=== PATIENT | female | born 1955 | race Caucasian/White ===

== ENCOUNTER 2016-09-22 10:01 | Emergency (ER) | payer MEDICAID ==
[~2016-09-22] VITALS: Ht 165.1 cm; Wt 53.0 kg
[~2016-09-22 10:01] MED LIST: GABA300C3 PO; LORTA5 PO; METH750T2 PO; PROZ20CA11 PO; ULTR50TA PO; VIST50CA PO
[2016-09-22 10:02] VITALS: BP 112/58; PULSE 48; RESP 16; TEMP 97.8; O2SAT 98
[2016-09-22] MEDS ORDERED: SODIUM CHLOR 0.9% 1000 ML INJ 1,000 ML IV ONE (10:30)
[2016-09-22] MEDS ORDERED: TIZA4TAB PO (10:38)
[2016-09-22] MEDS ORDERED: TOPR25TA PO (10:38)
[2016-09-22] MEDS ORDERED: HYDR50TA94 PO (10:38)
[2016-09-22] MEDS ORDERED: APIX2.5T PO (10:38)
[2016-09-22] MEDS ORDERED: BUTR10DI T-DERMAL (10:40)
[2016-09-22] MEDS ORDERED: CLON0.5T PO (10:40)
[2016-09-22] MEDS ORDERED: HYDR-3288 PO (10:40)
[2016-09-22] MEDS ORDERED: GABA600T PO (10:40)
[2016-09-22] MEDS ORDERED: PROZ20CA11 PO (10:40)
--- NOTE | 2016-09-22 10:50 | PD ---
HPI Chief Complaint: General Weakness Time Seen by Provider: 10:21 Travel History International Travel<30 days: No Contact w/Intl Traveler<30days: No Traveled to known affect area: No History of Present Illness HPI Is a 61-year-old woman who presents to the emergency department complaining of weakness today. She was fasting for blood work this morning. She went and got the blood work, got some coffee and then went to go to the car but couldn't walk because she was too weak. She states that she had been feeling generally well. She does have a history of A. fib, is on Eliquis, and metoprolol. She took her medicines this morning. She is also on chronic opiates with both a Heron working patch, and pain pills she took. Blood pressure was low in the 40s. She's also had trouble with anemia and GI bleed in the past. She states she has intermittent dark stools which is unchanged. No chest pain. Review of systems is positive for chronic back pain, some chest pain as well. She is not unusual for her. History Past Medical History Narrative Medical Asthma A. fib, on Eliquis, metoprolol Lupus, rheumatoid arthritis Chronic back pain PNEUMOCCOCAL Vaccine (Year): 2 Menopausal: Yes : 2 Para: 2 Social History Alcohol Use: No Tobacco Use: Yes (1 pack per week) Allergies-Medications (Allergen,Severity, Reaction): Coded Allergies: Penicillin (Verified Allergy, Severe, Anaphylaxis, 09/22/16) Molds and Smuts (Unverified Allergy, Unknown, 09/22/16) Reported Meds & Prescriptions Reported Meds & Active Scripts Active Reported Gabapentin 600 Mg Tab 600 Mg PO TID Clonazepam 0.5 Mg Tab 0.5 Mg PO BID [place] (Hydrocodone-Acetaminophen) 7.5-325 mg Tab 1 Tab PO TID PRN Butrans Patch 168 HR (Buprenorphine Patch 168 HR) 10 Mcg/Hr Patch 1 Patch T- DERMAL Q7D Prozac (Fluoxetine HCl) 20 Mg Cap 20 Mg PO DAILY Hydroxyzine HCl 50 Mg Tab 50 Mg PO TID PRN Tizanidine (Tizanidine HCl) 4 Mg Tab 4 Mg PO BID Toprol XL (Metoprolol Succinate) 25 Mg Tab 25 Mg PO Q12HR Eliquis (Apixaban) 2.5 Mg Tab 2.5 Mg PO BID Review of Systems Except as stated in HPI: all other systems reviewed are Neg Physical Exam Narrative GENERAL: Well-appearing 61 year-old woman, no acute distress. Eyes: Conjunctiva are little bit pale. SKIN: Warm and dry. HEAD: Atraumatic. Normocephalic. CARDIOVASCULAR: Regular rate and rhythm. No murmur appreciated. RESPIRATORY: No accessory muscle use. Clear to auscultation. Breath sounds equal bilaterally. GASTROINTESTINAL: Abdomen soft, non-tender, nondistended. Hepatic and splenic margins not palpable. MUSCULOSKELETAL: No obvious deformities. No clubbing. No cyanosis. No edema. NEUROLOGICAL: Awake and alert. No obvious cranial nerve deficits. Motor grossly within normal limits. Normal speech. No facial asymmetry. No nystagmus. PSYCHIATRIC: Appropriate mood and affect; insight and judgment normal. Data Data Last Documented VS Vital Signs Date Time Temp Pulse Resp B/P Pulse Ox O2 Delivery O2 Flow Rate FiO2 09/22/16 10:02 97.8 48 16 112/58 98 Orders Complete Blood Count With Diff (09/22/16 10:21) Comprehensive Metabolic Panel (09/22/16 10:21) Troponin I (09/22/16 10:21) Iv Access Insert/Monitor (09/22/16 10:21) Electrocardiogram (09/22/16 ) Sodium Chlor 0.9% 1000 Ml Inj (Ns 1000 M (09/22/16 10:30) Consult Vascular Access Team (09/22/16 ) Vascular Poc Ultrasound (09/22/16 ) Labs Laboratory Tests Test 09/22/16 09/22/16 10:47 11:52 Sodium Level 135 MEQ/L Potassium Level 5.9 MEQ/L Chloride Level 98 MEQ/L Carbon Dioxide Level 29.6 MEQ/L Anion Gap 7 MEQ/L Blood Urea Nitrogen 11 MG/DL Creatinine 0.98 MG/DL Estimat Glomerular Filtration 58 ML/MIN Rate Random Glucose 92 MG/DL Calcium Level 8.8 MG/DL Total Bilirubin 0.4 MG/DL Aspartate Amino Transf 59 U/L (AST/SGOT) Alanine Aminotransferase 28 U/L (ALT/SGPT) Alkaline Phosphatase 125 U/L Troponin I LESS THAN 0.02 NG/ML Total Protein 7.6 GM/DL Albumin 3.4 GM/DL White Blood Count 4.1 TH/MM3 Red Blood Count 4.36 MIL/MM3 Hemoglobin 9.9 GM/DL Hematocrit 30.9 % Mean Corpuscular Volume 70.9 FL Mean Corpuscular Hemoglobin 22.6 PG Mean Corpuscular Hemoglobin 31.9 % Concent Red Cell Distribution Width 18.2 % Platelet Count 126 TH/MM3 Mean Platelet Volume 7.3 FL Neutrophils (%) (Auto) 43.0 % Lymphocytes (%) (Auto) 46.4 % Monocytes (%) (Auto) 7.8 % Eosinophils (%) (Auto) 1.4 % Basophils (%) (Auto) 1.4 % Neutrophils # (Auto) 1.8 TH/MM3 Lymphocytes # (Auto) 1.9 TH/MM3 Monocytes # (Auto) 0.3 TH/MM3 Eosinophils # (Auto) 0.1 TH/MM3 Basophils # (Auto) 0.1 TH/MM3 CBC Comment AUTO DIFF MDM Medical Decision Making Medical Screen Exam Complete: Yes Emergency Medical Condition: Yes Interpretation(s) My review of EKG: Sinus bradycardia rate of 47, occasional premature superventricular complexes, QTC is prolonged at 504, no definite evidence of acute ischemia. LABS: CBC remarkable for mild anemia, microcytic indices. CMP remarkable for mildly elevated potassium Troponin negative Differential Diagnosis Anemia, bradycardia, hypotension, orthostasis, adverse effect of medication, other Narrative Course Medical decision making INITIAL cause a 61 year-old woman presents emergency Department with generalized weakness. She is bradycardic with a heart rate in the 40s at that she took her metoprolol this morning. She's been fasting. She is on pain pills. She appears anemic. No recent change in her medications. We'll check labs, EKG, IV fluid bolus, reassess. FINAL: Patient feeling much improved. Asking for coffee. Recommend that she hold her metoprolol. Outpatient follow-up. Return for any worsening symptoms. Diagnosis Primary Impression: Near syncope Patient Instructions: General Instructions Additional Instructions: Drink plenty fluids and stay well-hydrated. Hold your metoprolol until you follow up with her primary doctor. Return to the emergency department for any worsening lightheadedness dizziness fainting or any other new or worsening symptoms. Med/Other Pt SpecificInfo: Prescription(s) given Disposition: DISCHARGE HOME Condition: Stable Jame Mathews MD Sep 22, 2016 10:50
[2016-09-22 11:47] LABS: ALKALINE PHOSPHATASE 125 U/L (45-117); ALT (GPT) 28 U/L (10-53); ANION GAP 7 MEQ/L (5-15); AST (GOT) 59 U/L (15-37); BICARBONATE 29.6 MEQ/L (21.0-32.0); BLOOD UREA NITROGEN 11 MG/DL (7-18); CHLORIDE 98 MEQ/L (98-107); GLOMERULAR FILTRATION RATE 58 ML/MIN (>89); SODIUM (NA) 135 MEQ/L (136-145); TOTAL BILIRUBIN ADULT 0.4 MG/DL (0.2-1.0)
[2016-09-22 11:48] LABS: POTASSIUM 5.9 MEQ/L (3.5-5.1)
[2016-09-22 12:00] VITALS: BP 136/65; PULSE 48; RESP 16; O2SAT 97
[2016-09-22 12:00] LABS: AUTOMATED NEUTROPHIL # 1.8 TH/MM3 (1.8-7.7); BASOPHIL # 0.1 TH/MM3 (0-0.2); BASOPHIL % 1.4 % (0.0-2.0); EOSINOPHIL # 0.1 TH/MM3 (0-0.4); EOSINOPHIL % 1.4 % (0.0-4.0); HEMATOCRIT 30.9 % (35.0-46.0); LYMPH % 46.4 % (9.0-44.0); LYMPHOCYTE # 1.9 TH/MM3 (1.0-4.8); MEAN CELL VOLUME 70.9 FL (80.0-100.0); MEAN CORPUSCULAR HEMOGLOBIN 22.6 PG (27.0-34.0); MEAN CORPUSCULAR HGB CONC 31.9 % (32.0-36.0); MONO % 7.8 % (0.0-8.0); PLATELET COUNT 126 TH/MM3 (150-450); RED BLOOD COUNT 4.36 MIL/MM3 (4.00-5.30); RED CELL DISTRIBUTION WIDTH 18.2 % (11.6-17.2); WHITE BLOOD COUNT 4.1 TH/MM3 (4.0-11.0)
[2016-09-22 12:02] LABS: HEMO FLAGS AUTO DIFF
[2016-09-22 12:41] LABS: PLATELET ESTIMATE SMEAR LOW (NORMAL); PLATELET MORPHOLOGY NORMAL (NORMAL); SCAN/DIFF AUTO DIFF CONFIRMED
[2016-09-22 13:00] VITALS: BP 135/66; PULSE 52; RESP 16; O2SAT 98
--- NOTE | 2016-09-24 07:13 | EKG ---
Date Performed: 09/22/2016 Time Performed: 10:20:04 PTAGE: 61 years EKG: SINUS BRADYCARDIA WITH OCCASIONAL SUPRAVENTRICULAR PREMATURE COMPLEXES PROLONGED QT INTERVA L ABNORMAL ECG PREVIOUS TRACING : 08/27/2013 17.57 Compared to prior tracing no significant change sinus geovanna cardia is new DOCTOR: Lawrence Tatum Interpretating Date/Time 09/24/2016 07:10:06
== END 2016-09-22 15:00 | disposition home or self-care (01) ==
LOC: NEPE 10:01 → NEDAMB 15:00
DX: R55 Syncope and collapse (principal); D64.9 Anemia, unspecified; R00.1 Bradycardia, unspecified; R94.31 Abnormal electrocardiogram [ECG] [EKG]; I48.91 Unspecified atrial fibrillation; Z79.01 Long term (current) use of anticoagulants; Z79.899 Other long term (current) drug therapy; Z72.0 Tobacco use; Z86.2 Personal history of diseases of the blood and blood-forming organs and certain disorders involving the immune mechanism; Z87.19 Personal history of other diseases of the digestive system; Z87.09 Personal history of other diseases of the respiratory system; Z87.39 Personal history of other diseases of the musculoskeletal system and connective tissue
CPT/HCPCS: 80053; 84484; 85025; 93005; 96360; 99285; J7030; 76937

== ENCOUNTER 2017-06-14 17:32 | Emergency (ER) | payer MEDICAID ==
[~2017-06-14] VITALS: Ht 165.1 cm; Wt 100.0 kg
[~2017-06-14 17:32] MED LIST changes: +APIX2.5T PO; +BUTR10DI T-DERMAL; +CLON0.5T PO; -GABA300C3 PO; +GABA600T PO; +HYDR-3288 PO; +HYDR50TA94 PO; -LORTA5 PO; -METH750T2 PO; +TIZA4TAB PO; +TOPR25TA PO; -ULTR50TA PO; -VIST50CA PO
[2017-06-14 17:41] VITALS: BP 119/63; PULSE 59; RESP 17; TEMP 97.9
[2017-06-14] MEDS ORDERED: TETANUS/DIPHTHERIA TOXOID ADULT 0.5 ML VIAL IM ONE (18:00)
[2017-06-14] MEDS ORDERED: LIDOCAINE HCL 1% 50 ML VIAL INFIL ONE (18:00)
[2017-06-14] MEDS ORDERED: MORPHINE SULFATE 4 MG/ML INJ IV PUSH ONE (18:00)
[2017-06-14] MEDS ORDERED: ONDANSETRON HCL 4 MG/2 ML VIAL IV PUSH ONE (18:00)
[2017-06-14 18:27] LABS: BASOPHIL # 0.1 TH/MM3 (0-0.2); BASOPHIL % 0.9 % (0.0-2.0); EOSINOPHIL # 0.1 TH/MM3 (0-0.4); HEMO FLAGS DIFF FINAL; LYMPH % 23.2 % (9.0-44.0); LYMPHOCYTE # 1.4 TH/MM3 (1.0-4.8); MEAN CELL VOLUME 72.1 FL (80.0-100.0); MEAN CORPUSCULAR HEMOGLOBIN 23.5 PG (27.0-34.0); MEAN CORPUSCULAR HGB CONC 32.6 % (32.0-36.0); MONO % 8.9 % (0.0-8.0); PLATELET COUNT 189 TH/MM3 (150-450); RED BLOOD COUNT 3.33 MIL/MM3 (4.00-5.30)
[2017-06-14 18:38] LABS: BICARBONATE 23.9 MEQ/L (21.0-32.0); MAGNESIUM 2.4 MG/DL (1.5-2.5); POTASSIUM 3.5 MEQ/L (3.5-5.1)
[2017-06-14 18:52] LABS: APTT (PATIENT) 25.6 SEC (24.3-30.1); INTERNATIONAL NORMALIZED RATIO 1.1 RATIO; PROTHROMBIN TIME - PATIENT 11.8 SEC (9.8-11.6)
--- NOTE | 2017-06-14 19:00 | RADRPT ---
EXAM DATE/TIME: 06/14/2017 18:04 [facility] COMPARISON: CHEST PA & LAT, August 27, 2013, 15:51. INDICATIONS : Chest pain after fall. MEDICAL HISTORY : Chronic obstructive pulmonary disease. Hiatal hernia. A-fib. SURGICAL HISTORY : ORIF left shoulder. ENCOUNTER: Initial ACUITY: 1 day PAIN SCORE: 4/10 LOCATION: Bilateral chest FINDINGS: There is mild haziness to the lung amato possibly mild degree of pulmonary edema without focal conso lidation. Heart and mediastinum are unremarkable for technique. Degenerative changes and hypertrophic changes are seen within the disc space and facets of the thoracic spine with thoracic scoliosis conv exity towards the right. There are postsurgical changes involving the left proximal humerus. No defin ite pneumothorax is seen for technique. CONCLUSION: Mild haziness of the lungs may represent mild case of pulmonary edema. Kai Krishnamurthy MD on June 14, 2017 at 18:56 Board Certified Radiologist. This report was verified electronically.
--- NOTE | 2017-06-14 19:02 | RADRPT ---
EXAM DATE/TIME: 06/14/2017 18:06 [facility] COMPARISON: ABDOMEN KUB ONLY, August 09, 2014, 10:17. INDICATIONS : Pelvic pain after fall today. Pain on left side. MEDICAL HISTORY : Chronic obstructive pulmonary disease. Hiatal hernia. A-fib. SURGICAL HISTORY : ORIF left shoulder. ENCOUNTER: Initial ACUITY: 1 day PAIN SCORE: 3/10 LOCATION: Pelvis. FINDINGS: No definite fractures, or dislocations are identified. No definite lytic or sclerotic lesion is seen . There is slight sclerosis of the right inferior pubic ramus may be due to old healed fracture. CONCLUSION: No definite fracture is seen for techniqueObi Krishnamurthy MD on June 14, 2017 at 18:59 Board Certified Radiologist. This report was verified electronically.
--- NOTE | 2017-06-14 19:03 | RADRPT ---
EXAM DATE/TIME: 06/14/2017 18:07 [facility] COMPARISON: No previous studies available for comparison. INDICATIONS : Left leg pain after fall. MEDICAL HISTORY : Chronic obstructive pulmonary disease. Hiatal hernia. A-fib. SURGICAL HISTORY : ORIF left shoulder. ENCOUNTER: Initial ACUITY: 1 day PAIN SCORE: 5/10 LOCATION: Left femur. FINDINGS: No definite fractures, or dislocations are identified. No definite lytic or sclerotic lesion is seen . Slight osteopenia is seen. There is a tiny joint effusion in the suprapatellar bursa. CONCLUSION: Slight osteopenia. Kai Krishnamurthy MD on June 14, 2017 at 19:00 Board Certified Radiologist. This report was verified electronically.
--- NOTE | 2017-06-14 19:39 | PD ---
HPI Chief Complaint: Head Injury Time Seen by Provider: 17:46 Travel History International Travel<30 days: No Contact w/Intl Traveler<30days: No Traveled to known affect area: No History of Present Illness HPI 61-year-old female that presents to the ED for evaluation of head injury. Per patient she reports that she has a chronic problem with balance. Patient has been falling multiple times in the past couple of weeks. She fell about 2 days ago and she suffered some bruises to her legs especially on the left hip. She does take liquids. Today she was opening a bottle of Sprite to take her medication when she lost her balance and fell and hit her head. She did not lose consciousness. She has a laceration to the forehead. Denies any arm pain. Since having some neck pain but also states having pain all over. Per patient she has chronic pain as well. She denies any numbness, tilling, weakness. No fevers chills or sweats. No shortness of breath. She does have a history of scoliosis. History of heart failure, history of ACS as well. Takes Eliquis this because of heart. She is unclear should have a lot of the nausea recently. She has a laceration to the forehead. She states that she is supposed to use a cane but she does not use this. She denies any LOC. She was brought here by ambulance for evaluation of this. PFSH Past Medical History Hx Anticoagulant Therapy: Yes (Eliquis) Anemia: Yes (CHRONIC ANEMIA) Arthritis: Yes (RHEUMATOID) Autoimmune Disease: Yes (LUPUS) Blood Disorders: Yes (CHRONIC ANEMIA) Anxiety: Yes Depression: Yes Cancer: No Cardiovascular Problems: Yes (A.fib) Diabetes: No Diminished Hearing: Yes (LT EAR) Endocrine: No Gastrointestinal Disorders: Yes (GI BLEED, GASTRIC ULCERS, N & V) Genitourinary: Yes (STATES HEMATURIA) Hepatitis: Yes (HEP C) Hiatal Hernia: Yes Hypertension: No Immune Disorder: Yes (RA, LUPUS) Implanted Vascular Access Dvce: No Medical other: Yes (ANEMIA) Musculoskeletal: Yes (SCOLIOSIS, ARTHRITIS, OSTEOPOROSIS) Neurologic: Yes (SEIZURE HX, NUMBNESS SCATTERED, MIGRAINES) Psychiatric: Yes (ANXIETY/ DEPRESSION) Reproductive: No Respiratory: Yes (COPD) Immunizations Current: Yes Migraines: Yes Thyroid Disease: No Ulcer: Yes (ONE IN STOMACH AND ONE IN COLON) Tetanus Vaccination: > 5 Years PNEUMOCCOCAL Vaccine (Year): 2 ?: Not Menopausal: Yes : 2 Para: 2 Tubal Ligation: Yes Past Surgical History AICD: No Body Medical Devices: HARDWARE LEFT SHOULDER, RIGHT WRIST, LEFT ELBOW Ear Surgery: No Eye Surgery: No Gynecologic Surgery: Yes (TUBAL SX) Joint Replacement: No Pacemaker: No Tonsillectomy: Yes Other Surgery: Yes (LEFT SHOULDER TIMES 2) Social History Alcohol Use: No Tobacco Use: Yes (5 to 6 cigs) Substance Use: No Allergies-Medications (Allergen,Severity, Reaction): Coded Allergies: penicillin G (Unverified Allergy, Severe, Anaphylaxis, 06/14/17) mold (Unverified Allergy, Unknown, 06/14/17) Reported Meds & Prescriptions Reported Meds & Active Scripts Active Reported Gabapentin 600 Mg Tab 600 Mg PO TID Clonazepam 0.5 Mg Tab 0.5 Mg PO BID [place] (Hydrocodone-Acetaminophen) 7.5-325 mg Tab 1 Tab PO TID PRN Butrans Patch 168 HR (Buprenorphine Patch 168 HR) 10 Mcg/Hr Patch 1 Patch T- DERMAL Q7D Prozac (Fluoxetine HCl) 20 Mg Cap 20 Mg PO DAILY Hydroxyzine HCl 50 Mg Tab 50 Mg PO TID PRN Tizanidine (Tizanidine HCl) 4 Mg Tab 4 Mg PO BID Toprol XL (Metoprolol Succinate) 25 Mg Tab 25 Mg PO Q12HR Eliquis (Apixaban) 2.5 Mg Tab 2.5 Mg PO BID Review of Systems Except as stated in HPI: all other systems reviewed are Neg Physical Exam Narrative GENERAL: SKIN: Warm and dry. Patient has a laceration on the forehead which is about 4 cm on the right forehead. Some bleeding noted. Patient does have an abrasion right next to the laceration. HEAD: Atraumatic. Normocephalic. EYES: Pupils equal and round 4 mm reactive to light and accommodation. No scleral icterus. No injection or drainage. ENT: No nasal bleeding or discharge. Mucous membranes pink and moist. Tongue is midline. No uvula deviation. NECK: Trachea midline. No JVD. CARDIOVASCULAR: Regular rate and rhythm. No murmurs, S3, S4. RESPIRATORY: No accessory muscle use. Clear to auscultation. Breath sounds equal bilaterally. GASTROINTESTINAL: Abdomen soft, non-tender, nondistended. Hepatic and splenic margins not palpable. MUSCULOSKELETAL: Extremities without clubbing, cyanosis, or edema. No obvious deformities. Full range of motion of the upper and lower extremities bilaterally. 2+ pulses bilaterally. Patient has significant bruising noted throughout the body but more noticeable on the left femur area. Hematoma noted. No obvious lumbar, thoracic, cervical spine tenderness to palpation but patient does have scoliosis noted. Kyphosis noted as well. NEUROLOGICAL: Awake and alert. No obvious cranial nerve deficits. Motor grossly within normal limits. Five out of 5 muscle strength in the arms and legs. Normal speech. PSYCHIATRIC: Appropriate mood and affect; insight and judgment normal. Data Data Last Documented VS Vital Signs Date Time Temp Pulse Resp B/P (MAP) Pulse Ox O2 Delivery O2 Flow Rate FiO2 06/14/17 17:41 97.9 59 17 119/63 (81) Orders Orders Complete Blood Count With Diff (06/14/17 17:50) Basic Metabolic Panel (Bmp) (06/14/17 17:50) B-Type Natriuretic Peptide (06/14/17 17:50) Prothrombin Time / Inr (Pt) (06/14/17 17:50) Act Partial Throm Time (Ptt) (06/14/17 17:50) Magnesium (Mg) (06/14/17 17:50) Thyroid Stimulating Hormone (06/14/17 17:50) Chest, Single Ap (06/14/17 17:50) Ct Brain W/O Iv Contrast(Rout) (06/14/17 17:50) Iv Access Insert/Monitor (06/14/17 17:50) Type And Screen (06/14/17 17:50) Ct Cerv Spine W/O Contrast (06/14/17 17:50) Pelvis, Ap Only (Routine) (06/14/17 17:50) Femur (Ap & Lat/2vws) (06/14/17 17:50) Ice/Cold Pack (06/14/17 17:50) Morphine Inj (Morphine Inj) (06/14/17 18:00) Ondansetron Inj (Zofran Inj) (06/14/17 18:00) Wound Care (06/14/17 17:50) Tetanus/Diphtheria Tox Adult (Tetanus/Di (06/14/17 18:00) Lidocaine 1% Inj (50 Ml) (Xylocaine 1% I (06/14/17 18:00) Ct Abd/Pel W/O Iv Contrast (06/14/17 ) Ct Thorax/ Chest Wo Iv Contras (06/14/17 ) Ed Discharge Order (06/14/17 21:05) Labs Laboratory Tests Test 06/14/17 18:00 White Blood Count 6.0 TH/MM3 Red Blood Count 3.33 MIL/MM3 Hemoglobin 7.8 GM/DL Hematocrit 24.0 % Mean Corpuscular Volume 72.1 FL Mean Corpuscular Hemoglobin 23.5 PG Mean Corpuscular Hemoglobin Concent 32.6 % Red Cell Distribution Width 18.0 % Platelet Count 189 TH/MM3 Mean Platelet Volume 7.8 FL Neutrophils (%) (Auto) 66.0 % Lymphocytes (%) (Auto) 23.2 % Monocytes (%) (Auto) 8.9 % Eosinophils (%) (Auto) 1.0 % Basophils (%) (Auto) 0.9 % Neutrophils # (Auto) 4.0 TH/MM3 Lymphocytes # (Auto) 1.4 TH/MM3 Monocytes # (Auto) 0.5 TH/MM3 Eosinophils # (Auto) 0.1 TH/MM3 Basophils # (Auto) 0.1 TH/MM3 CBC Comment DIFF FINAL Differential Comment Prothrombin Time 11.8 SEC Prothromb Time International Ratio 1.1 RATIO Activated Partial Thromboplast Time 25.6 SEC Blood Urea Nitrogen 30 MG/DL Creatinine 1.79 MG/DL Random Glucose 122 MG/DL Calcium Level 8.6 MG/DL Magnesium Level 2.4 MG/DL Sodium Level 135 MEQ/L Potassium Level 3.5 MEQ/L Chloride Level 103 MEQ/L Carbon Dioxide Level 23.9 MEQ/L Anion Gap 8 MEQ/L Estimat Glomerular Filtration Rate 29 ML/MIN B-Type Natriuretic Peptide 220 PG/ML Thyroid Stimulating Hormone 3rd Gen 3.620 uIU/ML MDM Medical Decision Making Medical Screen Exam Complete: Yes Emergency Medical Condition: Yes Medical Record Reviewed: Yes Interpretation(s) CBC & BMP Diagram 06/14/17 18:00 Calcium Level 8.6, Magnesium Level 2.4 Coags WNL BNP in the 200s Last Impressions Pelvis X-Ray 06/14/17 1750 Signed Impressions: Service Date/Time: Wednesday, June 14, 2017 18:06 - CONCLUSION: No definite fracture is seen for technique. Kai Krishnamurthy, MD Head CT 06/14/171749 Signed Impressions: Service Date/Time: Wednesday, June 14, 2017 19:34 - CONCLUSION: Unremarkable study except for scalp swelling. Kai Krishnamurthy MD Femur X-Ray 06/14/171749 Signed Impressions: Service Date/Time: Wednesday, June 14, 2017 18:07 - CONCLUSION: Slight osteopenia. Kai Krishnamurthy MD Chest X-Ray 06/14/171749 Signed Impressions: Service Date/Time: Wednesday, June 14, 2017 18:04 - CONCLUSION: Mild haziness of the lungs may represent mild case of pulmonary edema. Kai Krishnamurthy MD Cervical Spine CT 06/14/171749 Signed Impressions: Service Date/Time: Wednesday, June 14, 2017 19:34 - CONCLUSION: Chronic changes without any significant compromise to the thecal sac or the exiting nerve roots. Kai Krishnamurthy MD Chest CT 06/14/17 Signed Impressions: Service Date/Time: Wednesday, June 14, 2017 19:39 - CONCLUSION: Parenchyma changes upper lobe could be due to scar and/or contusions, repeat noncontrast chest CT is suggested in 2 months as a conservative follow up. Kai Krishnamurthy MD Abdomen/Pelvis CT 06/14/17 Signed Impressions: Service Date/Time: Wednesday, June 14, 2017 19:39 - CONCLUSION: Old fractures of right lower ribs and pubic rami, stool throughout the colon and otherwise unremarkable. Kai Krishnamurthy MD Differential Diagnosis Fall versus head injury versus bleed versus laceration versus versus abrasions versus contusions versus fractures Narrative Course 61-year-old female that presents to the ED for evaluation of fall. Patient was properly examined and was found to have signs and symptoms concerning for head injury. Patient does take blood thinners. Labs and imaging were ordered. Labs and imaging were essentially unremarkable other than for possible scarring versus contusion of the left upper lung. Patient was reassured. After explained procedure to the patient and she agreed to it laceration was repaired. Patient was told that she needs to follow with her doctor for further evaluation. Especially to get a head CT in 2 months to recheck the possible scar versus contusion. Patient agrees. See ED worsening symptoms. Follow with PCP. Procedures Procedure Narrative LACERATION LOCATION: right forehead LENGTH: 4 cm NUMBER OF STITCHES/INES: 9 sutures REPAIR: The area of the laceration was prepped with Betadine and sterilely draped. The laceration was infiltrated with 1% Xylocaine. The wound was copiously irrigated and explored without evidence of foreign body, tendon injury or neurovascular injury. The wound was closed using 4-0 Prolene. This was a 1 layer repair. A sterile dressing was applied. The patient was advised to keep the dressing clean and dry. Patient tolerated the procedure well. Diagnosis Primary Impression: Head injury Qualified Codes: S09.90XA - Unspecified injury of head, initial encounter Additional Impressions: Laceration of face Qualified Codes: S01.81XA - Laceration without foreign body of other part of head, initial encounter Multiple contusions Contusion of lung Qualified Codes: S27.321A - Contusion of lung, unilateral, initial encounter Patient Instructions: General Instructions, Narcotic given in the ED Additional Instructions: Wound care daily with soap and water. You can apply bandaid if needed. Neosporyn or OTC antibiotic ointment to area as needed twice a day for at least 2 weeks to help with scarring and prevent infection. Meoderma OTC for scarring if needed. Avoid sun exposure for 2 months as the sun could make scar darker and more noticeable. Get sutures removed in 5-7 days. See ED if worst. Take Motrin for pain. Follow with her PCP. See ED worsening symptoms. Always use your cane to get about. Med/Other Pt SpecificInfo: Prescription(s) given Disposition: 01 DISCHARGE HOME Condition: Stable Tiburcio Thacker Jun 14, 2017 19:39
--- NOTE | 2017-06-14 19:59 | RADRPT ---
EXAM DATE/TIME: 06/14/2017 19:34 [facility] COMPARISON: CT BRAIN W/O CONTRAST, August 27, 2013, 16:35. INDICATIONS : Trauma. Fall. Contusion to right forehead. RADIATION DOSE: 46.53 CTDIvol (mGy) MEDICAL HISTORY : Seizures. Chronic obstructive pulmonary disease. Hepatitis C.Hiatal hernia SURGICAL HISTORY : Tubal ligation. ENCOUNTER: Initial ACUITY: 1 day PAIN SCALE: 5/10 LOCATION: Right cranial TECHNIQUE: Multiple contiguous axial images were obtained of the head. Using automated exposure control and adj ustment of the mA and/or kV according to patient size, radiation dose was kept as low as reasonably a chievable to obtain optimal diagnostic quality images. DICOM format image data is available electro nically for review and comparison. FINDINGS: There is no evidence for intracranial hemorrhage, mass effect, mass lesions, edema, or extra-axial fl uid collections. The visualized bony structures appear intact. The ventricles are normal size for t he patient's age. There are no signs of acute infarction for technique. There is scalp swelling in t he frontal regions with tiny gas bubbles in the subcutaneous tissue with mild mucoperiosteal thickeni ng within multiple sinuses. CONCLUSION: Unremarkable study except for scalp swelling. Kai Krishnamurthy MD on June 14, 2017 at 19:56 Board Certified Radiologist. This report was verified electronically.
--- NOTE | 2017-06-14 20:05 | RADRPT ---
EXAM DATE/TIME: 06/14/2017 19:39 [facility] COMPARISON: No previous studies available for comparison. INDICATIONS : Trauma. Fall. RADIATION DOSE: 14.48 CTDIvol (mGy) ; Combined studies - Thorax/Abdomen/Pelvis MEDICAL HISTORY : Seizures. Chronic obstructive pulmonary disease. Hepatitis C. Hiatal hernia SURGICAL HISTORY : Tubal ligation. ENCOUNTER: Initial ACUITY: 1 day PAIN SCALE: 0/10 LOCATION: chest TECHNIQUE: Volumetric scanning of the chest was performed. Using automated exposure control and adjustment of t he mA and/or kV according to patient size, radiation dose was kept as low as reasonably achievable to obtain optimal diagnostic quality images. DICOM format image data is available electronically for r eview and comparison. Follow-up recommendations for detected pulmonary nodules are based at a minimum on nodule size and pa tient risk factors according to Fleischner Society Guidelines. FINDINGS: There are old fractures of right 11th and 12th ribs. No definite pneumothorax is seen for techni que. Thoracic scoliosis is seen convexity towards the right. Degenerative changes and hypertrophic ch anges are seen within the disc space and facets of the thoracic spine. There are parenchymal changes in bilateral upper lobes may be chronic scarring versus contusion and/or follow up is suggested. The mediastinum is grossly intact for technique. CONCLUSION: Parenchyma changes upper lobe could be due to scar and/or contusions, repeat noncontrast chest CT is suggested in 2 months as a conservative follow up. Kai Krishnamurthy MD on June 14, 2017 at 19:58 Board Certified Radiologist. This report was verified electronically.
--- NOTE | 2017-06-14 20:15 | RADRPT ---
EXAM DATE/TIME: 06/14/2017 19:39 [facility] COMPARISON: No previous studies available for comparison. INDICATIONS : Trauma. Fall. ORAL CONTRAST: No oral contrast ingested. RADIATION DOSE: 14.48 CTDIvol (mGy) ; Combined studies - Thorax/Abdomen/Pelvis MEDICAL HISTORY : Seizures. Chronic obstructive pulmonary disease. Hepatitis C.Hiatal hernia SURGICAL HISTORY : Tubal ligation. ENCOUNTER: Initial ACUITY: 1 day PAIN SCALE: 0/10 LOCATION: abdomen TECHNIQUE: Volumetric scanning of the abdomen and pelvis was performed. Using automated exposure control and ad justment of the mA and/or kV according to patient size, radiation dose was kept as low as reasonably achievable to obtain optimal diagnostic quality images. DICOM format image data is available electro nically for review and comparison. FINDINGS: CT Abdomen: The liver, spleen, pancreas, kidneys, adrenals are unremarkable. There is no evidence for any appreciable pathological adenopathy, free fluid, or bowel obstruction. There are old healed rib fractures in the right lower chest. CT pelvis: There is no evidence for mass, abscess formation, or any significant adenopathy within the pelvis. There are old fractures of right pubic rami. There is moderate amount of stool throughout th e colon. CONCLUSION: Old fractures of right lower ribs and pubic rami, stool throughout the colon and othe rwise unremarkable. Kai Krishnamurthy MD on June 14, 2017 at 20:09 Board Certified Radiologist. This report was verified electronically.
--- NOTE | 2017-06-14 20:21 | RADRPT ---
EXAM DATE/TIME: 06/14/2017 19:34 [facility] COMPARISON: CT BRAIN W/O CONTRAST, August 27, 2013, 16:35. INDICATIONS : Trauma. Fall. RADIATION DOSE: 40.12 CTDIvol (mGy) MEDICAL HISTORY : Seizures. Chronic obstructive pulmonary disease. Hepatitis C.Hiatal hernia SURGICAL HISTORY : Tubal ligation. ENCOUNTER: Initial ACUITY: 1 day PAIN SCALE: 5/10 LOCATION: neck TECHNIQUE: Volumetric scanning of the cervical spine was performed. Multiplanar reconstructions in the sagittal, coronal and oblique axial planes were performed. Using automated exposure control and adjustment o f the mA and/or kV according to patient size, radiation dose was kept as low as reasonably achievable to obtain optimal diagnostic quality images. DICOM format image data is available electronically f or review and comparison. FINDINGS: No evidence of subluxation. No definite fracture is seen for technique. There are benign appeari ng lucencies involving the occipital bones may be prominent venous lakes not changed since the prior CT head from 2013. C2-C3: Mild central disc protrusion is present without any significant compromise to the thecal sac or the e xiting nerve roots. C3-C4: Slight degenerative changes are seen within the disc space and facets. Mild central disc protrusion i s present without any significant compromise to the thecal sac or the exiting nerve roots. C4-C5: There is no evidence for any significant compromise to the thecal sac, or the exiting nerve roots. N o appreciable thecal sac stenosis is seen. The neural foramina and lateral recess appear patent bila terally. C5-C6: Slight degenerative changes are seen within the disc space and facets. Slight bulging disc and hypert rophic changes are seen with indentation on the thecal sac and no significant compromise to the theca l sac or the exiting nerve roots. C6-C7: Slight degenerative changes are seen within the disc space and facets. There is no evidence for any s ignificant compromise to the thecal sac, or the exiting nerve roots. No appreciable thecal sac steno sis is seen. The neural foramina and lateral recess appear patent bilaterally. There is subchondral cystic formation involving superior endplate of C7 and inferior endplate of C6 chronic in nature. C7-T1: There is no evidence for any significant compromise to the thecal sac, or the exiting nerve roots. N o appreciable thecal sac stenosis is seen. The neural foramina and lateral recess appear patent bila terally. CONCLUSION: Chronic changes without any significant compromise to the thecal sac or the exiting n erve roots. Kai Krishnamurthy MD on June 14, 2017 at 20:15 Board Certified Radiologist. This report was verified electronically.
[2017-06-14] MEDS ORDERED: MORPHINE SULFATE 4 MG/ML INJ IM ONE (21:30)
[2017-06-14] MEDS ORDERED: GETGO ROLLING W1 MI1 ×3 (21:39→21:41)
[2017-06-14] MEDS ORDERED: CANE/WOOD/LADIE1 MI1 ×3 (21:39→21:41)
[2017-06-14] MEDS: ACETAMINOPHEN/HYDROcodone 325 MG/5 MG TAB PO ONE ×2 (21:45→23:42)
[2017-06-14 22:10] VITALS: BP 117/68; PULSE 78; RESP 16; O2SAT 97
[2017-06-15] MEDS ORDERED: ACETAMINOPHEN/HYDROcodone 325 MG/5 MG TAB PO ONE (08:15)
[2017-06-15 08:53] VITALS: BP 115/72; PULSE 74; RESP 15; O2SAT 98
--- NOTE | 2017-06-15 21:28 | EKG ---
Date Performed: 06/14/2017 Time Performed: 20:26:20 PTAGE: 61 years EKG: SINUS BRADYCARDIA WITH FIRST DEGREE AV BLOCK NONSPECIFIC T-WAVE ABNORMALITY ABNORMAL ECG PREVIOUS TRACING : 09/22/2016 10.20 Compared to the previous tracing rate faster DOCTOR: Amara Costa Interpretating Date/Time 06/15/2017 21:26:44
== END 2017-06-15 09:18 | disposition home or self-care (01) ==
LOC: NEPE 17:32 → NEPD 06-15 09:18
DX: S09.90XA Unspecified injury of head, initial encounter (principal); S27.321A Contusion of lung, unilateral, initial encounter; S01.81XA Laceration without foreign body of other part of head, initial encounter; M54.2 Cervicalgia; G89.29 Other chronic pain; I44.0 Atrioventricular block, first degree; R94.31 Abnormal electrocardiogram [ECG] [EKG]; W18.30XA Fall on same level, unspecified, initial encounter; Z23 Encounter for immunization
CPT/HCPCS: 12013; 70450; 71010; 71250; 72125; 72170; 73552; 74176; 80048; 83735; 83880; 84443; 85025; 85610; 85730; 86850; 86900; 86901; 90471; 90714; 93005; 96374; 96375; 99285; J2270; J2405

== ENCOUNTER 2017-11-01 22:16 | Observation (INO) | payer MEDICAID ==
[~2017-11-01] VITALS: Ht 165.1 cm; Wt 51.4 kg
[~2017-11-01 22:16] MED LIST changes: +CANE/WOOD/LADIE1 MI1; +GETGO ROLLING W1 MI1
[2017-11-01] MEDS ORDERED: IOHEXOL 350 MG/ML 10 ML VIAL (for RAD DIAG) IVCONTRAST ONE (22:17)
[2017-11-01 22:28] VITALS: BP 193/93; PULSE 58; RESP 20; TEMP 98.3; O2SAT 96
[2017-11-01] MEDS ORDERED: SODIUM CHLORIDE 0.9% FLUSH 10 ML FLUSH IVF PRN (23:00)
[2017-11-01 23:21] VITALS: O2SAT 96
--- NOTE | 2017-11-01 23:50 | RADRPT ---
EXAM DATE/TIME: 11/01/2017 23:08 [facility] COMPARISON: CHEST SINGLE AP, June 14, 2017, 18:04. INDICATIONS : Chest pain. MEDICAL HISTORY : None. SURGICAL HISTORY : None. ENCOUNTER: Initial ACUITY: 1 day PAIN SCORE: 5/10 LOCATION: Bilateral chest FINDINGS: PA and views of the chest show a top normal heart. Patchy interstitial prominence in the lungs bilate rally. No intralobular opacities. No effusions. A scoliotic and degenerative spine. Compression defor mity at the thoracolumbar junction. Diffuse osteoporosis. Left humeral orthopedic hardware. CONCLUSION: Chronic interstitial changes. No acute infiltrates. Antoine Talamantes Jr., MD on November 01, 2017 at 23:47 Board Certified Radiologist. This report was verified electronically.
[2017-11-02] VITALS (10 sets, daily range): BP systolic 150–192; BP diastolic 71–97; PULSE 58–86; RESP 14–20; TEMP 96.4–99.2; O2SAT 97–100
[2017-11-02 00:43] LABS: AUTOMATED NEUTROPHIL # 4.9 TH/MM3 (1.8-7.7); BASOPHIL # 0.1 TH/MM3 (0-0.2); BASOPHIL % 2.3 % (0.0-2.0); EOSINOPHIL % 0.7 % (0.0-4.0); HEMATOCRIT 25.1 % (35.0-46.0); HEMOGLOBIN 8.3 GM/DL (11.6-15.3); LYMPH % 19.8 % (9.0-44.0); LYMPHOCYTE # 1.2 TH/MM3 (1.0-4.8); MEAN CELL VOLUME 68.9 FL (80.0-100.0); MEAN CORPUSCULAR HEMOGLOBIN 22.7 PG (27.0-34.0); MEAN CORPUSCULAR HGB CONC 32.9 % (32.0-36.0); MEAN PLATELET VOLUME 7.6 FL (7.0-11.0); MONO % 2.2 % (0.0-8.0); MONOCYTE # 0.1 TH/MM3 (0-0.9); PLATELET COUNT 207 TH/MM3 (150-450); RED BLOOD COUNT 3.64 MIL/MM3 (4.00-5.30); WHITE BLOOD COUNT 6.3 TH/MM3 (4.0-11.0)
--- NOTE | 2017-11-02 00:43 | PD ---
HPI Chief Complaint: Abdominal Pain Time Seen by Provider: 22:54 Travel History International Travel<30 days: No Contact w/Intl Traveler<30days: No Traveled to known affect area: No History of Present Illness HPI Patient 62-year-old female presents emergency department chiefly for complaint of shortness of breath. Patient states his shortness of breath is been going on for the past 2-3 days and gradually worsening. She also complains of some cramping abdominal pain which she states is been going on for the past few months. She states she has a history of hepatitis. No history of heart or lung disease, she states she had a stress test a few weeks ago, no history of cardiac catheterization. No history of long trips. No history of blood clots in her legs or her chest before. States symptoms are moderate, gradually worsening, context and associated signs and symptoms as above PFSH Past Medical History Hx Anticoagulant Therapy: Yes (Eliquis) Anemia: Yes (CHRONIC ANEMIA) Arthritis: Yes (RHEUMATOID) Autoimmune Disease: Yes (LUPUS) Blood Disorders: Yes (CHRONIC ANEMIA) Anxiety: Yes Depression: Yes Cancer: No Cardiovascular Problems: Yes (A-FIB) Diabetes: No Diminished Hearing: Yes (LT EAR) Endocrine: No Gastrointestinal Disorders: Yes (GI BLEED, GASTRIC ULCERS, N & V) Genitourinary: Yes (STATES HEMATURIA) Hepatitis: Yes (HEP C) Hiatal Hernia: Yes Hypertension: No Immune Disorder: Yes (RA, LUPUS) Implanted Vascular Access Dvce: No Medical other: Yes (ANEMIA) Musculoskeletal: Yes (SCOLIOSIS, ARTHRITIS, OSTEOPOROSIS) Neurologic: Yes (SEIZURE HX, NUMBNESS SCATTERED, MIGRAINES) Psychiatric: Yes (ANXIETY/ DEPRESSION) Reproductive: No Respiratory: Yes (COPD) Immunizations Current: Yes Migraines: Yes Thyroid Disease: No Ulcer: Yes (ONE IN STOMACH AND ONE IN COLON) Influenza Vaccination: No PNEUMOCCOCAL Vaccine (Year): 2 Menopausal: Yes : 2 Para: 2 Tubal Ligation: Yes Past Surgical History AICD: No Body Medical Devices: HARDWARE LEFT SHOULDER, RIGHT WRIST, LEFT ELBOW Ear Surgery: No Eye Surgery: No Gynecologic Surgery: Yes (TUBAL SX) Joint Replacement: No Pacemaker: No Tonsillectomy: Yes Other Surgery: Yes (LEFT SHOULDER TIMES 2) Social History Alcohol Use: No Tobacco Use: Yes (5 to 6 cigs) Substance Use: No Allergies-Medications (Allergen,Severity, Reaction): Coded Allergies: penicillin G (Unverified Allergy, Severe, Anaphylaxis, 06/14/17) mold (Unverified Allergy, Unknown, 06/14/17) Reported Meds & Prescriptions Reported Meds & Active Scripts Active Cane/Wood/Ladies Standard (Device) 1 Mis Mis Ea .ROUTE DIRECTED Walker Rolling/GetGo (Device) 1 Mis Mis Ea .ROUTE DIRECTED Reported Baclofen 10 Mg Tab 10 Mg PO TID Hydrocodone-Acetaminophen 10-325 mg Tab 1 Tab PO Q6H PRN Gabapentin 600 Mg Tab 600 Mg PO TID Clonazepam 0.5 Mg Tab 0.5 Mg PO BID Prozac (Fluoxetine HCl) 20 Mg Cap 20 Mg PO DAILY Hydroxyzine HCl 50 Mg Tab 50 Mg PO TID PRN Tizanidine (Tizanidine HCl) 4 Mg Tab 4 Mg PO BID Toprol XL (Metoprolol Succinate) 25 Mg Tab 25 Mg PO Q12HR Review of Systems Except as stated in HPI: all other systems reviewed are Neg Physical Exam Narrative GENERAL: Well-developed, frail-appearing in no obvious distress. Obviously kyphotic. SKIN: Focused skin assessment warm/dry. HEAD: Atraumatic. Normocephalic. EYES: Pupils equal and round. No scleral icterus. No injection or drainage. ENT: No nasal bleeding or discharge. Mucous membranes pink and moist. NECK: Trachea midline. No JVD. CARDIOVASCULAR: Regular rate and rhythm. No murmur appreciated. RESPIRATORY: No accessory muscle use. Left basilar rales. Breath sounds equal bilaterally. Good air entry, not tachycardic not tachypneic peer GASTROINTESTINAL: Abdomen soft, non-tender, nondistended. Hepatic and splenic margins not palpable. MUSCULOSKELETAL: No obvious deformities. No clubbing. No cyanosis. No edema. NEUROLOGICAL: Awake and alert. No obvious cranial nerve deficits. Motor grossly within normal limits. Normal speech. PSYCHIATRIC: Appropriate mood and affect; insight and judgment normal. Data Data Last Documented VS Vital Signs Date Time Temp Pulse Resp B/P (MAP) Pulse Ox O2 Delivery O2 Flow Rate FiO2 11/02/17 00:45 86 175/89 (117) 11/01/17 23:21 96 Room Air 11/01/17 22:46 20 11/01/17 22:28 98.3 Orders Orders Electrocardiogram (11/01/17 22:58) B-Type Natriuretic Peptide (11/01/17 22:58) Ckmb (Isoenzyme) Profile (11/01/17 22:58) Complete Blood Count With Diff (11/01/17 22:58) Comprehensive Metabolic Panel (11/01/17 22:58) Magnesium (Mg) (11/01/17 22:58) Prothrombin Time / Inr (Pt) (11/01/17 22:58) Act Partial Throm Time (Ptt) (11/01/17 22:58) Troponin I (11/01/17 22:58) Ecg Monitoring (11/01/17 22:58) Iv Access Insert/Monitor (11/01/17 22:58) Oximetry (11/01/17:58) Oxygen Administration (11/01/17:58) Sodium Chloride 0.9% Flush (Ns Flush) (11/01/17 23:00) Chest, Pa & Lat (11/01/17 22:58) Ct Pulmonary Angiogram (11/02/17 ) Urinalysis - C+S If Indicated (11/02/17 00:48) Cath For Specimen (11/02/17 00:48) CKMB (11/02/17 01:20) CKMB% (11/02/17 01:20) Iohexol 350 Inj (Omnipaque 350 Inj) (11/01/17 22:17) Furosemide Inj (Lasix Inj) (11/02/17 02:45) Place In Observation (11/02/17 ) Vital Signs (Adult) Q4H (11/02/17 02:52) Activity Oob With Assistance (11/02/17 02:52) Test Engineering Intern / Telemetry .CONTINUOUS (11/02/17 02:52) Sodium Chloride 0.9% Flush (Ns Flush) (11/02/17 03:00) Sodium Chloride 0.9% Flush (Ns Flush) (11/02/17 09:00) Basic Metabolic Panel (Bmp) (11/03/17 06:00) Complete Blood Count With Diff (11/03/17 06:00) Creatine Kinase (Cpk) (11/02/17 06:30) Creatine Kinase (Cpk) (11/02/17 12:30) Troponin I (11/02/17 06:30) Troponin I (11/02/17 12:30) Electrocardiogram (11/02/17 06:30) Electrocardiogram (11/02/17 12:30) Pt Request For Service (11/02/17 02:52) Case Management Consult (11/02/17 02:52) Naloxone Inj (Narcan Inj) (11/02/17 03:00) Admit Order (Ed Use Only) (11/02/17 ) Test Engineering Intern / Telemetry SCOOTER.Q8H (11/02/17 02:53) Activity Oob With Assistance (11/02/17 02:53) Notify Dr: Other (11/02/17 02:53) Labs Laboratory Tests Test 11/02/17 00:35 11/02/17 01:20 White Blood Count 6.3 TH/MM3 Red Blood Count 3.64 MIL/MM3 Hemoglobin 8.3 GM/DL Hematocrit 25.1 % Mean Corpuscular Volume 68.9 FL Mean Corpuscular Hemoglobin 22.7 PG Mean Corpuscular Hemoglobin Concent 32.9 % Red Cell Distribution Width 21.0 % Platelet Count 207 TH/MM3 Mean Platelet Volume 7.6 FL Neutrophils (%) (Auto) 75.0 % Lymphocytes (%) (Auto) 19.8 % Monocytes (%) (Auto) 2.2 % Eosinophils (%) (Auto) 0.7 % Basophils (%) (Auto) 2.3 % Neutrophils # (Auto) 4.9 TH/MM3 Lymphocytes # (Auto) 1.2 TH/MM3 Monocytes # (Auto) 0.1 TH/MM3 Eosinophils # (Auto) 0.0 TH/MM3 Basophils # (Auto) 0.1 TH/MM3 CBC Comment AUTO DIFF Differential Comment AUTO DIFF CONFIRMED Platelet Estimate NORMAL Platelet Morphology Comment NORMAL Prothrombin Time 10.9 SEC Prothromb Time International Ratio 1.1 RATIO Activated Partial Thromboplast Time 27.8 SEC B-Type Natriuretic Peptide 788 PG/ML Urine Collection Type CLEAN CATCH Urine Color YELLOW Urine Turbidity CLEAR Urine pH 5.0 Urine Specific [place] 1.015 Urine Protein NEG mg/dL Urine Glucose (UA) NEG mg/dL Urine Ketones NEG mg/dL Urine Occult Blood NEG Urine Nitrite NEG Urine Bilirubin NEG Urine Urobilinogen 0.2 MG/DL Urine Leukocyte Esterase NEG Urine Squamous Epithelial Cells 0-5 /hpf Microscopic Urinalysis Comment CULT NOT INDICATED Blood Urea Nitrogen 19 MG/DL Creatinine 0.65 MG/DL Random Glucose 89 MG/DL Total Protein 7.7 GM/DL Albumin 3.4 GM/DL Calcium Level 8.8 MG/DL Magnesium Level 2.3 MG/DL Alkaline Phosphatase 136 U/L Aspartate Amino Transf (AST/SGOT) 22 U/L Alanine Aminotransferase (ALT/SGPT) 12 U/L Total Bilirubin 0.2 MG/DL Sodium Level 138 MEQ/L Potassium Level 4.1 MEQ/L Chloride Level 106 MEQ/L Carbon Dioxide Level 24.4 MEQ/L Anion Gap 8 MEQ/L Estimat Glomerular Filtration Rate 93 ML/MIN Total Creatine Kinase 105 U/L Creatine Kinase MB 5.1 NG/ML Troponin I LESS THAN 0.02 NG/ML MDM Medical Decision Making Medical Screen Exam Complete: Yes Emergency Medical Condition: Yes Differential Diagnosis Pneumonia, PE, Acute abdomen unlikely. Narrative Course Patient room to the emergency department fairly frail elderly woman. Her primary symptom is SOB, cardiac workup and CT pulmonary embolism is been ordered. Discussed with Dr. Hurst at a 45 shift change. Benton Contreras MD Nov 02, 2017 00:43
[2017-11-02 00:58] LABS: INTERNATIONAL NORMALIZED RATIO 1.1 RATIO; PROTHROMBIN TIME - PATIENT 10.9 SEC (9.8-11.6)
[2017-11-02 01:36] LABS: BILIRUBIN, URINE NEG (NEG); BLOOD, URINE NEG (NEG); GLUCOSE,URINE NEG (NEG); KETONE, URINE NEG (NEG); NITRITE,URINE NEG (NEG); URINE COLOR YELLOW (YELLW/STRAW); URINE LEUKOCYTE ESTERASE NEG (NEG)
--- NOTE | 2017-11-02 01:40 | PD ---
Physical Exam Date Seen by Provider: Nov 02, 2017 Time Seen by Provider: 01:36 Narrative Accepted in transfer of care from Dr. Contreras Data Data Last Documented VS Vital Signs Date Time Temp Pulse Resp B/P (MAP) Pulse Ox O2 Delivery O2 Flow Rate FiO2 11/02/17 00:45 86 175/89 (117) 11/01/17 23:21 96 Room Air 11/01/17 22:46 20 11/01/17 22:28 98.3 Orders Orders Electrocardiogram (11/01/17 22:58) B-Type Natriuretic Peptide (11/01/17 22:58) Ckmb (Isoenzyme) Profile (11/01/17 22:58) Complete Blood Count With Diff (11/01/17 22:58) Comprehensive Metabolic Panel (11/01/17 22:58) Magnesium (Mg) (11/01/17 22:58) Prothrombin Time / Inr (Pt) (11/01/17 22:58) Act Partial Throm Time (Ptt) (11/01/17 22:58) Troponin I (11/01/17 22:58) Ecg Monitoring (11/01/17 22:58) Iv Access Insert/Monitor (11/01/17 22:58) Oximetry (11/01/17 22:58) Oxygen Administration (11/01/17 22:58) Sodium Chloride 0.9% Flush (Ns Flush) (11/01/17 23:00) Chest, Pa & Lat (11/01/17 22:58) Ct Pulmonary Angiogram (11/02/17 ) Urinalysis - C+S If Indicated (11/02/17 00:48) Cath For Specimen (11/02/17 00:48) CKMB (11/02/17 01:20) CKMB% (11/02/17 01:20) Iohexol 350 Inj (Omnipaque 350 Inj) (11/01/17 22:17) Furosemide Inj (Lasix Inj) (11/02/17 02:45) Place In Observation (11/02/17 ) Vital Signs (Adult) Q4H (11/02/17 02:52) Activity Oob With Assistance (11/02/17 02:52) Retail Presentation Specialist / Telemetry .CONTINUOUS (11/02/17 02:52) Diet Heart Healthy (3/14/18 Breakfast) Sodium Chloride 0.9% Flush (Ns Flush) (11/02/17 03:00) Sodium Chloride 0.9% Flush (Ns Flush) (11/02/17 09:00) Basic Metabolic Panel (Bmp) (11/03/17 06:00) Complete Blood Count With Diff (11/03/17 06:00) Creatine Kinase (Cpk) (11/02/17 06:30) Creatine Kinase (Cpk) (11/02/17 12:30) Troponin I (11/02/17 06:30) Troponin I (11/02/17 12:30) Electrocardiogram (11/02/17 06:30) Electrocardiogram (11/02/17 12:30) Pt Request For Service (11/02/17 02:52) Case Management Consult (11/02/17 02:52) Naloxone Inj (Narcan Inj) (11/02/17 03:00) Admit Order (Ed Use Only) (11/02/17 ) Retail Presentation Specialist / Telemetry SCOOTER.Q8H (11/02/17 02:53) Activity Oob With Assistance (11/02/17 02:53) Notify Dr: Other (11/02/17 02:53) Labs Laboratory Tests Test 11/02/17 00:35 11/02/17 01:20 White Blood Count 6.3 TH/MM3 Red Blood Count 3.64 MIL/MM3 Hemoglobin 8.3 GM/DL Hematocrit 25.1 % Mean Corpuscular Volume 68.9 FL Mean Corpuscular Hemoglobin 22.7 PG Mean Corpuscular Hemoglobin Concent 32.9 % Red Cell Distribution Width 21.0 % Platelet Count 207 TH/MM3 Mean Platelet Volume 7.6 FL Neutrophils (%) (Auto) 75.0 % Lymphocytes (%) (Auto) 19.8 % Monocytes (%) (Auto) 2.2 % Eosinophils (%) (Auto) 0.7 % Basophils (%) (Auto) 2.3 % Neutrophils # (Auto) 4.9 TH/MM3 Lymphocytes # (Auto) 1.2 TH/MM3 Monocytes # (Auto) 0.1 TH/MM3 Eosinophils # (Auto) 0.0 TH/MM3 Basophils # (Auto) 0.1 TH/MM3 CBC Comment AUTO DIFF Differential Comment AUTO DIFF CONFIRMED Platelet Estimate NORMAL Platelet Morphology Comment NORMAL Prothrombin Time 10.9 SEC Prothromb Time International Ratio 1.1 RATIO Activated Partial Thromboplast Time 27.8 SEC B-Type Natriuretic Peptide 788 PG/ML Urine Collection Type CLEAN CATCH Urine Color YELLOW Urine Turbidity CLEAR Urine pH 5.0 Urine Specific [place] 1.015 Urine Protein NEG mg/dL Urine Glucose (UA) NEG mg/dL Urine Ketones NEG mg/dL Urine Occult Blood NEG Urine Nitrite NEG Urine Bilirubin NEG Urine Urobilinogen 0.2 MG/DL Urine Leukocyte Esterase NEG Urine Squamous Epithelial Cells 0-5 /hpf Microscopic Urinalysis Comment CULT NOT INDICATED Blood Urea Nitrogen 19 MG/DL Creatinine 0.65 MG/DL Random Glucose 89 MG/DL Total Protein 7.7 GM/DL Albumin 3.4 GM/DL Calcium Level 8.8 MG/DL Magnesium Level 2.3 MG/DL Alkaline Phosphatase 136 U/L Aspartate Amino Transf (AST/SGOT) 22 U/L Alanine Aminotransferase (ALT/SGPT) 12 U/L Total Bilirubin 0.2 MG/DL Sodium Level 138 MEQ/L Potassium Level 4.1 MEQ/L Chloride Level 106 MEQ/L Carbon Dioxide Level 24.4 MEQ/L Anion Gap 8 MEQ/L Estimat Glomerular Filtration Rate 93 ML/MIN Total Creatine Kinase 105 U/L Creatine Kinase MB 5.1 NG/ML Troponin I LESS THAN 0.02 NG/ML [facility] Medical Record Reviewed: Yes Supervised Visit with HAYLIE: No Interpretation(s) Last Impressions CT Angiography 11/02/17 0000 Signed Impressions: Service Date/Time: Thursday, November 02, 2017 02:19 - CONCLUSION: 1. Study limited by breathing motion artifact. 2. Bilateral pulmonary infiltrates. 3. Tiny right effusion. 4. Cardiomegaly. 5. Age-indeterminate L1 compression deformity. Antoine Talamantes Jr., MD Chest X-Ray 11/01/17 2258 Signed Impressions: Service Date/Time: Wednesday, November 01, 2017 23:08 - CONCLUSION: Chronic interstitial changes. No acute infiltrates. Antoine Talamantes Jr., MD CBC & BMP Diagram 11/02/17 00:35 11/02/17 01:20 Total Protein 7.7, Albumin 3.4, Calcium Level 8.8, Magnesium Level 2.3, Alkaline Phosphatase 136 H, Aspartate Amino Transf (AST/SGOT) 22, Alanine Aminotransferase (ALT/SGPT) 12, Total Bilirubin 0.2 Vital Signs Date Time Temp Pulse Resp B/P (MAP) Pulse Ox O2 Delivery O2 Flow Rate FiO2 11/02/17 00:45 86 175/89 (117) 11/01/17 23:21 96 Room Air 11/01/17 23:21 96 Room Air 11/01/17 22:46 20 11/01/17 22:28 98.3 58 20 193/93 (126) 96 Differential Diagnosis Accepted in transfer of care from Dr. Contreras; please refer to his dictation Narrative Course Accepted in transfer of care from Dr. Contreras; for follow up of pending labs/ diagnostics Patient identified to have elevated CK-MB percent of 4.95 troponin I is less than 0.02 BMP is elevated at 788 patient given dose of Lasix 20 mg IV EKG sinus bradycardia with first-degree AV block ST segment flattening and inverted T waves inferiorly in 3 and aVF Patient resting comfortably CT pulmonary angiogram negative for PE discussed with [facility] MD --OBS Physician Communication Physician Communication discussed with [facility] ---OBS for serial enzymes, dyspnea Diagnosis Primary Impression: Dyspnea Qualified Codes: R06.02 - Shortness of breath Additional Impressions: Chest pain Compression fracture of L1 lumbar vertebra Admitting Information Admitting Physician Requests: Observation Mary Ann Hurst MD Nov 02, 2017 01:40
[2017-11-02 01:43] LABS: CHLORIDE 106 MEQ/L (98-107); SODIUM (NA) 138 MEQ/L (136-145)
[2017-11-02 01:44] LABS: SQUAMOUS EPITHELIAL CELL URINE 0-5 /hpf (0-5)
[2017-11-02 01:47] LABS: ALBUMIN 3.4 GM/DL (3.4-5.0); BICARBONATE 24.4 MEQ/L (21.0-32.0); BLOOD UREA NITROGEN 19 MG/DL (7-18); CALCIUM 8.8 MG/DL (8.5-10.1); GLUCOSE,RANDOM 89 MG/DL (74-106); MAGNESIUM 2.3 MG/DL (1.5-2.5)
[2017-11-02 01:50] LABS: ALT (GPT) 12 U/L (10-53); AST (GOT) 22 U/L (15-37)
[2017-11-02 01:51] LABS: CREATININE 0.65 MG/DL (0.50-1.00); GLOMERULAR FILTRATION RATE 93 ML/MIN (>89)
[2017-11-02 01:52] LABS: TOTAL BILIRUBIN ADULT 0.2 MG/DL (0.2-1.0); TOTAL PROTEIN 7.7 GM/DL (6.4-8.2)
[2017-11-02 01:53] LABS: ALKALINE PHOSPHATASE 136 U/L (45-117)
[2017-11-02 01:56] LABS: TROPONIN I LESS THAN 0.02 NG/ML (0.02-0.05)
[2017-11-02] MEDS ORDERED: FUROSEMIDE 20 MG/2 ML VIAL IV PUSH ONE (02:45)
--- NOTE | 2017-11-02 02:47 | RADRPT ---
EXAM DATE/TIME: 11/02/2017 02:19 [facility] COMPARISON: No previous studies available for comparison. INDICATIONS : Chest pain. IV CONTRAST: 70 cc Omnipaque 350 (iohexol) IV RADIATION DOSE: 9.51 CTDIvol (mGy) MEDICAL HISTORY : Cardiovascular disease. Chronic obstructive pulmonary disease. Hepatitis C.Seizures SURGICAL HISTORY : Tubal ligation. ENCOUNTER: Initial ACUITY: 1 day PAIN SCALE: 8/10 LOCATION: Bilateral chest TECHNIQUE: Volumetric scanning of the chest was performed using a pulmonary embolism protocol MIP images were re constructed. Using automated exposure control and adjustment of the mA and/or kV according to patien t size, radiation dose was kept as low as reasonably achievable to obtain optimal diagnostic quality images. DICOM format image data is available electronically for review and comparison. Follow-up recommendations for detected pulmonary nodules are based at a minimum on nodule size and pa tient risk factors according to Fleischner Society Guidelines. FINDINGS: Breathing motion artifact degrades the exam. PULMONARY ARTERIES: No filling defects are seen in the pulmonary arteries through the segmental level. LUNGS: Scattered groundglass infiltrates involving both upper lobes as well as the superior segments of both lower lobes. PLEURAE: Tiny right pleural effusion. No effusion on the left. MEDIASTINUM: The heart is large. Aorta is normal in caliber. No mass or adenopathy. MUSCULOSKELETAL: Pronounced scoliotic curvature. There is an L1 compression of formerly. MISCELLANEOUS: The visualized upper abdominal organs demonstrate no acute abnormality. CONCLUSION: 1. Study limited by breathing motion artifact. 2. Bilateral pulmonary infiltrates. 3. Tiny right effusion. 4. Cardiomegaly. 5. Age-indeterminate L1 compression deformity. Antoine Talamantes Jr., MD on November 02, 2017 at 2:42 Board Certified Radiologist. This report was verified electronically.
[2017-11-02] MEDS ORDERED: NALOXONE HCL 0.4 MG/ML AMP IV PUSH PRN (03:00)
[2017-11-02] MEDS ORDERED: SODIUM CHLORIDE 0.9% FLUSH 10 ML FLUSH IV FLUSH PRN (03:00)
[2017-11-02] MEDS ORDERED: HYDR-3583 PO (03:38)
[2017-11-02] MEDS ORDERED: BACL10TA PO (03:38)
[2017-11-02] MEDS ORDERED: ACETAMINOPHEN/HYDROcodone 325 MG/10 MG TAB PO ONE (06:15)
[2017-11-02 08:37] LABS: TROPONIN I 0.02 NG/ML (0.02-0.05)
[2017-11-02 08:44] LABS: CALCIUM 9.4 MG/DL (8.5-10.1)
[2017-11-02 08:45] LABS: BICARBONATE 27.6 MEQ/L (21.0-32.0)
[2017-11-02 08:48] LABS: CREATININE 0.72 MG/DL (0.50-1.00)
[2017-11-02 08:52] LABS: AUTOMATED NEUTROPHIL # 4.4 TH/MM3 (1.8-7.7); BASOPHIL % 0.3 % (0.0-2.0); EOSINOPHIL % 0.5 % (0.0-4.0); HEMATOCRIT 28.5 % (35.0-46.0); HEMOGLOBIN 8.8 GM/DL (11.6-15.3); LYMPH % 18.4 % (9.0-44.0); MEAN CELL VOLUME 68.9 FL (80.0-100.0); MEAN CORPUSCULAR HEMOGLOBIN 21.2 PG (27.0-34.0); MEAN CORPUSCULAR HGB CONC 30.7 % (32.0-36.0); MEAN PLATELET VOLUME 8.4 FL (7.0-11.0); MONOCYTE # 0.2 TH/MM3 (0-0.9); NEUT % 76.8 % (16.0-70.0); PLATELET COUNT 247 TH/MM3 (150-450); RED BLOOD COUNT 4.14 MIL/MM3 (4.00-5.30); RED CELL DISTRIBUTION WIDTH 21.1 % (11.6-17.2); WHITE BLOOD COUNT 5.6 TH/MM3 (4.0-11.0)
[2017-11-02] MEDS: SODIUM CHLORIDE 0.9% FLUSH 10 ML FLUSH IV FLUSH SCH ×2 (09:00→21:25)
[2017-11-02] MEDS ORDERED: POTASSIUM CHLORIDE 20 MEQ CONTROLLED RELEASE TAB PO ONE (09:15)
--- NOTE | 2017-11-02 09:25 | HHI.HP ---
[facility] Service [facility] Primary Care Physician Colt Miller DO Admission Diagnosis chest pain; dyspnea Diagnoses: (1) Community acquired pneumonia Diagnosis: Principal (2) Congestive heart failure Diagnosis: Principal (3) Chest pain Diagnosis: Principal (4) Dyspnea Diagnosis: Principal Chief Complaint: Shortness of breath, chest pain Travel History International Travel<30 Days: No Contact w/Intl Traveler <30 Da: No Traveled to Known Affected Are: No History of Present Illness This is a 62-year-old female with, History of atrial fibrillation, history of seizures, history of hepatitis C, chronic anemia who presented to the hospital with multiple complaints. Patient states that 2 days prior to coming hospital she started developing symptoms to include shortness of breath, dyspnea on exertion. Patient states that she can only walk 20 feet without having to take rest. However over last 2 days she states that she can only walk 20 feet at a very slow pace. She states that she has had increased generalized weakness with near falls when she is using her walker. Yesterday she started developing mid chest pain that radiated to her neck at approximately 3 PM which was 10/10 on pain scale. Patient came to emergency department at 10 PM last night. She states that she was given Lasix with minimal relief of her chest pain and it did help with her breathing. However today she is still experiencing pain in her chest. She had associated nausea but no vomiting. She had shortness of breath, dyspnea on exertion, lightheadedness, dizziness, diaphoresis. Patient had a workup done in the emergency department and found to have an elevated BNP, CT scan does show bilateral infiltrates with pleural effusion. She states that she has been around sick exposures with friends that have the flu. Patient denies any fever , chills, denies any cough. She does go to cardiology Dr. Andrade and was seen by him approximately 2 weeks ago. Patient does have chronic pain and is requesting her medications be continued. Review of Systems Constitutional: COMPLAINS OF: Diaphoretic episodes, Dizziness Respiratory: COMPLAINS OF: Shortness of breath Cardiovascular: COMPLAINS OF: Chest pain, Dyspnea on Exertion Gastrointestinal: COMPLAINS OF: Nausea Musculoskeletal: COMPLAINS OF: Joint pain, Back pain, Neck pain Psychiatric: COMPLAINS OF: Anxiety Except as stated in HPI: all other systems reviewed are Neg Past Family Social History Past Medical History History of atrial fibrillation Lupus Rheumatoid arthritis Scoliosis Hepatitis C History of seizures Chronic anemia Migraine cephalgia Past Surgical History Scoliosis surgery Tonsillectomy Tubal ligation Multiple EGD/colonoscopy's Left distal humerus fracture repair Reported Medications Reported Meds & Active Scripts Active Cane/Wood/Ladies Standard (Device) 1 Mis Mis Ea .ROUTE DIRECTED Walker Rolling/GetGo (Device) 1 Mis Mis Ea .ROUTE DIRECTED Reported Baclofen 10 Mg Tab 10 Mg PO TID Hydrocodone-Acetaminophen 10-325 mg Tab 1 Tab PO Q6H PRN Gabapentin 600 Mg Tab 600 Mg PO TID Clonazepam 0.5 Mg Tab 0.5 Mg PO BID Prozac (Fluoxetine HCl) 20 Mg Cap 20 Mg PO DAILY Hydroxyzine HCl 50 Mg Tab 50 Mg PO TID PRN Tizanidine (Tizanidine HCl) 4 Mg Tab 4 Mg PO BID Toprol XL (Metoprolol Succinate) 25 Mg Tab 25 Mg PO Q12HR Allergies: Coded Allergies: penicillin G (Unverified Allergy, Severe, Anaphylaxis, 06/14/17) mold (Unverified Allergy, Unknown, 06/14/17) Family History Reviewed and significant for father , patient states that he pretty much has same thing that she has. Mother is alive with diabetes and high blood pressure Social History Patient continues to smoke approximately one quarter pack of cigarettes a day for over 40 years. She denies any alcohol or illicit drug Physical Exam Vital Signs Vital Signs Date Time Temp Pulse Resp B/P (MAP) Pulse Ox O2 Delivery O2 Flow Rate FiO2 11/02/17 05:20 59 11/02/17 04:47 58 11/02/17 04:34 99 11/02/17 04:30 97.8 58 18 192/97 (128) 100 11/02/17 00:45 86 175/89 (117) 11/01/17 23:21 96 Room Air 11/01/17 23:21 96 Room Air 11/01/17 22:46 20 11/01/17 22:28 98.3 58 20 193/93 (126) 96 Physical Exam GENERAL: Well-developed, frail and cachectic, in no acute distress. alert and orientated HEENT: Head is normocephalic without any lesions or masses noted. Facial features are symmetric. Eyes: Pupils equal round reactive to light. Extraocular muscles are intact. Conjunctivae were clear. Oropharyngeal: Pharynx without any erythema edema. Tongue is midline without deviation. Buccal mucosa is moist without any masses or lesions NECK: Supple without any masses. Trachea midline no deviation. No JVD, no bruits are appreciated CARDIAC: Regular rhythm, regular rate. S1/S2 are heard. No murmurs gallops or rubs. Patient has reproducible chest tenderness on palpation of the mid sternum which is the location of her chest pain LUNGS: Clear to auscultation bilaterally. No wheeze, rhonchi or rales. No use of accessory muscles on inspiration or expiration. ABDOMEN: Soft, nontender. Nondistended. Bowel sounds heard in all 4 quadrants. No organomegaly or masses. Negative rebound, negative guarding EXTREMITIES: 1+ pitting edema noted bilateral lower extremities, pulses are equal bilaterally. No cyanosis or clubbing NEUROLOGY: Mood and affect appear appropriate. Cranial nerves II through XII grossly intact. Moving all extremities, speech is clear Laboratory Laboratory Tests Test 11/02/17 00:35 11/02/17 01:20 11/02/17 07:00 White Blood Count 6.3 5.6 Red Blood Count 3.64 4.14 Hemoglobin 8.3 8.8 Hematocrit 25.1 28.5 Mean Corpuscular Volume 68.9 68.9 Mean Corpuscular Hemoglobin 22.7 21.2 Mean Corpuscular Hemoglobin Concent 32.9 30.7 Red Cell Distribution Width 21.0 21.1 Platelet Count 207 247 Mean Platelet Volume 7.6 8.4 Neutrophils (%) (Auto) 75.0 76.8 Lymphocytes (%) (Auto) 19.8 18.4 Monocytes (%) (Auto) 2.2 4.0 Eosinophils (%) (Auto) 0.7 0.5 Basophils (%) (Auto) 2.3 0.3 Neutrophils # (Auto) 4.9 4.4 Lymphocytes # (Auto) 1.2 1.0 Monocytes # (Auto) 0.1 0.2 Eosinophils # (Auto) 0.0 0.0 Basophils # (Auto) 0.1 0.0 CBC Comment AUTO DIFF DIFF FINAL Differential Comment AUTO DIFF CONFIRMED Platelet Estimate NORMAL Platelet Morphology Comment NORMAL Prothrombin Time 10.9 Prothromb Time International Ratio 1.1 Activated Partial Thromboplast Time 27.8 B-Type Natriuretic Peptide 788 Urine Collection Type CLEAN CATCH Urine Color YELLOW Urine Turbidity CLEAR Urine pH 5.0 Urine Specific [place] 1.015 Urine Protein NEG Urine Glucose (UA) NEG Urine Ketones NEG Urine Occult Blood NEG Urine Nitrite NEG Urine Bilirubin NEG Urine Urobilinogen 0.2 Urine Leukocyte Esterase NEG Urine Squamous Epithelial Cells 0-5 Microscopic Urinalysis Comment CULT NOT INDICATED Blood Urea Nitrogen 19 15 Creatinine 0.65 0.72 Random Glucose 89 110 Total Protein 7.7 Albumin 3.4 Calcium Level 8.8 9.4 Magnesium Level 2.3 Alkaline Phosphatase 136 Aspartate Amino Transf (AST/SGOT) 22 Alanine Aminotransferase (ALT/SGPT) 12 Total Bilirubin 0.2 Sodium Level 138 137 Potassium Level 4.1 3.3 Chloride Level 106 99 Carbon Dioxide Level 24.4 27.6 Anion Gap 8 10 Estimat Glomerular Filtration Rate 93 83 Total Creatine Kinase 105 106 Creatine Kinase MB 5.1 Troponin I LESS THAN 0.02 0.02 Result Diagram: 11/02/17 0700 11/02/17 [address] Angiography 11/02/17 0000 Signed Impressions: Service Date/Time: Thursday, November 02, 2017 02:19 - CONCLUSION: 1. Study limited by breathing motion artifact. 2. Bilateral pulmonary infiltrates. 3. Tiny right effusion. 4. Cardiomegaly. 5. Age-indeterminate L1 compression deformity. Antoine Talamantes Jr., MD Chest X-Ray 11/01/17 3822 Signed Impressions: Service Date/Time: Wednesday, November 01, 2017 23:08 - CONCLUSION: Chronic interstitial changes. No acute infiltrates. Antoine Talamantes Jr., MD Caprini VTE Risk Assessment Caprini VTE Risk Assessment: Mod/High Risk (score >= 2) Caprini Risk Assessment Model Point Value = 1 Point Value = 2 Point Value = 3 Point Value = 5 Age 41-60 Minor surgery BMI > 25 kg/m2 Swollen legs Varicose veins or History of unexplained or recurrent spontaneous Oral contraceptives or hormone replacement Sepsis (< 1 month) Serious lung disease, including pneumonia (< 1 month) Abnormal pulmonary function Acute myocardial infarction Congestive heart failure (< 1 month) History of inflammatory bowel disease Medical patient at bed rest Age 61-74 Arthroscopic surgery Major open surgery (> 45 min) Laparoscopic surgery (> 45 min) Malignancy Confined to bed (> 72 hours) Immobilizing plaster cast Central venous access Age >= 75 History of VTE Family history of VTE Factor V Leiden Prothrombin [id number] Lupus anticoagulant Anticardiolipin antibodies Elevated serum homocysteine Heparin-induced thrombocytopenia Other congenital or acquired thrombophilia Stroke (< 1 month) Elective arthroplasty Hip, pelvis, or leg fracture Acute spinal cord injury (< 1 month) Prophylaxis Regimen Total Risk Factor Score Risk Level Prophylaxis Regimen 0-1 Low Early ambulation 2 Moderate Order ONE of the following: *Sequential Compression Device (SCD) *Heparin 5000 units SQ BID 3-4 Higher Order ONE of the following medications: *Heparin 5000 units SQ TID *Enoxaparin/Lovenox 40 mg SQ daily (WT < 150 kg, CrCl > 30 mL/min) *Enoxaparin/Lovenox 30 mg SQ daily (WT < 150 kg, CrCl > 10-29 mL/min) *Enoxaparin/Lovenox 30 mg SQ BID (WT < 150 kg, CrCl > 30 mL/min) AND/OR *Sequential Compression Device (SCD) 5 or more Highest Order ONE of the following medications: *Heparin 5000 units SQ TID (Preferred with Epidurals) *Enoxaparin/Lovenox 40 mg SQ daily (WT < 150 kg, CrCl > 30 mL/min) *Enoxaparin/Lovenox 30 mg SQ daily (WT < 150 kg, CrCl > 10-29 mL/min) *Enoxaparin/Lovenox 30 mg SQ BID (WT < 150 kg, CrCl > 30 mL/min) AND *Sequential Compression Device (SCD) Assessment and Plan Assessment and Plan 62-year-old female who presented to the hospital because of chest pain and shortness of breath Congestive heart failure, unknown whether diastolic versus systolic Patient with elevated BNP, bilateral infiltrates seen on CT scan, right pleural effusion, lower extremity edema, dyspnea on exertion Continue Lasix 20 mg IV every 12 hours with KCl 10 mEq every 12 hours Obtain echocardiogram Continue beta-marjorie Add lisinopril 5 mg daily Strict input and output Fluid restrict 1500 cc daily Bilateral community-acquired pneumonia Bilateral infiltrates were seen on CT scan Start Levaquin 750 mg IV daily Obtain influenza testing Obtain sputum culture Start Mucinex 600 mg every 12 hours Chest pain Pain is reproducible on palpation, could be multifactorial with muscle skeletal, pleuritic Continue to trend cardiac enzymes rule out any acute coronary event EKG shows sinus bradycardia without any changes or ST elevations Start aspirin Continue beta-marjorie Nitroglycerin as needed for chest discomfort Hypokalemia Likely secondary to diuretic use Continue monitor and replete as needed Chronic pain, lupus, rheumatoid arthritis, scoliosis Continue home medications History of seizures Gabapentin continued DVT prevention Subcutaneous heparin Problem Qualifiers (1) Dyspnea: Qualified Codes: R06.02 - Shortness of breath Obed Hampton Nov 02, 2017 09:25
[2017-11-02] MEDS ORDERED: NITROGLYCERIN 0.4 MG SL 25 TABS/BTL SL PRN (09:30)
[2017-11-02] MEDS: ASPIRIN EC 325 MG TABEC PO SCH (10:01)
[2017-11-02] MEDS: LEVOFLOXACIN 750 MG PREMIX INJ 150 ML IV SCH (10:01)
[2017-11-02] MEDS: clonazePAM 0.5 MG TAB PO SCH ×2 (10:02→21:24)
[2017-11-02] MEDS: LISINOPRIL 5 MG TAB PO SCH (10:02)
[2017-11-02] MEDS: FLUoxetine HCL 20 MG CAP PO SCH (10:02)
[2017-11-02] MEDS: METOPROLOL SUCCINATE 25 MG EXTENDED RELEASE TAB PO SCH ×2 (10:02→21:25)
[2017-11-02] MEDS: guaiFENesin E.R. 600 MG TAB PO SCH ×2 (10:02→21:24)
[2017-11-02] MEDS: HEPARIN SODIUM - SQ 10,000 UNITS/ML VIAL SQ SCH ×2 (10:03→21:25)
[2017-11-02 12:45] LABS: TROPONIN I LESS THAN 0.02 NG/ML (0.02-0.05)
[2017-11-02] MEDS: BACLOFEN 10 MG TAB PO SCH ×2 (12:50→18:01)
[2017-11-02] MEDS: ACETAMINOPHEN/HYDROcodone 325 MG/10 MG TAB PO PRN ×3 (12:50→23:46)
[2017-11-02] MEDS: GABAPENTIN 300 MG CAP PO SCH ×2 (12:50→18:01)
[2017-11-02] MEDS: FUROSEMIDE 20 MG/2 ML VIAL IV PUSH SCH (18:01)
--- NOTE | 2017-11-02 18:36 | ECHRPT ---
Indication: HEART FAILURE CONCLUSIONS Normal left ventricular size. Mild concentric left ventricular hypertrophy. The left ventricular systolic function is low normal with an estimated ejection fraction in the rang e of 50- 55%. The left atrial size is igrj-fu-wzsfzvxkiv dilated. The right atrial size is mildly dilated. Aortic sclerosis. Trace mitral valve regurgitation. BP: 192 / 97 HR: 59 Rhythm: Sinus MEASUREMENTS (Male / Female) Normal Values Technical Quality:Very technically difficult study 2D ECHO LV Diastolic Diameter PLAX 4.6 cm 4.2 - 5.9 / 3.9 - 5.3 cm LV Systolic Diameter PLAX 3.3 cm IVS Diastolic Thickness 1.4 cm 0.6 - 1.0 / 0.6 - 0.9 cm LVPW Diastolic Thickness 1.4 cm 0.6 - 1.0 / 0.6 - 0.9 cm LV Relative Wall Thickness 0.6 LVOT Diameter 2.5 cm Aortic Root Diameter 3.3 cm LA Systolic Diameter LX 3.6 cm 3.0 - 4.0 / 2.7 - 3.8 cm M-MODE AV Cusp Separation MM 1.9 cm DOPPLER AV Peak Velocity 183.0 cm/s AV Peak Gradient 13.4 mmHg AV Mean Gradient 6.0 mmHg AV Velocity Time Integral 35.3 cm LVOT Peak Velocity 57.1 cm/s LVOT Peak Gradient 1.3 mmHg LVOT Velocity Time Integral 14.5 cm AV Area Cont Eq vti 2.0 cm AV Area Cont Eq pk 1.5 cm Mitral E Point Velocity 47.4 cm/s Mitral A Point Velocity 69.1 cm/s Mitral E to A Ratio 0.7 LV E' Lateral Velocity 4.7 cm/s Mitral E to LV E' Lateral Ratio 10.1 LV E' Septal Velocity 5.0 cm/s Mitral E to LV E' Septal Ratio 9.5 PV Peak Velocity 65.4 cm/s PV Peak Gradient 1.7 mmHg FINDINGS LEFT VENTRICLE Normal left ventricular size. Mild concentric left ventricular hypertrophy. The left ventricular systolic function is low normal with an estimated ejection fraction in the rang e of 50- 55%. RIGHT VENTRICLE Normal right ventricular size and systolic function. LEFT ATRIUM The left atrial size is vcer-wx-vdwadhhaxt dilated. RIGHT ATRIUM The right atrial size is mildly dilated. ATRIAL SEPTUM No atrial level shunt is demonstrated by color flow Doppler interrogation. MITRAL VALVE Trace mitral valve regurgitation. AORTIC VALVE Aortic sclerosis. TRICUSPID VALVE Structurally normal tricuspid valve. No tricuspid valve stenosis or regurgitation. PULMONARY VALVE The pulmonary valve is not well visualized. VESSELS The inferior vena cava was not well visualized. PERICARDIUM No pericardial effusion. Amara Costa MD, FACC (Electronically Signed) Final Date:02 November 2017 18:35
[2017-11-02] MEDS: POTASSIUM CHLORIDE 10 MEQ CONTROLLED RELEASE TAB PO SCH (21:25)
--- NOTE | 2017-11-02 23:04 | EKG ---
Date Performed: 11/02/2017 Time Performed: 05:46:03 PTAGE: 62 years EKG: SINUS BRADYCARDIA BORDERLINE ECG PREVIOUS TRACING : 11/01/2017 23.16 Since the previous tracing, no significant change noted DOCTOR: Lawrence Tatum Interpretating Date/Time 11/02/2017 23:04:20
--- NOTE | 2017-11-02 23:30 | EKG ---
Date Performed: 11/01/2017 Time Performed: 23:16:03 PTAGE: 62 years EKG: SINUS BRADYCARDIA WITH FIRST DEGREE AV BLOCK ABNORMAL ECG PREVIOUS TRACING : 06/14/2017 20.26 Since the previous tracing, no significant change noted DOCTOR: Lawrence Tatum Interpretating Date/Time 11/02/2017 23:27:23
[2017-11-02] MEDS: hydrOXYzine HCL 50 MG TAB PO PRN (23:47)
[2017-11-03] VITALS: BP 135/64; PULSE 64; RESP 16; TEMP 99; O2SAT 93
[2017-11-03 04:00] VITALS: BP 135/64; PULSE 64; RESP 16; TEMP 99; O2SAT 93
[2017-11-03] MEDS: hydrOXYzine HCL 50 MG TAB PO PRN (06:14)
[2017-11-03] MEDS: ACETAMINOPHEN/HYDROcodone 325 MG/10 MG TAB PO PRN ×2 (06:14→12:45)
[2017-11-03 06:56] LABS: AUTOMATED NEUTROPHIL # 2.5 TH/MM3 (1.8-7.7); BASOPHIL % 0.3 % (0.0-2.0); EOSINOPHIL % 0.8 % (0.0-4.0); HEMATOCRIT 27.8 % (35.0-46.0); HEMOGLOBIN 8.4 GM/DL (11.6-15.3); LYMPH % 40.9 % (9.0-44.0); LYMPHOCYTE # 2.1 TH/MM3 (1.0-4.8); MEAN CORPUSCULAR HEMOGLOBIN 20.9 PG (27.0-34.0); MEAN CORPUSCULAR HGB CONC 30.2 % (32.0-36.0); MEAN PLATELET VOLUME 7.7 FL (7.0-11.0); MONO % 9.6 % (0.0-8.0); MONOCYTE # 0.5 TH/MM3 (0-0.9); NEUT % 48.4 % (16.0-70.0); PLATELET COUNT 213 TH/MM3 (150-450); RED BLOOD COUNT 4.02 MIL/MM3 (4.00-5.30); RED CELL DISTRIBUTION WIDTH 21.3 % (11.6-17.2); WHITE BLOOD COUNT 5.1 TH/MM3 (4.0-11.0)
[2017-11-03 07:04] LABS: BICARBONATE 29.9 MEQ/L (21.0-32.0); CALCIUM 8.4 MG/DL (8.5-10.1); CREATININE 0.83 MG/DL (0.50-1.00)
[2017-11-03 07:50] VITALS: BP 172/78; PULSE 58; RESP 20; TEMP 98.3; O2SAT 97
[2017-11-03 08:00] VITALS: PULSE 57
[2017-11-03] MEDS ORDERED: POTASSIUM CHLORIDE 20 MEQ CONTROLLED RELEASE TAB PO ONE (08:00)
[2017-11-03] MEDS: FLUoxetine HCL 20 MG CAP PO SCH (08:57)
[2017-11-03] MEDS: clonazePAM 0.5 MG TAB PO SCH (08:57)
[2017-11-03] MEDS: POTASSIUM CHLORIDE 10 MEQ CONTROLLED RELEASE TAB PO SCH (08:57)
[2017-11-03] MEDS: LISINOPRIL 5 MG TAB PO SCH (08:57)
[2017-11-03] MEDS: ASPIRIN EC 325 MG TABEC PO SCH (08:57)
[2017-11-03] MEDS: METOPROLOL SUCCINATE 25 MG EXTENDED RELEASE TAB PO SCH (08:57)
[2017-11-03] MEDS: guaiFENesin E.R. 600 MG TAB PO SCH (08:57)
[2017-11-03] MEDS: GABAPENTIN 300 MG CAP PO SCH ×3 (08:57→18:18)
[2017-11-03] MEDS: BACLOFEN 10 MG TAB PO SCH ×3 (08:58→18:18)
[2017-11-03] MEDS: LEVOFLOXACIN 750 MG PREMIX INJ 150 ML IV SCH (08:58)
[2017-11-03] MEDS: SODIUM CHLORIDE 0.9% FLUSH 10 ML FLUSH IV FLUSH SCH (08:58)
[2017-11-03] MEDS: HEPARIN SODIUM - SQ 10,000 UNITS/ML VIAL SQ SCH (08:58)
[2017-11-03] MEDS: FUROSEMIDE 20 MG/2 ML VIAL IV PUSH SCH ×2 (09:02→18:00)
--- NOTE | 2017-11-03 09:41 | HHI.PR ---
Subjective Remarks Patient seen and examined today for follow-up on shortness of breath, chest pain. Patient states that her breathing is much improved. She still having the reproducible palpable tenderness in the middle part of her chest. Still hurts whenever she moves. Objective Vitals Vital Signs Date Time Temp Pulse Resp B/P (MAP) Pulse Ox O2 Delivery O2 Flow Rate FiO2 11/03/17 04:00 99.0 64 16 135/64 (87) 93 11/03/17 00:00 99.0 64 16 135/64 (87) 93 11/02/17 21:00 65 11/02/17 20:17 99.2 64 20 152/71 (98) 97 11/02/17 16:00 98.0 65 14 150/90 (110) 98 11/02/17 13:50 20 11/02/17 12:00 96.4 62 16 166/86 (112) 99 I/O 11/02/17 11/02/17 11/02/17 11/03/17 11/03/17 11/03/17 07:00 15:00 23:00 07:00 15:00 23:00 Intake Total 270 ml 390 ml 100 ml Output Total 200 ml 400 ml Balance 270 ml 190 ml -300 ml Intake Oral 270 ml 240 ml 100 ml IV Total 150 ml Output Urine Total 200 ml 400 ml # Voids 2 1 # Bowel Movements 1 Result Diagram: 11/03/17 0630 11/03/17 0630 Objective Remarks GENERAL: Well-developed, frail and cachectic, in no acute distress. alert and orientated HEENT: Head is normocephalic without any lesions or masses noted. Facial features are symmetric. Eyes: Extraocular muscles are intact. Conjunctivae were clear. NECK: Supple without any masses. Trachea midline no deviation. No JVD, CARDIAC: Regular rhythm, regular rate. S1/S2 are heard. No murmurs gallops or rubs. Patient has reproducible chest tenderness on palpation of the mid sternum which is the location of her chest pain LUNGS: Clear to auscultation bilaterally. No wheeze, rhonchi or rales. No use of accessory muscles on inspiration or expiration. ABDOMEN: Soft, nontender. Nondistended. Bowel sounds heard in all 4 quadrants. No organomegaly or masses. Negative rebound, negative guarding EXTREMITIES: 1+ pitting edema noted bilateral lower extremities, pulses are equal bilaterally. No cyanosis or clubbing NEUROLOGY: Mood and affect appear appropriate. Cranial nerves II through XII grossly intact. Moving all extremities, speech is clear Urinary Catheter: No Vascular Central Line Catheter: No A/P Assessment and Plan 62-year-old female who presented to the hospital because of chest pain and shortness of breath Congestive heart failure, unknown whether diastolic versus systolic Patient with elevated BNP, bilateral infiltrates seen on CT scan, right pleural effusion, lower extremity edema, dyspnea on exertion Continue Lasix 20 mg IV every 12 hours with KCl 10 mEq every 12 hours Echocardiogram: Normal left ventricular size. Ejection fraction 50-55%. Left atrial mild to moderately dilated, right atrium mildly dilated, aortic sclerosis, Trace mitral valve regurgitation. Continue beta-marjorie Continue lisinopril 5 mg daily Strict input and output Fluid restrict 1500 cc daily Bilateral community-acquired pneumonia Bilateral infiltrates were seen on CT scan Continue Levaquin 750 mg IV daily Influenza testing was negative Continue Mucinex 600 mg every 12 hours Chest pain Pain is reproducible on palpation, could be multifactorial with muscle skeletal, pleuritic Patient ruled out for acute coronary event with serial cardiac enzymes remain negative Serial EKG shows sinus bradycardia without any changes or ST elevations Continue aspirin Continue beta-marjorie Nitroglycerin as needed for chest discomfort Myocardial perfusion study was performed and indicated which did not indicate any stress-induced ischemia, low risk Hypokalemia Likely secondary to diuretic use Continue monitor and replete as needed Chronic pain, lupus, rheumatoid arthritis, scoliosis Continue home medications History of seizures Gabapentin continued DVT prevention Subcutaneous heparin Discharge Planning Discharge home in stable condition Activity: Ad ankit. Diet: Healthy heart diet Medication per medication reconciliation Follow-up with primary medical doctor in one week Obed Hampton Nov 03, 2017 09:41
[2017-11-03] MEDS ORDERED: REGADENOSON INJ 0.4 MG/5 ML SYR IV ONE (11:27)
[2017-11-03 11:50] VITALS: BP 132/63; PULSE 63; RESP 20; TEMP 97.7; O2SAT 97
--- NOTE | 2017-11-03 12:49 | RADRPT ---
EXAM DATE/TIME: 11/03/2017 11:14 [facility] COMPARISON: No previous studies available for comparison. INDICATIONS : Mid chest pain with shortness of breath for one day. Angina. Atrial fibrillation. DOSE: 25.7 mCi Tc99m Myoview at stress. 8.7 mCi Tc99m Myoview at rest. 0.4 mg Lexiscan STRESS SYMPTOMS: Short of breath and dizzy. EJECTION FRACTION: 60% MEDICAL HISTORY : Lupus. Chronic obstructive pulmonary disease. Hepatitis C. SURGICAL HISTORY : Tubal ligation. Tonsillectomy. ENCOUNTER: Initial ACUITY: 1 day PAIN SCALE: 10/10 LOCATION: Midsternal chest TECHNIQUE: The patient underwent pharmacologic stress with infusion of prescribed dose. Continuous ECG tracing was monitored during stress. Gated SPECT imaging was performed after stress and conventional SPECT i maging was performed at rest. The examination was performed on a SPECT/CT scanner, both attenuation and non-corrected datasets were reviewed. FINDINGS: DISTRIBUTION: The maximum perfused segment at stress is in the inferior wall. PERFUSION STUDY: The pattern of perfusion at stress is within normal limits. GATED STUDY: There is intact wall motion and thickening without hypokinetic or dyskinetic segments. CONCLUSION: 1. No evidence for infarction or stress-induced ischemia. 2. Intact wall motion with EF of 60%. RISK CATEGORY: Low (<1% Annual Mortality Rate) Alvaro Forrest MD on November 03, 2017 at 12:45 Board Certified Radiologist. This report was verified electronically.
--- NOTE | 2017-11-03 13:32 | EKG ---
Date Performed: 11/02/2017 Time Performed: 12:08:31 PTAGE: 62 years EKG: Sinus rhythm MODERATE T-WAVE ABNORMALITY, CONSIDER ANTERIOR ISCHEMIA ABNORMAL ECG Prolongation of QT interval for the heart rate Compared to PREVIOUS TRACING there has been some slight variation in the nonspecific T wave changes and slight increase in QT interval, but otherwise no significant serial change PREVIOUS TRACIN10/20 05.46 DOCTOR: Rosie Au Interpretating Date/Time 11/03/2017 13:31:53
[2017-11-03] MEDS ORDERED: LISI-519 PO (14:00)
[2017-11-03] MEDS ORDERED: ASPI81TA23 PO (14:00)
[2017-11-03] MEDS ORDERED: FURO1TAB62 PO (14:00)
[2017-11-03] MEDS ORDERED: LEVO500T8 PO (14:00)
[2017-11-03] MEDS ORDERED: K-TA10TA PO (14:00)
[2017-11-03] MEDS ORDERED: guaiFENesin ER PO (14:00)
--- NOTE | 2017-11-03 14:01 | HHI.DCPOC ---
Discharge Care Plan Diagnosis: (1) Chest pain (2) Dyspnea Goals to Promote Your Health * To prevent worsening of your condition and complications * To maintain your health at the optimal level Directions to Meet Your Goals Take your medications as prescribed Follow your dietary instruction Follow activity as directed Keep your appointments as scheduled Take your immunizations and boosters as scheduled If your symptoms worsen call your PCP, if no PCP go to Urgent Care Center or Emergency Room Smoking is Dangerous to Your Health. Avoid second hand smoke Call the 24-hour hour crisis hotline for domestic abuse at Obed Hampton Nov 03, 2017 14:01
[2017-11-03 15:50] VITALS: BP 135/69; PULSE 72; RESP 20; TEMP 97.5; O2SAT 95
[2017-11-03] MEDS ORDERED: WALKER WHEELS/F1 MIS (16:43)
== END 2017-11-03 18:50 | disposition home or self-care (01) ==
LOC: PHED 22:16 → PHEDA 11-02 02:54 → PH3B 11-02 04:28
PROVIDERS: ADMIT Hospitalist; ATTEND Hospitalist
DX: I50.9 Heart failure, unspecified (principal); J44.0 Chronic obstructive pulmonary disease with (acute) lower respiratory infection; J18.9 Pneumonia, unspecified organism; E87.6 Hypokalemia; R00.1 Bradycardia, unspecified; I45.81 Long QT syndrome; I44.0 Atrioventricular block, first degree; I70.0 Atherosclerosis of aorta; B19.20 Unspecified viral hepatitis C without hepatic coma; G89.29 Other chronic pain; M48.56XA Collapsed vertebra, not elsewhere classified, lumbar region, initial encounter for fracture; M06.9 Rheumatoid arthritis, unspecified; M41.9 Scoliosis, unspecified; F41.9 Anxiety disorder, unspecified; M81.0 Age-related osteoporosis without current pathological fracture; H91.92 Unspecified hearing loss, left ear; F17.210 Nicotine dependence, cigarettes, uncomplicated; Z79.899 Other long term (current) drug therapy; Z79.01 Long term (current) use of anticoagulants
CPT/HCPCS: 71046; 71275; 78452; 80048; 80053; 81001; 82550; 82552; 83735; 83880; 84484; 85025; 85610; 85730; 87804; 93005; 93017; 93306; 96365; 96366; 96372; 96375; 96376; 97162; 99285; A9502; G0378; G8987; G8988; J1644; J1940; J1956; J2785; Q9967

== ENCOUNTER 2017-11-13 12:49 | Inpatient (IN) | payer MEDICAID ==
[~2017-11-13 12:49] MED LIST changes: -APIX2.5T PO; +ASPI81TA23 PO; +BACL10TA PO; -BUTR10DI T-DERMAL; +FURO1TAB62 PO; -HYDR-3288 PO; +HYDR-3583 PO; +K-TA10TA PO; +LEVO500T8 PO; +LISI-519 PO; -TIZA4TAB PO; +WALKER WHEELS/F1 MIS; +guaiFENesin ER PO
[2017-11-13] MEDS ORDERED: APIX2.5T PO (13:08)
[2017-11-13 13:14] VITALS: BP 121/65; PULSE 88; RESP 20; TEMP 98; O2SAT 99
--- NOTE | 2017-11-13 13:47 | PD ---
HPI Chief Complaint: Fall Time Seen by Provider: 13:26 Travel History International Travel<30 days: No Contact w/Intl Traveler<30days: No Traveled to known affect area: No History of Present Illness HPI 62yo F with PMH of CHF, lupus, scoliosis, Hep C was brought in by son for inability to take care of herself. Pt lives by herself and when he got to her place, he found her on the kitchen floor. Said he is unsure how long she has been there for and pt is a poor historian. He said she has been falling for at least 6-7 times this month and he is unable to take care of her. He is requesting assisted living and pt also wants assisted living. Pt said her head hurts because she had stitches there before and points to her forehead. She has an abrasion of left shoulder and complains of pain there. She is disheveled and said her spine hurts for a long time but then points to her leg and does not really make sense with some of the answers. She is AAOx3. PFSH Past Medical History Hx Anticoagulant Therapy: Yes (Eliquis) Anemia: Yes (CHRONIC ANEMIA) Arthritis: Yes (RHEUMATOID) Autoimmune Disease: Yes (LUPUS) Blood Disorders: Yes (CHRONIC ANEMIA) Anxiety: Yes Depression: Yes Heart Rhythm Problems: Yes (A FIB) Cancer: No Cardiovascular Problems: Yes (A-FIB) High Cholesterol: No Congestive Heart Failure: Yes COPD: Yes Diabetes: No Diminished Hearing: Yes (LT EAR) Endocrine: No Gastrointestinal Disorders: Yes (GI BLEED, GASTRIC ULCERS, N & V) Genitourinary: Yes (STATES HEMATURIA) Hepatitis: Yes (HEP C) Hiatal Hernia: Yes Hypertension: No Immune Disorder: Yes (RA, LUPUS) Implanted Vascular Access Dvce: Yes Medical other: Yes (ANEMIA) Musculoskeletal: Yes (SCOLIOSIS, ARTHRITIS, OSTEOPOROSIS) Neurologic: Yes (SEIZURE HX, NUMBNESS SCATTERED, MIGRAINES) Psychiatric: Yes (ANXIETY/ DEPRESSION) Reproductive: No Respiratory: Yes (COPD) Immunizations Current: Yes Migraines: Yes Thyroid Disease: No Ulcer: Yes (ONE IN STOMACH AND ONE IN COLON) Tetanus Vaccination: < 5 Years Influenza Vaccination: No PNEUMOCCOCAL Vaccine (Year): 2 Menopausal: Yes : 2 Para: 2 Tubal Ligation: Yes Past Surgical History AICD: No Body Medical Devices: HARDWARE LEFT SHOULDER, RIGHT WRIST, LEFT ELBOW Ear Surgery: No Eye Surgery: No Gynecologic Surgery: Yes (TUBAL SX) Joint Replacement: No Pacemaker: No Tonsillectomy: Yes Other Surgery: Yes (LEFT SHOULDER TIMES 2) Social History Alcohol Use: No Tobacco Use: Yes (5 to 6 cigs) Substance Use: No Allergies-Medications (Allergen,Severity, Reaction): Coded Allergies: penicillin G (Unverified Allergy, Severe, Anaphylaxis, 06/14/17) mold (Unverified Allergy, Unknown, 06/14/17) Reported Meds & Prescriptions Reported Meds & Active Scripts Active Walker with Front Wheels (Device) 1 Mis Mis Ea .XX DIRECTED K-Tab (Potassium Chloride) 10 Meq Tab 10 Meq PO DAILY Lasix (Furosemide) 20 Mg Tab 20 Mg PO DAILY Aspirin EC (Aspirin) 81 Mg Tabdr 81 Mg PO DAILY 30 Days Levofloxacin 500 Mg Tablet 500 Mg PO DAILY [guaiFENesin ER] 600 MG Tabcr 600 Mg PO BID 7 Days Lisinopril 5 Mg Tab 5 Mg PO DAILY 30 Days Cane/Wood/Ladies Standard (Device) 1 Mis Mis Ea .ROUTE DIRECTED Walker Rolling/GetGo (Device) 1 Mis Mis Ea .ROUTE DIRECTED Reported Eliquis (Apixaban) 2.5 Mg Tab 2.5 Mg PO BID Baclofen 10 Mg Tab 10 Mg PO TID Hydrocodone-Acetaminophen 10-325 mg Tab 1 Tab PO Q6H PRN Gabapentin 600 Mg Tab 600 Mg PO TID Clonazepam 0.5 Mg Tab 0.5 Mg PO BID Prozac (Fluoxetine HCl) 20 Mg Cap 20 Mg PO DAILY Hydroxyzine HCl 50 Mg Tab 50 Mg PO TID PRN Toprol XL (Metoprolol Succinate) 25 Mg Tab 25 Mg PO Q12HR Review of Systems Except as stated in HPI: all other systems reviewed are Neg Physical Exam Narrative GENERAL: 62yo F disheveled. SKIN: Abrasion left shoulder. HEAD: Atraumatic. Normocephalic. EYES: Pupils equal and round. No scleral icterus. No injection or drainage. ENT: No nasal bleeding or discharge. Mucous membranes pink and moist. NECK: No midline ttp cervical spine. CARDIOVASCULAR: Regular rate and rhythm. No murmur appreciated. RESPIRATORY: No accessory muscle use. Clear to auscultation. Breath sounds equal bilaterally. GASTROINTESTINAL: Abdomen soft, non-tender, nondistended. MUSCULOSKELETAL: Left shoulder: +Abrasion with ttp. Sensation intact. Distal pulses intact. BACK: +Scoliosis. No midline ttp thoracic or lumbar spine. NEUROLOGICAL: Awake and alert. No obvious cranial nerve deficits. Motor grossly within normal limits in all extremities. Normal speech. Data Data Last Documented VS Vital Signs Date Time Temp Pulse Resp B/P (MAP) Pulse Ox O2 Delivery O2 Flow Rate FiO2 11/13/17 16:27 77 18 137/61 (86) 98 Room Air 11/13/17 13:14 98.0 Orders Orders Complete Blood Count With Diff (11/13/17 13:40) Comprehensive Metabolic Panel (11/13/17 13:40) Creatine Kinase (Cpk) (11/13/17 13:40) Electrocardiogram (11/13/17 ) Prothrombin Time / Inr (Pt) (11/13/17 13:40) Act Partial Throm Time (Ptt) (11/13/17 13:40) Troponin I (11/13/17 13:40) Shoulder, Limited(2vws) (11/13/17 ) Ct Brain W/O Iv Contrast(Rout) (11/13/17 ) Urinalysis - C+S If Indicated (11/13/17 13:42) CKMB (11/13/17 15:30) CKMB% (11/13/17 15:30) Sodium Chlor 0.9% 1000 Ml Inj (Ns 1000 M (11/13/17 16:15) Sodium Chlor 0.9% 1000 Ml Inj (Ns 1000 M (11/13/17 16:15) Admit Order (Ed Use Only) (11/13/17 16:42) Labs Laboratory Tests Test 11/13/17 14:50 11/13/17 15:30 Urine Collection Type CLEAN CATCH Urine Color YELLOW Urine Turbidity CLEAR Urine pH 5.5 Urine Specific [place] GREATER/EQUAL 1.030 Urine Protein TRACE mg/dL Urine Glucose (UA) NEG mg/dL Urine Ketones NEG mg/dL Urine Occult Blood SMALL Urine Nitrite NEG Urine Bilirubin NEG Urine Urobilinogen 0.2 MG/DL Urine Leukocyte Esterase NEG Urine RBC 0-3 /hpf Urine WBC 0-2 /hpf Urine Amorphous Sediment FEW Urine Hyaline Casts 3-5 /lpf Microscopic Urinalysis Comment CULT NOT INDICATED White Blood Count 8.3 TH/MM3 Red Blood Count 4.86 MIL/MM3 Hemoglobin 10.5 GM/DL Hematocrit 34.0 % Mean Corpuscular Volume 69.9 FL Mean Corpuscular Hemoglobin 21.6 PG Mean Corpuscular Hemoglobin Concent 31.0 % Red Cell Distribution Width 21.1 % Platelet Count 205 TH/MM3 Mean Platelet Volume 8.3 FL Neutrophils (%) (Auto) 54.1 % Lymphocytes (%) (Auto) 34.2 % Monocytes (%) (Auto) 10.5 % Eosinophils (%) (Auto) 0.2 % Basophils (%) (Auto) 1.0 % Neutrophils # (Auto) 4.5 TH/MM3 Lymphocytes # (Auto) 2.8 TH/MM3 Monocytes # (Auto) 0.9 TH/MM3 Eosinophils # (Auto) 0.0 TH/MM3 Basophils # (Auto) 0.1 TH/MM3 CBC Comment AUTO DIFF Differential Comment AUTO DIFF CONFIRMED Blood Urea Nitrogen 32 MG/DL Creatinine 0.91 MG/DL Random Glucose 95 MG/DL Total Protein 7.9 GM/DL Albumin 3.2 GM/DL Calcium Level 9.3 MG/DL Alkaline Phosphatase 131 U/L Aspartate Amino Transf (AST/SGOT) 95 U/L Alanine Aminotransferase (ALT/SGPT) 29 U/L Total Bilirubin 0.4 MG/DL Sodium Level 136 MEQ/L Potassium Level 3.9 MEQ/L Chloride Level 103 MEQ/L Carbon Dioxide Level 22.4 MEQ/L Anion Gap 11 MEQ/L Estimat Glomerular Filtration Rate 63 ML/MIN Total Creatine Kinase 1765 U/L Creatine Kinase MB 25.3 NG/ML Creatine Kinase MB % 1.4 % Troponin I 0.07 NG/ML [facility] Medical Decision Making Medical Screen Exam Complete: Yes Emergency Medical Condition: Yes Interpretation(s) EKG: NSR 79bpm. Normal axis. TWI III. Differential Diagnosis Failure to thrive vs. rhabdomyolysis vs. dehydration vs. electrolyte abnormality Narrative Course 62yo F was brought in by son because she was found on the kitchen floor today. Pt's son does not know how long she has been down but said he talked to her tuesday so it was after tuesday afternoon. Pt said she has been there for days. Although pt is AAOx3, her answers do not makes sense. Pt initially said no chest pain and then when ask if she has chest pain after mildly elevated troponin, she says yes and her spine hurts. Labs reviewed, no leukocytosis. H/ H 10.5/34.0. Better than baseline. CPK elevated at 1765, pt given NS IVF x2. Troponin and CKMB mildly elevated, likely secondary to elevated CPK. CKMB percentage is normal. BUN elevated at 32. Pt appears dehydrated. CT brain negative for ICH. Right parietal scalp swelling. Xray left shoulder showed no acute abnormality. Discussed with Dr. Cedillo and accepted to her service for rhabdomyolysis and dehydration. Diagnosis Primary Impression: Rhabdomyolysis Qualified Codes: M62.82 - Rhabdomyolysis Additional Impression: Dehydration Admitting Information Admitting Physician Requests: Admit Lluvia Ramirez DO Nov 13, 2017 13:47
--- NOTE | 2017-11-13 14:31 | RADRPT ---
EXAM DATE/TIME: 11/13/2017 14:16 [facility] COMPARISON: CT PULMONARY ANGIOGRAM, November 02, 2017, 2:19. CT THORAX W/O CONTRAST, June 14, 2017, 19:39. CHES T PA & LAT, November 01, 2017, 23:08. INDICATIONS : Fall. Left shoulder pain. MEDICAL HISTORY : None. SURGICAL HISTORY : None. ORIF left shoulder ENCOUNTER: Initial ACUITY: 1 day PAIN SCORE: 7/10 LOCATION: Left scapular FINDINGS: There is a surgical plate at the proximal humerus secured by multiple screws. There some hypertrophic change at the inferior medial humeral head and neck region. The glenohumeral joint is aligned. The a cromioclavicular joint appears aligned. The bones are osteopenic. There is degenerative change in the thoracic and lumbar spine. There are compressive changes seen in the L1 vertebral body. This was pre sent on prior CTA pulmonary angiogram. CONCLUSION: Chronic change at the proximal humerus as described above. An acute abnormality is not clearly seen. Mckinley Almazan MD on November 13, 2017 at 14:24 Board Certified Radiologist. This report was verified electronically.
--- NOTE | 2017-11-13 14:49 | RADRPT ---
EXAM DATE/TIME: 11/13/2017 14:27 [facility] COMPARISON: CT BRAIN W/O CONTRAST, June 14, 2017, 19:34. INDICATIONS : Fell last night. Frontal head pain. RADIATION DOSE: 55.67 CTDIvol (mGy) ; Patient motion MEDICAL HISTORY : Chronic obstructive pulmonary disease. Atrial fibrillation. Anticoagulant therapy. SURGICAL HISTORY : Tubal ligation. ENCOUNTER: Initial ACUITY: 2 days PAIN SCALE: 4/10 LOCATION: frontal TECHNIQUE: Multiple contiguous axial images were obtained of the head. Using automated exposure control and adj ustment of the mA and/or kV according to patient size, radiation dose was kept as low as reasonably a chievable to obtain optimal diagnostic quality images. DICOM format image data is available electro nically for review and comparison. FINDINGS: CEREBRUM: The ventricles are normal for age. No evidence of midline shift, mass lesion, hemorrhage or acute in farction. No extra-axial fluid collections are seen. POSTERIOR FOSSA: The cerebellum and brainstem are intact. The 4th ventricle is midline. The cerebellopontine angle i s unremarkable. EXTRACRANIAL: The visualized portion of the orbits is intact. There is right parietal scalp swelling. SKULL: The calvaria is intact. No evidence of skull fracture. CONCLUSION: 1. No intracranial abnormality seen. 2. Right parietal scalp swelling. Mckinley Almazan MD on November 13, 2017 at 14:46 Board Certified Radiologist. This report was verified electronically.
[2017-11-13 14:59] LABS: BILIRUBIN, URINE NEG (NEG); BLOOD, URINE SMALL (NEG); GLUCOSE,URINE NEG (NEG); KETONE, URINE NEG (NEG); NITRITE,URINE NEG (NEG); PH, URINE 5.5 (5.0-8.5); URINE COLOR YELLOW (YELLW/STRAW); URINE LEUKOCYTE ESTERASE NEG (NEG)
[2017-11-13 15:03] LABS: AMORPHOUS SEDIMENT, URINE FEW; RBC, URINE 0-3 /hpf (0-3); WBC, URINE 0-2 /hpf (0-5)
[2017-11-13 15:48] LABS: CHLORIDE 103 MEQ/L (98-107); SODIUM (NA) 136 MEQ/L (136-145)
[2017-11-13 15:49] LABS: AUTOMATED NEUTROPHIL # 4.5 TH/MM3 (1.8-7.7); BASOPHIL # 0.1 TH/MM3 (0-0.2); EOSINOPHIL % 0.2 % (0.0-4.0); HEMOGLOBIN 10.5 GM/DL (11.6-15.3); LYMPH % 34.2 % (9.0-44.0); LYMPHOCYTE # 2.8 TH/MM3 (1.0-4.8); MEAN CELL VOLUME 69.9 FL (80.0-100.0); MEAN CORPUSCULAR HEMOGLOBIN 21.6 PG (27.0-34.0); MEAN PLATELET VOLUME 8.3 FL (7.0-11.0); MONO % 10.5 % (0.0-8.0); MONOCYTE # 0.9 TH/MM3 (0-0.9); NEUT % 54.1 % (16.0-70.0); PLATELET COUNT 205 TH/MM3 (150-450); RED BLOOD COUNT 4.86 MIL/MM3 (4.00-5.30); RED CELL DISTRIBUTION WIDTH 21.1 % (11.6-17.2); WHITE BLOOD COUNT 8.3 TH/MM3 (4.0-11.0)
[2017-11-13 15:51] LABS: CALCIUM 9.3 MG/DL (8.5-10.1)
[2017-11-13 15:52] LABS: ALBUMIN 3.2 GM/DL (3.4-5.0); BICARBONATE 22.4 MEQ/L (21.0-32.0); BLOOD UREA NITROGEN 32 MG/DL (7-18); GLUCOSE,RANDOM 95 MG/DL (74-106)
[2017-11-13 15:55] LABS: ALT (GPT) 29 U/L (10-53); AST (GOT) 95 U/L (15-37); CREATININE 0.91 MG/DL (0.50-1.00); GLOMERULAR FILTRATION RATE 63 ML/MIN (>89)
[2017-11-13 15:57] LABS: TOTAL BILIRUBIN ADULT 0.4 MG/DL (0.2-1.0); TOTAL PROTEIN 7.9 GM/DL (6.4-8.2)
[2017-11-13 15:58] LABS: ALKALINE PHOSPHATASE 131 U/L (45-117)
[2017-11-13 16:00] LABS: TROPONIN I 0.07 NG/ML (0.02-0.05)
[2017-11-13] MEDS ORDERED: SODIUM CHLOR 0.9% 1000 ML INJ 1,000 ML IV ONE ×2 (16:15)
[2017-11-13 16:27] VITALS: BP 137/61; PULSE 77; RESP 18; O2SAT 98
[2017-11-13] MEDS ORDERED: SODIUM CHLORIDE 0.9% FLUSH 10 ML FLUSH IV FLUSH PRN (17:00)
[2017-11-13] MEDS ORDERED: ACETAMINOPHEN 325 MG TAB PO PRN (17:00)
[2017-11-13] MEDS ORDERED: SENNOSIDES 8.6 MG TAB PO PRN (17:00)
[2017-11-13] MEDS ORDERED: NALOXONE HCL 0.4 MG/ML AMP IV PUSH PRN (17:00)
[2017-11-13] MEDS ORDERED: HEPARIN SODIUM - SQ 10,000 UNITS/ML VIAL SQ SCH (17:00)
--- NOTE | 2017-11-13 17:12 | HHI.HP ---
[facility] Service [facility] Primary Care Physician Colt Miller DO Admission Diagnosis Rhabdomyolysis, dehydration Diagnoses: Chief Complaint: Fall at home Travel History International Travel<30 Days: No Contact w/Intl Traveler <30 Da: No Traveled to Known Affected Are: No History of Present Illness This patient is a pleasant but chronically weak 8-year-old female with lupus, scoliosis and atrial fibrillation. She comes to the emergency room after her son found her at home on the floor unable to get off the floor herself. She says she fell 2 days ago. Patient is found to be in acute rhabdomyolysis appears quite disheveled and dehydrated. She has chronic illnesses and uses a cane at home but says for the last several days she has been very weak. She did fall and hit her head. On the CT there is some soft tissue swelling consistent with physical exam and no intracranial lesions. The patient had been on Eliquis for A. fib. She is not describing any fever or chills but says she's been constipated for quite some time. She says she's lost weight that she cannot feed herself. The weight loss is unquantified but says her baseline weight is 107 pounds and all of her clothes are "loose". Patient will need to be admitted to the hospital due to her acute rhabdomyolysis and inability to care for self Past Family Social History Past Medical History lupus afib ra weakness Past Surgical History Tubal ligation Orthopedic surgeries Tonsillectomy Reported Medications Reviewed in the EMR Allergies: Coded Allergies: penicillin G (Unverified Allergy, Severe, Anaphylaxis, 06/14/17) mold (Unverified Allergy, Unknown, 06/14/17) Active Ordered Medications Reviewed in the EMR Family History father had lupus, rheumatoid arthritis and pancreatic cancer Mother is alive and well Social History No tobacco or alcohol dependency, lives alone Physical Exam Vital Signs Vital Signs Date Time Temp Pulse Resp B/P (MAP) Pulse Ox O2 Delivery O2 Flow Rate FiO2 11/13/17 16:27 77 18 137/61 (86) 98 Room Air 11/13/17 13:14 98.0 88 20 121/65 (83) 99 Physical Exam GENERAL: This is a frail and unkempt female who appears cachectic SKIN: No rashes, ecchymoses or lesions. Cool and dry. HEAD: Atraumatic. Normocephalic. No temporal or scalp tenderness. EYES: Pupils equal round and reactive. Extraocular motions intact. No scleral icterus. No injection or drainage. ENT: Nose without bleeding, purulent drainage or septal hematoma. Throat without erythema, tonsillar hypertrophy or exudate. Uvula midline. Airway patent. NECK: Trachea midline. No JVD or lymphadenopathy. Supple, nontender, no meningeal signs. CARDIOVASCULAR: Regular rate and rhythm without murmurs, gallops, or rubs. RESPIRATORY: Clear to auscultation. Breath sounds equal bilaterally. No wheezes , rales, or rhonchi. GASTROINTESTINAL: Abdomen soft, non-tender, nondistended. No hepato-splenomegaly , or palpable masses. No guarding. MUSCULOSKELETAL: Told deformity Extremities without clubbing, cyanosis, or edema. No joint tenderness, effusion, or edema noted. No calf tenderness. Negative Homans sign bilaterally. NEUROLOGICAL: Awake and alert. Cranial nerves II through XII intact. Motor and sensory grossly within normal limits. Five out of 5 muscle strength in all muscle groups. Normal speech. Laboratory Laboratory Tests Test 11/13/17 14:50 11/13/17 15:30 Urine Collection Type CLEAN CATCH Urine Color YELLOW Urine Turbidity CLEAR Urine pH 5.5 Urine Specific [place] GREATER/EQUAL 1.030 Urine Protein TRACE Urine Glucose (UA) NEG Urine Ketones NEG Urine Occult Blood SMALL Urine Nitrite NEG Urine Bilirubin NEG Urine Urobilinogen 0.2 Urine Leukocyte Esterase NEG Urine RBC 0-3 Urine WBC 0-2 Urine Amorphous Sediment FEW Urine Hyaline Casts 3-5 Microscopic Urinalysis Comment CULT NOT INDICATED White Blood Count 8.3 Red Blood Count 4.86 Hemoglobin 10.5 Hematocrit 34.0 Mean Corpuscular Volume 69.9 Mean Corpuscular Hemoglobin 21.6 Mean Corpuscular Hemoglobin Concent 31.0 Red Cell Distribution Width 21.1 Platelet Count 205 Mean Platelet Volume 8.3 Neutrophils (%) (Auto) 54.1 Lymphocytes (%) (Auto) 34.2 Monocytes (%) (Auto) 10.5 Eosinophils (%) (Auto) 0.2 Basophils (%) (Auto) 1.0 Neutrophils # (Auto) 4.5 Lymphocytes # (Auto) 2.8 Monocytes # (Auto) 0.9 Eosinophils # (Auto) 0.0 Basophils # (Auto) 0.1 CBC Comment AUTO DIFF Differential Comment AUTO DIFF CONFIRMED Blood Urea Nitrogen 32 Creatinine 0.91 Random Glucose 95 Total Protein 7.9 Albumin 3.2 Calcium Level 9.3 Alkaline Phosphatase 131 Aspartate Amino Transf (AST/SGOT) 95 Alanine Aminotransferase (ALT/SGPT) 29 Total Bilirubin 0.4 Sodium Level 136 Potassium Level 3.9 Chloride Level 103 Carbon Dioxide Level 22.4 Anion Gap 11 Estimat Glomerular Filtration Rate 63 Total Creatine Kinase 1765 Creatine Kinase MB 25.3 Creatine Kinase MB % 1.4 Troponin I 0.07 Result Diagram: 11/13/17 1530 11/13/[address] of the head unremarkable for acute intracranial pathology, some soft tissue swelling Chest x-ray negative for acute cardiopulmonary disease on my review Caprini VTE Risk Assessment Caprini VTE Risk Assessment: Mod/High Risk (score >= 2) Caprini Risk Assessment Model Point Value = 1 Point Value = 2 Point Value = 3 Point Value = 5 Age 41-60 Minor surgery BMI > 25 kg/m2 Swollen legs Varicose veins or History of unexplained or recurrent spontaneous Oral contraceptives or hormone replacement Sepsis (< 1 month) Serious lung disease, including pneumonia (< 1 month) Abnormal pulmonary function Acute myocardial infarction Congestive heart failure (< 1 month) History of inflammatory bowel disease Medical patient at bed rest Age 61-74 Arthroscopic surgery Major open surgery (> 45 min) Laparoscopic surgery (> 45 min) Malignancy Confined to bed (> 72 hours) Immobilizing plaster cast Central venous access Age >= 75 History of VTE Family history of VTE Factor V Leiden Prothrombin [id number] Lupus anticoagulant Anticardiolipin antibodies Elevated serum homocysteine Heparin-induced thrombocytopenia Other congenital or acquired thrombophilia Stroke (< 1 month) Elective arthroplasty Hip, pelvis, or leg fracture Acute spinal cord injury (< 1 month) Prophylaxis Regimen Total Risk Factor Score Risk Level Prophylaxis Regimen 0-1 Low Early ambulation 2 Moderate Order ONE of the following: *Sequential Compression Device (SCD) *Heparin 5000 units SQ BID 3-4 Higher Order ONE of the following medications: *Heparin 5000 units SQ TID *Enoxaparin/Lovenox 40 mg SQ daily (WT < 150 kg, CrCl > 30 mL/min) *Enoxaparin/Lovenox 30 mg SQ daily (WT < 150 kg, CrCl > 10-29 mL/min) *Enoxaparin/Lovenox 30 mg SQ BID (WT < 150 kg, CrCl > 30 mL/min) AND/OR *Sequential Compression Device (SCD) 5 or more Highest Order ONE of the following medications: *Heparin 5000 units SQ TID (Preferred with Epidurals) *Enoxaparin/Lovenox 40 mg SQ daily (WT < 150 kg, CrCl > 30 mL/min) *Enoxaparin/Lovenox 30 mg SQ daily (WT < 150 kg, CrCl > 10-29 mL/min) *Enoxaparin/Lovenox 30 mg SQ BID (WT < 150 kg, CrCl > 30 mL/min) AND *Sequential Compression Device (SCD) Assessment and Plan Problem List: (1) Rhabdomyolysis ICD Code: M62.82 - Rhabdomyolysis Status: Acute Plan: Continue with IV hydration Follow renal function (2) Dehydration ICD Code: E86.0 - Dehydration Status: Acute Plan: Continue with IV hydration (3) Elevated troponin ICD Code: R74.8 - Abnormal levels of other serum enzymes Plan: I did review this patient's EKG and there are no signs of ischemia it is normal sinus rhythm. Patient has no chest complaints I do believe her cardiac enzyme is elevated due to the rhabdomyolysis We'll continue on telemetry and follow serial cardiac troponins Continue eliquis prophylaxis with metoprolol Assessment and Plan Patient is very weak and will need evaluation for alf facility Will rule out organic causes of her weakness versus chronic progression of her known illnesses Discussed Condition With Patient, FREDDIE Issa Physician Certification 2 Midnight Certification Type: Admission for Inpatient Services Order for Inpatient Services The services are ordered in accordance with Medicare regulations or non- Medicare payer requirements, as applicable. In the case of services not specified as inpatient-only, they are appropriately provided as inpatient services in accordance with the 2-midnight benchmark. Estimated LOS (days): 3 3 days is the estimated time the patient will need to remain in the hospital, assuming treatment plan goals are met and no additional complications. Post-Hospital Plan: Home Problem Qualifiers (1) Rhabdomyolysis: Qualified Codes: M62.82 - Rhabdomyolysis Raquel Cedillo MD Nov 13, 2017 17:12
[2017-11-13 18:00] VITALS: BP 137/73; PULSE 83; RESP 18; O2SAT 100
[2017-11-13] MEDS: GABAPENTIN 300 MG CAP PO SCH (18:14)
[2017-11-13] MEDS: BACLOFEN 10 MG TAB PO SCH (18:14)
[2017-11-13] MEDS: SODIUM CHLOR 0.9% 1000 ML INJ 1,000 ML IV SCH ×2 (18:42→22:19)
[2017-11-13] MEDS: SODIUM CHLORIDE 0.9% FLUSH 10 ML FLUSH IV FLUSH SCH (21:00)
[2017-11-13 21:02] VITALS: BP 132/68
[2017-11-13 21:30] VITALS: BP 118/56; PULSE 82; RESP 20; TEMP 97.2; O2SAT 96; O2SAT 98
[2017-11-13] MEDS: APIXABAN 2.5 MG TABLET PO SCH (22:19)
[2017-11-13] MEDS: METOPROLOL SUCCINATE 25 MG EXTENDED RELEASE TAB PO SCH (22:19)
[2017-11-13] MEDS: DOCUSATE SODIUM 50 MG/SENNA 8.6 MG TAB PO SCH (22:19)
[2017-11-13] MEDS: clonazePAM 0.5 MG TAB PO SCH (22:19)
[2017-11-14] VITALS (7 sets, daily range): BP systolic 118–147; BP diastolic 58–73; PULSE 67–71; RESP 18–20; TEMP 97.2–98.3; O2SAT 96–98
[2017-11-14 00:36] LABS: TROPONIN I 0.07 NG/ML (0.02-0.05)
[2017-11-14 06:57] LABS: INTERNATIONAL NORMALIZED RATIO 1.2 RATIO; PROTHROMBIN TIME - PATIENT 12.4 SEC (9.8-11.6)
[2017-11-14 07:07] LABS: TROPONIN I 0.06 NG/ML (0.02-0.05)
[2017-11-14] MEDS: DOCUSATE SODIUM 50 MG/SENNA 8.6 MG TAB PO SCH ×2 (09:00→22:09)
[2017-11-14] MEDS: SODIUM CHLORIDE 0.9% FLUSH 10 ML FLUSH IV FLUSH SCH ×2 (09:00→22:08)
[2017-11-14] MEDS: APIXABAN 2.5 MG TABLET PO SCH ×2 (09:22→22:09)
[2017-11-14] MEDS: GABAPENTIN 300 MG CAP PO SCH ×3 (09:22→18:40)
[2017-11-14] MEDS: BACLOFEN 10 MG TAB PO SCH ×3 (09:22→18:40)
[2017-11-14] MEDS: clonazePAM 0.5 MG TAB PO SCH ×2 (09:22→22:09)
[2017-11-14] MEDS: METOPROLOL SUCCINATE 25 MG EXTENDED RELEASE TAB PO SCH ×2 (09:23→22:15)
[2017-11-14] MEDS: SODIUM CHLOR 0.9% 1000 ML INJ 1,000 ML IV SCH ×2 (12:56→22:15)
--- NOTE | 2017-11-14 16:39 | HHI.PR ---
Subjective Remarks Follow-up rhabdomyolysis, dehydration and elevated troponin. Patient seen and examined, sitting up in bed comfortably in no apparent distress. Patient states that she does have continued weakness but is improving slightly. Is tolerating p.o. intake with intermittent bouts of nausea. Denies any vomiting. Vital signs are stable. Afebrile. Objective Vitals Vital Signs Date Time Temp Pulse Resp B/P (MAP) Pulse Ox O2 Delivery O2 Flow Rate FiO2 11/14/17 12:00 97.2 67 18 137/71 (93) 96 11/14/17 09:00 97 21 11/14/17 08:00 98.0 68 20 147/69 (95) 97 11/14/17 00:00 97.9 71 18 118/58 (78) 96 11/13/17 21:30 97.2 82 20 118/56 (76) 96 11/13/17 21:30 98 21 11/13/17 21:02 68 18 132/68 (89) 97 11/13/17 18:00 83 18 137/73 (94) 100 Room Air I/O 11/13/17 11/13/17 11/13/17 11/14/17 11/14/17 11/14/17 07:00 15:00 23:00 07:00 15:00 23:00 Intake Total 2500 ml Output Total 400 ml Balance 2100 ml Intake Oral 500 ml IV Total 2000 ml Output Urine Total 400 ml # Voids 2 Result Diagram: 11/13/17 1530 11/13/17 1530 Imaging Last Impressions Shoulder X-Ray 11/13/17 0000 Signed Impressions: Service Date/Time: Monday, November 13, 2017 14:16 - CONCLUSION: Chronic change at the proximal humerus as described above. An acute abnormality is not clearly seen. Mckinley Almazan MD Head CT 11/13/17 0000 Signed Impressions: Service Date/Time: Monday, November 13, 2017 14:27 - CONCLUSION: 1. No intracranial abnormality seen. 2. Right parietal scalp swelling. Mckinley Almazan MD Objective Remarks GENERAL: Well-developed, well-nourished patient in [facility]. SKIN: Warm and dry. No rash. HEAD: Normocephalic. Atraumatic. EYES: Pupils equal and round. No scleral icterus. No injection or drainage. ENT: No nasal bleeding or discharge. Mucous membranes pink and moist. NECK: Supple. Trachea midline. CARDIOVASCULAR: Regular rate and rhythm. S1, S2 noted. No murmur appreciated. RESPIRATORY: No accessory muscle use. Clear to auscultation. Breath sounds equal bilaterally. GASTROINTESTINAL: Abdomen soft, non-tender, nondistended. Normoactive bowel sounds x4. MUSCULOSKELETAL: No obvious deformities. Extremities without clubbing, cyanosis , or edema. NEUROLOGICAL: Awake and alert. No obvious cranial nerve deficits. Motor grossly within normal limits. 5/5 muscle strength in bilateral upper and lower extremities. Normal speech. PSYCHIATRIC: Appropriate mood and affect; insight and judgment normal. A/P Problem List: (1) Rhabdomyolysis ICD Code: M62.82 - Rhabdomyolysis Status: Acute (2) Dehydration ICD Code: E86.0 - Dehydration Status: Acute (3) Elevated troponin ICD Code: R74.8 - Abnormal levels of other serum enzymes Assessment and Plan This patient is a pleasant but chronically weak 8-year-old female with lupus, scoliosis and atrial fibrillation. She comes to the emergency room after her son found her at home on the floor unable to get off the floor herself. She says she fell 2 days ago. Patient is found to be in acute rhabdomyolysis appears quite disheveled and dehydrated. Acute rhabdomyolysis with associated weakness and dehydration -Presented with total creatinine kinase 1765. Follow trends, is trending down. -Head CT reviewed upon presentation no intracranial abnormality seen. Right parietal scalp swelling. -Right shoulder x-ray reviewed showing chronic changes at the proximal humerus. No acute abnormality. -Patient has been given 2 L NS bolus in ED. Ensure hydration, continue IV fluid. Follow renal function. -We will continue to monitor. Supportive care. Elevated troponin -Patient's EKG shows no signs of ischemia as normal sinus rhythm. No complaints of chest pain. Likely elevated secondary to the rhabdomyolysis. No reports of any arrhythmias. Serial cardiac troponins are flat. Patient is on Eliquis and metoprolol. Anxiety, chronic: Continue home Klonopin. DVT prophylaxis: SCDs. Eliquis. Discharge Planning Case management assisting with placement to SNF. Problem Qualifiers (1) Rhabdomyolysis: Qualified Codes: M62.82 - Rhabdomyolysis RosyKathydelmi SAHU Nov 14, 2017 16:39
[2017-11-14] MEDS: ONDANSETRON HCL 4 MG/2 ML VIAL IVP PRN (22:15)
[2017-11-15] VITALS: BP 137/78; PULSE 69; RESP 20; TEMP 96.9; O2SAT 96
--- NOTE | 2017-11-15 00:31 | EKG ---
Date Performed: 11/13/2017 Time Performed: 13:53:16 PTAGE: 62 years EKG: Sinus rhythm NONSPECIFIC ST & T-WAVE ABNORMALITY BORDERLINE ECG PREVIOUS TRACING : 11/02/2017 12.08 DOCTOR: Huong Gomez Interpretating Date/Time 11/15/2017 00:16:32
[2017-11-15] MEDS: ONDANSETRON HCL 4 MG/2 ML VIAL IVP PRN ×3 (03:37→18:16)
[2017-11-15 06:35] LABS: AUTOMATED NEUTROPHIL # 2.5 TH/MM3 (1.8-7.7); BASOPHIL % 0.8 % (0.0-2.0); EOSINOPHIL # 0.1 TH/MM3 (0-0.4); EOSINOPHIL % 1.6 % (0.0-4.0); HEMATOCRIT 24.4 % (35.0-46.0); HEMOGLOBIN 7.6 GM/DL (11.6-15.3); LYMPH % 37.8 % (9.0-44.0); MEAN CELL VOLUME 70.7 FL (80.0-100.0); MEAN CORPUSCULAR HEMOGLOBIN 21.9 PG (27.0-34.0); MEAN PLATELET VOLUME 8.7 FL (7.0-11.0); MONO % 10.9 % (0.0-8.0); MONOCYTE # 0.6 TH/MM3 (0-0.9); NEUT % 48.9 % (16.0-70.0); PLATELET COUNT 175 TH/MM3 (150-450); RED BLOOD COUNT 3.46 MIL/MM3 (4.00-5.30); RED CELL DISTRIBUTION WIDTH 21.5 % (11.6-17.2); WHITE BLOOD COUNT 5.2 TH/MM3 (4.0-11.0)
[2017-11-15 07:20] LABS: ALBUMIN 2.2 GM/DL (3.4-5.0); ALKALINE PHOSPHATASE 98 U/L (45-117); ALT (GPT) 19 U/L (10-53); AST (GOT) 43 U/L (15-37); BICARBONATE 24.3 MEQ/L (21.0-32.0); BLOOD UREA NITROGEN 11 MG/DL (7-18); CALCIUM 7.5 MG/DL (8.5-10.1); CHLORIDE 112 MEQ/L (98-107); CREATININE 0.44 MG/DL (0.50-1.00); GLOMERULAR FILTRATION RATE 146 ML/MIN (>89); GLUCOSE,RANDOM 88 MG/DL (74-106); SODIUM (NA) 143 MEQ/L (136-145); TOTAL BILIRUBIN ADULT 0.3 MG/DL (0.2-1.0); TOTAL PROTEIN 5.6 GM/DL (6.4-8.2)
[2017-11-15 08:00] VITALS: BP 159/72; PULSE 64; RESP 18; TEMP 98; O2SAT 97
[2017-11-15] MEDS ORDERED: POTASSIUM CHLORIDE 10 MEQ CONTROLLED RELEASE TAB PO ONE (08:15)
[2017-11-15] MEDS: SODIUM CHLOR 0.9% 1000 ML INJ 1,000 ML IV SCH ×2 (08:40→17:33)
[2017-11-15] MEDS: DOCUSATE SODIUM 50 MG/SENNA 8.6 MG TAB PO SCH ×2 (09:00→21:52)
[2017-11-15] MEDS: BACLOFEN 10 MG TAB PO SCH ×3 (09:48→17:23)
[2017-11-15] MEDS: METOPROLOL SUCCINATE 25 MG EXTENDED RELEASE TAB PO SCH ×2 (09:48→21:52)
[2017-11-15] MEDS: GABAPENTIN 300 MG CAP PO SCH ×3 (09:48→17:23)
[2017-11-15] MEDS: APIXABAN 2.5 MG TABLET PO SCH ×2 (09:48→21:52)
[2017-11-15] MEDS: clonazePAM 0.5 MG TAB PO SCH ×2 (09:48→21:52)
[2017-11-15] MEDS: SODIUM CHLORIDE 0.9% FLUSH 10 ML FLUSH IV FLUSH SCH ×2 (09:54→21:00)
[2017-11-15] MEDS ORDERED: LACTTAB8 PO (09:57)
--- NOTE | 2017-11-15 10:46 | HHI.DS ---
Discharge Summary Admission Date Nov 13, 2017 at 16:44 Discharge Date: Nov 15, 2017 Admitting Diagnosis Rhabdomyolysis, dehydration (1) Rhabdomyolysis ICD Code: M62.82 - Rhabdomyolysis Diagnosis: Principal Status: Acute (2) Dehydration ICD Code: E86.0 - Dehydration Diagnosis: Principal Status: Acute (3) Elevated troponin ICD Code: R74.8 - Abnormal levels of other serum enzymes Diagnosis: Principal Procedures None Brief History - From Admission This patient is a pleasant but chronically weak 8-year-old female with lupus, scoliosis and atrial fibrillation. She comes to the emergency room after her son found her at home on the floor unable to get off the floor herself. She says she fell 2 days ago. Patient is found to be in acute rhabdomyolysis appears quite disheveled and dehydrated. She has chronic illnesses and uses a cane at home but says for the last several days she has been very weak. She did fall and hit her head. On the CT there is some soft tissue swelling consistent with physical exam and no intracranial lesions. The patient had been on Eliquis for A. fib. She is not describing any fever or chills but says she's been constipated for quite some time. She says she's lost weight that she cannot feed herself. The weight loss is unquantified but says her baseline weight is 107 pounds and all of her clothes are "loose". Patient will need to be admitted to the hospital due to her acute rhabdomyolysis and inability to care for self CBC/BMP: 11/15/17 0550 11/15/17 0550 Significant Findings Laboratory Tests Test 11/13/17 14:50 11/13/17 15:30 11/14/17 00:00 11/14/17 06:00 Urine Occult Blood SMALL (NEG) Urine Hyaline Casts 3-5 /lpf (RARE) Hemoglobin 10.5 GM/DL (11.6-15.3) Hematocrit 34.0 % (35.0-46.0) Mean Corpuscular Volume 69.9 FL (80.0-100.0) Mean Corpuscular Hemoglobin 21.6 PG (27.0-34.0) Mean Corpuscular Hemoglobin Concent 31.0 % (32.0-36.0) Red Cell Distribution Width 21.1 % (11.6-17.2) Monocytes (%) (Auto) 10.5 % (0.0-8.0) Blood Urea Nitrogen 32 MG/DL (7-18) Albumin 3.2 GM/DL (3.4-5.0) Alkaline Phosphatase 131 U/L (45-117) Aspartate Amino Transf (AST/SGOT) 95 U/L (15-37) Estimat Glomerular Filtration Rate 63 ML/MIN (>89) Total Creatine Kinase 1765 U/L (26-192) 870 U/L (26-192) 766 U/L (26-192) Creatine Kinase MB 25.3 NG/ML (0.5-3.6) 9.4 NG/ML (0.5-3.6) 7.6 NG/ML (0.5-3.6) Troponin I 0.07 NG/ML (0.02-0.05) 0.07 NG/ML (0.02-0.05) 0.06 NG/ML (0.02-0.05) Prothrombin Time 12.4 SEC (9.8-11.6) Test 11/15/17 05:50 Red Blood Count 3.46 MIL/MM3 (4.00-5.30) Hemoglobin 7.6 GM/DL (11.6-15.3) Hematocrit 24.4 % (35.0-46.0) Mean Corpuscular Volume 70.7 FL (80.0-100.0) Mean Corpuscular Hemoglobin 21.9 PG (27.0-34.0) Mean Corpuscular Hemoglobin Concent 31.0 % (32.0-36.0) Red Cell Distribution Width 21.5 % (11.6-17.2) Monocytes (%) (Auto) 10.9 % (0.0-8.0) Creatinine 0.44 MG/DL (0.50-1.00) Total Protein 5.6 GM/DL (6.4-8.2) Albumin 2.2 GM/DL (3.4-5.0) Calcium Level 7.5 MG/DL (8.5-10.1) Aspartate Amino Transf (AST/SGOT) 43 U/L (15-37) Potassium Level 3.4 MEQ/L (3.5-5.1) Chloride Level 112 MEQ/L (98-107) Total Creatine Kinase 433 U/L (26-192) Creatine Kinase MB 4.9 NG/ML (0.5-3.6) PE at Discharge GENERAL: Well-developed, well-nourished patient in NAD. SKIN: Warm and dry. No rash. HEAD: Normocephalic. Atraumatic. EYES: Pupils equal and round. No scleral icterus. No injection or drainage. ENT: No nasal bleeding or discharge. Mucous membranes pink and moist. NECK: Supple. Trachea midline. CARDIOVASCULAR: Regular rate and rhythm. S1, S2 noted. No murmur appreciated. RESPIRATORY: No accessory muscle use. Clear to auscultation. Breath sounds equal bilaterally. GASTROINTESTINAL: Abdomen soft, non-tender, nondistended. Normoactive bowel sounds x4. MUSCULOSKELETAL: No obvious deformities. Extremities without clubbing, cyanosis , or edema. NEUROLOGICAL: Awake and alert. No obvious cranial nerve deficits. Motor grossly within normal limits. 5/5 muscle strength in bilateral upper and lower extremities. Normal speech. PSYCHIATRIC: Appropriate mood and affect; insight and judgment normal. Hospital Course Mrs. Aguirre is a 62 year old female. She has lupus at baseline and has been dealing with gradual physical decompensation. She had a fall at home and could not get up. She was found dehydrated and work up showed she had rhabdomyalysis. Renal function was monitored and she has shown good recovery from her rhabdomyalysis. She is not yet ambulating well and not safe for discharge back to home. SNF needed. Medically stable and clear for discharge to SNF today. Pt Condition on Discharge: Stable Discharge Disposition: Discharge to SNF Discharge Time: <= 30 minutes Discharge Instructions DIET: Follow Instructions for: As Tolerated, No Restrictions Activities you can perform: See Additionl Instruction Other Activity Instructions: Out of bed with assistance only, for now Follow up Referrals: PCP Follow-up - 2 Weeks New Medications: Lactobacillus Acidophilus (Lactobacillus Acidophilus) 1 Billion Cell Tab 1 TAB PO TIDAC for Nutritional Supplement, #60 TAB 0 Refills Continued Medications: Apixaban (Eliquis) 2.5 Mg Tab 2.5 MG PO BID for Blood Clot Prevention, TAB [address] (Aspirin EC) 81 Mg Tabdr 81 MG PO DAILY for Cardiac protection for 30 Days, #30 TAB 0 Refills Baclofen (Baclofen) 10 Mg Tab 10 MG PO TID for Muscle Spasm, TAB 0 Refills Clonazepam (Clonazepam) 0.5 Mg Tab 0.5 MG PO BID for Anxiety, #60 TAB 0 Refills Fluoxetine (Prozac) 20 Mg Cap 20 MG PO DAILY, #30 CAP 0 Refills Furosemide (Lasix) 20 Mg Tab 20 MG PO DAILY for CHF, #30 TAB 0 Refills Gabapentin (Gabapentin) 600 Mg Tab 600 MG PO TID, #90 TAB 0 Refills Hydrocodone-Acetaminophen (Hydrocodone-Acetaminophen) 10-325 mg Tab 1 TAB PO Q6H PRN for PAIN, TAB 0 Refills Hydroxyzine HCl (Hydroxyzine HCl) 50 Mg Tab 50 MG PO TID PRN for ANXIETY, TAB 0 Refills Levofloxacin (Levofloxacin) 500 Mg Tablet 500 MG PO DAILY for Infection, #14 TAB 0 Refills Lisinopril (Lisinopril) 5 Mg Tab 5 MG PO DAILY for Blood Pressure Management for 30 Days, #30 TAB Metoprolol Succinate ER 24 HR (Toprol XL) 25 Mg Tab 25 MG PO Q12HR, #30 TAB 0 Refills Potassium Chloride ER (K-Tab) 10 Meq Tab 10 MEQ PO DAILY for Electrolyte Replacement, #30 TAB 0 Refills [guaiFENesin ER] () 600 MG TABCR 600 MG PO BID for Pneumonia for 7 Days Daen Tsang MD Nov 15, 2017 10:46
[2017-11-15 12:00] VITALS: BP 154/72; PULSE 60; RESP 18; TEMP 98.1; O2SAT 97
[2017-11-15] MEDS ORDERED: HYDR-3583 PO (17:45)
[2017-11-15] MEDS ORDERED: NORC5TAB PO (17:49)
[2017-11-15] MEDS ORDERED: HYDR-3366 PO (17:49)
[2017-11-15] MEDS: ACETAMINOPHEN/HYDROcodone 325 MG/5 MG TAB PO PRN (18:17)
[2017-11-15] MEDS ORDERED: SODIUM CHLOR 0.9% 250 ML INJ 250 ML IV ONE (18:45)
[2017-11-15 20:00] VITALS: BP 162/74; PULSE 62; RESP 20; TEMP 97.6; O2SAT 96
[2017-11-16] VITALS (9 sets, daily range): BP systolic 138–163; BP diastolic 68–94; PULSE 53–64; RESP 18–20; TEMP 96.7–98.2; O2SAT 95–99
[2017-11-16] MEDS: ACETAMINOPHEN/HYDROcodone 325 MG/5 MG TAB PO PRN (02:08)
[2017-11-16] MEDS: ONDANSETRON HCL 4 MG/2 ML VIAL IVP PRN ×2 (06:21→15:34)
[2017-11-16] MEDS: SODIUM CHLOR 0.9% 1000 ML INJ 1,000 ML IV SCH (06:22)
[2017-11-16] MEDS ORDERED: POTASSIUM CHLORIDE 20 MEQ CONTROLLED RELEASE TAB PO ONE (07:45)
[2017-11-16 08:50] LABS: AUTOMATED NEUTROPHIL # 3.2 TH/MM3 (1.8-7.7); BASOPHIL % 0.9 % (0.0-2.0); EOSINOPHIL # 0.1 TH/MM3 (0-0.4); EOSINOPHIL % 1.7 % (0.0-4.0); HEMATOCRIT 33.6 % (35.0-46.0); LYMPHOCYTE # 1.6 TH/MM3 (1.0-4.8); MEAN CORPUSCULAR HEMOGLOBIN 24.5 PG (27.0-34.0); MEAN CORPUSCULAR HGB CONC 32.6 % (32.0-36.0); MEAN PLATELET VOLUME 8.4 FL (7.0-11.0); MONO % 8.6 % (0.0-8.0); MONOCYTE # 0.5 TH/MM3 (0-0.9); NEUT % 59.8 % (16.0-70.0); PLATELET COUNT 184 TH/MM3 (150-450); RED BLOOD COUNT 4.48 MIL/MM3 (4.00-5.30); RED CELL DISTRIBUTION WIDTH 22.3 % (11.6-17.2); WHITE BLOOD COUNT 5.4 TH/MM3 (4.0-11.0)
[2017-11-16] MEDS: DOCUSATE SODIUM 50 MG/SENNA 8.6 MG TAB PO SCH ×3 (09:00→21:40)
[2017-11-16 09:09] LABS: CHLORIDE 110 MEQ/L (98-107); SODIUM (NA) 140 MEQ/L (136-145)
[2017-11-16 09:12] LABS: CALCIUM 7.8 MG/DL (8.5-10.1)
[2017-11-16 09:13] LABS: ALBUMIN 2.3 GM/DL (3.4-5.0); BICARBONATE 24.8 MEQ/L (21.0-32.0); BLOOD UREA NITROGEN 7 MG/DL (7-18); GLUCOSE,RANDOM 85 MG/DL (74-106)
[2017-11-16 09:16] LABS: ALT (GPT) 20 U/L (10-53); AST (GOT) 34 U/L (15-37); CREATININE 0.42 MG/DL (0.50-1.00); GLOMERULAR FILTRATION RATE 154 ML/MIN (>89)
[2017-11-16 09:17] LABS: TOTAL BILIRUBIN ADULT 0.8 MG/DL (0.2-1.0); TOTAL PROTEIN 5.9 GM/DL (6.4-8.2)
[2017-11-16 09:19] LABS: ALKALINE PHOSPHATASE 107 U/L (45-117)
[2017-11-16] MEDS: GABAPENTIN 300 MG CAP PO SCH ×3 (09:27→18:31)
[2017-11-16] MEDS: METOPROLOL SUCCINATE 25 MG EXTENDED RELEASE TAB PO SCH ×2 (09:27→21:41)
[2017-11-16] MEDS: APIXABAN 2.5 MG TABLET PO SCH ×2 (09:27→21:41)
[2017-11-16] MEDS: BACLOFEN 10 MG TAB PO SCH ×3 (09:27→18:31)
[2017-11-16] MEDS: SODIUM CHLORIDE 0.9% FLUSH 10 ML FLUSH IV FLUSH SCH ×2 (09:28→21:40)
[2017-11-16] MEDS: ACETAMINOPHEN/HYDROcodone 325 MG/10 MG TAB PO PRN ×3 (09:28→21:41)
[2017-11-16 09:42] LABS: OVALOCYTES 1+ (NORMAL)
[2017-11-16] MEDS: clonazePAM 0.5 MG TAB PO SCH ×2 (11:21→21:41)
[2017-11-16 12:48] LABS: HEMATOCRIT 34.8 % (35.0-46.0); HEMOGLOBIN 10.7 GM/DL (11.6-15.3)
[2017-11-16 14:21] LABS: RETIC # 53.8 MIL/L (20.0-150.0); RETIC % 1.2 % (0.4-3.0)
[2017-11-16 14:22] LABS: IRON (FE) 26 MCG/DL (50-170)
[2017-11-16 15:35] LABS: % SATURATION IRON PROFILE 6.8 % (20-50); FERRITIN 44 NG/ML (8-252); FOLATE 5.4 NG/ML (3.1-17.5); TOTAL IRON BINDING CAPACITY 385 MCG/DL (250-450)
--- NOTE | 2017-11-16 16:36 | HHI.PR ---
Subjective Remarks Rhabdomyolysis has resolved. Patient has anemia yesterday, but this was a falsely low hemoglobin. After transfusion hemoglobin 11 which indicates that she actually never lost any blood. Planned discharge to long-term facility. Objective Vital Signs Date Time Temp Pulse Resp B/P (MAP) Pulse Ox O2 Delivery O2 Flow Rate FiO2 11/16/17 12:00 97.5 62 18 138/70 (92) 95 11/16/17 10:28 17 11/16/17 08:00 98.2 53 18 163/72 (102) 95 11/16/17 05:38 97.8 55 18 158/94 99 11/16/17 02:50 97.7 53 18 148/81 97 11/16/17 02:29 97.7 58 18 159/82 96 11/16/17 00:00 96.8 57 20 144/72 (96) 96 11/15/17 20:00 97.6 62 20 162/74 (103) 96 I/O 11/15/17 11/15/17 11/15/17 11/16/17 11/16/17 11/16/17 07:00 15:00 23:00 07:00 15:00 23:00 Intake Total 420 ml 1040 ml Balance 420 ml 1040 ml Intake Oral 420 ml 240 ml Packed Cells 400 ml Blood Product IV Normal Saline Flush 400 ml # Voids 3 4 # Bowel Movements 1 Result Diagram: 11/16/17 1231 11/16/17 0830 Objective Remarks GENERAL: NAD, A&Ox3 HEAD: Normocephalic. NECK: Supple, trachea midline. No lymphadenopathy. EYES: No scleral icterus. No injection or drainage. CARDIOVASCULAR: Regular rate and rhythm without murmurs, gallops, or rubs. RESPIRATORY: Breath sounds equal bilaterally. No accessory muscle use. GASTROINTESTINAL: Abdomen soft, non-tender, nondistended. MUSCULOSKELETAL: No cyanosis, or edema. SKIN: Warm and dry. NEURO: No focal neurological deficitis. 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
[2017-11-17] VITALS: BP 129/72; PULSE 56; RESP 20; TEMP 96.8; O2SAT 95
[2017-11-17] MEDS: ACETAMINOPHEN/HYDROcodone 325 MG/10 MG TAB PO PRN ×2 (04:42→12:26)
[2017-11-17 06:33] LABS: AUTOMATED NEUTROPHIL # 2.4 TH/MM3 (1.8-7.7); BASOPHIL % 0.8 % (0.0-2.0); EOSINOPHIL # 0.1 TH/MM3 (0-0.4); EOSINOPHIL % 1.6 % (0.0-4.0); HEMATOCRIT 34.9 % (35.0-46.0); HEMOGLOBIN 10.8 GM/DL (11.6-15.3); LYMPH % 38.7 % (9.0-44.0); LYMPHOCYTE # 1.9 TH/MM3 (1.0-4.8); MEAN CORPUSCULAR HEMOGLOBIN 23.1 PG (27.0-34.0); MEAN CORPUSCULAR HGB CONC 30.9 % (32.0-36.0); MEAN PLATELET VOLUME 8.5 FL (7.0-11.0); MONO % 11.2 % (0.0-8.0); MONOCYTE # 0.6 TH/MM3 (0-0.9); NEUT % 47.7 % (16.0-70.0); PLATELET COUNT 177 TH/MM3 (150-450); RED BLOOD COUNT 4.65 MIL/MM3 (4.00-5.30); RED CELL DISTRIBUTION WIDTH 22.5 % (11.6-17.2)
[2017-11-17 06:39] LABS: CHLORIDE 107 MEQ/L (98-107); SODIUM (NA) 139 MEQ/L (136-145)
[2017-11-17 06:47] LABS: CALCIUM 8.3 MG/DL (8.5-10.1)
[2017-11-17 06:48] LABS: ALBUMIN 2.4 GM/DL (3.4-5.0); BLOOD UREA NITROGEN 7 MG/DL (7-18); GLUCOSE,RANDOM 87 MG/DL (74-106); MAGNESIUM 1.8 MG/DL (1.5-2.5)
[2017-11-17 06:51] LABS: ALT (GPT) 19 U/L (10-53); AST (GOT) 32 U/L (15-37); CREATININE 0.49 MG/DL (0.50-1.00); GLOMERULAR FILTRATION RATE 129 ML/MIN (>89)
[2017-11-17 06:52] LABS: TOTAL BILIRUBIN ADULT 0.3 MG/DL (0.2-1.0)
[2017-11-17 06:53] LABS: TOTAL PROTEIN 6.1 GM/DL (6.4-8.2)
[2017-11-17 06:54] LABS: ALKALINE PHOSPHATASE 112 U/L (45-117)
[2017-11-17 07:50] VITALS: BP 160/90; PULSE 56; RESP 18; TEMP 97.8; O2SAT 96
[2017-11-17] MEDS: ONDANSETRON HCL 4 MG/2 ML VIAL IVP PRN (08:54)
[2017-11-17] MEDS: SODIUM CHLORIDE 0.9% FLUSH 10 ML FLUSH IV FLUSH SCH (08:55)
[2017-11-17] MEDS: clonazePAM 0.5 MG TAB PO SCH (09:01)
[2017-11-17] MEDS: METOPROLOL SUCCINATE 25 MG EXTENDED RELEASE TAB PO SCH (09:02)
[2017-11-17] MEDS: APIXABAN 2.5 MG TABLET PO SCH (09:02)
[2017-11-17] MEDS: DOCUSATE SODIUM 50 MG/SENNA 8.6 MG TAB PO SCH (09:02)
[2017-11-17] MEDS: GABAPENTIN 300 MG CAP PO SCH ×3 (09:02→17:33)
[2017-11-17] MEDS: BACLOFEN 10 MG TAB PO SCH ×3 (09:02→17:33)
--- NOTE | 2017-11-17 10:53 | HHI.PR ---
Subjective Remarks Rhabdomyolysis has resolved. No evidence of significant anemia. Awaiting placement at assisted facility. Patient has no new complaints. Objective Vital Signs Date Time Temp Pulse Resp B/P (MAP) Pulse Ox O2 Delivery O2 Flow Rate FiO2 11/17/17 07:50 97.8 56 18 160/90 (113) 96 11/17/17 00:00 96.8 56 20 129/72 (91) 95 11/16/17 20:00 96.7 57 20 147/68 (94) 98 11/16/17 16:33 17 11/16/17 16:00 62 18 138/70 (92) 95 11/16/17 12:00 97.5 62 18 138/70 (92) 95 I/O 11/16/17 11/16/17 11/16/17 11/17/17 11/17/17 11/17/17 07:00 15:00 23:00 07:00 15:00 23:00 Intake Total 1040 ml 600 ml 480 ml Output Total 1 ml 200 ml Balance 1040 ml 599 ml 280 ml Intake Oral 240 ml 600 ml 480 ml Packed Cells 400 ml Blood Product IV Normal Saline Flush 400 ml Output Urine Total 200 ml Stool Total 1 ml # Voids 4 5 3 # Bowel Movements 0 Result Diagram: 11/17/17 0520 11/17/17 0520 Objective Remarks GENERAL: NAD, A&Ox3 HEAD: Normocephalic. NECK: Supple, trachea midline. No lymphadenopathy. EYES: No scleral icterus. No injection or drainage. CARDIOVASCULAR: Regular rate and rhythm without murmurs, gallops, or rubs. RESPIRATORY: Breath sounds equal bilaterally. No accessory muscle use. GASTROINTESTINAL: Abdomen soft, non-tender, nondistended. MUSCULOSKELETAL: No cyanosis, or edema. SKIN: Warm and dry. NEURO: No focal neurological deficitis. 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
[2017-11-17 12:00] VITALS: BP 149/79; PULSE 55; RESP 18; TEMP 98.1; O2SAT 97
[2017-11-17 16:00] VITALS: BP 117/100; PULSE 60; RESP 18; TEMP 96.8; O2SAT 97
== END 2017-11-17 17:53 | DRG 558 ==
LOC: PHEFT 12:49 → PHEDA 16:44 → PH3B 20:54
PROVIDERS: ADMIT Hospitalist; ATTEND Hospitalist
PROC: 30233N1 Transfusion of Nonautologous Red Blood Cells into Peripheral Vein, Percutaneous Approach (ICD-10-PCS; principal; 2017-11-16)
DX: M62.82 Rhabdomyolysis (principal); I48.91 Unspecified atrial fibrillation; J44.9 Chronic obstructive pulmonary disease, unspecified; B19.20 Unspecified viral hepatitis C without hepatic coma; S40.212A Abrasion of left shoulder, initial encounter; E86.0 Dehydration; D64.9 Anemia, unspecified; H91.90 Unspecified hearing loss, unspecified ear; R31.9 Hematuria, unspecified; M81.0 Age-related osteoporosis without current pathological fracture; K59.00 Constipation, unspecified; R74.8 Abnormal levels of other serum enzymes; R11.0 Nausea; F41.9 Anxiety disorder, unspecified; Z79.01 Long term (current) use of anticoagulants; M06.9 Rheumatoid arthritis, unspecified; L93.0 Discoid lupus erythematosus; Z72.0 Tobacco use; Z87.11 Personal history of peptic ulcer disease; W19.XXXA Unspecified fall, initial encounter; Y92.009 Unspecified place in unspecified non-institutional (private) residence as the place of occurrence of the external cause
CPT/HCPCS: 36430; 70450; 73030; 80053; 81001; 82272; 82550; 82552; 82607; 82728; 82746; 83010; 83540; 83550; 83615; 83735; 84484; 85014; 85018; 85025; 85044; 85610; 85730; 86850; 86900; 86901; 86920; 93005; J2405; J7030; P9016

== ENCOUNTER 2018-02-05 01:44 | Inpatient (IN) | payer MEDICAID ==
[2018-02-05] VITALS (10 sets, daily range): BP systolic 113–188; BP diastolic 61–91; PULSE 61–81; RESP 16–20; TEMP 97.9–98.7; O2SAT 95–99
[~2018-02-05] VITALS: Ht 165.1 cm; Wt 44.4 kg
[~2018-02-05 01:44] MED LIST changes: +APIX2.5T PO; +HYDR-3366 PO; -HYDR-3583 PO; +LACTTAB8 PO; +NORC5TAB PO
[2018-02-05] MEDS ORDERED: ACETAMINOPHEN/HYDROcodone 325 MG/5 MG TAB PO ONE (02:00)
--- NOTE | 2018-02-05 02:47 | RADRPT ---
EXAM DATE: 02/05/2018 2:38 AM EDT AGE/SEX: 62 years / Female INDICATIONS: Syncopal episode with a fall, patient was down for several hours. CLINICAL DATA: This is the patient's initial encounter. Patient reports that signs and symptoms have been present for 1 day and indicates a pain score of 0/10. MEDICAL/SURGICAL HISTORY: . Lupus. Chronic obstructive pulmonary disease. Hepatitis C Tubal l igation. Tonsillectomy. ORIF Lt humerus COMPARISON: [facility] [place], 06/14[place]. . FINDINGS: A single AP view of the chest demonstrates the lungs to be symmetrically aerated without evidence of mass, infiltrate or effusion. The cardiomediastinal contours are unremarkable. Comminuted fracture r ight proximal humerus. Scoliosis CONCLUSION: No acute cardiopulmonary disease. Comminuted fracture right proximal humerus. Electronically signed by: Forrest Tracey MD 02/05/2018 2:46 AM EDT
--- NOTE | 2018-02-05 02:48 | RADRPT ---
EXAM DATE: 02/05/2018 2:40 AM EDT AGE/SEX: 62 years / Female INDICATIONS: Syncopal episode with fall, right arm pain. CLINICAL DATA: This is the patient's initial encounter. Patient reports that signs and symptoms have been present for 1 day and indicates a pain score of 10/10. MEDICAL/SURGICAL HISTORY: . Lupus. Chronic obstructive pulmonary disease. Hepatitis C Tonsill ectomy. Tubal ligation. ORIF Lt humerus COMPARISON: No prior exams available for comparison. FINDINGS: Views of the right humerus demonstrates comminuted fracture of the humeral neck and humeral head. The re is slight overlap of fragments CONCLUSION: Comminuted fracture right proximal humerus Electronically signed by: Forrest Tracey MD 02/05/2018 2:46 AM EDT
--- NOTE | 2018-02-05 02:49 | RADRPT ---
EXAM DATE: 02/05/2018 2:39 AM EDT AGE/SEX: 62 years / Female INDICATIONS: Syncopal episode with fall. CLINICAL DATA: This is the patient's initial encounter. Patient reports that signs and symptoms have been present for 1 day and indicates a pain score of 0/10. MEDICAL/SURGICAL HISTORY: . Lupus. Chronic obstructive pulmonary disease. Hepatitis C Tonsill ectomy. Tubal ligation. ORIF Lt humerus COMPARISON: No prior exams available for comparison. FINDINGS: Bony structures are intact and in normal alignment. Joints are intact without dislocation or signifi cant arthropathy. Osseous density is normal. Soft tissues are unremarkable. No radiopaque foreign bodies seen. CONCLUSION: No acute fracture right elbow Electronically signed by: Forrest Tracey MD 02/05/2018 2:48 AM EDT
--- NOTE | 2018-02-05 02:49 | RADRPT ---
EXAM DATE: 02/05/2018 2:41 AM EDT AGE/SEX: 62 years / Female INDICATIONS: Sycopal episode with fall, right arm pain and bruising. CLINICAL DATA: This is the patient's initial encounter. Patient reports that signs and symptoms have been present for 1 day and indicates a pain score of 10/10. MEDICAL/SURGICAL HISTORY: . Lupus. Chronic obstructive pulmonary disease. Hepatitis C Tubal l igation. Tonsillectomy. ORIF Lt humerus COMPARISON: [facility], HUMERUS RIGHT (MIN 2VWS), 02/05/2018. . FINDINGS: Views of the right shoulder demonstrates comminuted fracture of the humeral neck and humeral head. Sl ight overlap of fragments. There is also fracture of the acromion. Soft tissue swelling. No dislocati on. CONCLUSION: Comminuted fracture right proximal humerus. There appears to be fracture of the acromion as well. Electronically signed by: Forrest Tracey MD 02/05/2018 2:48 AM EDT
--- NOTE | 2018-02-05 02:53 | RADRPT ---
EXAM DATE: 02/05/2018 2:40 AM EDT AGE/SEX: 62 years / Female INDICATIONS: Syncopal episode with a fall. CLINICAL DATA: This is the patient's initial encounter. Patient reports that signs and symptoms have been present for 1 day and indicates a pain score of 0/10. MEDICAL/SURGICAL HISTORY: . Lupus. Chronic obstructive pulmonary disease. Hepatitis C Tubal l igation. Tonsillectomy. ORIF Lt humerus COMPARISON: [facility] – [place] PELVIS AP [place], 06/14/2017. . FINDINGS: Examination of the pelvis demonstrates possible fracture inferior pubic ramus on the right. Hips are intact. Soft tissues are normal. Bony mineralization is normal. There is no widening of the sacroil iac joints. No foreign body is identified. CONCLUSION: Questionable fracture inferior pubic ramus on the right. Electronically signed by: Forrest Tracey MD 02/05/2018 2:52 AM EDT
[2018-02-05 02:56] LABS: AUTOMATED NEUTROPHIL # 5.3 TH/MM3 (1.8-7.7); BASOPHIL % 0.4 % (0.0-2.0); HEMATOCRIT 24.9 % (35.0-46.0); HEMOGLOBIN 8.2 GM/DL (11.6-15.3); LYMPH % 15.1 % (9.0-44.0); LYMPHOCYTE # 1.1 TH/MM3 (1.0-4.8); MEAN CELL VOLUME 79.6 FL (80.0-100.0); MEAN CORPUSCULAR HEMOGLOBIN 26.3 PG (27.0-34.0); MEAN PLATELET VOLUME 8.1 FL (7.0-11.0); MONO % 9.6 % (0.0-8.0); MONOCYTE # 0.7 TH/MM3 (0-0.9); NEUT % 74.9 % (16.0-70.0); PLATELET COUNT 247 TH/MM3 (150-450); RED BLOOD COUNT 3.13 MIL/MM3 (4.00-5.30); RED CELL DISTRIBUTION WIDTH 16.2 % (11.6-17.2); WHITE BLOOD COUNT 7.1 TH/MM3 (4.0-11.0)
[2018-02-05 03:19] LABS: ALBUMIN 2.9 GM/DL (3.4-5.0); ALT (GPT) 16 U/L (10-53); AST (GOT) 29 U/L (15-37); BICARBONATE 24.3 MEQ/L (21.0-32.0); BLOOD UREA NITROGEN 11 MG/DL (7-18); CALCIUM 7.9 MG/DL (8.5-10.1); CHLORIDE 107 MEQ/L (98-107); CREATININE 0.53 MG/DL (0.50-1.00); GLOMERULAR FILTRATION RATE 118 ML/MIN (>89); GLUCOSE,RANDOM 91 MG/DL (74-106); SODIUM (NA) 141 MEQ/L (136-145)
[2018-02-05 03:21] LABS: ALKALINE PHOSPHATASE 134 U/L (45-117); TOTAL BILIRUBIN ADULT 0.8 MG/DL (0.2-1.0); TOTAL PROTEIN 6.5 GM/DL (6.4-8.2)
--- NOTE | 2018-02-05 03:28 | RADRPT ---
EXAM DATE: 02/05/2018 2:55 AM EDT AGE/SEX: 62 years / Female INDICATIONS: Trauma. Fall. CLINICAL DATA: This is the patient's initial encounter. Patient reports that signs and symptoms have been present for 1 day and indicates a pain score of 8/10. MEDICAL/SURGICAL HISTORY: Cardiovascular disease. Chronic obstructive pulmonary disease. Hepatiti s C. Seizures Tubal ligation. RADIATION DOSE: 56.35 CTDI (mGy) COMPARISON: [facility], CT BRAIN W/O CONTRAST, 11/13/2017. . TECHNIQUE: CT of the head without contrast. Using automated exposure control and adjustment of the mA and/or kV according to patient size, radiation dose was kept as low as reasonably achievable to ob tain optimal diagnostic quality images. FINDINGS: Cerebrum: The ventricles are normal for age. No evidence of midline shift, mass lesion, hemorrhage or acute infarction. No extraaxial fluid collections are seen. Posterior Fossa: The cerebellum and brainstem are intact. The 4th ventricle is midline. The cerebe llopontine angle is unremarkable. Extracranial: The visualized portion of the orbits is intact. Skull: The calvaria is intact. No evidence of skull fracture. CONCLUSION: 1. No acute intracranial abnormality Electronically signed by: Forrest Tracey MD 02/05/2018 3:27 AM EDT
--- NOTE | 2018-02-05 03:44 | RADRPT ---
EXAM DATE: 02/05/2018 3:39 AM EDT AGE/SEX: 62 years / Female INDICATIONS: Trauma. Fall. CLINICAL DATA: This is the patient's initial encounter. Patient reports that signs and symptoms have been present for 1 day and indicates a pain score of 8/10. MEDICAL/SURGICAL HISTORY: Cardiovascular disease. Chronic obstructive pulmonary disease. Hepa titis C. Seizures Tubal ligation. RADIATION DOSE: 20.31 CTDI (mGy) COMPARISON: [facility] [place] CERVICAL SPINE W/O [place]AST, 06/14/2017. . TECHNIQUE: Contiguous axial images were obtained using helical multirow detector technique. The vol umetric data was post-processed with multiplanar reconstruction in oblique axial, sagittal, and coron al planes. Using automated exposure control and adjustment of the mA and/or kV according to patient s ize, radiation dose was kept as low as reasonably achievable to obtain optimal diagnostic quality tanisha ges. FINDINGS: Vertebrae: Normal vertebral body height. Mild degenerative changes. Alignment: Normal. No subluxation. C2-3: The bony spinal canal is normal in size. No evidence of disc bulge or herniation. The neural foramina are bilaterally patent. C3-4: The bony spinal canal is normal in size. No evidence of disc bulge or herniation. The neural foramina are bilaterally patent. C4-5: The bony spinal canal is normal in size. No evidence of disc bulge or herniation. The neural foramina are bilaterally patent. C5-6: The bony spinal canal is normal in size. No evidence of disc bulge or herniation. The neural foramina are bilaterally patent. C6-7: The bony spinal canal is normal in size. No evidence of disc bulge or herniation. The neural foramina are bilaterally patent. C7-T1: The bony spinal canal is normal in size. No evidence of disc bulge or herniation. The neura l foramina are bilaterally patent. CONCLUSION: 1. No acute fracture or subluxation. Electronically signed by: Forrest Tracey MD 02/05/2018 3:43 AM EDT
--- NOTE | 2018-02-05 04:53 | RADRPT ---
EXAM DATE: 02/05/2018 4:25 AM EDT AGE/SEX: 62 years / Female INDICATIONS: Trauma; fall. CLINICAL DATA: This is the patient's initial encounter. Patient reports that signs and symptoms have been present for 1 day and indicates a pain score of 8/10. MEDICAL/SURGICAL HISTORY: Chronic obstructive pulmonary disease. Hepatitis C. Cardiovascular dise ase. Tubal ligation. RADIATION DOSE: 12.84 CTDI (mGy) COMPARISON: [facility], PELVIS AP ONLY, 02/05/2018. . TECHNIQUE: Multiple contiguous axial images were obtained through the pelvis without contrast. Imag es were obtained using multiple row detector helical technique. . Using automated exposure control an d adjustment of the mA and/or kV according to patient size, radiation dose was kept as low as reasona stewart achievable to obtain optimal diagnostic quality images. FINDINGS: Bowel/Mesentery: The bowel loops are grossly unremarkable. The sigmoid colon has a normal configura tion. Bladder: Contours are smooth. Retroperitoneum: No evidence of deep pelvic adenopathy. Reproductive Organs: No abnormal masses or calcifications seen. Inguinal: The inguinal region is unremarkable without evidence of adenopathy. Bony Structures: Old fracture right inferior pubic ramus. No acute fracture.. CONCLUSION: 1. No acute fracture. 2. Old fracture right inferior pubic ramus. Electronically signed by: Forrest Tracey MD 02/05/2018 4:52 AM EDT
--- NOTE | 2018-02-05 05:03 | PD ---
HPI Chief Complaint: Fall Time Seen by Provider: 01:53 Travel History International Travel<30 days: No Contact w/Intl Traveler<30days: No Traveled to known affect area: No History of Present Illness HPI Patient is a 62 year old female, brought in by EMS, after a fall. She says she fell a couple of times today. She says she has poor balance and her legs came out from under her. She fell onto her right side and hit the front and right side of her head. She complains of pain to the right arm. EMS states she was unable to get up from the ground, but she says she was able to pull herself around. She denies feeling ill prior to the fall. She has history of lupus, anemia, scoliosis and takes multiple pain medications. She denies any chest pain or SOB. She denies abdominal pain, nausea or vomiting. Severity is mild to moderate. She did not take anything for her pain prior to coming in. PFSH Past Medical History Hx Anticoagulant Therapy: Yes (Eliquis) Anemia: Yes (CHRONIC ANEMIA) Arthritis: Yes (RHEUMATOID) Autoimmune Disease: Yes (LUPUS) Blood Disorders: Yes (CHRONIC ANEMIA) Anxiety: Yes Depression: Yes Heart Rhythm Problems: Yes (A FIB) Cancer: No Cardiovascular Problems: Yes (A-FIB) High Cholesterol: No Congestive Heart Failure: Yes COPD: Yes Diabetes: No Diminished Hearing: Yes (LT EAR) Endocrine: No Gastrointestinal Disorders: Yes (GI BLEED, GASTRIC ULCERS, N & V) Genitourinary: Yes (STATES HEMATURIA) Hepatitis: Yes (HEP C) Hiatal Hernia: Yes Hypertension: No Immune Disorder: Yes (RA, LUPUS) Implanted Vascular Access Dvce: Yes Medical other: Yes (ANEMIA) Musculoskeletal: Yes (SCOLIOSIS, ARTHRITIS, OSTEOPOROSIS) Neurologic: Yes (SEIZURE HX, NUMBNESS SCATTERED, MIGRAINES) Psychiatric: Yes (ANXIETY/ DEPRESSION) Reproductive: No Respiratory: Yes (COPD) Immunizations Current: Yes Migraines: Yes Thyroid Disease: No Ulcer: Yes (ONE IN STOMACH AND ONE IN COLON) PNEUMOCCOCAL Vaccine (Year): 2 ?: Not Menopausal: Yes : 2 Para: 2 Tubal Ligation: Yes Past Surgical History AICD: No Body Medical Devices: HARDWARE LEFT SHOULDER, RIGHT WRIST, LEFT ELBOW Ear Surgery: No Eye Surgery: No Gynecologic Surgery: Yes (TUBAL SX) Joint Replacement: No Pacemaker: No Tonsillectomy: Yes Other Surgery: Yes (LEFT SHOULDER TIMES 2) Social History Alcohol Use: No Tobacco Use: Yes (5 to 6 cigs) Substance Use: No Allergies-Medications (Allergen,Severity, Reaction): Coded Allergies: penicillin G (Unverified Allergy, Severe, Anaphylaxis, 02/05/18) mold (Unverified Allergy, Unknown, 02/05/18) Reported Meds & Prescriptions Reported Meds & Active Scripts Active Walkerton (Hydrocodone-Acetaminophen) 10-325 Mg Tab 1 Tab PO Q6H PRN Walkerton (Hydrocodone-Acetaminophen) 5 Mg-325 Mg Tab 1 Tab PO Q6H PRN Lactobacillus Acidophilus 1 Billion Cell Tab 1 Tab PO TIDAC Walker with Front Wheels (Device) 1 Mis Mis Ea .XX DIRECTED K-Tab (Potassium Chloride) 10 Meq Tab 10 Meq PO DAILY Lasix (Furosemide) 20 Mg Tab 20 Mg PO DAILY Aspirin EC (Aspirin) 81 Mg Tabdr 81 Mg PO DAILY 30 Days Levofloxacin 500 Mg Tablet 500 Mg PO DAILY [guaiFENesin ER] 600 MG Tabcr 600 Mg PO BID 7 Days Lisinopril 5 Mg Tab 5 Mg PO DAILY 30 Days Cane/Wood/Ladies Standard (Device) 1 Mis Mis Ea .ROUTE DIRECTED Walker Rolling/GetGo (Device) 1 Mis Mis Ea .ROUTE DIRECTED Reported Eliquis (Apixaban) 2.5 Mg Tab 2.5 Mg PO BID Baclofen 10 Mg Tab 10 Mg PO TID Gabapentin 600 Mg Tab 600 Mg PO TID Clonazepam 0.5 Mg Tab 0.5 Mg PO BID Prozac (Fluoxetine HCl) 20 Mg Cap 20 Mg PO DAILY Hydroxyzine HCl 50 Mg Tab 50 Mg PO TID PRN Toprol XL (Metoprolol Succinate) 25 Mg Tab 25 Mg PO Q12HR Review of Systems Except as stated in HPI: all other systems reviewed are Neg General / Constitutional: No: Fever, Chills Eyes: No: Blurred Vision HENT: No: Headaches, Lightheadedness Cardiovascular: No: Chest Pain or Discomfort Respiratory: No: Shortness of Breath Gastrointestinal: No: Nausea, Vomiting Musculoskeletal: Positive: Pain Skin: Positive Change in Pigmentation Neurologic: No: Weakness, Dizziness Physical Exam Narrative GENERAL: Awake and alert, in no acute distress. SKIN: Large ecchymosis of the right upper arm. HEAD: Atraumatic. Normocephalic. EYES: Pupils equal and round. No scleral icterus. EOMI. ENT: No nasal bleeding or discharge. Mucous membranes pink and moist. NECK: Trachea midline. No JVD. Tender to palpation of the lower cervical spine. CARDIOVASCULAR: Regular rate and rhythm. No murmur appreciated. RESPIRATORY: No accessory muscle use. Clear to auscultation. Breath sounds equal bilaterally. GASTROINTESTINAL: Abdomen soft, non-tender, nondistended. MUSCULOSKELETAL: Deformity and swelling to the right upper arm. Radial pulse intact. Tenderness to palpation of upper arm, elbow, right hip. NEUROLOGICAL: Awake and alert. No obvious cranial nerve deficits. Motor grossly within normal limits. Normal speech. PSYCHIATRIC: Appropriate mood and affect; insight and judgment normal. Data Data Last Documented VS Vital Signs Date Time Temp Pulse Resp B/P (MAP) Pulse Ox O2 Delivery O2 Flow Rate FiO2 02/05/18 04:00 75 16 113/61 (78) 98 Room Air 02/05/18 01:46 98.5 Orders Orders Iv Access Insert/Monitor (02/05/18 01:53) Complete Blood Count With Diff (02/05/18 01:53) Comprehensive Metabolic Panel (02/05/18 01:53) Ct Brain W/O Iv Contrast(Rout) (02/05/18 ) Ct Cerv Spine W/O Contrast (02/05/18 ) Chest, Single Ap (02/05/18 ) Humerus (Min 2vws) (02/05/18 ) Shoulder, Limited(2vws) (02/05/18 ) Elbow, Complete (4 Vws) (02/05/18 ) Pelvis, Ap Only (Routine) (02/05/18 ) Creatine Kinase (Cpk) (02/05/18 01:53) Urinalysis - C+S If Indicated (02/05/18 01:53) Acetamin-Hydrocod 325-5 Mg (Walkerton 5-325 (02/05/18 02:00) Support Splint (02/05/18 03:06) Ct Pelvis W/O Iv Contrast (02/05/18 ) CKMB (02/05/18 02:45) CKMB% (02/05/18 02:45) Admit Order (Ed Use Only) (02/05/18 ) Consult Orthopedic (02/05/18 ) Hydroxyzine Pamoate (Vistaril) (02/05/18 05:15) Labs Laboratory Tests Test 02/05/18 02:45 White Blood Count 7.1 TH/MM3 Red Blood Count 3.13 MIL/MM3 Hemoglobin 8.2 GM/DL Hematocrit 24.9 % Mean Corpuscular Volume 79.6 FL Mean Corpuscular Hemoglobin 26.3 PG Mean Corpuscular Hemoglobin Concent 33.0 % Red Cell Distribution Width 16.2 % Platelet Count 247 TH/MM3 Mean Platelet Volume 8.1 FL Neutrophils (%) (Auto) 74.9 % Lymphocytes (%) (Auto) 15.1 % Monocytes (%) (Auto) 9.6 % Eosinophils (%) (Auto) 0.0 % Basophils (%) (Auto) 0.4 % Neutrophils # (Auto) 5.3 TH/MM3 Lymphocytes # (Auto) 1.1 TH/MM3 Monocytes # (Auto) 0.7 TH/MM3 Eosinophils # (Auto) 0.0 TH/MM3 Basophils # (Auto) 0.0 TH/MM3 CBC Comment DIFF FINAL Differential Comment Blood Urea Nitrogen 11 MG/DL Creatinine 0.53 MG/DL Random Glucose 91 MG/DL Total Protein 6.5 GM/DL Albumin 2.9 GM/DL Calcium Level 7.9 MG/DL Alkaline Phosphatase 134 U/L Aspartate Amino Transf (AST/SGOT) 29 U/L Alanine Aminotransferase (ALT/SGPT) 16 U/L Total Bilirubin 0.8 MG/DL Sodium Level 141 MEQ/L Potassium Level 3.7 MEQ/L Chloride Level 107 MEQ/L Carbon Dioxide Level 24.3 MEQ/L Anion Gap 10 MEQ/L Estimat Glomerular Filtration Rate 118 ML/MIN Total Creatine Kinase 247 U/L Creatine Kinase MB 4.6 NG/ML Creatine Kinase MB % 1.9 % [facility] Medical Decision Making Medical Screen Exam Complete: Yes Emergency Medical Condition: Yes Medical Record Reviewed: Yes Differential Diagnosis humerus fracture vs shoulder fracture vs dehydration vs rhabdo vs electrolyte abnormalities. Narrative Course Patient is a 62-year-old female who comes in after a fall today. Exam shows deformity and ecchymosis of the right arm. IV established, labs sent. Labs show a hemoglobin of 8.3. She has had hemoglobins in the range of 7.8-11 over the past few months. X-ray of the humerus reveals a comminuted fracture. CT head and C-spine show no acute abnormalities. Chest x-ray shows no acute abnormalities. Pelvis x-ray showed a questionable fracture. CT of the pelvis performed shows no acute fracture. Last 24 hours Impressions Shoulder X-Ray 02/05/18 Signed Impressions: CONCLUSION: Comminuted fracture right proximal humerus. There appears to be fracture of the acromion as well. Pelvis X-Ray 02/05/18 Signed Impressions: CONCLUSION: Questionable fracture inferior pubic ramus on the right. Pelvis CT 02/05/18 Signed Impressions: CONCLUSION: 1. No acute fracture. 2. Old fracture right inferior pubic ramus. Humerus X-Ray 02/05/18 Signed Impressions: CONCLUSION: Comminuted fracture right proximal humerus Head CT 02/05/18 Signed Impressions: CONCLUSION: 1. No acute intracranial abnormality Elbow X-Ray 02/05/18 Signed Impressions: CONCLUSION: No acute fracture right elbow Chest X-Ray 02/05/18 Signed Impressions: CONCLUSION: No acute cardiopulmonary disease. Comminuted fracture right proximal humerus. Cervical Spine CT 02/05/18 Signed Impressions: CONCLUSION: 1. No acute fracture or subluxation. Patient placed in sling and swath. I spoke with Dr. Thacker who will see the patient in the morning. Patient received 10 mg of morphine by EMS prior to arrival. Given a Walkerton here. She is requesting her "nerve medication." Given a dose of Vistaril. Admitted for further management, need for surgical repair of the right humerus. Diagnosis Primary Impression: Fall Qualified Codes: W19.XXXA - Unspecified fall, initial encounter Additional Impression: Humerus fracture Qualified Codes: S42.291A - Other displaced fracture of upper end of right humerus, initial encounter for closed fracture Admitting Information Admitting Physician Requests: Admit Kathy Pacheco MD Feb 05, 2018 05:03
[2018-02-05] MEDS ORDERED: BISACODYL 10 MG SUPP RECTAL PRN (05:15)
[2018-02-05] MEDS ORDERED: hydrOXYzine HCL 50 MG TAB PO PRN (05:15)
[2018-02-05] MEDS ORDERED: SENNOSIDES 8.6 MG TAB PO PRN (05:15)
[2018-02-05] MEDS ORDERED: SODIUM CHLORIDE 0.9% FLUSH 10 ML FLUSH IV FLUSH PRN ×2 (05:15→19:00)
[2018-02-05] MEDS ORDERED: LACTULOSE SYRUP 20 GM/30 ML CUP PO PRN (05:15)
[2018-02-05] MEDS ORDERED: ACETAMINOPHEN 325 MG TAB PO PRN (05:15)
--- NOTE | 2018-02-05 05:34 | HHI.HP ---
HPI [facility] Primary Care Physician Colt Miller DO Admission Diagnosis comminuted humeral fracture Diagnoses: (1) Humerus fracture Diagnosis: Principal (2) Anemia Diagnosis: Principal Travel History International Travel<30 Days: No Contact w/Intl Traveler <30 Da: No Traveled to Known Affected Are: No History of Present Illness This is a 62-year-old female with a PMH of Rheumatoid Arthritis, Chronic Anemia , Lupus, Anxiety, Depression, Hepatitis C, COPD, A. fib on Eliquis and Tobacco Abuse who was brought to the ER by EMS after a fall. Patient states she was at home and had sudden trip and fall but was unable to get herself off the floor and laid there x2 days, "couldn't get motivated enough to get up". States she ultimately was able to pull the sheet off her bed at which time the phone fell on the floor and she was able to call 911. Denies head trauma or LOC. On arrival, BP 149/75, HR 72, O2 sat 99% on RA, Afebrile. Hemoglobin 8.2, previously 10.8 on 11/17/2017. Chemistry essentially unremarkable. CPK 247. CT Head with no acute findings. CT C-spine negative for fracture. CXR with comminuted fracture right proximal humerus. Elbow X-ray negative. Humerus X- ray comminuted fracture right proximal humerus. Pelvis X-ray possible fracture. Pelvis CT old fracture right inferior pubic ramus. Dr. Thacker consulted, will eval in am for surgical intervention. Review of Systems Except as stated in HPI: all other systems reviewed are Neg ROS: 14 point review of systems otherwise negative. Past Family Social History Past Medical History PMH: Rheumatoid Arthritis, Chronic Anemia, Lupus, Anxiety, Depression, Hepatitis C, COPD, A. fib on Eliquis and Tobacco Abuse Past Surgical History PAST SURGICAL HISTORY: Left Shoulder Surgery, Right Wrist Surgery, Left Elbow Surgery, Tubal Ligation, Tonsillectomy Allergies: Coded Allergies: penicillin G (Unverified Allergy, Severe, Anaphylaxis, 02/05/18) mold (Unverified Allergy, Unknown, 02/05/18) Family History PAST FAMILY HISTORY: Reviewed. No h/o DM or CAD Social History PAST SOCIAL HISTORY: Negative for alcohol or drugs. Positive for tobacco. Physical Exam Vital Signs Vital Signs Date Time Temp Pulse Resp B/P (MAP) Pulse Ox O2 Delivery O2 Flow Rate FiO2 02/05/18 04:00 75 16 113/61 (78) 98 Room Air 02/05/18 01:46 98.5 72 20 149/75 (99) 99 Physical Exam PE: GENERAL: Middle-aged white female in no acute distress, appears much older than stated age. Slightly bizarre but pleasant. HEENT: PERRLA, EOMI. No scleral icterus or conjunctival pallor. No lid lag or facial droop. CARDIOVASCULAR: Regular rate and rhythm. No obvious murmurs to auscultation. No chest tenderness to palpation. RESPIRATORY: No obvious rhonchi or wheezing. Clear to auscultation. Breath sounds equal bilaterally. GASTROINTESTINAL: Abdomen soft, non-tender, nondistended. BS normal. MUSCULOSKELETAL: Extremities without clubbing, cyanosis, or edema. No obvious deformities. RUE in sling, pain w/ movement. Pulses intact. NEUROLOGICAL: Awake, alert and oriented x4. No focal neurologic deficits. Moving both upper and lower extremities spontaneously. Laboratory Laboratory Tests Test 02/05/18 02:45 White Blood Count 7.1 Red Blood Count 3.13 Hemoglobin 8.2 Hematocrit 24.9 Mean Corpuscular Volume 79.6 Mean Corpuscular Hemoglobin 26.3 Mean Corpuscular Hemoglobin Concent 33.0 Red Cell Distribution Width 16.2 Platelet Count 247 Mean Platelet Volume 8.1 Neutrophils (%) (Auto) 74.9 Lymphocytes (%) (Auto) 15.1 Monocytes (%) (Auto) 9.6 Eosinophils (%) (Auto) 0.0 Basophils (%) (Auto) 0.4 Neutrophils # (Auto) 5.3 Lymphocytes # (Auto) 1.1 Monocytes # (Auto) 0.7 Eosinophils # (Auto) 0.0 Basophils # (Auto) 0.0 CBC Comment DIFF FINAL Differential Comment Blood Urea Nitrogen 11 Creatinine 0.53 Random Glucose 91 Total Protein 6.5 Albumin 2.9 Calcium Level 7.9 Alkaline Phosphatase 134 Aspartate Amino Transf (AST/SGOT) 29 Alanine Aminotransferase (ALT/SGPT) 16 Total Bilirubin 0.8 Sodium Level 141 Potassium Level 3.7 Chloride Level 107 Carbon Dioxide Level 24.3 Anion Gap 10 Estimat Glomerular Filtration Rate 118 Total Creatine Kinase 247 Creatine Kinase MB 4.6 Creatine Kinase MB % 1.9 Result Diagram: 02/05/1824402/05/18244 Abiodun VTE Risk Assessment Abiodun VTE Risk Assessment: No/Low Risk (score <= 1) Caprini Risk Assessment Model Point Value = 1 Point Value = 2 Point Value = 3 Point Value = 5 Age 41-60 Minor surgery BMI > 25 kg/m2 Swollen legs Varicose veins or History of unexplained or recurrent spontaneous Oral contraceptives or hormone replacement Sepsis (< 1 month) Serious lung disease, including pneumonia (< 1 month) Abnormal pulmonary function Acute myocardial infarction Congestive heart failure (< 1 month) History of inflammatory bowel disease Medical patient at bed rest Age 61-74 Arthroscopic surgery Major open surgery (> 45 min) Laparoscopic surgery (> 45 min) Malignancy Confined to bed (> 72 hours) Immobilizing plaster cast Central venous access Age >= 75 History of VTE Family history of VTE Factor V Leiden Prothrombin [id number] Lupus anticoagulant Anticardiolipin antibodies Elevated serum homocysteine Heparin-induced thrombocytopenia Other congenital or acquired thrombophilia Stroke (< 1 month) Elective arthroplasty Hip, pelvis, or leg fracture Acute spinal cord injury (< 1 month) Prophylaxis Regimen Total Risk Factor Score Risk Level Prophylaxis Regimen 0-1 Low Early ambulation 2 Moderate Order ONE of the following: *Sequential Compression Device (SCD) *Heparin 5000 units SQ BID 3-4 Higher Order ONE of the following medications: *Heparin 5000 units SQ TID *Enoxaparin/Lovenox 40 mg SQ daily (WT < 150 kg, CrCl > 30 mL/min) *Enoxaparin/Lovenox 30 mg SQ daily (WT < 150 kg, CrCl > 10-29 mL/min) *Enoxaparin/Lovenox 30 mg SQ BID (WT < 150 kg, CrCl > 30 mL/min) AND/OR *Sequential Compression Device (SCD) 5 or more Highest Order ONE of the following medications: *Heparin 5000 units SQ TID (Preferred with Epidurals) *Enoxaparin/Lovenox 40 mg SQ daily (WT < 150 kg, CrCl > 30 mL/min) *Enoxaparin/Lovenox 30 mg SQ daily (WT < 150 kg, CrCl > 10-29 mL/min) *Enoxaparin/Lovenox 30 mg SQ BID (WT < 150 kg, CrCl > 30 mL/min) AND *Sequential Compression Device (SCD) Assessment and Plan Problem List: (1) Fall ICD Code: W19.XXXA - Unspecified fall, initial encounter Status: Acute (2) Humerus fracture ICD Code: S42.309A - Unspecified fracture of shaft of humerus, unspecified arm , initial encounter for closed fracture (3) Anemia ICD Code: D64.9 - Anemia, unspecified Assessment and Plan A/P: 1. Fall: s/p mechanical trip and fall at home, reports prolonged down-time of 2 days as unable to get herself up. CPK 247. CT Head/C-Spine w/ no acute findings, images reviewed by me. Pelvic X-ray w/ possible fracture, however CT Pelvis w/ old pubic fracture, images reviewed. 2. Humerus Fx: X-ray w/ comminuted right proximal humerus fracture, images reviewed by me. Dr. Thacker consulted, will eval in am for intervention, NPO, IVF, analgesics/antiemetics as needed. 3. Anemia: Acute on Chronic. Hgb 8.2, previously 10.8, no evidence of bleeding, will monitor closely, transfuse as needed. 4. DVT Prophylaxis: Hold Eliquis until post op 5. Social work for d/c planning as needed 6. Case discussed w/ ER physician at length, labs/records/imaging reviewed by me. Physician Certification 2 Midnight Certification Type: Admission for Inpatient Services Order for Inpatient Services The services are ordered in accordance with Medicare regulations or non- Medicare payer requirements, as applicable. In the case of services not specified as inpatient-only, they are appropriately provided as inpatient services in accordance with the 2-midnight benchmark. Estimated LOS (days): 2 days is the estimated time the patient will need to remain in the hospital, assuming treatment plan goals are met and no additional complications. Post-Hospital Plan: Not yet determined Problem Qualifiers (1) Humerus fracture: Qualified Codes: S42.291A - Other displaced fracture of upper end of right humerus, initial encounter for closed fracture (2) Fall: Qualified Codes: W19.XXXA - Unspecified fall, initial encounter Martha Kim MD Feb 05, 2018 05:34
[2018-02-05 06:07] LABS: BACTERIA, URINE RARE /hpf; BILIRUBIN, URINE NEG (NEG); BLOOD, URINE NEG (NEG); GLUCOSE,URINE NEG (NEG); KETONE, URINE 20 mg/dL (NEG); MUCUS URINE FEW /lpf (OCC); NITRITE,URINE NEG (NEG); SQUAMOUS EPITHELIAL CELL URINE 2 /hpf (0-5); URINE COLOR YELLOW (YELLW/STRAW); URINE LEUKOCYTE ESTERASE NEG (NEG)
[2018-02-05] MEDS: MORPHINE SULFATE 4 MG/ML INJ IV PUSH PRN ×3 (06:36→21:27)
[2018-02-05] MEDS: SODIUM CHLOR 0.9% 1000 ML INJ 1,000 ML IV SCH ×2 (06:50→15:05)
[2018-02-05] MEDS: SODIUM CHLORIDE 0.9% FLUSH 10 ML FLUSH IV FLUSH SCH ×3 (08:56→21:17)
[2018-02-05] MEDS: DOCUSATE SODIUM 50 MG/SENNA 8.6 MG TAB PO SCH ×2 (08:56→21:17)
[2018-02-05] MEDS: clonazePAM 0.5 MG TAB PO SCH ×2 (08:56→21:17)
[2018-02-05] MEDS: BACLOFEN 10 MG TAB PO SCH ×3 (08:56→18:05)
[2018-02-05] MEDS: FLUoxetine HCL 20 MG CAP PO SCH (08:56)
[2018-02-05] MEDS: ACETAMINOPHEN/HYDROcodone 325 MG/5 MG TAB PO PRN ×2 (08:58→18:40)
[2018-02-05] MEDS: METOPROLOL SUCCINATE 25 MG EXTENDED RELEASE TAB PO SCH ×2 (08:58→21:17)
--- NOTE | 2018-02-05 10:49 | MB ---
cc: Jaxon Thacker MD DATE: 02/05/2018 REASON FOR CONSULTATION: Right proximal humerus fracture. HISTORY OF PRESENT ILLNESS: The patient is a 62-year-old female with past history of rheumatoid arthritis, heart disease, chronic anemia, lupus, anxiety, depression, hepatitis C, COPD, atrial fibrillation, on Eliquis, nicotine dependence with tobacco abuse, who was brought to the [facility] emergency room by ambulance after a fall. She was at home and tripped, landing on the right arm. She developed severe onset of pain with associated swelling and bruising in regards to the right arm. She states she stayed at home and then decided to call 911 and be brought by ambulance to [facility] emergency room. She denies head trauma or loss of consciousness. She was noted to have an anemia with a hemoglobin of 8.2 upon arrival, CPK was 247. CT of the head showed no acute findings. She has been admitted to the medical service. Orthopedic surgeon consulted for further evaluation and management of the injury and condition of the patient, is moderate to severe and intermittent with movement. Ice and use of the sling does alleviate her symptoms. No numbness, tingling or nerve root symptoms. PAST MEDICAL HISTORY: Positive for rheumatoid arthritis, chronic anemia, heart disease, lupus, anxiety, depression, hepatitis C, COPD, atrial fibrillation, tobacco abuse. PAST SURGICAL HISTORY: Left shoulder surgery, right wrist surgery, left elbow surgery, tubal ligation, tonsillectomy. ALLERGIES: PENICILLIN. FAMILY HISTORY: Reviewed and noncontributory. SOCIAL HISTORY: Negative for alcohol or drugs. She does smoke approximately 1 pack of cigarettes per day and has done so for over 40 years. REVIEW OF SYSTEMS: Negative for 10 systems other than in HPI. PHYSICAL EXAMINATION: VITAL SIGNS: Temperature 98.5, pulse 72, respirations 20, blood pressure 149/75. GENERAL: This is an elderly appearing female, who appears slightly older than her stated age. She is lying in bed, no acute distress. She is awake, alert, oriented. HEENT: Normocephalic, atraumatic. Pupils round. Extraocular muscles intact. NECK: Supple. LUNGS: Clear. HEART: Regular rate and rhythm. ABDOMEN: Soft, nontender. EXTREMITIES: The patient has significant swelling and ecchymosis of the right shoulder and arm. Her compartments are soft. 2+ radial pulses, brisk capillary refill. Sensation is intact distally. She has pain with passive motion of the right shoulder. LABORATORY DATA: White blood cell count of 7.1, hemoglobin is 8.2, hematocrit 24, platelets 249. BUN 11, creatinine 0.51, glucose 91. X-ray of the right shoulder shows comminuted right proximal humerus fracture. IMPRESSION: A 62-year-old female, status post fall, right comminuted proximal humerus fracture, multiple medical comorbidities including rheumatoid arthritis, heart disease, anemia, lupus, anxiety, depression, hepatitis C, COPD, atrial fibrillation, on Eliquis, current smoker. PLAN: I discussed the diagnosis and treatment options, nonoperative treatment versus surgery. Surgery would consist of open reduction and internal fixation versus hemiarthroplasty replacement. I think her quality of bone and the fracture pattern would lead us more to hemiarthroplasty replacement. We spoke about risk of surgery including anesthesia, bleeding, infection, damage to nerves and blood vessels, fracture dislocation. She has multiple risk factors and upon further discussion, the patient states that she was scheduled to have an endoscopy and was going to undergo cardiac clearance. I would recommend call center specialist see her in the hospital to evaluate her cardiac risk factors for the above named surgery. In the meantime, we will hold the Eliquis as she has significant bleeding associated with her fracture and potentially anticipating surgery. Maintain sling. I counseled the patient extensively on smoking cessation and risk of smoking with wound complications and infection. All questions have been answered. Jaxon Thacker MD [facility]OS[facility] , 10:25 AM , 10:47 AM
[2018-02-05] MEDS: METOCLOPRAMIDE HCL 10 MG/2 ML VIAL IV PUSH PRN (13:06)
--- NOTE | 2018-02-05 15:58 | HHI.PR ---
Addendum to Inpatient Note Addendum Reason: Additional Documentation Additional Information Pt states pain is controlled, denies any n/v/sob/cp pt was evaluated by orthopedic sx and will need surgical intervention. Eliquis was held due to significant bleeding and possible sx intervention, however pt needs cardiac clearance. Cards has been consulted. Awaiting recs. 1. Fall: s/p mechanical trip and fall at home, reported prolonged down-time of 2 days as unable to get herself up. CPK 247. CT Head/C-Spine w/ no acute findings. Pelvic X-ray w/ possible fracture, however CT Pelvis w/ old pubic fracture 2. Humerus Fx: X-ray w/ comminuted right proximal humerus fracture. Dr. Thacker evaluated the pt. awaiting cardiac clearance 3. Anemia: Acute on Chronic. Hgb 8.2, previously 10.8, most likely from the trauma/fx area as she does have extensive bruising in shoulder area, will monitor closely, transfuse as needed. 4. DVT Prophylaxis: Hold Eliquis until post op Fanny Dias MD Feb 05, 2018 15:58
[2018-02-05] MEDS: ENALAPRILAT 1.25 MG/ML VIAL IV PUSH PRN (18:06)
[2018-02-05] MEDS ORDERED: ASPIRIN 325 MG TAB PO SCH (19:00)
[2018-02-05] MEDS ORDERED: MORPHINE SULFATE 4 MG/ML INJ IV PUSH PRN (19:00)
--- NOTE | 2018-02-05 19:08 | HHI.PR ---
Addendum to Inpatient Note Addendum Reason: Additional Documentation Additional Information I was paged at 6:46pm to notify me that pt started complaining of mid sternal chest pain w no radiation. Apparently pt had been having chest pains for the past hour but didn't notify nursing staff until now. RN tells me that pt's BPs are also elevated I have ordered stat Cardiac enzymes and EKG and will trend them as well. I have started her nitroglycerin paste, morphine prn CP, giving her a dose of ASA now, and RN currently has her on NC. I will also check a stat chest x-ray. She is already on metoprolol xl and I have added lisinopril 5mg po daily. I will check lipid profile in AM but have started her on a stating. RN to notify diamond powder mixer MD if trops elevated and or if chest pain is persistent. Cardiology hasn't yet seen the patient however an official consult has already been placed. Fanny Dais MD Feb 05, 2018 19:08
[2018-02-05] MEDS ORDERED: LISINOPRIL 5 MG TAB PO SCH (19:15)
[2018-02-05] MEDS: NITROGLYCERIN 2% OINT 1 GM PACKET TOPICAL SCH (19:36)
--- NOTE | 2018-02-05 19:42 | RADRPT ---
EXAM DATE: 02/05/2018 7:36 PM EDT AGE/SEX: 62 years / Female INDICATIONS: Infiltrate. CLINICAL DATA: This is the patient's subsequent encounter. Patient reports that signs and symptoms h ave been present for 1 day and indicates a pain score of 0/10. MEDICAL/SURGICAL HISTORY: . Lupus. Chronic obstructive pulmonary disease. Hepatitis C . Tubal ligation. Tonsillectomy. ORIF Lt humerus COMPARISON: [facility] [place]. . FINDINGS: Moderate to severe scoliosis. Previous fixation proximal left humerus. Comminuted fracture proximal r ight humerus similar in appearance to exam from earlier today. No new consolidation or effusion. No p neumothorax. CONCLUSION: Cardiomegaly. No consolidation or significant effusion. Comminuted right proximal humeral fracture. R otation left humerus. Electronically signed by: Vaibhav Dixon MD 02/05/2018 7:40 PM EDT
[2018-02-05 20:29] LABS: TROPONIN I 0.03 NG/ML (0.02-0.05)
[2018-02-05] MEDS ORDERED: METOPROLOL TARTRATE 25 MG TAB PO SCH (21:00)
[2018-02-05] MEDS: ATORVASTATIN 10 MG TAB PO SCH (21:17)
[2018-02-06] VITALS (9 sets, daily range): BP systolic 153–179; BP diastolic 68–98; PULSE 62–101; RESP 12–18; TEMP 97.3–98; O2SAT 92–98
[2018-02-06] MEDS: NITROGLYCERIN 2% OINT 1 GM PACKET TOPICAL SCH ×4 (00:09→17:52)
[2018-02-06] MEDS: SODIUM CHLOR 0.9% 1000 ML INJ 1,000 ML IV SCH (01:05)
[2018-02-06 01:38] LABS: TROPONIN I 0.03 NG/ML (0.02-0.05)
[2018-02-06] MEDS: ACETAMINOPHEN/HYDROcodone 325 MG/7.5 MG TAB PO PRN ×4 (04:51→17:56)
[2018-02-06] MEDS: ENALAPRILAT 1.25 MG/ML VIAL IV PUSH PRN (05:38)
[2018-02-06] MEDS: MORPHINE SULFATE 4 MG/ML INJ IV PUSH PRN ×2 (05:47→10:10)
[2018-02-06 07:38] LABS: AUTOMATED NEUTROPHIL # 5.4 TH/MM3 (1.8-7.7); BASOPHIL % 0.4 % (0.0-2.0); EOSINOPHIL % 0.3 % (0.0-4.0); HEMATOCRIT 29.4 % (35.0-46.0); HEMOGLOBIN 9.7 GM/DL (11.6-15.3); LYMPH % 23.4 % (9.0-44.0); LYMPHOCYTE # 1.9 TH/MM3 (1.0-4.8); MEAN CELL VOLUME 80.4 FL (80.0-100.0); MEAN CORPUSCULAR HEMOGLOBIN 26.6 PG (27.0-34.0); MEAN CORPUSCULAR HGB CONC 33.1 % (32.0-36.0); MONO % 9.2 % (0.0-8.0); MONOCYTE # 0.7 TH/MM3 (0-0.9); NEUT % 66.7 % (16.0-70.0); PLATELET COUNT 297 TH/MM3 (150-450); RED BLOOD COUNT 3.65 MIL/MM3 (4.00-5.30); RED CELL DISTRIBUTION WIDTH 16.2 % (11.6-17.2); WHITE BLOOD COUNT 8.2 TH/MM3 (4.0-11.0)
--- NOTE | 2018-02-06 07:47 | MB ---
cc: Jame Sandoval MD DATE: 02/05/2018 INDICATION: Cardiac clearance. HISTORY OF PRESENT ILLNESS: This is a 62-year-old female with history of rheumatoid arthritis, atrial fibrillation, COPD, on anticoagulation, who follows with Dr. Andrade in the outpatient setting. She was due to see Dr. Andrade in the next upcoming week or so. Apparently, she had a fall, landing on her right arm. She called 911 and ambulance brought her to [place]. She was noted to have a hemoglobin 8.2 and a CPK of 247. She underwent x-ray, which revealed right proximal humerus fracture. She is now tentatively scheduled for open reduction and internal fixation versus hemiarthroplasty replacement in the near future. We were consulted for cardiac clearance. She does report to generate at least 4 METS. She has no prior history of known coronary disease. She says she does have "valve disease," but was awaiting echocardiogram by Dr. Andrade's office. PAST MEDICAL HISTORY: Rheumatoid arthritis, chronic anemia, heart disease, lupus, anxiety, depression, hepatitis C, COPD, atrial fibrillation. ALLERGIES: PENICILLIN. FAMILY HISTORY: Denies any family history of , sudden cardiac . SOCIAL HISTORY: Denies alcohol. Does report pack a day smoker for 4 years. REVIEW OF SYSTEMS: A 12-point review of systems was performed, negative unless otherwise noted in history of present illness. PHYSICAL EXAMINATION: VITAL SIGNS: Temperature 97, pulse 75, blood pressures 177/81 mmHg. GENERAL: Alert and oriented x 3, in no acute distress. HEENT: Shows pupils reactive accommodation. Extraocular movements intact. NECK: elevation, jugular venous distention. No thyromegaly. No lymphadenopathy, no carotid bruits. LUNGS: Clear to auscultation bilaterally. CARDIOVASCULAR: Regular, 1/6 systolic intact. NEUROLOGIC: Intact. LABORATORY DATA: WBC 7.1, hemoglobin is 8.2, platelet count is 247. Sodium 141, potassium 3.7, BUN is 11, creatinine 0.57. ASSESSMENT: 1. Right proximal humerus fracture. 2. Atrial fibrillation. 3. Valvular heart disease. PLAN: The patient would be cleared for orthopedic surgery. She generates more than 4 metabolic equivalents without anginal symptoms. She does have a history of atrial fibrillation, on anticoagulation. A minimum of 48-hour window off of Eliquis would be ideal to reduce potential bleeding risk. We will order for a 2D echocardiogram, although I do not hear much of a murmur and she is not symptomatic, which would not be prohibitive to any potential surgical procedure. Continue current medical therapy. She will need workup for her anemia in the setting of reduced blood count with anticoagulation. She can followup with Dr. Andrade on an outpatient basis. Please call with any further questions. We will sign off. MD VIVIENNE Zayas/VJ , 03:41 PM , 05:12 PM
[2018-02-06 07:53] LABS: ALT (GPT) 17 U/L (10-53); CHOLESTEROL 153 MG/DL (120-200); TRIGLYCERIDES 149 MG/DL (42-150)
[2018-02-06 07:57] LABS: ALKALINE PHOSPHATASE 137 U/L (45-117); CHOLESTEROL/ HDL RATIO 5.04 RATIO; HDL CHOLESTEROL 30.3 MG/DL (40.0-60.0); LDL CHOLESTEROL 93 MG/DL (0-99); TOTAL PROTEIN 6.8 GM/DL (6.4-8.2); TROPONIN I 0.03 NG/ML (0.02-0.05)
[2018-02-06 08:07] LABS: ALBUMIN 2.9 GM/DL (3.4-5.0); AST (GOT) 33 U/L (15-37); BICARBONATE 22.4 MEQ/L (21.0-32.0); BLOOD UREA NITROGEN 9 MG/DL (7-18); CALCIUM 8.3 MG/DL (8.5-10.1); CHLORIDE 102 MEQ/L (98-107); CREATININE 0.44 MG/DL (0.50-1.00); GLOMERULAR FILTRATION RATE 146 ML/MIN (>89); GLUCOSE,RANDOM 71 MG/DL (74-106); SODIUM (NA) 137 MEQ/L (136-145)
--- NOTE | 2018-02-06 08:44 | HHI.PR ---
Subjective Remarks Pt tells me that she is still having chest pains which she rates a 7/10 w radiation to her back. admits to nausea but no vomiting. Overnight her chest pains came on and off and was really bad earlier this morning. She states that the medication helped. She states that the chest pains doesn't worsen w movement and hasn't eaten so she doesn't know if food alleviates it Objective Vitals Vital Signs Date Time Temp Pulse Resp B/P (MAP) Pulse Ox O2 Delivery O2 Flow Rate FiO2 02/06/18 04:00 97.7 62 18 179/92 (121) 98 02/06/18 03:49 65 02/06/18 00:12 97.3 68 18 177/85 (115) 94 02/06/18 00:00 97.4 68 12 159/80 (106) 96 02/05/18 23:51 61 02/05/18 21:17 163/82 (109) 02/05/18 21:02 67 02/05/18 19:40 98.7 69 18 183/87 (119) 98 02/05/18 16:45 98.5 81 18 188/91 (123) 95 02/05/18 14:09 97.9 76 18 177/81 (113) 95 02/05/18 10:52 98.0 70 17 139/78 (98) 96 I/O 02/05/18 02/05/18 02/05/18 02/06/18 02/06/18 02/06/18 07:00 15:00 23:00 07:00 15:00 23:00 Intake Total 480 ml Balance 480 ml Intake Oral 480 ml # Voids 6 Result Diagram: 02/06/18 0656 02/06/18 0656 Imaging Last Impressions Shoulder X-Ray 02/05/18 0000 Signed Impressions: CONCLUSION: Comminuted fracture right proximal humerus. There appears to be fracture of the acromion as well. Pelvis X-Ray 02/05/18 0000 Signed Impressions: CONCLUSION: Questionable fracture inferior pubic ramus on the right. Pelvis CT 02/05/18 0000 Signed Impressions: CONCLUSION: 1. No acute fracture. 2. Old fracture right inferior pubic ramus. Humerus X-Ray 02/05/18 0000 Signed Impressions: CONCLUSION: Comminuted fracture right proximal humerus Head CT 02/05/18 0000 Signed Impressions: CONCLUSION: 1. No acute intracranial abnormality Elbow X-Ray 02/05/18 0000 Signed Impressions: CONCLUSION: No acute fracture right elbow Chest X-Ray 02/05/18 0000 Signed Impressions: CONCLUSION: Cardiomegaly. No consolidation or significant effusion. Comminuted right proxim al humeral fracture. Rotation left humerus. Cervical Spine CT 02/05/18 0000 Signed Impressions: CONCLUSION: 1. No acute fracture or subluxation. Objective Remarks GENERAL: laying in bed, appears comfortable CARDIOVASCULAR: Regular rate and rhythm. I am not able to reproduce her pain w palpation. RESPIRATORY: No obvious rhonchi or wheezing. Clear to auscultation. Breath sounds equal bilaterally. GASTROINTESTINAL: Abdomen soft, non-tender, nondistended. BS normal. MUSCULOSKELETAL: RUE in sling, pain w/ movement. able to wiggle her fingers and bruising over the shoulder noted. NEUROLOGICAL: awake and alert, answers questions. A/P Problem List: (1) Fall ICD Code: W19.XXXA - Unspecified fall, initial encounter Status: Acute (2) Humerus fracture ICD Code: S42.309A - Unspecified fracture of shaft of humerus, unspecified arm , initial encounter for closed fracture (3) Anemia ICD Code: D64.9 - Anemia, unspecified Assessment and Plan 1. Fall: s/p mechanical trip and fall at home, reported prolonged down-time of 2 days as unable to get herself up. CPK 247. CT Head/C-Spine w/ no acute findings. Pelvic X-ray w/ possible fracture, however CT Pelvis w/ old pubic fracture 2. Humerus Fx: X-ray w/ comminuted right proximal humerus fracture. Dr. Thacker evaluated the pt. awaiting cardiac clearance 3. Chest pains: started last night. CE neg x 3. on morphine, nitropaste, BB and received one dose of ASA. Cardiology following for cardiac clearance. I have notified Dr. Sandoval regarding pt's chest pains, he recommends ordering a lexiscan which I have ordered now. I will make her NPO. At this time, I strongly suggest not proceeding w any surgical intervention until cleared by cards. 4. Anemia: Acute on Chronic. Hgb 8.2, previously 10.8, most likely from the trauma/fx area as she does have extensive bruising in shoulder area, will monitor closely, transfuse as needed. 5. HTN: on metoprolol and was started on lisinopril. I have increased her lisinopril to 10mg po daily. 6. DVT Prophylaxis: Hold Eliquis until post op Discharge Planning lexiscan ordered. Awaiting recs from cards. pt did received one time dose of ASA 325mg po yesterday. Problem Qualifiers (1) Fall: Qualified Codes: W19.XXXA - Unspecified fall, initial encounter (2) Humerus fracture: Qualified Codes: S42.291A - Other displaced fracture of upper end of right humerus, initial encounter for closed fracture Fanny Dias MD Feb 06, 2018 08:44
[2018-02-06] MEDS: BACLOFEN 10 MG TAB PO SCH ×3 (08:59→17:52)
[2018-02-06] MEDS: FLUoxetine HCL 20 MG CAP PO SCH (08:59)
[2018-02-06] MEDS: SODIUM CHLORIDE 0.9% FLUSH 10 ML FLUSH IV FLUSH SCH ×3 (09:00→20:43)
[2018-02-06] MEDS: clonazePAM 0.5 MG TAB PO SCH ×2 (09:00→20:43)
[2018-02-06] MEDS: METOPROLOL SUCCINATE 25 MG EXTENDED RELEASE TAB PO SCH ×2 (09:00→20:43)
[2018-02-06] MEDS: DOCUSATE SODIUM 50 MG/SENNA 8.6 MG TAB PO SCH ×2 (09:00→20:43)
[2018-02-06] MEDS: LISINOPRIL 10 MG TAB PO SCH (10:05)
[2018-02-06] MEDS: METOCLOPRAMIDE HCL 10 MG/2 ML VIAL IV PUSH PRN (10:13)
[2018-02-06] MEDS ORDERED: POTASSIUM CHLORIDE 20 MEQ CONTROLLED RELEASE TAB PO ONE (10:30)
[2018-02-06] MEDS ORDERED: REGADENOSON INJ 0.4 MG/5 ML SYR ONE (11:16)
--- NOTE | 2018-02-06 12:19 | PD.CARD.PN ---
Subjective Subjective Remarks chest pain last night Objective Medications Current Medications Medications (Trade) Dose Ordered Sig/[place] Route Start Time Stop Time Status Last Admin (NS Flush) 2 ml UNSCH PRN IV FLUSH 02/05/18 05:15 (NS Flush) 2 ml BID IV FLUSH 02/05/18 09:00 02/06/18 09:00 (Reglan Inj) 5 mg Q6H PRN IV PUSH 02/05/18 05:15 02/06/18 10:13 (Tylenol) 650 mg Q6H PRN PO 02/05/18 05:15 (Houck 5-325 Mg) 1 tab Q4H PRN PO 02/05/18 05:15 02/05/18 18:40 (Morphine Inj) 2 mg Q3H PRN IV PUSH 02/05/18 05:30 02/06/18 10:10 (Racheal-Colace) 1 tab BID PO 02/05/18 09:00 02/06/18 09:00 (Milk Of Magnesia Liq) 30 ml Q12H PRN PO 02/05/18 05:15 (Senokot) 17.2 mg Q12H PRN PO 02/05/18 05:15 (Dulcolax Supp) 10 mg DAILY PRN RECTAL 02/05/18 05:15 (Lactulose Liq) 30 ml DAILY PRN PO 02/05/18 05:15 (Lioresal) 10 mg TID PO 02/05/18 09:00 02/06/18 08:59 (KlonoPIN) 0.5 mg BID PO 02/05/18 09:00 02/06/18 09:00 (PROzac) 20 mg DAILY PO 02/05/18 09:00 02/06/18 08:59 (Atarax) 50 mg TID PRN PO 02/05/18 05:15 (Toprol Xl) 25 mg Q12HR PO 02/05/18 09:00 02/06/18 09:00 (Vasotec Inj) 1.25 mg Q6H PRN IV PUSH 02/05/18 16:15 02/06/18 05:38 (Houck 7.5-325 Mg) 1 tab Q4H PRN PO 02/05/18 16:15 02/06/18 08:59 (NS Flush) 2 ml BID IV FLUSH 02/05/18 21:00 (NS Flush) 2 ml UNSCH PRN IV FLUSH 02/05/18 19:00 (Aspirin) 325 mg NOW PO 02/05/18 19:00 02/06/18 18:59 02/05/18 19:36 (Morphine Inj) 2 mg Q30M PRN IV PUSH 02/05/18 19:00 02/05/18 19:36 (Lipitor) 10 mg HS PO 02/05/18 21:00 02/05/18 21:17 (Nitroglycerin 2% Oint) 0.5 inch Q6HR TOPICAL 02/05/18 19:00 02/06/18 05:37 (Prinivil) 10 mg DAILY PO 02/06/18 09:00 02/06/18 10:05 Vital Signs / I&O Vital Signs Date Time Temp Pulse Resp B/P (MAP) Pulse Ox O2 Delivery O2 Flow Rate FiO2 02/06/18 08:52 97.6 64 16 177/86 (116) 98 02/06/18 04:00 97.7 62 18 179/92 (121) 98 02/06/18 03:49 65 02/06/18 00:12 97.3 68 18 177/85 (115) 94 02/06/18 00:00 97.4 68 12 159/80 (106) 96 02/05/18 23:51 61 02/05/18 21:17 163/82 (109) 02/05/18 21:02 67 02/05/18 19:40 98.7 69 18 183/87 (119) 98 02/05/18 16:45 98.5 81 18 188/91 (123) 95 02/05/18 14:09 97.9 76 18 177/81 (113) 95 I/O 02/05/18 02/05/18 02/05/18 02/06/18 02/06/18 02/06/18 07:00 15:00 23:00 07:00 15:00 23:00 Intake Total 480 ml Balance 480 ml Intake Oral 480 ml # Voids 6 Physical Exam GENERAL: SKIN: Warm and dry. HEAD: Normocephalic. EYES: No scleral icterus. No injection or drainage. NECK: Supple, trachea midline. No JVD or lymphadenopathy. CARDIOVASCULAR: Regular rate and rhythm without murmurs, gallops, or rubs. RESPIRATORY: Breath sounds equal bilaterally. No accessory muscle use. GASTROINTESTINAL: Abdomen soft, non-tender, nondistended. MUSCULOSKELETAL: No cyanosis, or edema. BACK: Nontender without obvious deformity. No CVA tenderness. Laboratory Laboratory Tests Test 02/05/18 19:56 02/06/18 01:00 02/06/18 06:56 Total Creatine Kinase 175 U/L 147 U/L 141 U/L Creatine Kinase MB 3.1 NG/ML 3.1 NG/ML 2.7 NG/ML Troponin I 0.03 NG/ML 0.03 NG/ML 0.03 NG/ML White Blood Count 8.2 TH/MM3 Red Blood Count 3.65 MIL/MM3 Hemoglobin 9.7 GM/DL Hematocrit 29.4 % Mean Corpuscular Volume 80.4 FL Mean Corpuscular Hemoglobin 26.6 PG Mean Corpuscular Hemoglobin Concent 33.1 % Red Cell Distribution Width 16.2 % Platelet Count 297 TH/MM3 Mean Platelet Volume 8.0 FL Neutrophils (%) (Auto) 66.7 % Lymphocytes (%) (Auto) 23.4 % Monocytes (%) (Auto) 9.2 % Eosinophils (%) (Auto) 0.3 % Basophils (%) (Auto) 0.4 % Neutrophils # (Auto) 5.4 TH/MM3 Lymphocytes # (Auto) 1.9 TH/MM3 Monocytes # (Auto) 0.7 TH/MM3 Eosinophils # (Auto) 0.0 TH/MM3 Basophils # (Auto) 0.0 TH/MM3 CBC Comment DIFF FINAL Differential Comment Blood Urea Nitrogen 9 MG/DL Creatinine 0.44 MG/DL Random Glucose 71 MG/DL Total Protein 6.8 GM/DL Albumin 2.9 GM/DL Calcium Level 8.3 MG/DL Alkaline Phosphatase 137 U/L Aspartate Amino Transf (AST/SGOT) 33 U/L Alanine Aminotransferase (ALT/SGPT) 17 U/L Total Bilirubin 1.0 MG/DL Sodium Level 137 MEQ/L Potassium Level 3.3 MEQ/L Chloride Level 102 MEQ/L Carbon Dioxide Level 22.4 MEQ/L Anion Gap 13 MEQ/L Estimat Glomerular Filtration Rate 146 ML/MIN Triglycerides Level 149 MG/DL Cholesterol Level 153 MG/DL LDL Cholesterol 93 MG/DL HDL Cholesterol 30.3 MG/DL Cholesterol/HDL Ratio 5.04 RATIO Imaging Last Impressions Shoulder X-Ray 02/05/18 Signed Impressions: CONCLUSION: Comminuted fracture right proximal humerus. There appears to be fracture of the acromion as well. Pelvis X-Ray 02/05/18 Signed Impressions: CONCLUSION: Questionable fracture inferior pubic ramus on the right. Pelvis CT 02/05/18 Signed Impressions: CONCLUSION: 1. No acute fracture. 2. Old fracture right inferior pubic ramus. Humerus X-Ray 02/05/18 Signed Impressions: CONCLUSION: Comminuted fracture right proximal humerus Head CT 02/05/18 Signed Impressions: CONCLUSION: 1. No acute intracranial abnormality Elbow X-Ray 02/05/18 Signed Impressions: CONCLUSION: No acute fracture right elbow Chest X-Ray 02/05/18 Signed Impressions: CONCLUSION: Cardiomegaly. No consolidation or significant effusion. Comminuted right proxim al humeral fracture. Rotation left humerus. Cervical Spine CT 02/05/18 Signed Impressions: CONCLUSION: 1. No acute fracture or subluxation. Assessment and Plan Assessment and Plan chest pain - atypical. No EKG changes. trop negative. lexiscan ordered, if unremarkable, then will proceed with surgical clearance. Jame Sandoval MD Feb 06, 2018 12:19
--- NOTE | 2018-02-06 12:49 | RADRPT ---
EXAM DATE: 02/06/2018 12:33 PM EDT AGE/SEX: 62 years / Female INDICATIONS:Coronary artery disease. . Pre-op clearance with a history of Atrial fibrillation. CLINICAL DATA: This is the patient's initial encounter. Patient reports that signs and symptoms have been present for 1 day and indicates a pain score of 0/10. MEDICAL/SURGICAL HISTORY: Chronic obstructive pulmonary disease. Hyperthyroidism. Hepatitis C . Smoker. Tonsillectomy. Tubal ligation. COMPARISON: No prior exams available for comparison. DOSE: 8.4 mCi Tc 99m Myoview at rest 25.4 mCi [id number] at stress 0.4 mg Lexiscan STRESS SYMPTOMS: Throat pressure. EJECTION FRACTION: 65 % TECHNIQUE: The patient underwent pharmacologic stress with infusion of prescribed dose. Continuous ECG tracing was monitored during stress. Gated SPECT imaging was performed after stress and conventi onal SPECT imaging was performed at rest. The examination was performed on a SPECT/CT scanner, both attenuation and non-corrected datasets were reviewed. FINDINGS: Distribution: The maximum perfused segment at stress is in the anterolateral wall. Perfusion Study: Focal perfusion abnormality in the mid anterolateral wall. Gated Study: There are intact wall motion and wall thickening without hypokinetic or dyskinetic segm ents. The ejection fraction is calculated at 65%. RISK CATEGORY: Low (<1% Annual Motality Rate) CONCLUSION: 1. Focal ischemia in the mid anterolateral wall. 2. Intact wall motion with EF of 65%. Electronically signed by: Alvaro Forrest MD 02/06/2018 12:48 PM EDT
[2018-02-06] MEDS: ATORVASTATIN 10 MG TAB PO SCH (20:43)
--- NOTE | 2018-02-06 23:00 | EKG ---
Date Performed: 02/06/2018 Time Performed: 01:49:46 PTAGE: 62 years EKG: Sinus rhythm . Prolonged QT interval Inferior ST-T changes are nonspecific Borderline ECG PREVIOUS TRACING : 02/05/2018 19.08 DOCTOR: Huong Gomez Interpretating Date/Time 02/06/2018 22:54:31
--- NOTE | 2018-02-06 23:06 | EKG ---
Date Performed: 02/05/2018 Time Performed: 19:08:50 PTAGE: 62 years EKG: Sinus rhythm WITH OCCASIONAL SUPRAVENTRICULAR PREMATURE COMPLEXES PROLONGED QT INTERVAL ABNORMAL ECG PREVIOUS TRACING : 11/13/2017 13.53 DOCTOR: Huong Gomez Interpretating Date/Time 02/06/2018 22:57:38
[2018-02-07] VITALS (9 sets, daily range): BP systolic 143–183; BP diastolic 81–97; PULSE 62–77; RESP 16–18; TEMP 97.3–98.8; O2SAT 96–100
[2018-02-07] MEDS: NITROGLYCERIN 2% OINT 1 GM PACKET TOPICAL SCH ×3 (00:07→12:18)
[2018-02-07] MEDS: SODIUM CHLORIDE 0.9% FLUSH 10 ML FLUSH IV FLUSH SCH ×4 (00:08→20:30)
[2018-02-07] MEDS: ENALAPRILAT 1.25 MG/ML VIAL IV PUSH PRN ×2 (00:54→18:43)
--- NOTE | 2018-02-07 04:04 | RADRPT ---
EXAM DATE: 02/07/2018 3:51 AM EDT AGE/SEX: 62 years / Female INDICATIONS: Altered mental status. CLINICAL DATA: This is the patient's initial encounter. Patient reports that signs and symptoms have been present for 1 day and indicates a pain score of 2/10. MEDICAL/SURGICAL HISTORY: Cardiovascular disease. Hypertension. . Cervical fracture. RADIATION DOSE: 56.35 CTDI (mGy) COMPARISON: [facility] – [place] BRAIN W/O CONTRAST, 02/05/2018. . TECHNIQUE: CT of the head without contrast. Using automated exposure control and adjustment of the mA and/or kV according to patient size, radiation dose was kept as low as reasonably achievable to ob tain optimal diagnostic quality images. DICOM format image data is available electronically for revi ew and comparison. FINDINGS: Cerebrum: The ventricles are normal for age. No evidence of midline shift, mass lesion, hemorrhage or acute infarction. No extraaxial fluid collections are seen. Posterior Fossa: The cerebellum and brainstem are intact. The 4th ventricle is midline. The cerebe llopontine angle is unremarkable. Extracranial: The visualized portion of the orbits is intact. Skull: The calvaria is intact. No evidence of skull fracture. CONCLUSION: 1. Negative CT Head non contrast. Electronically signed by: Jame Glasgow MD 02/07/2018 4:03 AM EDT
--- NOTE | 2018-02-07 06:34 | PD.ORT.PN ---
Subjective Subjective Remarks Resting comfortably in bed. Status post fall at home with right proximal humerus fracture. No other orthopedic complaints Objective Vitals Vital Signs Date Time Temp Pulse Resp B/P (MAP) Pulse Ox O2 Delivery O2 Flow Rate FiO2 02/07/18 04:25 97.3 64 17 183/87 (119) 96 02/07/18 01:11 65 173/81 (111) 02/07/18 00:50 65 02/07/18 00:40 97.9 66 18 180/91 (120) 100 02/06/18 20:53 Nasal Cannula 1.00 02/06/18 20:25 97.9 74 18 166/98 (120) 97 02/06/18 20:24 66 02/06/18 16:00 97.7 73 16 158/68 (98) 96 02/06/18 16:00 68 02/06/18 12:00 98.0 76 16 153/82 (105) 94 02/06/18 08:52 97.6 64 16 177/86 (116) 98 I/O 02/06/18 02/06/18 02/06/18 02/07/18 02/07/18 02/07/18 07:00 15:00 23:00 07:00 15:00 23:00 Intake Total 480 ml Balance 480 ml Intake Oral 480 ml # Voids 6 3 Result Diagram: 02/06/18 0656 02/06/18 0656 Imaging Last [address] 02/07/18 0000 Signed Impressions: CONCLUSION: 1. Negative CT Head non contrast. Objective Remarks Bilateral lower extremities: Full range of motion and neurovascularly intact Left upper extremity: Full range of motion neurovascularly intact Right upper extremity: Significant bruising and pain to palpation of proximal humerus. Skin is intact. No pain with elbow wrist range of motion. Intact sensation distally with moderate swelling. Good capillary refills. Full extension flexion of fingers Assessment & Plan Assessment and Plan Right proximal humerus fracture Alignment appears to be reasonable on x-ray but will order CT to evaluate for conservative versus surgical intervention is necessary. We will continue n.p.o. status at this time until CT is obtained. There is potential surgery today. Maintain sling and swath, nonweightbearing with no range of motion Rodney Alcocer Jr. Feb 07, 2018 06:34
[2018-02-07 06:57] LABS: HEMATOCRIT 26.6 % (35.0-46.0); HEMOGLOBIN 8.8 GM/DL (11.6-15.3)
--- NOTE | 2018-02-07 07:17 | RADRPT ---
EXAM DATE: 02/07/2018 6:58 AM EDT AGE/SEX: 62 years / Female INDICATIONS: Right shoulder fracture CLINICAL DATA: This is the patient's initial encounter. Patient reports that signs and symptoms have been present for 1 day and indicates a pain score of Nonresponsive. MEDICAL/SURGICAL HISTORY: Cardiovascular disease. Hypertension. None. RADIATION DOSE: 30.07 CTDI (mGy) COMPARISON: No prior exams available for comparison. TECHNIQUE: Multiple contiguous axial images were acquired using a multirow detector CT scanner witho ut contrast. Multiplanar reconstruction was performed in the sagittal and coronal planes. Using aut omated exposure control and adjustment of the mA and/or kV according to patient size, radiation dose was kept as low as reasonably achievable to obtain optimal diagnostic quality images. DICOM format i mage data is available electronically for review and comparison. FINDINGS: Bones: There is a comminuted fracture of the humeral head. There appears to be proximal displacement of the humeral shaft into the humeral head. There is fracturing at the base of the greater and lesse r tubercles. There is a fracture at the acromion. There is fracturing of the distal clavicle. Acromio clavicular joint is aligned. Joints: There is mild posterior subluxation of the humeral head in relation to the glenoid. The ante rior aspect of the glenohumeral joint is widened. Dislocation is not present. Soft Tissues: There is edema and hemorrhage seen around the proximal humeral shaft and fracture darcy ons Other: No foreign bodies seen. CONCLUSION: 1. Severely comminuted right humeral head and neck fracture with impaction of the humeral shaft into the humeral head. 2. Mild posterior subluxation of the humeral head in relation to the glenoid. 3. Fracture of the lateral aspect of the acromion and distal clavicle. Electronically signed by: Mckinley Almazan MD 02/07/2018 7:16 AM EDT
[2018-02-07 07:22] LABS: CALCIUM 8.1 MG/DL (8.5-10.1); CREATININE 0.44 MG/DL (0.50-1.00)
--- NOTE | 2018-02-07 08:40 | PD.CARD.PN ---
Subjective Subjective Remarks continues to have anterior chest pain, constant x 3 days. she reports SOB and pain to R shoulder at site of fracture (Ayse Dockery) Objective Medications Current Medications Medications (Trade) Dose Ordered Sig/[place] Route Start Time Stop Time Status Last Admin (NS Flush) 2 ml UNSCH PRN IV FLUSH 02/05/18 05:15 (NS Flush) 2 ml BID IV FLUSH 02/05/18 09:00 02/06/18 20:43 (Reglan Inj) 5 mg Q6H PRN IV PUSH 02/05/18 05:15 02/06/18 10:13 (Tylenol) 650 mg Q6H PRN PO 02/05/18 05:15 02/07/18 00:07 ([place] 5-325 Mg) 1 tab Q4H PRN PO 02/05/18 05:15 02/05/18 18:40 (Morphine Inj) 2 mg Q3H PRN IV PUSH 02/05/18 05:30 02/06/18 10:10 (Racheal-Colace) 1 tab BID PO 02/05/18 09:00 02/06/18 20:43 (Milk Of Magnesia Liq) 30 ml Q12H PRN PO 02/05/18 05:15 (Senokot) 17.2 mg Q12H PRN PO 02/05/18 05:15 (Dulcolax Supp) 10 mg DAILY PRN RECTAL 02/05/18 05:15 (Lactulose Liq) 30 ml DAILY PRN PO 02/05/18 05:15 (Lioresal) 10 mg TID PO 02/05/18 09:00 02/06/18 17:52 (KlonoPIN) 0.5 mg BID PO 02/05/18 09:00 02/06/18 20:43 (PROzac) 20 mg DAILY PO 02/05/18 09:00 02/06/18 08:59 (Atarax) 50 mg TID PRN PO 02/05/18 05:15 (Toprol Xl) 25 mg Q12HR PO 02/05/18 09:00 02/06/18 20:43 (Vasotec Inj) 1.25 mg Q6H PRN IV PUSH 02/05/18 16:15 02/07/18 00:54 ([place] 7.5-325 Mg) 1 tab Q4H PRN PO 02/05/18 16:15 02/06/18 17:56 (NS Flush) 2 ml BID IV FLUSH 02/05/18 21:00 02/07/18 00:08 (NS Flush) 2 ml UNSCH PRN IV FLUSH 02/05/18 19:00 (Morphine Inj) 2 mg Q30M PRN IV PUSH 02/05/18 19:00 02/05/18 19:36 (Lipitor) 10 mg HS PO 02/05/18 21:00 02/06/18 20:43 (Nitroglycerin 2% Oint) 0.5 inch Q6HR TOPICAL 02/05/18 19:00 02/07/18 06:05 (Prinivil) 10 mg DAILY PO 02/06/18 09:00 02/06/18 10:05 Vital Signs / I&O Vital Signs Date Time Temp Pulse Resp B/P (MAP) Pulse Ox O2 Delivery O2 Flow Rate FiO2 02/07/18 04:25 97.3 64 17 183/87 (119) 96 02/07/18 01:11 65 173/81 (111) 02/07/18 00:50 65 02/07/18 00:40 97.9 66 18 180/91 (120) 100 02/06/18 20:53 Nasal Cannula 1.00 02/06/18 20:25 97.9 74 18 166/98 (120) 97 02/06/18 20:24 66 02/06/18 16:00 97.7 73 16 158/68 (98) 96 02/06/18 16:00 68 02/06/18 12:00 98.0 76 16 153/82 (105) 94 02/06/18 08:52 97.6 64 16 177/86 (116) 98 I/O 02/06/18 02/06/18 02/06/18 02/07/18 02/07/18 02/07/18 07:00 15:00 23:00 07:00 15:00 23:00 Intake Total 480 ml 240 ml Balance 480 ml 240 ml Intake Oral 480 ml 240 ml # Voids 6 3 1 # Bowel Movements 0 Physical Exam GENERAL: SKIN: Warm and dry. HEAD: Atraumatic. Normocephalic. EYES: Pupils equal and round. No scleral icterus. ENT: No nasal bleeding or discharge. NECK: Trachea midline. No JVD. CARDIOVASCULAR: Regular rate and rhythm, occasional ectopy. no murmur. RESPIRATORY: No accessory muscle use. Clear to auscultation. Breath sounds equal bilaterally. GASTROINTESTINAL: Abdomen soft, non-tender, nondistended. MUSCULOSKELETAL: Extremities without clubbing, cyanosis, or edema. R arm in sling NEUROLOGICAL: Awake and alert. No obvious cranial nerve deficits. Normal speech. PSYCHIATRIC: Appropriate mood and affect; insight and judgment normal. Laboratory Laboratory Tests Test 02/06/18 13:00 02/07/18 02:48 02/07/18 06:33 Troponin I 0.03 NG/ML Blood Gas Puncture Site LT RADIAL Blood Gas Patient Temperature 98.6 Blood Gas HCO3 26 mmol/L Blood Gas Base Excess 2.7 mmol/L Blood Gas Oxygen Saturation 92 % Arterial Blood pH 7.45 Arterial Blood Partial Pressure CO2 39 mmHg Arterial Blood Partial Pressure O2 69 mmHg Arterial Blood Oxygen Content 11.1 Vol % Arterial Blood Carboxyhemoglobin 2.4 % Arterial Blood Methemoglobin 0.8 % Blood Gas Hemoglobin 8.6 G/DL Oxygen Delivery Device ROOM AIR Blood Gas Inspired Oxygen 21 % Hemoglobin 8.8 GM/DL Hematocrit 26.6 % Blood Urea Nitrogen 16 MG/DL Creatinine 0.44 MG/DL Random Glucose 90 MG/DL Calcium Level 8.1 MG/DL Sodium Level 140 MEQ/L Potassium Level 3.3 MEQ/L Chloride Level 105 MEQ/L Carbon Dioxide Level 24.0 MEQ/L Anion Gap 11 MEQ/L Estimat Glomerular Filtration Rate 146 ML/MIN Imaging Last 24 hours Impressions Upper Extremity CT 02/07/18 0000 Signed Impressions: CONCLUSION: 1. Severely comminuted right humeral head and neck fracture with impaction of the humeral shaft into the humeral head. 2. Mild posterior subluxation of the humeral head in relation to the glenoid. 3. Fracture of the lateral aspect of the acromion and distal clavicle. Head CT 02/07/18 0000 Signed Impressions: CONCLUSION: 1. Negative CT Head non contrast. (Ayse Dockery) Assessment and Plan Problem List: (1) Atypical chest pain ICD Codes: R07.89 - Other chest pain Assessment and Plan 62 yo F with afib and COPD with recent R proximal humerus fracture in need of clearance for surgical repair, developed chest pain 2-3 days ago/ atypical chest pain- lexiscan shows focal area of ischemia to mid anterolateral wall, low risk study. tele shows NSR with occasional ectopy EKG nonischemic (Ayse Dockery) Assessment and Plan = noncardiac CP reviewed SPECT personally. low risk study (< 1% mortality) cleared from cardio for orthopedic surgery will sign off call with questions (Jame Sandoval MD) Ayse Dockery Feb 07, 2018 08:40 Jame Sandoval MD Feb 07, 2018 08:54
[2018-02-07] MEDS: DOCUSATE SODIUM 50 MG/SENNA 8.6 MG TAB PO SCH ×2 (09:00→20:30)
[2018-02-07] MEDS: clonazePAM 0.5 MG TAB PO SCH ×2 (09:00→20:30)
[2018-02-07] MEDS: BACLOFEN 10 MG TAB PO SCH ×3 (09:00→17:02)
[2018-02-07] MEDS: FLUoxetine HCL 20 MG CAP PO SCH (09:00)
[2018-02-07] MEDS: METOCLOPRAMIDE HCL 10 MG/2 ML VIAL IV PUSH PRN ×2 (09:42→20:34)
[2018-02-07] MEDS: ACETAMINOPHEN/HYDROcodone 325 MG/5 MG TAB PO PRN ×2 (09:42→20:30)
[2018-02-07] MEDS: METOPROLOL SUCCINATE 25 MG EXTENDED RELEASE TAB PO SCH ×2 (09:43→20:30)
[2018-02-07] MEDS ORDERED: POTASSIUM CHLORIDE 20 MEQ CONTROLLED RELEASE TAB PO ONE (12:30)
[2018-02-07] MEDS: LISINOPRIL 10 MG TAB PO SCH (13:58)
[2018-02-07] MEDS ORDERED: PROMETHAZINE INJ 25 MG/ML VIAL IM ONE (15:30)
--- NOTE | 2018-02-07 15:32 | HHI.PR ---
Subjective Remarks Follow up for humerus fracture, chest pain. The patient is seen with MEDICAL OFFICE ASST and RN at bedside. Patient has emesis bag with small amount of clear-yellow emesis. She states she is very nauseous and vomited after receiving po KCl. Denies any specific abdominal pains. She does not recall her last BM. Denies any diarrhea. The patient is currently incontinent of urine and soiled her sheets. She denies any dysuria but she states the incontinence is new since the fall. She reports continued diffuse chest pain, worse with deep inspiration and palpation, associated with shortness of breath secondary to pain. Denies fevers/chills or cough. She does report diffuse low back pain without radiation, present since the fall. She has not yet attempted ambulation today. Objective Vitals Vital Signs Date Time Temp Pulse Resp B/P (MAP) Pulse Ox O2 Delivery O2 Flow Rate FiO2 02/07/18 04:25 97.3 64 17 183/87 (119) 96 02/07/18 01:11 65 173/81 (111) 02/07/18 00:50 65 02/07/18 00:40 97.9 66 18 180/91 (120) 100 02/06/18 20:53 Nasal Cannula 1.00 02/06/18 20:25 97.9 74 18 166/98 (120) 97 02/06/18 20:24 66 02/06/18 16:00 97.7 73 16 158/68 (98) 96 02/06/18 16:00 68 I/O 02/06/18 02/06/18 02/06/18 02/07/18 02/07/18 02/07/18 07:00 15:00 23:00 07:00 15:00 23:00 Intake Total 480 ml 240 ml Balance 480 ml 240 ml Intake Oral 480 ml 240 ml # Voids 6 3 1 # Bowel Movements 0 Result Diagram: 02/07/18 0633 02/07/18 0633 Imaging Last Impressions Upper Extremity CT 02/07/18 0000 Signed Impressions: CONCLUSION: 1. Severely comminuted right humeral head and neck fracture with impaction of the humeral shaft into the humeral head. 2. Mild posterior subluxation of the humeral head in relation to the glenoid. 3. Fracture of the lateral aspect of the acromion and distal clavicle. Head CT 02/07/18 0000 Signed Impressions: CONCLUSION: 1. Negative CT Head non contrast. Myocardial Perfusion Scan Nuc Med 02/06/18 0000 Signed Impressions: CONCLUSION: 1. Focal ischemia in the mid anterolateral wall. 2. Intact wall motion with EF of 65%. Shoulder X-Ray 02/05/18 0000 Signed Impressions: CONCLUSION: Comminuted fracture right proximal humerus. There appears to be fracture of the acromion as well. Pelvis X-Ray 02/05/18 0000 Signed Impressions: CONCLUSION: Questionable fracture inferior pubic ramus on the right. Pelvis CT 02/05/18 0000 Signed Impressions: CONCLUSION: 1. No acute fracture. 2. Old fracture right inferior pubic ramus. Humerus X-Ray 02/05/18 0000 Signed Impressions: CONCLUSION: Comminuted fracture right proximal humerus Elbow X-Ray 02/05/18 0000 Signed Impressions: CONCLUSION: No acute fracture right elbow Chest X-Ray 02/05/18 0000 Signed Impressions: CONCLUSION: Cardiomegaly. No consolidation or significant effusion. Comminuted right proxim al humeral fracture. Rotation left humerus. Cervical Spine CT 02/05/18 0000 Signed Impressions: CONCLUSION: 1. No acute fracture or subluxation. Objective Remarks GENERAL: Thin cachectic elderly female patient in [facility]. SKIN: Warm and dry. No rash. HEENT: Normocephalic. Atraumatic. Pupils equal and round. Mucous membranes pink and moist. NECK: Supple. Trachea midline. Nontender to palpation. CARDIOVASCULAR: Regular rate and rhythm. No murmur appreciated. Diffuse anterior chest tender to palpation. RESPIRATORY: No accessory muscle use. Clear to auscultation. Breath sounds equal bilaterally. GASTROINTESTINAL: Abdomen soft, non-tender, nondistended. Normoactive bowel sounds x4. MUSCULOSKELETAL: No obvious deformities. Extremities without clubbing, cyanosis , or edema. RUE in sling, right shoulder with diffuse ecchymosis. NEUROLOGICAL: Awake and alert. No obvious cranial nerve deficits. Motor grossly within normal limits. Moving all extremities spontaneously. Normal speech. PSYCHIATRIC: Appropriate mood and affect; insight and judgment normal. Procedures None. Medications and IVs Current Medications Medications (Trade) Dose Ordered Sig/Jefferson Route Start Time Stop Time Status Last Admin (Reglan Inj) 5 mg Q6H PRN IV PUSH 02/05/18 05:15 02/07/18 09:42 (Tylenol) 650 mg Q6H PRN PO 02/05/18 05:15 02/07/18 00:07 ([place] 5-325 Mg) 1 tab Q4H PRN PO 02/05/18 05:15 02/07/18 09:42 (Morphine Inj) 2 mg Q3H PRN IV PUSH 02/05/18 05:30 02/06/18 10:10 (Racheal-Colace) 1 tab BID PO 02/05/18 09:00 02/06/18 20:43 (Milk Of Magnesia Liq) 30 ml Q12H PRN PO 02/05/18 05:15 (Senokot) 17.2 mg Q12H PRN PO 02/05/18 05:15 (Dulcolax Supp) 10 mg DAILY PRN RECTAL 02/05/18 05:15 (Lactulose Liq) 30 ml DAILY PRN PO 02/05/18 05:15 (Lioresal) 10 mg TID PO 02/05/18 09:00 02/07/18 13:58 (KlonoPIN) 0.5 mg BID PO 02/05/18 09:00 02/06/18 20:43 (PROzac) 20 mg DAILY PO 02/05/18 09:00 02/06/18 08:59 (Atarax) 50 mg TID PRN PO 02/05/18 05:15 (Toprol Xl) 25 mg Q12HR PO 02/05/18 09:00 02/07/18 09:43 (Vasotec Inj) 1.25 mg Q6H PRN IV PUSH 02/05/18 16:15 02/07/18 00:54 ([place] 7.5-325 Mg) 1 tab Q4H PRN PO 02/05/18 16:15 02/06/18 17:56 (NS Flush) 2 ml BID IV FLUSH 02/05/18 21:00 02/07/18 09:00 (NS Flush) 2 ml UNSCH PRN IV FLUSH 02/05/18 19:00 (Morphine Inj) 2 mg Q30M PRN IV PUSH 02/05/18 19:00 02/05/18 19:36 (Lipitor) 10 mg HS PO 02/05/18 21:00 6/18/18 20:43 (Nitroglycerin 2% Oint) 0.5 inch Q6HR TOPICAL 02/05/18 19:00 02/07/18 12:18 (Prinivil) 10 mg DAILY PO 02/06/18 09:00 02/07/18 13:58 A/P Problem List: (1) Fall ICD Code: W19.XXXA - Unspecified fall, initial encounter Status: Acute (2) Humerus fracture ICD Code: S42.309A - Unspecified fracture of shaft of humerus, unspecified arm , initial encounter for closed fracture (3) Anemia ICD Code: D64.9 - Anemia, unspecified Assessment and Plan 62-year-old female with a PMH of Rheumatoid Arthritis, Chronic Anemia, Lupus, Anxiety, Depression, Hepatitis C, COPD, A. fib on Eliquis and Tobacco Abuse who was brought to the ER by EMS after a fall. Patient states she was at home and had sudden trip and fall but was unable to get herself off the floor and laid there x2 days, "couldn't get motivated enough to get up". Fall: s/p mechanical trip and fall at home, reported prolonged down-time of 2 days as unable to get herself up. -CPK 247, trended down to 141 -CT Head/C-Spine w/ no acute findings. -Pelvic X-ray w/ possible fracture, however CT Pelvis w/ old pubic fracture -PT consulted, recommending rehab. Patient lives alone and would definitely benefit from rehab -Check lumber spine CT Humerus/Acromion/Clavicle Fractures: X-ray w/ comminuted right proximal humerus fracture. -Consult ortho -RUE CT reviewed, showed severely comminuted right humeral head/neck fracture with impaction of humeral shaft into head; fracture of lateral acromion and distal clavicle -Dr. Thacker evaluated the pt, and decided on nonoperative conservative treatment for now -Continue sling -PT consulted, recommends rehab -Pain control with [place] prn pain scale and IV morphine 2mg prn breakthrough Chest pains: suspect musculoskeletal secondary to fall, pain reproducible on exam, however rule out cardiac disease. -ACS ruled out with negative serial cardiac enzymes x4 and EKG without acute ischemic changes -Given morphine, nitropaste, BB and received one dose of ASA. -Cardiology consulted for cardiac clearance -Nuclear stress test showed small focal ischemic at mid anterolateral wall; EF 65% -Cardiology reviewed findings, likely noncardiac chest pain, cleared for surgery, no further cardiac work up/intervention -Pain reproducible on exam, likely musculoskeletal secondary to fall, give pain medications as needed Anemia: Acute on Chronic. -Hgb 8.2, previously 10.8, most likely from the trauma/fx area as she does have extensive bruising in shoulder area -continue to monitor closely, transfuse as needed. -Hgb 8.8 today, monitor HTN: acute, BP elevated to 180s -on metoprolol 25mg bid, and started on lisinopril, increased to 10mg po daily. -continue IV Vasotec prn -Monitor BP, adjust antihypertensives as needed Nausea/Vomiting: patient reports ongoing nausea with episodes of vomiting today -check abdominal xray -give antiemetics prn -give IM phenergan x1 now -check repeat urinalysis as patient is incontinent of urine -discontinue patient's nitro paste, possibly contributing to nausea -consider abdominal CT if symptoms do not improve -check CBC/CMP/lipase in am Atrial Fibrillation: chronic, on Eliquis. -currently in sinus rhythm -continue BB -monitor on telemetry -Eliquis on hold for now with anemia, recent trauma, concern for bleeding; can likely restart in 1-2 days if anemia stabilizes Hypokalemia: K 3.3. Suspect secondary to recent nausea/vomiting and poor oral intake -give po KCl replacement -check magnesium -monitor BMP DVT Prophylaxis: teds/SCDs; Holding patient's Eliquis for now Discharge Planning Not yet ready for discharge. Patient nauseous and vomiting. Checking abdominal xray, urinalysis, L-spine CT. Patient needs rehab at discharge. Case management assisting with discharge planning. Problem Qualifiers (1) Fall: Qualified Codes: W19.XXXA - Unspecified fall, initial encounter (2) Humerus fracture: Qualified Codes: S42.291A - Other displaced fracture of upper end of right humerus, initial encounter for closed fracture Gloria Weinberg PA-C Feb 07, 2018 15:32
--- NOTE | 2018-02-07 17:36 | RADRPT ---
EXAM DATE: 02/07/2018 5:33 PM EDT AGE/SEX: 62 years / Female INDICATIONS: Vomiting with back pain. CLINICAL DATA: This is the patient's initial encounter. Patient reports that signs and symptoms have been present for 1 day and indicates a pain score of 5/10. MEDICAL/SURGICAL HISTORY: . Lupus. Chronic obstructive pulmonary disease. Hepatitis C. . Tuba l ligation. Tonsillectomy. ORIF Lt humerus. COMPARISON: No prior exams available for comparison. FINDINGS: The abdominal bowel gas pattern is normal. There is some stool in the colon. There is no abnormal di latation of the large or small bowel. No definite calcifications are seen overlying the kidneys. Ther e is degenerative changes and curvature of the lumbar spine to the left. There appears to be an old c ompression fracture injury at L1.. CONCLUSION: Benign-appearing abdomen. Electronically signed by: Iker Ryan MD 02/07/2018 5:34 PM EDT
--- NOTE | 2018-02-07 19:55 | RADRPT ---
EXAM DATE: 02/07/2018 7:33 PM EDT AGE/SEX: 62 years / Female INDICATIONS: Lower back pain post fall. CLINICAL DATA: This is the patient's initial encounter. Patient reports that signs and symptoms have been present for 2 days and indicates a pain score of 9/10. MEDICAL/SURGICAL HISTORY: Lupus. Anemia. Hepatitis C. Cardiaovascular disease. COPD. Tubal lig ation. RADIATION DOSE: 19.50 CTDI (mGy) COMPARISON: [facility], CT PULMONARY ANGIOGRAM, 11/02/2017. . TECHNIQUE: Contiguous axial images were acquired with a multirow detector CT scanner without contras t. Multiplanar reconstructions in the sagittal and coronal plane were also performed. Using automate d exposure control and adjustment of the mA and/or kV according to patient size, radiation dose was k ept as low as reasonably achievable to obtain optimal diagnostic quality images. DICOM format image data is available electronically for review and comparison. FINDINGS: Vertebrae: Severe compression fracture at L1 which appears to have progressed slightly since previou s examination of 11/02/2017. There is mild retropulsion of fragments with clear fracture cleft extendi ng along the superior endplate with vacuum phenomenon. Alignment: Prominent S-shaped scoliosis of the thoracolumbar spine centered at L3-4 in the lumbar sp ine. Sagittal alignment is maintained. Paraspinal Soft Tissues: Unremarkable. No significant adenopathy. Aorta is non-aneurysmal. T12-L1: The thecal sac has a normal diameter. No evidence of disc bulge or protrusion. The neural foramina are patent bilaterally. L1-L2: Severe compression fracture of the L1 superior endplate with 5 mm posterior retropulsion of f ragments. Central canal is narrowed to approximately 9 mm. Severe degenerative facet changes. Bony ne ural foramina are patent. L2-L3: Severe degenerative facet changes. No bony central canal narrowing. No bony neural foraminal stenosis. L3-L4: Endplate sclerosis, mild disc space loss and diffuse disc bulge, slightly eccentric to the ri ght. Prominent facet arthropathy. Mild effacement anterior thecal sac. Mild caudal right neural liudmila inal narrowing. L4-L5: Endplate sclerosis, disc space loss and diffuse disc bulge. Mild facet arthropathy. Mild effa cement anterior thecal sac with central canal measuring up to 11 mm. Moderate to severe right neural foraminal narrowing. L5-S1: Mild diffuse disc bulge. No significant central canal stenosis. Mild caudal right neural fora demetrice narrowing. CONCLUSION: 1. Prominent S-shaped scoliosis of the thoracolumbar spine centered at L3-4 and the lumbar spine. 2. Progressive severe compression fracture of L1 superior endplate in comparison to 11/02/2017 CT exa m. There is 5 mm posterior retropulsion of fragments with persistent fracture plane and vacuum phenom enon. This indicates persistent fracture mobility at this level. 3. Prominent multilevel degenerative spondylosis most prominently at L4-5 with moderate severe right neural foraminal narrowing. Electronically signed by: Alvaro Forrest MD 02/07/2018 7:53 PM EDT
[2018-02-07] MEDS: ATORVASTATIN 10 MG TAB PO SCH (20:29)
[2018-02-08] VITALS (9 sets, daily range): BP systolic 154–191; BP diastolic 74–95; PULSE 71–89; RESP 16–18; TEMP 97.3–98.4; O2SAT 97–98
[2018-02-08] MEDS: ENALAPRILAT 1.25 MG/ML VIAL IV PUSH PRN ×2 (00:08→05:50)
[2018-02-08] MEDS: METOCLOPRAMIDE HCL 10 MG/2 ML VIAL IV PUSH PRN ×2 (05:50→14:52)
[2018-02-08] MEDS: ACETAMINOPHEN/HYDROcodone 325 MG/5 MG TAB PO PRN (05:57)
--- NOTE | 2018-02-08 06:26 | PD.ORT.PN ---
Subjective Subjective Remarks Resting comfortably in bed. Objective Vitals Vital Signs Date Time Temp Pulse Resp B/P (MAP) Pulse Ox O2 Delivery O2 Flow Rate FiO2 02/08/18 04:00 74 02/08/18 01:10 154/81 (105) 02/08/18 00:00 98.1 71 17 187/95 (125) 98 02/08/18 00:00 71 02/07/18 20:43 77 02/07/18 20:15 97.6 70 17 143/88 (106) 97 02/07/18 20:00 97 Room Air 02/07/18 16:00 98.0 62 16 177/82 (113) 96 02/07/18 12:00 97.5 65 16 157/97 (117) 97 02/07/18 08:00 98.8 66 16 160/90 (113) 96 I/O 02/07/18 02/07/18 02/07/18 02/08/18 02/08/18 02/08/18 07:00 15:00 23:00 07:00 15:00 23:00 Intake Total 240 ml Balance 240 ml Intake Oral 240 ml # Voids 1 # Bowel Movements 0 Result Diagram: 02/07/18 0633 02/07/18 0633 Imaging Last [address] 02/07/18 0000 Signed Impressions: CONCLUSION: 1. Negative CT Head non contrast. Objective Remarks Bilateral lower extremities: Full range of motion and neurovascularly intact Left upper extremity: Full range of motion neurovascularly intact Right upper extremity: Significant bruising and pain to palpation of proximal humerus. Skin is intact. No pain with elbow wrist range of motion. Intact sensation distally with moderate swelling. Good capillary refills. Full extension flexion of fingers Assessment & Plan Assessment and Plan Right proximal humerus fracture X-rays and CT both shows reasonable alignment of proximal humerus fracture. We will continue to treat this nonoperatively. She will be nonweightbearing on the right upper extremity and remain in sling and swath at all times Case management for probable rehabilitation placement Follow-up with Dr. Vila or ZACH in 2 weeks for evaluation of alignment of fracture Rodney Alcocer Jr. Feb 08, 2018 06:26
[2018-02-08 08:12] LABS: ALBUMIN 3.2 GM/DL (3.4-5.0); ALT (GPT) 13 U/L (10-53); AST (GOT) 26 U/L (15-37); BICARBONATE 20.9 MEQ/L (21.0-32.0); CALCIUM 8.4 MG/DL (8.5-10.1); CHLORIDE 101 MEQ/L (98-107); CREATININE 0.38 MG/DL (0.50-1.00); GLOMERULAR FILTRATION RATE 173 ML/MIN (>89); GLUCOSE,RANDOM 100 MG/DL (74-106); MAGNESIUM 2.1 MG/DL (1.5-2.5); SODIUM (NA) 137 MEQ/L (136-145)
[2018-02-08 08:14] LABS: ALKALINE PHOSPHATASE 139 U/L (45-117); TOTAL BILIRUBIN ADULT 1.3 MG/DL (0.2-1.0); TOTAL PROTEIN 7.7 GM/DL (6.4-8.2)
[2018-02-08 08:15] LABS: BLOOD UREA NITROGEN 11 MG/DL (7-18)
[2018-02-08] MEDS: BACLOFEN 10 MG TAB PO SCH ×3 (09:08→17:30)
[2018-02-08] MEDS: MAGNESIUM HYDROXIDE SUSP 30 ML CUP PO PRN (09:08)
[2018-02-08] MEDS: DOCUSATE SODIUM 50 MG/SENNA 8.6 MG TAB PO SCH ×2 (09:08→21:21)
[2018-02-08] MEDS: FLUoxetine HCL 20 MG CAP PO SCH (09:08)
[2018-02-08] MEDS: clonazePAM 0.5 MG TAB PO SCH ×2 (09:08→21:20)
[2018-02-08] MEDS: METOPROLOL SUCCINATE 25 MG EXTENDED RELEASE TAB PO SCH ×2 (09:08→21:20)
[2018-02-08] MEDS: LISINOPRIL 10 MG TAB PO SCH (09:08)
[2018-02-08] MEDS: SODIUM CHLORIDE 0.9% FLUSH 10 ML FLUSH IV FLUSH SCH ×2 (09:09→21:21)
[2018-02-08 09:38] LABS: AUTOMATED NEUTROPHIL # 6.1 TH/MM3 (1.8-7.7); BASOPHIL % 0.1 % (0.0-2.0); LYMPH % 25.2 % (9.0-44.0); LYMPHOCYTE # 2.4 TH/MM3 (1.0-4.8); MEAN CELL VOLUME 79.9 FL (80.0-100.0); MEAN CORPUSCULAR HEMOGLOBIN 25.8 PG (27.0-34.0); MEAN CORPUSCULAR HGB CONC 32.3 % (32.0-36.0); MEAN PLATELET VOLUME 7.6 FL (7.0-11.0); MONO % 10.5 % (0.0-8.0); NEUT % 64.2 % (16.0-70.0); PLATELET COUNT 397 TH/MM3 (150-450); RED BLOOD COUNT 4.26 MIL/MM3 (4.00-5.30); RED CELL DISTRIBUTION WIDTH 16.8 % (11.6-17.2); WHITE BLOOD COUNT 9.5 TH/MM3 (4.0-11.0)
--- NOTE | 2018-02-08 10:34 | HHI.PR ---
Subjective Remarks Complaining of back pain. Right arm pain control. No other concerns at this time. Poor appetite due to the pain. Objective Vitals Vital Signs Date Time Temp Pulse Resp B/P (MAP) Pulse Ox O2 Delivery O2 Flow Rate FiO2 02/08/18 08:00 97.5 73 17 176/81 (112) 98 02/08/18 05:15 97.3 72 16 191/80 (117) 98 02/08/18 04:00 74 02/08/18 01:10 154/81 (105) 02/08/18 00:00 98.1 71 17 187/95 (125) 98 02/08/18 00:00 71 02/07/18 20:43 77 02/07/18 20:15 97.6 70 17 143/88 (106) 97 02/07/18 20:00 97 Room Air 02/07/18 16:00 98.0 62 16 177/82 (113) 96 02/07/18 12:00 97.5 65 16 157/97 (117) 97 I/O 02/07/18 02/07/18 02/07/18 02/08/18 02/08/18 02/08/18 07:00 15:00 23:00 07:00 15:00 23:00 Intake Total 240 ml 360 ml Balance 240 ml 360 ml Intake Oral 240 ml 360 ml # Voids 1 3 # Bowel Movements 0 0 Result Diagram: 02/08/18 0907 02/08/18 0723 Objective Remarks GENERAL: This is a well-nourished, well-developed patient, in no apparent distress. CARDIOVASCULAR: Regular rate and rhythm RESPIRATORY: Clear to auscultation. Breath sounds equal bilaterally. No wheezes , rales, or rhonchi. GASTROINTESTINAL: Abdomen soft, non-tender, nondistended. Normal active bowel sounds MUSCULOSKELETAL: Right arm in a sling and swath NEURO: Alert & Oriented x2 to person, place, Moves all ext x4 Procedures None. A/P Problem List: (1) Fall ICD Code: W19.XXXA - Unspecified fall, initial encounter Status: Acute (2) Humerus fracture ICD Code: S42.309A - Unspecified fracture of shaft of humerus, unspecified arm , initial encounter for closed fracture (3) Anemia ICD Code: D64.9 - Anemia, unspecified Assessment and Plan 62-year-old female with a PMH of Rheumatoid Arthritis, Chronic Anemia, Lupus, Anxiety, Depression, Hepatitis C, COPD, A. fib on Eliquis and Tobacco Abuse who was brought to the ER by EMS after a fall. Patient states she was at home and had sudden trip and fall but was unable to get herself off the floor and laid there x2 days, "couldn't get motivated enough to get up". Fall: s/p mechanical trip and fall at home, reported prolonged down-time of 2 days as unable to get herself up. -CPK 247, trended down to 141 -CT Head/C-Spine w/ no acute findings. -Pelvic X-ray w/ possible fracture, however CT Pelvis w/ old pubic fracture -PT consulted, recommending rehab. Patient lives alone and would definitely benefit from rehab -Check lumber spine CT Humerus/Acromion/Clavicle Fractures: X-ray w/ comminuted right proximal humerus fracture. -Consult ortho, who recommended nonoperative conservative treatment -RUE CT reviewed, showed severely comminuted right humeral head/neck fracture with impaction of humeral shaft into head; fracture of lateral acromion and distal clavicle -Dr. Thacker evaluated the pt, and decided on nonoperative conservative treatment for now -Continue sling and swath -PT consulted, recommends rehab -Pain control with Drayden prn pain scale and IV morphine 2mg prn breakthrough Lumbar 1 compression fracture -due to persistent pain will obtain neurosurgical evaluation to determine if patient is a candidate for kyphoplasty. Will likely need brace Chest pains: suspect musculoskeletal secondary to fall, pain reproducible on exam, however rule out cardiac disease. -ACS ruled out with negative serial cardiac enzymes x4 and EKG without acute ischemic changes -Given morphine, nitropaste, BB and received one dose of ASA. -Cardiology consulted for cardiac clearance -Nuclear stress test showed small focal ischemic at mid anterolateral wall; EF 65% -Cardiology reviewed findings, likely noncardiac chest pain, cleared for surgery, no further cardiac work up/intervention -Pain reproducible on exam, likely musculoskeletal secondary to fall, give pain medications as needed Anemia: Acute on Chronic. -Hgb 8.2, previously 10.8, most likely from the trauma/fx area as she does have extensive bruising in shoulder area -continue to monitor closely, transfuse as needed. -Hgb 11 today, monitor HTN: acute, BP elevated to 180s, this may be due to pain -on metoprolol 25mg bid, and started on lisinopril 10mg po daily, increased 20 mg p.o. daily -continue IV Vasotec prn -Monitor BP, adjust antihypertensives as needed Atrial Fibrillation: chronic, on Eliquis prior to admission. -currently in sinus rhythm -continue BB -monitor on telemetry -Eliquis on hold for now with anemia, recent trauma, concern for bleeding; can likely restart in 1-2 days if anemia stabilizes and final determination that no further procedure to be done. Hypokalemia, repleted: K 3.3. Suspect secondary to recent nausea/vomiting and poor oral intake -give po KCl replacement -check magnesium -monitor BMP DVT Prophylaxis: teds/SCDs; Holding patient's Eliquis for now, will start Lovenox 40 subcu today. Discharge Planning Will need halfway facility placement Problem Qualifiers (1) Fall: Qualified Codes: W19.XXXA - Unspecified fall, initial encounter (2) Humerus fracture: Qualified Codes: S42.291A - Other displaced fracture of upper end of right humerus, initial encounter for closed fracture Carmenza Petersen MD Feb 08, 2018 10:34
[2018-02-08] MEDS ORDERED: LISINOPRIL 10 MG TAB PO ONE (10:45)
[2018-02-08] MEDS ORDERED: ENALAPRILAT 1.25 MG/ML VIAL IV PUSH PRN (10:45)
[2018-02-08 11:50] LABS: BILIRUBIN, URINE NEG (NEG); BLOOD, URINE NEG (NEG); GLUCOSE,URINE 50 mg/dL (NEG); KETONE, URINE 80 OR GREATER mg/dL (NEG); NITRITE,URINE NEG (NEG); SQUAMOUS EPITHELIAL CELL URINE <1 /hpf (0-5); URINE COLOR YELLOW (YELLW/STRAW); URINE LEUKOCYTE ESTERASE NEG (NEG)
[2018-02-08] MEDS: ENOXAPARIN SODIUM 30 MG/0.3 ML SYRINGE SQ SCH (11:55)
--- NOTE | 2018-02-08 14:20 | ECHRPT ---
Indication: CHEST PAIN CONCLUSIONS Normal left ventricular size. Wall thickness is normal. The left ventricular systolic function is low normal with an estimated ejection fraction in the rang e of 50- 55%. [id number] mitral valve regurgitation. Aortic valve sclerosis is present. Trace to mild aortic valve regurgitation. There is trace tricuspid valve regurgitation. The estimated pulmonary arterial pressure is 33.2 mmHg. BP: 176 / 81 HR: 73 Rhythm: Sinus MEASUREMENTS (Male / Female) Normal Values Technical Quality:Very technically difficult study 2D ECHO LV Diastolic Diameter PLAX 3.6 cm 4.2 - 5.9 / 3.9 - 5.3 cm LV Systolic Diameter PLAX 2.8 cm IVS Diastolic Thickness 0.9 cm 0.6 - 1.0 / 0.6 - 0.9 cm LVPW Diastolic Thickness 0.9 cm 0.6 - 1.0 / 0.6 - 0.9 cm LV Relative Wall Thickness 0.5 LVOT Diameter 2.5 cm Aortic Root Diameter 4.0 cm LA Systolic Diameter LX 2.1 cm 3.0 - 4.0 / 2.7 - 3.8 cm DOPPLER AV Peak Velocity 178.0 cm/s AV Peak Gradient 12.7 mmHg AV Mean Gradient 7.0 mmHg AV Velocity Time Integral 26.8 cm LVOT Peak Velocity 57.9 cm/s LVOT Peak Gradient 1.3 mmHg LVOT Velocity Time Integral 8.1 cm AV Area Cont Eq vti 1.5 cm AV Area Cont Eq pk 1.6 cm Mitral E Point Velocity 36.5 cm/s Mitral A Point Velocity 68.1 cm/s Mitral E to A Ratio 0.5 TR Peak Velocity 241.0 cm/s TR Peak Gradient 23.2 mmHg Right Atrial Pressure 10.0 mmHg Pulmonary Artery Systolic Pressu 33.2 mmHg Right Ventricular Systolic Press 33.2 mmHg PV Peak Velocity 56.4 cm/s PV Peak Gradient 1.3 mmHg FINDINGS LEFT VENTRICLE Normal left ventricular size. Wall thickness is normal. The left ventricular systolic function is low normal with an estimated ejection fraction in the rang e of 50- 55%. RIGHT VENTRICLE The right ventricle was not well visualized. LEFT ATRIUM The left atrial size is normal. RIGHT ATRIUM The right atrial size is normal. ATRIAL SEPTUM The interatrial septum not well visualized. AORTA The aortic root and proximal ascending aorta are not well visualized. MITRAL VALVE [id number] mitral valve regurgitation. AORTIC VALVE Aortic valve sclerosis is present. Trace to mild aortic valve regurgitation. TRICUSPID VALVE There is trace tricuspid valve regurgitation. The estimated pulmonary arterial pressure is 33.2 mmHg. PULMONARY VALVE The pulmonary valve is not well visualized. VESSELS The inferior vena cava was not well visualized. PERICARDIUM No pericardial effusion. Jame Sandoval MD, FACC (Electronically Signed) Final Date:08 February 2018 14:19
--- NOTE | 2018-02-08 17:40 | PD.CONS ---
(Sandi Mcnally) [facility] Service NRS Consult Requested By Dr. Petersen Reason for Consult L1 fracture Primary Care Physician Colt Miller, DO History of Present Illness Ms. Aguirre is a 62 year old female who presents following a fall. She states she has been recently falling at home. She was found to have a right humeral fracture that is being managed nonsurgically by Dr. Vila. She complains also of severe low back pain when she tries to move. She complains of worsening lower extremity weakness also. She denies radiating pain or paresthesias in her lower extremities, bowel or bladder incontinence. She suffers from Lupus. A CT of the lumbar spine shows severe compression fracture of L1 with 5 mm posterior retropulsion of fragments. Her anticoagulation has been held. Neurosurgical evaluation was requested. (Sandi Mcnally) Review of Systems Constitutional: COMPLAINS OF: Fatigue, DENIES: Fever, Chills Eyes: DENIES: Diplopia, Vision loss Respiratory: DENIES: Apneas, Hemoptysis Cardiovascular: DENIES: Chest pain Gastrointestinal: DENIES: Abdominal pain, Nausea, Vomiting Musculoskeletal: COMPLAINS OF: Joint pain, Stiffness, Joint Swelling, Back pain Neurologic: COMPLAINS OF: Localized weakness, DENIES: Paresthesias (Sandi Mcnally) Past Family Social History Allergies: Coded Allergies: penicillin G (Unverified Allergy, Severe, Anaphylaxis, 02/05/18) mold (Unverified Allergy, Unknown, 02/05/18) Past Medical History Lupus Rheumatoid Arthritis Anxiety Depression A. Fib on anticoagulation Hep C COPD Past Surgical History Tubal Ligation Tonsillectomy Left Shoulder Surgery Right Wrist Surgery Left Elbow Surgery Reported Medications reviewed in EMR Active Ordered Medications Last Impressions Upper Extremity CT 02/07/18 0000 Signed Impressions: CONCLUSION: 1. Severely comminuted right humeral head and neck fracture with impaction of the humeral shaft into the humeral head. 2. Mild posterior subluxation of the humeral head in relation to the glenoid. 3. Fracture of the lateral aspect of the acromion and distal clavicle. Lumbar Spine CT 02/07/18 0000 Signed Impressions: CONCLUSION: 1. Prominent S-shaped scoliosis of the thoracolumbar spine centered at L3-4 an d the lumbar spine. 2. Progressive severe compression fracture of L1 superior endplate in comparis on to 11/02/2017 CT exam. There is 5 mm posterior retropulsion of fragments with persistent fracture plane and vacuum phenomenon. This indicates persistent fra cture mobility at this level. 3. Prominent multilevel degenerative spondylosis most prominently at L4-5 with moderate severe right neural foraminal narrowing. Head CT 02/07/18 0000 Signed Impressions: CONCLUSION: 1. Negative CT Head non contrast. Abdomen X-Ray 02/07/18 0000 Signed Impressions: CONCLUSION: Benign-appearing abdomen. Myocardial Perfusion Scan Nuc Med 02/06/18 0000 Signed Impressions: CONCLUSION: 1. Focal ischemia in the mid anterolateral wall. 2. Intact wall motion with EF of 65%. Shoulder X-Ray 02/05/18 0000 Signed Impressions: CONCLUSION: Comminuted fracture right proximal humerus. There appears to be fracture of the acromion as well. Pelvis X-Ray 02/05/18 0000 Signed Impressions: CONCLUSION: Questionable fracture inferior pubic ramus on the right. Pelvis CT 02/05/18 0000 Signed Impressions: CONCLUSION: 1. No acute fracture. 2. Old fracture right inferior pubic ramus. Humerus X-Ray 02/05/18 0000 Signed Impressions: CONCLUSION: Comminuted fracture right proximal humerus Elbow X-Ray 02/05/18 0000 Signed Impressions: CONCLUSION: No acute fracture right elbow Chest X-Ray 02/05/18 0000 Signed Impressions: CONCLUSION: Cardiomegaly. No consolidation or significant effusion. Comminuted right proxim al humeral fracture. Rotation left humerus. Cervical Spine CT 02/05/18 0000 Signed Impressions: CONCLUSION: 1. No acute fracture or subluxation. Family History reviewed, noncontributory to current problems Social History tobacco use she is cutting back, denies etoh use or illicit drug use (Sandi Mcnally) Physical Exam Vital Signs Vital Signs Date Time Temp Pulse Resp B/P (MAP) Pulse Ox O2 Delivery O2 Flow Rate FiO2 02/08/18 16:26 97.3 89 18 173/78 (109) 98 02/08/18 12:00 98.3 76 18 175/77 (109) 97 02/08/18 08:00 97.5 73 17 176/81 (112) 98 02/08/18 05:15 97.3 72 16 191/80 (117) 98 02/08/18 04:00 74 02/08/18 01:10 154/81 (105) 02/08/18 00:00 98.1 71 17 187/95 (125) 98 02/08/18 00:00 71 02/07/18 20:43 77 02/07/18 20:15 97.6 70 17 143/88 (106) 97 02/07/18 20:00 97 Room Air Physical Exam General: Ms. Aguirre in no obvious distress in bed Neuro: Awake, alert and oriented to person, place, and time. Speech is clear but slow. Can follow single and multi-step commands without apraxia. Cranial nerve examination: pupils equal, round, and reactive to light. Extra-ocular movements are intact with normal convergence. Facial motor and sensory function are normal and symmetrical. Gross hearing is intact, bilaterally, to finger rub. The uvula is midline and elevates symmetrically with the soft palate. Sternocleidomastoid and deltoid muscles have normal and symmetrical strength. Other cranial nerves are intact. HEENT: Normocephalic, atraumatic. Gross hearing intact bilaterally. Nonicteric sclera. Neck: Kyphotic. No massess, no JVD. Trachea midline. Soft, supple, no meningismus or nuchal rigidity. Range of motion without pain Musculoskeletal: No peripheral edema. Right arm in sling. No clubbing. 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 In the lower extremities, strength is 4+ to 5-/5 bilateral iliopsoas, quadriceps, hamstrings, tibialis anterior, gastrocnemius, and extensor hallucis longus. Sensory examination report intact light touch in both the upper and lower extremities Deep tendon reflexes are left 1+ biceps, triceps, and brachioradialis in the upper extremities. In the lower extremities, the patellar and Achilles are trace , bilaterally. There is a bilateral plantar flexion response. Hoffmanns sign is negative. There is no ankle clonus. Thoracolumbar scoliosis, thoracic kyphosis. She is painful in the lumbar spine when she tries to move, and tender to palpation over the upper lumbar region. Cerebellar: intact finger to nose bilaterally Lungs: clear to auscultate bilaterally, nonlabored breathing on room air, no wheezing, no accessory muscle use. Heart: irregularly irregular Skin: warm and dry, no cyanosis or erythema. Laboratory Laboratory Tests Test 02/08/18 07:23 02/08/18 09:07 02/08/18 11:16 Blood Urea Nitrogen 11 Creatinine 0.38 Random Glucose 100 Total Protein 7.7 Albumin 3.2 Calcium Level 8.4 Magnesium Level 2.1 Alkaline Phosphatase 139 Aspartate Amino Transf (AST/SGOT) 26 Alanine Aminotransferase (ALT/SGPT) 13 Total Bilirubin 1.3 Sodium Level 137 Potassium Level 3.6 Chloride Level 101 Carbon Dioxide Level 20.9 Anion Gap 15 Estimat Glomerular Filtration Rate 173 Lipase 2932 White Blood Count 9.5 Red Blood Count 4.26 Hemoglobin 11.0 Hematocrit 34.0 Mean Corpuscular Volume 79.9 Mean Corpuscular Hemoglobin 25.8 Mean Corpuscular Hemoglobin Concent 32.3 Red Cell Distribution Width 16.8 Platelet Count 397 Mean Platelet Volume 7.6 Neutrophils (%) (Auto) 64.2 Lymphocytes (%) (Auto) 25.2 Monocytes (%) (Auto) 10.5 Eosinophils (%) (Auto) 0.0 Basophils (%) (Auto) 0.1 Neutrophils # (Auto) 6.1 Lymphocytes # (Auto) 2.4 Monocytes # (Auto) 1.0 Eosinophils # (Auto) 0.0 Basophils # (Auto) 0.0 CBC Comment DIFF FINAL Differential Comment Urine Color YELLOW Urine Turbidity HAZY Urine pH 6.0 Urine Specific [place] 1.018 Urine Protein 100 Urine Glucose (UA) 50 Urine Ketones 80 OR GREATER Urine Occult Blood NEG Urine Nitrite NEG Urine Bilirubin NEG Urine Urobilinogen 4.0 OR GREATER Urine Leukocyte Esterase NEG Urine RBC 1 Urine WBC 5 Urine Squamous Epithelial Cells <1 Microscopic Urinalysis Comment CULT NOT INDICATED (Sandi Mcnally) Result Diagram: 02/08/18 0907 02/08/18 0723 Imaging Last Impressions Upper Extremity CT 02/07/18 0000 Signed Impressions: CONCLUSION: 1. Severely comminuted right humeral head and neck fracture with impaction of the humeral shaft into the humeral head. 2. Mild posterior subluxation of the humeral head in relation to the glenoid. 3. Fracture of the lateral aspect of the acromion and distal clavicle. Lumbar Spine CT 02/07/18 0000 Signed Impressions: CONCLUSION: 1. Prominent S-shaped scoliosis of the thoracolumbar spine centered at L3-4 an d the lumbar spine. 2. Progressive severe compression fracture of L1 superior endplate in comparis on to 11/02/2017 CT exam. There is 5 mm posterior retropulsion of fragments with persistent fracture plane and vacuum phenomenon. This indicates persistent fra cture mobility at this level. 3. Prominent multilevel degenerative spondylosis most prominently at L4-5 with moderate severe right neural foraminal narrowing. Head CT 02/07/18 0000 Signed Impressions: CONCLUSION: 1. Negative CT Head non contrast. Abdomen X-Ray 02/07/18 0000 Signed Impressions: CONCLUSION: Benign-appearing abdomen. Myocardial Perfusion Scan Nuc Med 02/06/18 0000 Signed Impressions: CONCLUSION: 1. Focal ischemia in the mid anterolateral wall. 2. Intact wall motion with EF of 65%. Shoulder X-Ray 02/05/18 0000 Signed Impressions: CONCLUSION: Comminuted fracture right proximal humerus. There appears to be fracture of the acromion as well. Pelvis X-Ray 02/05/18 0000 Signed Impressions: CONCLUSION: Questionable fracture inferior pubic ramus on the right. Pelvis CT 02/05/18 0000 Signed Impressions: CONCLUSION: 1. No acute fracture. 2. Old fracture right inferior pubic ramus. Humerus X-Ray 02/05/18 0000 Signed Impressions: CONCLUSION: Comminuted fracture right proximal humerus Elbow X-Ray 02/05/18 0000 Signed Impressions: CONCLUSION: No acute fracture right elbow Chest X-Ray 02/05/18 0000 Signed Impressions: CONCLUSION: Cardiomegaly. No consolidation or significant effusion. Comminuted right proxim al humeral fracture. Rotation left humerus. Cervical Spine CT 02/05/18 0000 Signed Impressions: CONCLUSION: 1. No acute fracture or subluxation. (Sandi Mcnally) Assessment and Plan Assessment and Plan 62 y/o female s/p fall with lumbar pain worsened with movement. CT Lumbar spine with severe L1 compression fracture and some retropulsion into the spinal canal. Obtain MRI of the lumbar spine. Keep bed rest for now until cleared to mobilize out of bed by Dr. Doran. Further recommendations to follow following completion of MRI. (Sandi Mcnally) Attending Statement I review her clinical findings on her radiological studies I discussed the alternatives of treatment with the patient, including conservative treatment versus a kyphoplasty. She is requesting nonoperative treatment. Recommend TLSO brace Evaluated by Dr Thacker for humerous fracture for possible Surgery with open reduction and internal fixation versus hemiarthroplasty replacement Percocet/morphine as needed for pain Pulmonary. aggressive pulmonary toilette, nasotracheal suction, and breathing treatments with nebulizers. Daily PT and OT Renal. Continue to monitor closely urine output, BUN and creatinine Endocrine. Continue to Monitor serial Acu checks and SSI as needed in detail ID continue to monitor for signs of infection Continue Protonix for stress ulcer prophylaxis Continue Orion hose and SCD's for DVT prophylaxis Caprini VTE Risk Assessment Caprini VTE Risk Assessment: Mod/High Risk (score >= 2) VTE Pharm Contraindication: Intracranial lesions Caprini Risk Assessment Model Point Value = 1 Point Value = 2 Point Value = 3 Point Value = 5 Age 41-60 Minor surgery BMI > 25 kg/m2 Swollen legs Varicose veins or History of unexplained or recurrent spontaneous Oral contraceptives or hormone replacement Sepsis (< 1 month) Serious lung disease, including pneumonia (< 1 month) Abnormal pulmonary function Acute myocardial infarction Congestive heart failure (< 1 month) History of inflammatory bowel disease Medical patient at bed rest Age 61-74 Arthroscopic surgery Major open surgery (> 45 min) Laparoscopic surgery (> 45 min) Malignancy Confined to bed (> 72 hours) Immobilizing plaster cast Central venous access Age >= 75 History of VTE Family history of VTE Factor V Leiden Prothrombin [id number] Lupus anticoagulant Anticardiolipin antibodies Elevated serum homocysteine Heparin-induced thrombocytopenia Other congenital or acquired thrombophilia Stroke (< 1 month) Elective arthroplasty Hip, pelvis, or leg fracture Acute spinal cord injury (< 1 month) Prophylaxis Regimen Total Risk Factor Score Risk Level Prophylaxis Regimen 0-1 Low Early ambulation 2 Moderate Order ONE of the following: *Sequential Compression Device (SCD) *Heparin 5000 units SQ BID 3-4 Higher Order ONE of the following medications: *Heparin 5000 units SQ TID *Enoxaparin/Lovenox 40 mg SQ daily (WT < 150 kg, CrCl > 30 mL/min) *Enoxaparin/Lovenox 30 mg SQ daily (WT < 150 kg, CrCl > 10-29 mL/min) *Enoxaparin/Lovenox 30 mg SQ BID (WT < 150 kg, CrCl > 30 mL/min) AND/OR *Sequential Compression Device (SCD) 5 or more Highest Order ONE of the following medications: *Heparin 5000 units SQ TID (Preferred with Epidurals) *Enoxaparin/Lovenox 40 mg SQ daily (WT < 150 kg, CrCl > 30 mL/min) *Enoxaparin/Lovenox 30 mg SQ daily (WT < 150 kg, CrCl > 10-29 mL/min) *Enoxaparin/Lovenox 30 mg SQ BID (WT < 150 kg, CrCl > 30 mL/min) AND *Sequential Compression Device (SCD) The exam, history, and the medical decision-making described in the above note were completed with the assistance of the mid-level provider. I reviewed and agree with the findings presented. I attest that I had a [id number] encounter with the patient on the same day, and personally performed and documented my assessment and findings in the medical record. (Ankit Doran MD) Sandi Mcnally Feb 08, 2018 17:40 Ankit Doran MD Feb 11, 2018 18:55
[2018-02-08] MEDS: ATORVASTATIN 10 MG TAB PO SCH (21:20)
[2018-02-08] MEDS: CALCIUM/VITAMIN D 250 MG/125 U TAB PO SCH (21:20)
[2018-02-09] VITALS (7 sets, daily range): BP systolic 128–188; BP diastolic 62–86; PULSE 72–89; RESP 16–18; TEMP 97.6–99; O2SAT 97–99
[2018-02-09] MEDS: ENALAPRILAT 1.25 MG/ML VIAL IV PUSH PRN ×2 (00:40→14:24)
--- NOTE | 2018-02-09 06:46 | PD.ORT.PN ---
Subjective Subjective Remarks s/p right proximal humerus fx resting comfortably. no new complaints. Objective Vitals Vital Signs Date Time Temp Pulse Resp B/P (MAP) Pulse Ox O2 Delivery O2 Flow Rate FiO2 02/09/18 04:00 80 02/09/18 04:00 99.0 82 18 171/68 (102) 99 02/09/18 00:01 99.0 72 18 188/86 (120) 99 02/09/18 00:00 73 02/08/18 20:45 80 02/08/18 20:45 97 Room Air 02/08/18 20:00 98.4 76 18 164/74 (104) 97 02/08/18 16:26 97.3 89 18 173/78 (109) 98 02/08/18 12:00 98.3 76 18 175/77 (109) 97 02/08/18 08:00 97.5 73 17 176/81 (112) 98 I/O 02/08/18 02/08/18 02/08/18 02/09/18 02/09/18 02/09/18 07:00 15:00 23:00 07:00 15:00 23:00 Intake Total 360 ml 500 ml Balance 360 ml 500 ml Intake Oral 360 ml 500 ml # Voids 3 5 2 # Bowel Movements 0 0 Result Diagram: 02/08/18 0907 02/08/18 0723 Imaging Last [address] 02/07/18 0000 Signed Impressions: CONCLUSION: 1. Negative CT Head non contrast. Objective Remarks Bilateral lower extremities: Full range of motion and neurovascularly intact Left upper extremity: Full range of motion neurovascularly intact Right upper extremity: Significant bruising and pain to palpation of proximal humerus. Skin is intact. No pain with elbow wrist range of motion. Intact sensation distally with moderate swelling. Good capillary refills. Full extension flexion of fingers Assessment & Plan Assessment and Plan Right proximal humerus fracture - nonop X-rays and CT both shows reasonable alignment of proximal humerus fracture. We will continue to treat this nonoperatively. She will be nonweightbearing on the right upper extremity and remain in sling and swath at all times Case management for probable rehabilitation placement Follow-up with Dr. Vila or ZACH in 2 weeks for evaluation of alignment of fracture Theodore Joyce/First Christopher SERRANO Feb 09, 2018 06:46
[2018-02-09] MEDS: BACLOFEN 10 MG TAB PO SCH ×3 (08:48→18:04)
[2018-02-09] MEDS: clonazePAM 0.5 MG TAB PO SCH ×2 (08:48→21:23)
[2018-02-09] MEDS: FLUoxetine HCL 20 MG CAP PO SCH (08:48)
[2018-02-09] MEDS: LISINOPRIL 20 MG TAB PO SCH (08:49)
[2018-02-09] MEDS: DOCUSATE SODIUM 50 MG/SENNA 8.6 MG TAB PO SCH ×2 (08:49→21:23)
[2018-02-09] MEDS: CALCIUM/VITAMIN D 250 MG/125 U TAB PO SCH ×2 (08:49→21:23)
[2018-02-09] MEDS: METOPROLOL SUCCINATE 25 MG EXTENDED RELEASE TAB PO SCH ×2 (08:49→21:22)
[2018-02-09] MEDS: SODIUM CHLORIDE 0.9% FLUSH 10 ML FLUSH IV FLUSH SCH ×2 (08:49→21:22)
--- NOTE | 2018-02-09 09:09 | HHI.PR ---
Subjective Remarks Complaining of back pain. Right arm pain controlled. Nursing staff states that she refused MRI yesterday and will reschedule. Objective Vitals Vital Signs Date Time Temp Pulse Resp B/P (MAP) Pulse Ox O2 Delivery O2 Flow Rate FiO2 02/09/18 08:07 98.7 83 16 171/72 (105) 97 02/09/18 04:00 80 02/09/18 04:00 99.0 82 18 171/68 (102) 99 02/09/18 00:01 99.0 72 18 188/86 (120) 99 02/09/18 00:00 73 02/08/18 20:45 80 02/08/18 20:45 97 Room Air 02/08/18 20:00 98.4 76 18 164/74 (104) 97 02/08/18 16:26 97.3 89 18 173/78 (109) 98 02/08/18 12:00 98.3 76 18 175/77 (109) 97 I/O 02/08/18 02/08/18 02/08/18 02/09/18 02/09/18 02/09/18 07:00 15:00 23:00 07:00 15:00 23:00 Intake Total 360 ml 500 ml Balance 360 ml 500 ml Intake Oral 360 ml 500 ml # Voids 3 5 2 # Bowel Movements 0 0 Result Diagram: 02/08/18 0907 02/08/18 0723 Objective Remarks GENERAL: This is a well-nourished, well-developed patient, in no apparent distress. CARDIOVASCULAR: Regular rate and rhythm RESPIRATORY: Clear to auscultation. Breath sounds equal bilaterally. No wheezes , rales, or rhonchi. MUSCULOSKELETAL: Right arm in a sling and swath NEURO: Alert & Oriented x2 to person, place, Moves all ext x4 Procedures None. A/P Problem List: (1) Fall ICD Code: W19.XXXA - Unspecified fall, initial encounter Status: Acute (2) Humerus fracture ICD Code: S42.309A - Unspecified fracture of shaft of humerus, unspecified arm , initial encounter for closed fracture (3) Anemia ICD Code: D64.9 - Anemia, unspecified Assessment and Plan 62-year-old female with a PMH of Rheumatoid Arthritis, Chronic Anemia, Lupus, Anxiety, Depression, Hepatitis C, COPD, A. fib on Eliquis and Tobacco Abuse who was brought to the ER by EMS after a fall. Patient states she was at home and had sudden trip and fall but was unable to get herself off the floor and laid there x2 days, "couldn't get motivated enough to get up". Fall: s/p mechanical trip and fall at home, reported prolonged down-time of 2 days as unable to get herself up. -Initial CPK 247, trended down to 141 -CT Head/C-Spine w/ no acute findings. -Pelvic X-ray w/ possible fracture, however CT Pelvis w/ old pubic fracture -PT consulted, recommending rehab. Patient lives alone and would definitely benefit from rehab Humerus/Acromion/Clavicle Fractures: X-ray w/ comminuted right proximal humerus fracture. -Consult ortho, who recommended nonoperative conservative treatment -RUE CT reviewed, showed severely comminuted right humeral head/neck fracture with impaction of humeral shaft into head; fracture of lateral acromion and distal clavicle -Dr. Thacker evaluated the pt, and decided on nonoperative conservative treatment for now -Continue sling and s -Pain control with [place] prn pain Lumbar 1 compression fracture -due to persistent pain will obtain neurosurgical evaluation to determine if patient is a candidate for kyphoplasty. Will likely need brace, MRI of the lumbar spine today per neurosurgery for further evaluation. Chest pains: suspect musculoskeletal secondary to fall, pain reproducible on exam, however rule out cardiac disease. -ACS ruled out with negative serial cardiac enzymes x4 and EKG without acute ischemic changes -Given morphine, nitropaste, BB and received one dose of ASA. -Cardiology consulted for cardiac clearance -Nuclear stress test showed small focal ischemic at mid anterolateral wall; EF 65% -Cardiology reviewed findings, likely noncardiac chest pain, cleared for surgery, no further cardiac work up/intervention -Pain reproducible on exam, likely musculoskeletal secondary to fall, give pain medications as needed, will discontinue telemetry today Acute anemia from blood loss from trauma Acute on Chronic. -Hgb 8.2, previously 10.8, most likely from the trauma/fx area as she does have extensive bruising in shoulder area -continue to monitor closely, transfuse as needed. -Last hemoglobin 11 HTN: acute, BP elevated to 180s, this may be due to pain -on metoprolol 25mg bid, and on lisinopril 20 mg p.o. daily. Will increase to 40 mg p.o. daily. -continue IV Vasotec prn -Monitor BP, adjust antihypertensives as needed Atrial Fibrillation: chronic, on Eliquis prior to admission. -currently in sinus rhythm -continue BB -monitor on telemetry -Eliquis on hold for now with anemia, recent trauma, concern for bleeding; can likely restart in 1-2 days if anemia stabilizes and final determination that no further procedure to be done. Hypokalemia, repleted DVT Prophylaxis: teds/SCDs; Holding patient's Eliquis for now, continue Lovenox until kyphoplasty is ruled out. Discharge Planning Will need residential facility placement Problem Qualifiers (1) Fall: Qualified Codes: W19.XXXA - Unspecified fall, initial encounter (2) Humerus fracture: Qualified Codes: S42.291A - Other displaced fracture of upper end of right humerus, initial encounter for closed fracture Carmenza Petersen MD Feb 09, 2018 09:09
[2018-02-09] MEDS ORDERED: LORazepam 2 MG/ML VIAL IV PUSH ONE (09:15)
[2018-02-09] MEDS: ACETAMINOPHEN/HYDROcodone 325 MG/5 MG TAB PO PRN ×2 (12:24→18:04)
[2018-02-09] MEDS: ENOXAPARIN SODIUM 30 MG/0.3 ML SYRINGE SQ SCH (12:24)
--- NOTE | 2018-02-09 17:08 | HHI.NSPN ---
(aSndi Mcnally) Note Status Status: Progress Note (Sandi Mcnally) Interval History Interval History Ms. Aguirre is a 62 year old female who presents following a fall. She states she has been recently falling at home. She was found to have a right humeral fracture that is being managed nonsurgically by Dr. Vila. She complains also of severe low back pain when she tries to move. She complains of worsening lower extremity weakness also. She denies radiating pain or paresthesias in her lower extremities, bowel or bladder incontinence. She suffers from Lupus. A CT of the lumbar spine shows severe compression fracture of L1 with 5 mm posterior retropulsion of fragments. Her anticoagulation has been held. Neurosurgical evaluation was requested. 02/09: pt seen this am during rounds, no change in low back pain, mri pending (Sandi Mcnally) Labs, Micro, & Vital Signs Results Date Time Temp Pulse Resp B/P (MAP) Pulse Ox O2 Delivery O2 Flow Rate FiO2 02/09/18 15:08 97.8 82 18 151/62 (91) 98 02/09/18 12:11 97.8 89 18 172/73 (106) 99 02/09/18 08:07 98.7 83 16 171/72 (105) 97 02/09/18 04:00 80 02/09/18 04:00 99.0 82 18 171/68 (102) 99 02/09/18 00:01 99.0 72 18 188/86 (120) 99 02/09/18 00:00 73 02/08/18 20:45 80 02/08/18 20:45 97 Room Air 02/08/18 20:00 98.4 76 18 164/74 (104) 97 Constitutional Vital Signs Date Time Temp Pulse Resp B/P (MAP) Pulse Ox O2 Delivery O2 Flow Rate FiO2 02/09/18 15:08 97.8 82 18 151/62 (91) 98 02/09/18 12:11 97.8 89 18 172/73 (106) 99 02/09/18 08:07 98.7 83 16 171/72 (105) 97 02/09/18 04:00 80 02/09/18 04:00 99.0 82 18 171/68 (102) 99 02/09/18 00:01 99.0 72 18 188/86 (120) 99 02/09/18 00:00 73 02/08/18 20:45 80 02/08/18 20:45 97 Room Air 02/08/18 20:00 98.4 76 18 164/74 (104) 97 (Sandi Mcnally) Review of Systems Constitutional: DENIES: Fever Musculoskeletal: COMPLAINS OF: Stiffness, Back pain Neurologic: DENIES: Headache (Sandi Mcnally) Physical Exam General: Ms. Aguirre in no obvious distress in bed Neuro: Awake, alert and oriented to person, place, and time. Speech is clear but slow. Can follow single and multi-step commands without apraxia. Cranial nerve examination: pupils equal, round, and reactive to light. Extra-ocular movements are intact with normal convergence. Facial motor and sensory function are normal and symmetrical. Gross hearing is intact, bilaterally, to finger rub. The uvula is midline and elevates symmetrically with the soft palate. Sternocleidomastoid and deltoid muscles have normal and symmetrical strength. Other cranial nerves are intact. HEENT: Normocephalic, atraumatic. Gross hearing intact bilaterally. Nonicteric sclera. Neck: Kyphotic. No massess, no JVD. Trachea midline. Soft, supple, no meningismus or nuchal rigidity. Range of motion without pain Musculoskeletal: No peripheral edema. Right arm in sling. No clubbing. 4+ to 5-/ 5 left deltoid, biceps, triceps and hop worker. In the lower extremities, strength is 4+ to 5-/5 bilateral iliopsoas, quadriceps, hamstrings, tibialis anterior, gastrocnemius, and extensor hallucis longus. Sensory examination report intact light touch in both the upper and lower extremities Deep tendon reflexes are left 1+ biceps, triceps, and brachioradialis in the upper extremities. In the lower extremities, the patellar and Achilles are trace , bilaterally. There is a bilateral plantar flexion response. Hoffmanns sign is negative. There is no ankle clonus. Thoracolumbar scoliosis, thoracic kyphosis. She is painful in the lumbar spine when she tries to move, and tender to palpation over the upper lumbar region. Cerebellar: intact finger to nose bilaterally Lungs: clear to auscultate bilaterally, nonlabored breathing on room air, no wheezing, no accessory muscle use. Heart: irregularly irregular Skin: warm and dry, no cyanosis or erythema. (Sandi Mcnally) General: Ms. Aguirre is very khyphotic, painful but in no obvious distress in bed Neuro: Awake, alert and oriented to person, place, and time. Speech is clear but slow. Can follow single and multi-step commands without apraxia. Cranial nerve examination: pupils equal, round, and reactive to light. Extra-ocular movements are intact with normal convergence. Facial motor and sensory function are normal and symmetrical. Gross hearing is intact, bilaterally, to finger rub. The uvula is midline and elevates symmetrically with the soft palate. Sternocleidomastoid and deltoid muscles have normal and symmetrical strength. Other cranial nerves are intact. HEENT: Normocephalic, atraumatic. Gross hearing intact bilaterally. Nonicteric sclera. Neck: Kyphotic. No massess, no JVD. Trachea midline. Soft, supple, no meningismus or nuchal rigidity. Range of motion without pain Musculoskeletal: No peripheral edema. Right arm in sling. No clubbing. 4+ to 5-/ 5 left deltoid, biceps, triceps and hop worker. In the lower extremities, strength is 4+ to 5-/5 bilateral iliopsoas, quadriceps, hamstrings, tibialis anterior, gastrocnemius, and extensor hallucis longus. Sensory examination report intact light touch in both the upper and lower extremities Deep tendon reflexes are left 1+ biceps, triceps, and brachioradialis in the upper extremities. In the lower extremities, the patellar and Achilles are trace , bilaterally. There is a bilateral plantar flexion response. Hoffmanns sign is negative. There is no ankle clonus. Thoracolumbar scoliosis, thoracic kyphosis. She is painful in the lumbar spine when she tries to move, and tender to palpation over the upper lumbar region. Cerebellar: intact finger to nose bilaterally Lungs: clear to auscultate bilaterally, nonlabored breathing on room air, no wheezing, no accessory muscle use. Heart: irregularly irregular Skin: warm and dry, no cyanosis or erythema. (Ankit Doran MD) Medications Current Medications Current Medications Medications (Trade) Dose Ordered Sig/[place] Route PRN Reason Start Time Stop Time Status Last Admin Dose Admin Metoclopramide HCl (Reglan Inj) 5 mg Q6H PRN IV PUSH NAUSEA OR VOMITING 02/05/18 05:15 02/08/18 14:52 Acetaminophen (Tylenol) 650 mg Q6H PRN PO FEVER/PAIN SCALE 1 TO 2 02/05/18 05:15 02/07/18 00:07 Acetaminophen/ Hydrocodone Bitart ([place] 5-325 Mg) 1 tab Q4H PRN PO PAIN SCALE 3 TO 5 02/05/18 05:15 02/09/18 12:24 Morphine Sulfate (Morphine Inj) 2 mg Q3H PRN IV PUSH BREAKTHROUGH PAIN 02/05/18 05:30 02/06/18 10:10 Senna/Docusate Sodium (Racheal-Colace) 1 tab BID PO 02/05/18 09:00 02/09/18 08:49 Magnesium Hydroxide (Milk Of Magnesia Liq) 30 ml Q12H PRN PO Mild constipation 02/05/18 05:15 02/08/18 09:08 Sennosides (Senokot) 17.2 mg Q12H PRN PO Moderate constipation 02/05/18 05:15 02/08/18 09:08 Bisacodyl (Dulcolax Supp) 10 mg DAILY PRN RECTAL SEVERE CONSITIPATION 02/05/18 05:15 Lactulose (Lactulose Liq) 30 ml DAILY PRN PO SEVERE CONSITIPATION 02/05/18 05:15 Baclofen (Lioresal) 10 mg TID PO 02/05/18 09:00 02/09/18 12:24 Clonazepam (KlonoPIN) 0.5 mg BID PO 02/05/18 09:00 02/09/18 08:48 Fluoxetine HCl (PROzac) 20 mg DAILY PO 02/05/18 09:00 02/09/18 08:48 Hydroxyzine HCl (Atarax) 50 mg TID PRN PO ANXIETY 02/05/18 05:15 Metoprolol Succinate (Toprol Xl) 25 mg Q12HR PO 02/05/18 09:00 02/09/18 08:49 Enalaprilat (Vasotec Inj) 1.25 mg Q6H PRN IV PUSH SBP>160, DBP>90 02/05/18 16:15 02/09/18 14:24 Acetaminophen/ Hydrocodone Bitart ([place] 7.5-325 Mg) 1 tab Q4H PRN PO PAIN SCALE 6 TO 10 02/05/18 16:15 02/06/18 17:56 Sodium Chloride (NS Flush) 2 ml BID IV FLUSH 02/05/18 21:00 02/09/18 08:49 Sodium Chloride (NS Flush) 2 ml UNSCH PRN IV FLUSH FLUSH AFTER USING IV ACCESS 02/05/18 19:00 Morphine Sulfate (Morphine Inj) 2 mg Q30M PRN IV PUSH CHEST PAIN 02/05/18 19:00 02/05/18 19:36 Atorvastatin Calcium (Lipitor) 10 mg HS PO 02/05/18 21:00 02/08/18 21:20 Lisinopril (Prinivil) 20 mg DAILY PO 02/09/18 09:00 02/09/18 08:49 Enoxaparin Sodium (Lovenox Inj) 30 mg Q24H SQ 02/08/18 11:00 02/09/18 12:24 Enalaprilat (Vasotec Inj) 1.25 mg Q6H PRN IV PUSH SBP> OR = 180, DBP> OR = 100 02/08/18 10:45 Calcium/Vitamin D (Oscal-D 250-125) 250 mg Q12HR PO 02/08/18 21:00 02/09/18 08:49 (Sandi Mcnally) Medical Decision Making MDM Remarks 62 y/o female s/p fall L1 severe compression fracture with canal retropulsion (Sandi Mcnally) Plan Plan Remarks awaiting MRI lumbar spine, cont bed rest for now, further recommendations to follow after MRI completion (aSndi Mcnally) Attending Statement She rmains very painful. Continue Percocet/morphine as needed for pain Dr Thacker evaluating her for humerous fracture. Surgical versus non surgical management Recomend custom TLSO brace because she has very severe kyphosis. Nonn surgical treatment pert her request Pulmonary. aggressive pulmonary toilette, nasotracheal suction, and breathing treatments with nebulizers. Daily PT and OT Renal. Continue to monitor closely urine output, BUN and creatinine Endocrine. Continue to Monitor serial Acu checks and SSI as needed in detail ID continue to monitor for signs of infection Continue Protonix for stress ulcer prophylaxis Continue Orion hose and SCD's for DVT prophylaxis Caprini VTE Risk Assessment Caprini VTE Risk Assessment: Mod/High Risk (score >= 2) VTE Pharm Contraindication: Intracranial lesions Caprini Risk Assessment Model Point Value = 1 Point Value = 2 Point Value = 3 Point Value = 5 Age 41-60 Minor surgery BMI > 25 kg/m2 Swollen legs Varicose veins or History of unexplained or recurrent spontaneous Oral contraceptives or hormone replacement Sepsis (< 1 month) Serious lung disease, including pneumonia (< 1 month) Abnormal pulmonary function Acute myocardial infarction Congestive heart failure (< 1 month) History of inflammatory bowel disease Medical patient at bed rest Age 61-74 Arthroscopic surgery Major open surgery (> 45 min) Laparoscopic surgery (> 45 min) Malignancy Confined to bed (> 72 hours) Immobilizing plaster cast Central venous access Age >= 75 History of VTE Family history of VTE Factor V Leiden Prothrombin [id number] Lupus anticoagulant Anticardiolipin antibodies Elevated serum homocysteine Heparin-induced thrombocytopenia Other congenital or acquired thrombophilia Stroke (< 1 month) Elective arthroplasty Hip, pelvis, or leg fracture Acute spinal cord injury (< 1 month) Prophylaxis Regimen Total Risk Factor Score Risk Level Prophylaxis Regimen 0-1 Low Early ambulation 2 Moderate Order ONE of the following: *Sequential Compression Device (SCD) *Heparin 5000 units SQ BID 3-4 Higher Order ONE of the following medications: *Heparin 5000 units SQ TID *Enoxaparin/Lovenox 40 mg SQ daily (WT < 150 kg, CrCl > 30 mL/min) *Enoxaparin/Lovenox 30 mg SQ daily (WT < 150 kg, CrCl > 10-29 mL/min) *Enoxaparin/Lovenox 30 mg SQ BID (WT < 150 kg, CrCl > 30 mL/min) AND/OR *Sequential Compression Device (SCD) 5 or more Highest Order ONE of the following medications: *Heparin 5000 units SQ TID (Preferred with Epidurals) *Enoxaparin/Lovenox 40 mg SQ daily (WT < 150 kg, CrCl > 30 mL/min) *Enoxaparin/Lovenox 30 mg SQ daily (WT < 150 kg, CrCl > 10-29 mL/min) *Enoxaparin/Lovenox 30 mg SQ BID (WT < 150 kg, CrCl > 30 mL/min) AND *Sequential Compression Device (SCD) The exam, history, and the medical decision-making described in the above note were completed with the assistance of the mid-level provider. I reviewed and agree with the findings presented. I attest that I had a [id number] encounter with the patient on the same day, and personally performed and documented my assessment and findings in the medical record. (Ankit Doran MD) Sandi Mcnally Feb 09, 2018 17:08 Ankit Doran MD Feb 11, 2018 19:31
--- NOTE | 2018-02-09 19:02 | RADRPT ---
EXAM DATE: 02/09/2018 4:48 PM EDT AGE/SEX: 62 years / Female INDICATIONS: Fracture. CLINICAL DATA: This is the patient's subsequent encounter. Patient reports that signs and symptoms h ave been present for 3 days and indicates a pain score of 7/10. MEDICAL/SURGICAL HISTORY: Hypertension. Chronic obstructive pulmonary disease. Hepatitis C. T ubal ligation. Left shoulder replacement. COMPARISON: CT of the lumbar spine 02/07/2018. TECHNIQUE: Multiplanar, multisequence MRI of the lumbar spine was performed without contrast. Patie nt was scanned in a sitting position; neutral, flexion, and extension scans were performed in the sa gittal plane. FINDINGS: Vertebra: Pronounced scoliotic curvature with concavity towards the patient's right centered at L3-L 4. Acute to subacute compression fracture involving the superior endplate of L1 with greater than 50% loss of height. This is unchanged from the CT. 5 mm of retropulsion which abuts the conus. The remai vitor vertebral body heights are maintained. Homogeneous marrow signal. Conus: Normal level and configuration. T12-L1: Retropulsed posterior cortex of L1 abuts the conus. Disc space height is preserved. Neural f oramina are patent. L1-L2: The thecal sac has a normal diameter. No evidence of disc bulge or protrusion. The neural foramina are patent bilaterally. L2-L3: The thecal sac has a normal diameter. No evidence of disc bulge or protrusion. The neural foramina are patent bilaterally. L3-L4: Disc desiccation and disc space narrowing with moderate broad-based disc bulge. Central kendall l and lateral recesses are patent. Neural foramina are patent. L4-L5: Disc space narrowing and disc desiccation with mild broad-based disc bulge. Mild ligament fl avum hypertrophy of the facets. Lateral recesses, central canal, and neural foramina remain patent. L5-S1: The thecal sac has a normal diameter. No evidence of disc bulge or protrusion. The neural foramina are patent bilaterally. CONCLUSION: 1. Unchanged compression fracture of L1 with 5 mm of retropulsion. There is abutment of the conus. 2. Degenerative changes most pronounced at L3-L4 and L4-L5 without central canal stenosis or neural impingement. Electronically signed by: Antoine Talamantes MD 02/09/2018 7:01 PM EDT
[2018-02-09] MEDS: ATORVASTATIN 10 MG TAB PO SCH (21:23)
[2018-02-10] VITALS: BP 149/65; PULSE 70; RESP 20; TEMP 97.5; O2SAT 98
[2018-02-10] MEDS: ACETAMINOPHEN/HYDROcodone 325 MG/7.5 MG TAB PO PRN ×4 (03:11→20:52)
[2018-02-10 04:00] VITALS: BP 186/92; PULSE 71; RESP 18; TEMP 97.8; O2SAT 96
[2018-02-10 08:00] VITALS: BP 138/65; PULSE 68; RESP 18; TEMP 97.6; O2SAT 100
[2018-02-10] MEDS: DOCUSATE SODIUM 50 MG/SENNA 8.6 MG TAB PO SCH ×2 (09:49→20:52)
[2018-02-10] MEDS: BACLOFEN 10 MG TAB PO SCH ×3 (09:49→18:44)
[2018-02-10] MEDS: METOPROLOL SUCCINATE 25 MG EXTENDED RELEASE TAB PO SCH ×2 (09:49→20:52)
[2018-02-10] MEDS: clonazePAM 0.5 MG TAB PO SCH ×2 (09:49→20:51)
[2018-02-10] MEDS: CALCIUM/VITAMIN D 250 MG/125 U TAB PO SCH ×2 (09:49→20:51)
[2018-02-10] MEDS: LISINOPRIL 20 MG TAB PO SCH (09:50)
[2018-02-10] MEDS: FLUoxetine HCL 20 MG CAP PO SCH (09:50)
[2018-02-10] MEDS: SODIUM CHLORIDE 0.9% FLUSH 10 ML FLUSH IV FLUSH SCH ×2 (09:51→20:51)
[2018-02-10] MEDS ORDERED: CLON0.5T PO (11:02)
[2018-02-10] MEDS ORDERED: CYCL10TA PO (11:02)
[2018-02-10] MEDS ORDERED: LISI-515 PO (11:02)
[2018-02-10] MEDS ORDERED: NORC5TAB PO (11:02)
--- NOTE | 2018-02-10 11:04 | HHI.DS ---
Discharge Summary Admission Date Feb 05, 2018 at 05:05 Discharge Date: Feb 11, 2018 Admitting Diagnosis comminuted humeral fracture (1) Fall ICD Code: W19.XXXA - Unspecified fall, initial encounter Status: Acute (2) Humerus fracture ICD Code: S42.309A - Unspecified fracture of shaft of humerus, unspecified arm , initial encounter for closed fracture (3) Anemia ICD Code: D64.9 - Anemia, unspecified (4) Lumbar compression fracture ICD Code: S32.000A - Wedge compression fracture of unspecified lumbar vertebra , initial encounter for closed fracture Diagnosis: Principal Status: Acute (5) Hypertension, benign ICD Code: I10 - Essential (primary) hypertension Diagnosis: Secondary Status: Chronic Procedures None. Brief History - From Admission This is a 62-year-old female with a PMH of Rheumatoid Arthritis, Chronic Anemia , Lupus, Anxiety, Depression, Hepatitis C, COPD, A. fib on Eliquis and Tobacco Abuse who was brought to the ER by EMS after a fall. Patient states she was at home and had sudden trip and fall but was unable to get herself off the floor and laid there x2 days, "couldn't get motivated enough to get up". States she ultimately was able to pull the sheet off her bed at which time the phone fell on the floor and she was able to call 911. Denies head trauma or LOC. On arrival, BP 149/75, HR 72, O2 sat 99% on RA, Afebrile. Hemoglobin 8.2, previously 10.8 on 11/17/2017. Chemistry essentially unremarkable. CPK 247. CT Head with no acute findings. CT C-spine negative for fracture. CXR with comminuted fracture right proximal humerus. Elbow X-ray negative. Humerus X- ray comminuted fracture right proximal humerus. Pelvis X-ray possible fracture. Pelvis CT old fracture right inferior pubic ramus. Dr. Thacker consulted, galen carbajal in am for surgical intervention. CBC/BMP: 02/08/18 0907 02/08/18 0723 Significant Findings Laboratory Tests Test 02/08/18 07:23 02/08/18 09:07 02/08/18 11:16 Creatinine 0.38 MG/DL (0.50-1.00) Albumin 3.2 GM/DL (3.4-5.0) Calcium Level 8.4 MG/DL (8.5-10.1) Alkaline Phosphatase 139 U/L (45-117) Total Bilirubin 1.3 MG/DL (0.2-1.0) Carbon Dioxide Level 20.9 MEQ/L (21.0-32.0) Lipase 2932 U/L (73-393) Hemoglobin 11.0 GM/DL (11.6-15.3) Hematocrit 34.0 % (35.0-46.0) Mean Corpuscular Volume 79.9 FL (80.0-100.0) Mean Corpuscular Hemoglobin 25.8 PG (27.0-34.0) Monocytes (%) (Auto) 10.5 % (0.0-8.0) Monocytes # (Auto) 1.0 TH/MM3 (0-0.9) Urine Turbidity HAZY (CLEAR) Urine Protein 100 mg/dL (NEG-TRACE) Urine Ketones 80 OR GREATER mg/dL (NEG) Urine Urobilinogen 4.0 OR GREATER mg/dL (LESS Imaging Last Impressions Lumbar Spine MRI 02/09/18 0000 Signed Impressions: CONCLUSION: 1. Unchanged compression fracture of L1 with 5 mm of retropulsion. There is ab utment of the conus. 2. Degenerative changes most pronounced at L3-L4 and L4-L5 without central can al stenosis or neural impingement. Upper Extremity CT 02/07/18 0000 Signed Impressions: CONCLUSION: 1. Severely comminuted right humeral head and neck fracture with impaction of the humeral shaft into the humeral head. 2. Mild posterior subluxation of the humeral head in relation to the glenoid. 3. Fracture of the lateral aspect of the acromion and distal clavicle. Lumbar Spine CT 02/07/18 0000 Signed Impressions: CONCLUSION: 1. Prominent S-shaped scoliosis of the thoracolumbar spine centered at L3-4 an d the lumbar spine. 2. Progressive severe compression fracture of L1 superior endplate in comparis on to 11/02/2017 CT exam. There is 5 mm posterior retropulsion of fragments with persistent fracture plane and vacuum phenomenon. This indicates persistent fra cture mobility at this level. 3. Prominent multilevel degenerative spondylosis most prominently at L4-5 with moderate severe right neural foraminal narrowing. Head CT 02/07/18 Signed Impressions: CONCLUSION: 1. Negative CT Head non contrast. Abdomen X-Ray 02/07/18 Signed Impressions: CONCLUSION: Benign-appearing abdomen. Myocardial Perfusion Scan Nuc Med 02/06/18 Signed Impressions: CONCLUSION: 1. Focal ischemia in the mid anterolateral wall. 2. Intact wall motion with EF of 65%. Shoulder X-Ray 02/05/18 Signed Impressions: CONCLUSION: Comminuted fracture right proximal humerus. There appears to be fracture of the acromion as well. Pelvis X-Ray 02/05/18 Signed Impressions: CONCLUSION: Questionable fracture inferior pubic ramus on the right. Pelvis CT 02/05/18 Signed Impressions: CONCLUSION: 1. No acute fracture. 2. Old fracture right inferior pubic ramus. Humerus X-Ray 02/05/18 Signed Impressions: CONCLUSION: Comminuted fracture right proximal humerus Elbow X-Ray 02/05/18 Signed Impressions: CONCLUSION: No acute fracture right elbow Chest X-Ray 02/05/18 Signed Impressions: CONCLUSION: Cardiomegaly. No consolidation or significant effusion. Comminuted right proxim al humeral fracture. Rotation left humerus. Cervical Spine CT 02/05/18 Signed Impressions: CONCLUSION: 1. No acute fracture or subluxation. PE at Discharge GENERAL: This is a well-nourished, well-developed patient, in no apparent distress. CARDIOVASCULAR: Regular rate and rhythm RESPIRATORY: Clear to auscultation. Breath sounds equal bilaterally. No wheezes , rales, or rhonchi. MUSCULOSKELETAL: Right arm in a sling and swath NEURO: Alert & Oriented x2 to person, place, Moves all ext x4 Hospital Course These are the medical issues addressed during this hospitalization: 62-year-old female with a PMH of Rheumatoid Arthritis, Chronic Anemia, Lupus, Anxiety, Depression, Hepatitis C, COPD, A. fib on Eliquis and Tobacco Abuse who was brought to the ER by EMS after a fall. Patient states she was at home and had sudden trip and fall but was unable to get herself off the floor and laid there x2 days, "couldn't get motivated enough to get up". Fall: s/p mechanical trip and fall at home, reported prolonged down-time of 2 days as unable to get herself up. -Initial CPK 247, trended down to 141 -CT Head/C-Spine w/ no acute findings. -Pelvic X-ray w/ possible fracture, however CT Pelvis w/ old pubic fracture -PT consulted, recommending rehab. Patient lives alone and would definitely benefit from rehab placement Humerus/Acromion/Clavicle Fractures: X-ray w/ comminuted right proximal humerus fracture. -Consult ortho, who recommended nonoperative conservative treatment -RUE CT reviewed, showed severely comminuted right humeral head/neck fracture with impaction of humeral shaft into head; fracture of lateral acromion and distal clavicle -Dr. Thacker evaluated the patient and recommended on nonoperative conservative treatment for now -Continue sling and swath -Pain control with [place] prn pain Lumbar 1 compression fracture -due to persistent pain obtained neurosurgical evaluation to determine if patient is a candidate for kyphoplasty. Will likely need brace TLS), MRI of the lumbar spine results reviewed and ordered by neurosurgery. At this time, neurosurgery does not recommend any further surgical intervention. Chest pains: suspect musculoskeletal secondary to fall, pain reproducible on exam, however rule out cardiac disease. -ACS ruled out with negative serial cardiac enzymes x4 and EKG without acute ischemic changes -Given morphine, nitropaste, BB and received one dose of ASA. -Cardiology consulted for cardiac clearance -Nuclear stress test showed small focal ischemic at mid anterolateral wall; EF 65% -Cardiology reviewed findings, likely noncardiac chest pain, cleared for surgery, no further cardiac work up/intervention -Pain reproducible on exam, likely musculoskeletal secondary to fall, give pain medications as needed, will discontinue telemetry today Acute anemia from blood loss from trauma Acute on Chronic. -Hgb 8.2, previously 10.8, most likely from the trauma/fx area as she does have extensive bruising in shoulder area -continue to monitor closely, transfuse as needed. -Last hemoglobin 11 HTN: acute, BP elevated to 180s, this may be due to pain -on metoprolol 25mg bid, and on lisinopril 20 mg p.o. daily. -continue IV Vasotec prn -Monitor BP, adjust antihypertensives as needed Atrial Fibrillation: chronic, on Eliquis prior to admission. -currently in sinus rhythm -continue BB, metoprolol -monitor on telemetry -Eliquis to restart Hypokalemia, repleted DVT Prophylaxis: teds/SCDs, will restart Eliquis upon discharge to snF Pt Condition on Discharge: Good Discharge Disposition: Discharge to SNF Discharge Time: <= 30 minutes Discharge Instructions DIET: Follow Instructions for: Heart Healthy Diet Activities you can perform: Non Weight Bearing Other Activity Instructions: NWB right upper arm. TSLO when sitting upright in chair and ambulating Follow up Referrals: Neurosurgery - 3 Weeks with Ankit Doran MD Orthopedics - 2 Weeks with Jaxon Thacker MD New Medications: Cyclobenzaprine (Flexeril) 10 Mg Tab 10 MG PO TID PRN for spasms, #10 TAB 0 Refills Lisinopril (Lisinopril) 20 Mg Tab 20 MG PO DAILY for Blood Pressure Management, #30 TAB Changed Medications: Hydrocodone-Acetaminophen ([place]) 5 Mg-325 Mg Tab 1 TAB PO Q6H PRN for pain, #12 TAB 0 Refills (Changed from: 30) Continued Medications: Apixaban (Eliquis) 2.5 Mg Tab 2.5 MG PO BID for Blood Clot Prevention, TAB [address] (Aspirin EC) 81 Mg Tabdr 81 MG PO DAILY for Cardiac protection for 30 Days, #30 TAB 0 Refills Baclofen (Baclofen) 10 Mg Tab 10 MG PO TID for Muscle Spasm, TAB 0 Refills Clonazepam (Clonazepam) 0.5 Mg Tab 0.5 MG PO BID for Anxiety, #6 TAB 0 Refills (This prescription has been renewed) Fluoxetine (Prozac) 20 Mg Cap 20 MG PO DAILY, #30 CAP 0 Refills Furosemide (Lasix) 20 Mg Tab 20 MG PO DAILY for CHF, #30 TAB 0 Refills Gabapentin (Gabapentin) 600 Mg Tab 600 MG PO TID, #90 TAB 0 Refills Hydroxyzine HCl (Hydroxyzine HCl) 50 Mg Tab 50 MG PO TID PRN for ANXIETY, TAB 0 Refills Lactobacillus Acidophilus (Lactobacillus Acidophilus) 1 Billion Cell Tab 1 TAB PO TIDAC for Nutritional Supplement, #60 TAB 0 Refills Metoprolol Succinate ER 24 HR (Toprol XL) 25 Mg Tab 25 MG PO Q12HR, #30 TAB 0 Refills Potassium Chloride ER (K-Tab) 10 Meq Tab 10 MEQ PO DAILY for Electrolyte Replacement, #30 TAB 0 Refills Discontinued Medications: Hydrocodone-Acetaminophen ([place]) 10-325 Mg Tab 1 TAB PO Q6H PRN for Pain 7 to 10, #30 TAB 0 Refills Levofloxacin (Levofloxacin) 500 Mg Tablet 500 MG PO DAILY for Infection, #14 TAB 0 Refills Lisinopril (Lisinopril) 5 Mg Tab 5 MG PO DAILY for Blood Pressure Management for 30 Days, #30 TAB [guaiFENesin ER] () 600 MG TABCR 600 MG PO BID for Pneumonia for 7 Days Carmenza Petersen MD Feb 10, 2018 11:04
[2018-02-10 12:00] VITALS: BP 110/53; PULSE 74; RESP 18; TEMP 97.7; O2SAT 97
--- NOTE | 2018-02-10 14:41 | HHI.NSPN ---
(Sandi Mcnally) Note Status Status: Progress Note (Sandi Mcnally) Interval History Interval History Ms. Aguirre is a 62 year old female who presents following a fall. She states she has been recently falling at home. She was found to have a right humeral fracture that is being managed nonsurgically by Dr. Vila. She complains also of severe low back pain when she tries to move. She complains of worsening lower extremity weakness also. She denies radiating pain or paresthesias in her lower extremities, bowel or bladder incontinence. She suffers from Lupus. A CT of the lumbar spine shows severe compression fracture of L1 with 5 mm posterior retropulsion of fragments. Her anticoagulation has been held. Neurosurgical evaluation was requested. 02/09: pt seen this am during rounds, no change in low back pain, mri pending 02/10: MRI lumbar spine completed, no new changes to examination. (Sandi Mcnally) Labs, Micro, & Vital Signs Results Date Time Temp Pulse Resp B/P (MAP) Pulse Ox O2 Delivery O2 Flow Rate FiO2 02/10/18 08:00 97.6 68 18 138/65 (89) 100 02/10/18 04:00 97.8 71 18 186/92 (123) 96 02/10/18 00:00 97.5 70 20 149/65 (93) 98 02/09/18 21:22 Room Air 02/09/18 20:00 97.6 75 16 128/67 (87) 98 02/09/18 15:08 97.8 82 18 151/62 (91) 98 Constitutional Vital Signs Date Time Temp Pulse Resp B/P (MAP) Pulse Ox O2 Delivery O2 Flow Rate FiO2 02/10/18 08:00 97.6 68 18 138/65 (89) 100 02/10/18 04:00 97.8 71 18 186/92 (123) 96 02/10/18 00:00 97.5 70 20 149/65 (93) 98 02/09/18 21:22 Room Air 02/09/18 20:00 97.6 75 16 128/67 (87) 98 02/09/18 15:08 97.8 82 18 151/62 (91) 98 (Sandi Mcnally) Physical Exam General: Ms. Aguirre in no obvious distress in bed Neuro: Awake, alert and oriented to person, place, and time. Speech is clear but slow. Can follow single and multi-step commands without apraxia. Cranial nerve examination: pupils equal, round, and reactive to light. Extra-ocular movements are intact with normal convergence. Facial motor and sensory function are normal and symmetrical. Gross hearing is intact, bilaterally, to finger rub. The uvula is midline and elevates symmetrically with the soft palate. Sternocleidomastoid and deltoid muscles have normal and symmetrical strength. Other cranial nerves are intact. HEENT: Normocephalic, atraumatic. Gross hearing intact bilaterally. Nonicteric sclera. Neck: Kyphotic. No massess, no JVD. Trachea midline. Soft, supple, no meningismus or nuchal rigidity. Range of motion without pain Musculoskeletal: No peripheral edema. Right arm in sling. No clubbing. 4+ to 5-/ 5 left deltoid, biceps, triceps and pipe fitter fire sprinkler systems. In the lower extremities, strength is 4+ to 5-/5 bilateral iliopsoas, quadriceps, hamstrings, tibialis anterior, gastrocnemius, and extensor hallucis longus. Sensory examination report intact light touch in both the upper and lower extremities Deep tendon reflexes are left 1+ biceps, triceps, and brachioradialis in the upper extremities. In the lower extremities, the patellar and Achilles are trace , bilaterally. There is a bilateral plantar flexion response. Hoffmanns sign is negative. There is no ankle clonus. Thoracolumbar scoliosis, thoracic kyphosis. She is painful in the lumbar spine when she tries to move, and tender to palpation over the upper lumbar region. Cerebellar: intact finger to nose bilaterally Lungs: clear to auscultate bilaterally, nonlabored breathing on room air, no wheezing, no accessory muscle use. Heart: irregularly irregular Skin: warm and dry, no cyanosis or erythema. (Sandi Mcnally) General: Ms. Aguirre in no obvious distress in bed Neuro: Awake, alert and oriented to person, place, and time. Speech is clear but slow. Can follow single and multi-step commands without apraxia. Cranial nerve examination: pupils equal, round, and reactive to light. Extra-ocular movements are intact with normal convergence. Facial motor and sensory function are normal and symmetrical. Gross hearing is intact, bilaterally, to finger rub. The uvula is midline and elevates symmetrically with the soft palate. Sternocleidomastoid and deltoid muscles have normal and symmetrical strength. Other cranial nerves are intact. HEENT: Normocephalic, atraumatic. Gross hearing intact bilaterally. Nonicteric sclera. Neck: Kyphotic. No massess, no JVD. Trachea midline. Soft, supple, no meningismus or nuchal rigidity. Range of motion without pain Musculoskeletal: No peripheral edema. Right arm in sling. No clubbing. 4+ to 5-/ 5 left deltoid, biceps, triceps and pipe fitter fire sprinkler systems. In the lower extremities, strength is 4+ to 5-/5 bilateral iliopsoas, quadriceps, hamstrings, tibialis anterior, gastrocnemius, and extensor hallucis longus. Sensory examination report intact light touch in both the upper and lower extremities Deep tendon reflexes are left 1+ biceps, triceps, and brachioradialis in the upper extremities. In the lower extremities, the patellar and Achilles are trace , bilaterally. There is a bilateral plantar flexion response. Hoffmanns sign is negative. There is no ankle clonus. Thoracolumbar scoliosis, thoracic kyphosis. She is painful in the lumbar spine when she tries to move, and tender to palpation over the upper lumbar region. Cerebellar: intact finger to nose bilaterally Lungs: clear to auscultate bilaterally, nonlabored breathing on room air, no wheezing, no accessory muscle use. Heart: irregularly irregular Skin: warm and dry, no cyanosis or erythema. (Ankit Doran MD) Medications Current Medications Current Medications Acetaminophen/ Hydrocodone Bitart ([place] 5-325 Mg) 1 tab ONCE ONCE PO Last administered on 02/05/18at 02:47; Start 02/05/18 at 02:00; Stop 02/05/18 at 02:01 ; Status DC Hydroxyzine Pamoate (Vistaril) 50 mg ONCE ONCE PO Last administered on at 05:31; Start 02/05/18 at 05:15; Stop 02/05/18 at 05:19; Status DC Sodium Chloride 1,000 ml @ 100 mls/hr Q10H IV Last administered on 02/05/18 15:05; Start 02/05/18 at 05:05; Stop 02/06/18 at 10:24; Status DC Sodium Chloride (NS Flush) 2 ml UNSCH PRN IV FLUSH FLUSH AFTER USING IV ACCESS ; Start 02/05/18 at 05:15; Stop 02/07/18 at 12:23; Status DC Sodium Chloride (NS Flush) 2 ml BID IV FLUSH Last administered on 02/07/18at 09: 43; Start 02/05/18 at 09:00; Stop 02/07/18 at 12:23; Status DC Metoclopramide HCl (Reglan Inj) 5 mg Q6H PRN IV PUSH NAUSEA OR VOMITING Last administered on 02/11/18 23:38; Start 02/05/18 at 05:15 Acetaminophen (Tylenol) 650 mg Q6H PRN PO FEVER/PAIN SCALE 1 TO 2 Last administered on 02/07/18 00:07; Start 02/05/18 at 05:15 Acetaminophen/ Hydrocodone Bitart ([place] 5-325 Mg) 1 tab Q4H PRN PO PAIN SCALE 3 TO 5 Last administered on 02/09/18 18:04; Start 02/05/18 at 05:15 Morphine Sulfate (Morphine Inj) 2 mg Q3H PRN IV PUSH BREAKTHROUGH PAIN Last administered on 02/06/18 10:10; Start 02/05/18 at 05:30 Senna/Docusate Sodium (Racheal-Colace) 1 tab BID PO Last administered on 20:32; Start 02/05/18 at 09:00 Magnesium Hydroxide (Milk Of Magnesia Liq) 30 ml Q12H PRN PO Mild constipation Last administered on 02/08/18 09:08; Start 02/05/18 at 05:15 Sennosides (Senokot) 17.2 mg Q12H PRN PO Moderate constipation Last administered on 02/08/18 09:08; Start 02/05/18 at 05:15 Bisacodyl (Dulcolax Supp) 10 mg DAILY PRN RECTAL SEVERE CONSITIPATION; Start at 05:15 Lactulose (Lactulose Liq) 30 ml DAILY PRN PO SEVERE CONSITIPATION; Start at 05:15 Baclofen (Lioresal) 10 mg TID PO Last administered on 02/12/18 12:56; Start at 09:00 Clonazepam (KlonoPIN) 0.5 mg BID PO Last administered on 02/12/18at 08:50; Start 02/05/18 at 09:00 Fluoxetine HCl (PROzac) 20 mg DAILY PO Last administered on 02/12/18 08:51; Start 02/05/18 at 09:00 Hydroxyzine HCl (Atarax) 50 mg TID PRN PO ANXIETY; Start 02/05/18 at 05:15 Metoprolol Succinate (Toprol Xl) 25 mg Q12HR PO Last administered on 02/12/18 08:51; Start 02/05/18 at 09:00 Enalaprilat (Vasotec Inj) 1.25 mg Q6H PRN IV PUSH SBP>160, DBP>90 Last administered on 02/09/18at 14:24; Start 02/05/18 at 16:15; Stop 02/12/18 at 13:33 ; Status DC Acetaminophen/ Hydrocodone Bitart ([place] 7.5-325 Mg) 1 tab Q4H PRN PO PAIN SCALE 6 TO 10 Last administered on 02/12/18at 12:57; Start 02/05/18 at 16:15 Sodium Chloride (NS Flush) 2 ml BID IV FLUSH Last administered on 02/12/18 08: 48; Start 02/05/18 at 21:00 Sodium Chloride (NS Flush) 2 ml UNSCH PRN IV FLUSH FLUSH AFTER USING IV ACCESS ; Start 02/05/18 at 19:00 Aspirin (Aspirin) 325 mg NOW PO Last administered on 02/05/18at 19:36; Start at 19:00; Stop 02/06/18 at 18:59; Status DC Morphine Sulfate (Morphine Inj) 2 mg Q30M PRN IV PUSH CHEST PAIN Last administered on 02/05/18at 19:36; Start 02/05/18 at 19:00 Metoprolol Tartrate (Lopressor) 12.5 mg BID PO ; Start 02/05/18 at 21:00; Stop 02/05/18 at 21:00; Status DC Atorvastatin Calcium (Lipitor) 10 mg HS PO Last administered on 02/11/18at 20:32 ; Start 02/05/18 at 21:00 Nitroglycerin (Nitroglycerin 2% Oint) 0.5 inch Q6HR TOPICAL Last administered on 02/07/18at 12:18; Start 02/05/18 at 19:00; Stop 02/07/18 at 15:24; Status DC Lisinopril (Prinivil) 5 mg DAILY PO Last administered on 02/05/18at 19:44; Start 02/05/18 at 19:15; Stop 02/06/18 at 08:43; Status DC Lisinopril (Prinivil) 10 mg DAILY PO Last administered on 02/08/18at 09:08; Start 02/06/18 at 09:00; Stop 02/08/18 at 10:38; Status DC Potassium Chloride (KCl) 40 meq ONCE ONCE PO Last administered on 02/06/18at 10 :30; Start 02/06/18 at 10:30; Stop 02/06/18 at 10:43; Status DC Regadenoson (Lexiscan Inj) 0.4 mg STK-MED ONCE .ROUTE Last administered on 02/06at 11:16; Start 02/06/18 at 11:16; Stop 02/06/18 at 11:17; Status DC Potassium Chloride (KCl) 40 meq ONCE ONCE PO Last administered on 02/07/18at 13 :58; Start 02/07/18 at 12:30; Stop 02/07/18 at 12:31; Status DC Promethazine HCl (Phenergan Inj) 12.5 mg ONCE ONCE IM Last administered on at 16:58; Start 02/07/18 at 15:30; Stop 02/07/18 at 15:31; Status DC Lisinopril (Prinivil) 10 mg ONCE ONCE PO Last administered on 02/08/18at 11:55 ; Start 02/08/18 at 10:45; Stop 02/08/18 at 10:50; Status DC Lisinopril (Prinivil) 20 mg DAILY PO Last administered on 02/12/18at 08:51; Start 02/09/18 at 09:00 Enoxaparin Sodium (Lovenox Inj) 30 mg Q24H SQ Last administered on 02/09/18at 12 :24; Start 02/08/18 at 11:00; Stop 02/10/18 at 11:11; Status DC Enalaprilat (Vasotec Inj) 1.25 mg Q6H PRN IV PUSH SBP> OR = 180, DBP> OR = 100 ; Start 02/08/18 at 10:45 Calcium/Vitamin D (Oscal-D 250-125) 250 mg Q12HR PO Last administered on at 08:50; Start 02/08/18 at 21:00 Lorazepam (Ativan Inj) 0.5 mg ONCE ONCE IV PUSH Last administered on at 15:45; Start 02/09/18 at 09:15; Stop 02/09/18 at 09:16; Status DC Apixaban (Eliquis) 2.5 mg BID PO Last administered on 02/12/18at 08:50; Start at 21:00 Potassium Bicarb/ Potassium Chloride (K-Lyte Cl Eff) 50 meq ONCE ONCE PO Last administered on 02/12/18at 12:56; Start 02/12/18 at 11:30; Stop 02/12/18 at 12:32; Status DC Potassium Bicarb/ Potassium Chloride (K-Lyte Cl Eff) 50 meq ONCE ONCE PO ; Start 02/12/18 at 13:30; Stop 02/12/18 at 13:31; Status DC Ondansetron HCl (Zofran Inj) 4 mg STK-MED ONCE .ROUTE Last administered on 02/12at 13:11; Start 02/12/18 at 13:09; Stop 02/12/18 at 13:10; Status DC (Ankit Doran MD) Medical Decision Making MDM Remarks 62 y/o female s/p fall L1 severe compression fracture with canal retropulsion Lumbar Spine MRI 02/09/18 Impressions: CONCLUSION: 1. Unchanged compression fracture of L1 with 5 mm of retropulsion. There is abutment of the conus. 2. Degenerative changes most pronounced at L3-L4 and L4-L5 without central canal stenosis or neural impingement. (Sandi Mcnally) Plan Plan Remarks MRI lumbar spine reviewed, We have discussed with the patient the alternatives of treatment regarding continuing nonsurgical management with an orthopedic brace, versus surgical fixation. She is not interested in undergoing any surgical procedures. Awaiting custom TLSO brace, once completed she may be discharged to snf facility (Sandi Mcnally) Attending Statement Awaiting TLSO brace. She requested nonoperative treatment. Continue non surgical treatment pert her request Dr Thacker evaluated her humerous fracture. Non surgical management Percocet/morphine as needed for pain Pulmonary. aggressive pulmonary toilette, nasotracheal suction, and breathing treatments with nebulizers. Daily PT and OT Renal. Continue to monitor closely urine output, BUN and creatinine Endocrine. Continue to Monitor serial Acu checks and SSI as needed in detail ID continue to monitor for signs of infection Continue Protonix for stress ulcer prophylaxis Continue Orion hose and SCD's for DVT prophylaxis Caprini VTE Risk Assessment Caprini VTE Risk Assessment: Mod/High Risk (score >= 2) VTE Pharm Contraindication: Intracranial lesions Caprini Risk Assessment Model Point Value = 1 Point Value = 2 Point Value = 3 Point Value = 5 Age 41-60 Minor surgery BMI > 25 kg/m2 Swollen legs Varicose veins or History of unexplained or recurrent spontaneous Oral contraceptives or hormone replacement Sepsis (< 1 month) Serious lung disease, including pneumonia (< 1 month) Abnormal pulmonary function Acute myocardial infarction Congestive heart failure (< 1 month) History of inflammatory bowel disease Medical patient at bed rest Age 61-74 Arthroscopic surgery Major open surgery (> 45 min) Laparoscopic surgery (> 45 min) Malignancy Confined to bed (> 72 hours) Immobilizing plaster cast Central venous access Age >= 75 History of VTE Family history of VTE Factor V Leiden Prothrombin [id number] Lupus anticoagulant Anticardiolipin antibodies Elevated serum homocysteine Heparin-induced thrombocytopenia Other congenital or acquired thrombophilia Stroke (< 1 month) Elective arthroplasty Hip, pelvis, or leg fracture Acute spinal cord injury (< 1 month) Prophylaxis Regimen Total Risk Factor Score Risk Level Prophylaxis Regimen 0-1 Low Early ambulation 2 Moderate Order ONE of the following: *Sequential Compression Device (SCD) *Heparin 5000 units SQ BID 3-4 Higher Order ONE of the following medications: *Heparin 5000 units SQ TID *Enoxaparin/Lovenox 40 mg SQ daily (WT < 150 kg, CrCl > 30 mL/min) *Enoxaparin/Lovenox 30 mg SQ daily (WT < 150 kg, CrCl > 10-29 mL/min) *Enoxaparin/Lovenox 30 mg SQ BID (WT < 150 kg, CrCl > 30 mL/min) AND/OR *Sequential Compression Device (SCD) 5 or more Highest Order ONE of the following medications: *Heparin 5000 units SQ TID (Preferred with Epidurals) *Enoxaparin/Lovenox 40 mg SQ daily (WT < 150 kg, CrCl > 30 mL/min) *Enoxaparin/Lovenox 30 mg SQ daily (WT < 150 kg, CrCl > 10-29 mL/min) *Enoxaparin/Lovenox 30 mg SQ BID (WT < 150 kg, CrCl > 30 mL/min) AND *Sequential Compression Device (SCD) The exam, history, and the medical decision-making described in the above note were completed with the assistance of the mid-level provider. I reviewed and agree with the findings presented. I attest that I had a [id number] encounter with the patient on the same day, and personally performed and documented my assessment and findings in the medical record. (Ankit Doran MD) Sandi Mcnally Feb 10, 2018 14:41 Ankit Doran MD Feb 12, 2018 14:13
[2018-02-10 16:00] VITALS: BP 120/59; PULSE 74; RESP 20; TEMP 97.8; O2SAT 98
[2018-02-10 20:00] VITALS: BP 118/53; PULSE 69; RESP 18; TEMP 97.4; O2SAT 97
[2018-02-10] MEDS: APIXABAN 2.5 MG TABLET PO SCH (20:51)
[2018-02-10] MEDS: ATORVASTATIN 10 MG TAB PO SCH (20:52)
[2018-02-11] VITALS: BP 113/55; PULSE 68; RESP 18; TEMP 98.1; O2SAT 98
[2018-02-11 08:00] VITALS: BP 141/63; PULSE 71; RESP 18; TEMP 98.2; O2SAT 98
[2018-02-11] MEDS: FLUoxetine HCL 20 MG CAP PO SCH (08:20)
[2018-02-11] MEDS: DOCUSATE SODIUM 50 MG/SENNA 8.6 MG TAB PO SCH ×2 (08:21→20:32)
[2018-02-11] MEDS: METOPROLOL SUCCINATE 25 MG EXTENDED RELEASE TAB PO SCH ×2 (08:21→20:32)
[2018-02-11] MEDS: clonazePAM 0.5 MG TAB PO SCH ×2 (08:21→20:32)
[2018-02-11] MEDS: CALCIUM/VITAMIN D 250 MG/125 U TAB PO SCH ×2 (08:21→20:32)
[2018-02-11] MEDS: BACLOFEN 10 MG TAB PO SCH ×3 (08:21→17:34)
[2018-02-11] MEDS: LISINOPRIL 20 MG TAB PO SCH (08:21)
[2018-02-11] MEDS: APIXABAN 2.5 MG TABLET PO SCH ×2 (08:21→20:32)
[2018-02-11] MEDS: SODIUM CHLORIDE 0.9% FLUSH 10 ML FLUSH IV FLUSH SCH ×2 (08:22→20:32)
[2018-02-11] MEDS: ACETAMINOPHEN/HYDROcodone 325 MG/7.5 MG TAB PO PRN ×3 (08:22→17:34)
[2018-02-11] MEDS: METOCLOPRAMIDE HCL 10 MG/2 ML VIAL IV PUSH PRN ×3 (09:00→23:38)
--- NOTE | 2018-02-11 11:51 | HHI.NSPN ---
(Sandi Mcnally) Note Status Status: Progress Note (Sandi Mcnally) Interval History Interval History Ms. Aguirre is a 62 year old female who presents following a fall. She states she has been recently falling at home. She was found to have a right humeral fracture that is being managed nonsurgically by Dr. Vila. She complains also of severe low back pain when she tries to move. She complains of worsening lower extremity weakness also. She denies radiating pain or paresthesias in her lower extremities, bowel or bladder incontinence. She suffers from Lupus. A CT of the lumbar spine shows severe compression fracture of L1 with 5 mm posterior retropulsion of fragments. Her anticoagulation has been held. Neurosurgical evaluation was requested. 02/09: pt seen this am during rounds, no change in low back pain, mri pending 02/10: MRI lumbar spine completed, no new changes to examination. 02/11: awaiting custom TLSO, regular TLSO not very comfortable. (Sandi Mcnally) Labs, Micro, & Vital Signs Results Date Time Temp Pulse Resp B/P (MAP) Pulse Ox O2 Delivery O2 Flow Rate FiO2 02/11/18 08:00 98.2 71 18 141/63 (89) 98 02/11/18 00:00 98.1 68 18 113/55 (74) 98 02/10/18 20:52 Room Air 02/10/18 20:00 97.4 69 18 118/53 (74) 97 02/10/18 16:00 97.8 74 20 120/59 (79) 98 02/10/18 12:00 97.7 74 18 110/53 (72) 97 Constitutional Vital Signs Date Time Temp Pulse Resp B/P (MAP) Pulse Ox O2 Delivery O2 Flow Rate FiO2 02/11/18 08:00 98.2 71 18 141/63 (89) 98 02/11/18 00:00 98.1 68 18 113/55 (74) 98 02/10/18 20:52 Room Air 02/10/18 20:00 97.4 69 18 118/53 (74) 97 02/10/18 16:00 97.8 74 20 120/59 (79) 98 02/10/18 12:00 97.7 74 18 110/53 (72) 97 (Sandi Mcnally) Review of Systems Constitutional: DENIES: Fever Musculoskeletal: COMPLAINS OF: Muscle aches, Stiffness, Back pain Neurologic: DENIES: Headache (Sandi Mcnally) Physical Exam General: Ms. Aguirre in no obvious distress in bed, eating breakfast. Neuro: Awake, alert and oriented to person, place, and time. Speech is clear but slow. Can follow single and multi-step commands without apraxia. Cranial nerve examination: pupils equal, round, and reactive to light. Extra-ocular movements are intact with normal convergence. Facial motor and sensory function are normal and symmetrical. Gross hearing is intact, bilaterally, to finger rub. The uvula is midline and elevates symmetrically with the soft palate. Sternocleidomastoid and deltoid muscles have normal and symmetrical strength. Other cranial nerves are intact. HEENT: Normocephalic, atraumatic. Gross hearing intact bilaterally. Nonicteric sclera. Neck: Kyphotic. No massess, no JVD. Trachea midline. Soft, supple, no meningismus or nuchal rigidity. Range of motion without pain Musculoskeletal: No peripheral edema. Right arm in sling. No clubbing. 4+ to 5-/ 5 left deltoid, biceps, triceps and information security manager. In the lower extremities, strength is 4+ to 5-/5 bilateral iliopsoas, quadriceps, hamstrings, tibialis anterior, gastrocnemius, and extensor hallucis longus. Sensory examination report intact light touch in both the upper and lower extremities Deep tendon reflexes are left 1+ biceps, triceps, and brachioradialis in the upper extremities. In the lower extremities, the patellar and Achilles are trace , bilaterally. There is a bilateral plantar flexion response. Hoffmanns sign is negative. There is no ankle clonus. Thoracolumbar scoliosis, thoracic kyphosis. She is painful in the lumbar spine when she tries to move, and tender to palpation over the upper lumbar region. Cerebellar: intact finger to nose bilaterally Lungs: clear to auscultate bilaterally, Heart: irregularly irregular Skin: warm and dry, no cyanosis or erythema. (Sandi Mcnally) General: Ms. Aguirre in no obvious distress in bed Neuro: Awake, alert and oriented to person, place, and time. Speech is clear but slow. Can follow single and multi-step commands without apraxia. Cranial nerve examination: pupils equal, round, and reactive to light. Extra-ocular movements are intact with normal convergence. Facial motor and sensory function are normal and symmetrical. Gross hearing is intact, bilaterally, to finger rub. The uvula is midline and elevates symmetrically with the soft palate. Sternocleidomastoid and deltoid muscles have normal and symmetrical strength. Other cranial nerves are intact. HEENT: Normocephalic, atraumatic. Gross hearing intact bilaterally. Nonicteric sclera. Neck: Kyphotic. No massess, no JVD. Trachea midline. Soft, supple, no meningismus or nuchal rigidity. Range of motion without pain Musculoskeletal: No peripheral edema. Right arm in sling. No clubbing. 4+ to 5-/ 5 left deltoid, biceps, triceps and information security manager. In the lower extremities, strength is 4+ to 5-/5 bilateral iliopsoas, quadriceps, hamstrings, tibialis anterior, gastrocnemius, and extensor hallucis longus. Sensory examination report intact light touch in both the upper and lower extremities Deep tendon reflexes are left 1+ biceps, triceps, and brachioradialis in the upper extremities. In the lower extremities, the patellar and Achilles are trace , bilaterally. There is a bilateral plantar flexion response. Hoffmanns sign is negative. There is no ankle clonus. Thoracolumbar scoliosis, thoracic kyphosis. She is painful in the lumbar spine when she tries to move, and tender to palpation over the upper lumbar region. Cerebellar: intact finger to nose bilaterally Lungs: clear to auscultate bilaterally, nonlabored breathing on room air, no wheezing, no accessory muscle use. Heart: irregularly irregular Skin: warm and dry, no cyanosis or erythema. (Ankit Doran MD) Medications Current Medications Current Medications Medications (Trade) Dose Ordered Sig/Jefferson Route PRN Reason Start Time Stop Time Status Last Admin Dose Admin Metoclopramide HCl (Reglan Inj) 5 mg Q6H PRN IV PUSH NAUSEA OR VOMITING 02/05/18 05:15 02/11/18 09:00 Acetaminophen (Tylenol) 650 mg Q6H PRN PO FEVER/PAIN SCALE 1 TO 2 02/05/18 05:15 02/07/18 00:07 Acetaminophen/ Hydrocodone Bitart (Higgins 5-325 Mg) 1 tab Q4H PRN PO PAIN SCALE 3 TO 5 02/05/18 05:15 02/09/18 18:04 Morphine Sulfate (Morphine Inj) 2 mg Q3H PRN IV PUSH BREAKTHROUGH PAIN 02/05/18 05:30 02/06/18 10:10 Senna/Docusate Sodium (Racheal-Colace) 1 tab BID PO 02/05/18 09:00 02/11/18 08:21 Magnesium Hydroxide (Milk Of Magnesia Liq) 30 ml Q12H PRN PO Mild constipation 02/05/18 05:15 02/08/18 09:08 Sennosides (Senokot) 17.2 mg Q12H PRN PO Moderate constipation 02/05/18 05:15 02/08/18 09:08 Bisacodyl (Dulcolax Supp) 10 mg DAILY PRN RECTAL SEVERE CONSITIPATION 02/05/18 05:15 Lactulose (Lactulose Liq) 30 ml DAILY PRN PO SEVERE CONSITIPATION 02/05/18 05:15 Baclofen (Lioresal) 10 mg TID PO 02/05/18 09:00 02/11/18 08:21 Clonazepam (KlonoPIN) 0.5 mg BID PO 02/05/18 09:00 02/11/18 08:21 Fluoxetine HCl (PROzac) 20 mg DAILY PO 02/05/18 09:00 02/11/18 08:20 Hydroxyzine HCl (Atarax) 50 mg TID PRN PO ANXIETY 02/05/18 05:15 Metoprolol Succinate (Toprol Xl) 25 mg Q12HR PO 02/05/18 09:00 02/11/18 08:21 Enalaprilat (Vasotec Inj) 1.25 mg Q6H PRN IV PUSH SBP>160, DBP>90 02/05/18 16:15 02/09/18 14:24 Acetaminophen/ Hydrocodone Bitart (Higgins 7.5-325 Mg) 1 tab Q4H PRN PO PAIN SCALE 6 TO 10 02/05/18 16:15 02/11/18 08:22 Sodium Chloride (NS Flush) 2 ml BID IV FLUSH 02/05/18 21:00 02/11/18 08:22 Sodium Chloride (NS Flush) 2 ml UNSCH PRN IV FLUSH FLUSH AFTER USING IV ACCESS 02/05/18 19:00 Morphine Sulfate (Morphine Inj) 2 mg Q30M PRN IV PUSH CHEST PAIN 02/05/18 19:00 02/05/18 19:36 Atorvastatin Calcium (Lipitor) 10 mg HS PO 02/05/18 21:00 02/10/18 20:52 Lisinopril (Prinivil) 20 mg DAILY PO 02/09/18 09:00 02/11/18 08:21 Enalaprilat (Vasotec Inj) 1.25 mg Q6H PRN IV PUSH SBP> OR = 180, DBP> OR = 100 02/08/18 10:45 Calcium/Vitamin D (Oscal-D 250-125) 250 mg Q12HR PO 02/08/18 21:00 02/11/18 08:21 Apixaban (Eliquis) 2.5 mg BID PO 02/10/18 21:00 02/11/18 08:21 (Sandi Mcnally) Current Medications Current Medications Acetaminophen/ Hydrocodone Bitart (Higgins 5-325 Mg) 1 tab ONCE ONCE PO Last administered on 02/05/18at 02:47; Start 02/05/18 at 02:00; Stop 02/05/18 at 02:01 ; Status DC Hydroxyzine Pamoate (Vistaril) 50 mg ONCE ONCE PO Last administered on at 05:31; Start 02/05/18 at 05:15; Stop 02/05/18 at 05:19; Status DC Sodium Chloride 1,000 ml @ 100 mls/hr Q10H IV Last administered on 02/05/18at 15:05; Start 02/05/18 at 05:05; Stop 02/06/18 at 10:24; Status DC Sodium Chloride (NS Flush) 2 ml UNSCH PRN IV FLUSH FLUSH AFTER USING IV ACCESS ; Start 02/05/18 at 05:15; Stop 02/07/18 at 12:23; Status DC Sodium Chloride (NS Flush) 2 ml BID IV FLUSH Last administered on 02/07/18at 09: 43; Start 02/05/18 at 09:00; Stop 02/07/18 at 12:23; Status DC Metoclopramide HCl (Reglan Inj) 5 mg Q6H PRN IV PUSH NAUSEA OR VOMITING Last administered on 02/11/18 23:38; Start 02/05/18 at 05:15 Acetaminophen (Tylenol) 650 mg Q6H PRN PO FEVER/PAIN SCALE 1 TO 2 Last administered on 02/07/18 00:07; Start 02/05/18 at 05:15 Acetaminophen/ Hydrocodone Bitart (Higgins 5-325 Mg) 1 tab Q4H PRN PO PAIN SCALE 3 TO 5 Last administered on 02/09/18 18:04; Start 02/05/18 at 05:15 Morphine Sulfate (Morphine Inj) 2 mg Q3H PRN IV PUSH BREAKTHROUGH PAIN Last administered on 02/06/18 10:10; Start 02/05/18 at 05:30 Senna/Docusate Sodium (Racheal-Colace) 1 tab BID PO Last administered on 20:32; Start 02/05/18 at 09:00 Magnesium Hydroxide (Milk Of Magnesia Liq) 30 ml Q12H PRN PO Mild constipation Last administered on 02/08/18 09:08; Start 02/05/18 at 05:15 Sennosides (Senokot) 17.2 mg Q12H PRN PO Moderate constipation Last administered on 02/08/18 09:08; Start 02/05/18 at 05:15 Bisacodyl (Dulcolax Supp) 10 mg DAILY PRN RECTAL SEVERE CONSITIPATION; Start at 05:15 Lactulose (Lactulose Liq) 30 ml DAILY PRN PO SEVERE CONSITIPATION; Start at 05:15 Baclofen (Lioresal) 10 mg TID PO Last administered on 02/12/18 12:56; Start at 09:00 Clonazepam (KlonoPIN) 0.5 mg BID PO Last administered on 02/12/18 08:50; Start 02/05/18 at 09:00 Fluoxetine HCl (PROzac) 20 mg DAILY PO Last administered on 02/12/18 08:51; Start 02/05/18 at 09:00 Hydroxyzine HCl (Atarax) 50 mg TID PRN PO ANXIETY; Start 02/05/18 at 05:15 Metoprolol Succinate (Toprol Xl) 25 mg Q12HR PO Last administered on 02/12/18at 08:51; Start 02/05/18 at 09:00 Enalaprilat (Vasotec Inj) 1.25 mg Q6H PRN IV PUSH SBP>160, DBP>90 Last administered on 02/09/18at 14:24; Start 02/05/18 at 16:15; Stop 02/12/18 at 13:33 ; Status DC Acetaminophen/ Hydrocodone Bitart (Higgins 7.5-325 Mg) 1 tab Q4H PRN PO PAIN SCALE 6 TO 10 Last administered on 02/12/18at 12:57; Start 02/05/18 at 16:15 Sodium Chloride (NS Flush) 2 ml BID IV FLUSH Last administered on 02/12/18at 08: 48; Start 02/05/18 at 21:00 Sodium Chloride (NS Flush) 2 ml UNSCH PRN IV FLUSH FLUSH AFTER USING IV ACCESS ; Start 02/05/18 at 19:00 Aspirin (Aspirin) 325 mg NOW PO Last administered on 02/05/18at 19:36; Start at 19:00; Stop 02/06/18 at 18:59; Status DC Morphine Sulfate (Morphine Inj) 2 mg Q30M PRN IV PUSH CHEST PAIN Last administered on 02/05/18at 19:36; Start 02/05/18 at 19:00 Metoprolol Tartrate (Lopressor) 12.5 mg BID PO ; Start 02/05/18 at 21:00; Stop 02/05/18 at 21:00; Status DC Atorvastatin Calcium (Lipitor) 10 mg HS PO Last administered on 02/11/18at 20:32 ; Start 02/05/18 at 21:00 Nitroglycerin (Nitroglycerin 2% Oint) 0.5 inch Q6HR TOPICAL Last administered on 02/07/18at 12:18; Start 02/05/18 at 19:00; Stop 02/07/18 at 15:24; Status DC Lisinopril (Prinivil) 5 mg DAILY PO Last administered on 02/05/18at 19:44; Start 02/05/18 at 19:15; Stop 02/06/18 at 08:43; Status DC Lisinopril (Prinivil) 10 mg DAILY PO Last administered on 02/08/18at 09:08; Start 02/06/18 at 09:00; Stop 02/08/18 at 10:38; Status DC Potassium Chloride (KCl) 40 meq ONCE ONCE PO Last administered on 02/06/18at 10 :30; Start 02/06/18 at 10:30; Stop 02/06/18 at 10:43; Status DC Regadenoson (Lexiscan Inj) 0.4 mg STK-MED ONCE .ROUTE Last administered on 02/06at 11:16; Start 02/06/18 at 11:16; Stop 02/06/18 at 11:17; Status DC Potassium Chloride (KCl) 40 meq ONCE ONCE PO Last administered on 02/07/18at 13 :58; Start 02/07/18 at 12:30; Stop 02/07/18 at 12:31; Status DC Promethazine HCl (Phenergan Inj) 12.5 mg ONCE ONCE IM Last administered on at 16:58; Start 02/07/18 at 15:30; Stop 02/07/18 at 15:31; Status DC Lisinopril (Prinivil) 10 mg ONCE ONCE PO Last administered on 02/08/18at 11:55 ; Start 02/08/18 at 10:45; Stop 02/08/18 at 10:50; Status DC Lisinopril (Prinivil) 20 mg DAILY PO Last administered on 02/12/18at 08:51; Start 02/09/18 at 09:00 Enoxaparin Sodium (Lovenox Inj) 30 mg Q24H SQ Last administered on 02/09/18at 12 :24; Start 02/08/18 at 11:00; Stop 02/10/18 at 11:11; Status DC Enalaprilat (Vasotec Inj) 1.25 mg Q6H PRN IV PUSH SBP> OR = 180, DBP> OR = 100 ; Start 02/08/18 at 10:45 Calcium/Vitamin D (Oscal-D 250-125) 250 mg Q12HR PO Last administered on at 08:50; Start 02/08/18 at 21:00 Lorazepam (Ativan Inj) 0.5 mg ONCE ONCE IV PUSH Last administered on at 15:45; Start 02/09/18 at 09:15; Stop 02/09/18 at 09:16; Status DC Apixaban (Eliquis) 2.5 mg BID PO Last administered on 02/12/18at 08:50; Start at 21:00 Potassium Bicarb/ Potassium Chloride (K-Lyte Cl Eff) 50 meq ONCE ONCE PO Last administered on 02/12/18at 12:56; Start 02/12/18 at 11:30; Stop 02/12/18 at 12:32; Status DC Potassium Bicarb/ Potassium Chloride (K-Lyte Cl Eff) 50 meq ONCE ONCE PO ; Start 02/12/18 at 13:30; Stop 02/12/18 at 13:31; Status DC Ondansetron HCl (Zofran Inj) 4 mg STK-MED ONCE .ROUTE Last administered on 02/12at 13:11; Start 02/12/18 at 13:09; Stop 02/12/18 at 13:10; Status DC (Ankit oDran MD) Medical Decision Making MDM Remarks 62 y/o female s/p fall acute L1 severe compression fracture with canal retropulsion MRI reviewed by Dr. Doran, (Sandi Mcnally) Plan Plan Remarks cont nonsurgical management, mobilize with TLSO brace, clear to dc to rehab once CUSTOM TLSO obtained, supportive care (Sandi Mcnally) Attending Statement Awaiting TLSO brace. Nonn surgical treatment pert her request Dr Kedar carbajal for humerous fracture. Non surgical management Percocet/morphine as needed for pain Pulmonary. aggressive pulmonary toilette, nasotracheal suction, and breathing treatments with nebulizers. Daily PT and OT Renal. Continue to monitor closely urine output, BUN and creatinine Endocrine. Continue to Monitor serial Acu checks and SSI as needed in detail ID continue to monitor for signs of infection Continue Protonix for stress ulcer prophylaxis Continue Orion hose and SCD's for DVT prophylaxis Caprini VTE Risk Assessment Caprini VTE Risk Assessment: Mod/High Risk (score >= 2) VTE Pharm Contraindication: Intracranial lesions Caprini Risk Assessment Model Point Value = 1 Point Value = 2 Point Value = 3 Point Value = 5 Age 41-60 Minor surgery BMI > 25 kg/m2 Swollen legs Varicose veins or History of unexplained or recurrent spontaneous Oral contraceptives or hormone replacement Sepsis (< 1 month) Serious lung disease, including pneumonia (< 1 month) Abnormal pulmonary function Acute myocardial infarction Congestive heart failure (< 1 month) History of inflammatory bowel disease Medical patient at bed rest Age 61-74 Arthroscopic surgery Major open surgery (> 45 min) Laparoscopic surgery (> 45 min) Malignancy Confined to bed (> 72 hours) Immobilizing plaster cast Central venous access Age >= 75 History of VTE Family history of VTE Factor V Leiden Prothrombin [id number] Lupus anticoagulant Anticardiolipin antibodies Elevated serum homocysteine Heparin-induced thrombocytopenia Other congenital or acquired thrombophilia Stroke (< 1 month) Elective arthroplasty Hip, pelvis, or leg fracture Acute spinal cord injury (< 1 month) Prophylaxis Regimen Total Risk Factor Score Risk Level Prophylaxis Regimen 0-1 Low Early ambulation 2 Moderate Order ONE of the following: *Sequential Compression Device (SCD) *Heparin 5000 units SQ BID 3-4 Higher Order ONE of the following medications: *Heparin 5000 units SQ TID *Enoxaparin/Lovenox 40 mg SQ daily (WT < 150 kg, CrCl > 30 mL/min) *Enoxaparin/Lovenox 30 mg SQ daily (WT < 150 kg, CrCl > 10-29 mL/min) *Enoxaparin/Lovenox 30 mg SQ BID (WT < 150 kg, CrCl > 30 mL/min) AND/OR *Sequential Compression Device (SCD) 5 or more Highest Order ONE of the following medications: *Heparin 5000 units SQ TID (Preferred with Epidurals) *Enoxaparin/Lovenox 40 mg SQ daily (WT < 150 kg, CrCl > 30 mL/min) *Enoxaparin/Lovenox 30 mg SQ daily (WT < 150 kg, CrCl > 10-29 mL/min) *Enoxaparin/Lovenox 30 mg SQ BID (WT < 150 kg, CrCl > 30 mL/min) AND *Sequential Compression Device (SCD) The exam, history, and the medical decision-making described in the above note were completed with the assistance of the mid-level provider. I reviewed and agree with the findings presented. I attest that I had a [id number] encounter with the patient on the same day, and personally performed and documented my assessment and findings in the medical record. (Ankit Doran MD) Sandi Mcnally Feb 11, 2018 11:51 Ankit Doran MD Feb 12, 2018 14:13
--- NOTE | 2018-02-11 15:00 | HHI.PR ---
Subjective Remarks Patient is complaining of some back pain still Has a TLSO brace but not the correct one Patient needs to wait the correct one before discharge Await clearance by her insurance for SNF Continue PT and OT Objective Vitals Vital Signs Date Time Temp Pulse Resp B/P (MAP) Pulse Ox O2 Delivery O2 Flow Rate FiO2 02/11/18 08:00 98.2 71 18 141/63 (89) 98 02/11/18 00:00 98.1 68 18 113/55 (74) 98 02/10/18 20:52 Room Air 02/10/18 20:00 97.4 69 18 118/53 (74) 97 02/10/18 16:00 97.8 74 20 120/59 (79) 98 I/O 02/10/18 02/10/18 02/10/18 02/11/18 02/11/18 02/11/18 07:00 15:00 23:00 07:00 15:00 23:00 Intake Total 220 ml 480 ml Balance 220 ml 480 ml Intake Oral 220 ml 480 ml # Voids 3 1 # Bowel Movements 0 Result Diagram: 02/08/18 0907 02/08/18 0723 Imaging Last Impressions Lumbar Spine MRI 02/09/18 0000 Signed Impressions: CONCLUSION: 1. Unchanged compression fracture of L1 with 5 mm of retropulsion. There is ab utment of the conus. 2. Degenerative changes most pronounced at L3-L4 and L4-L5 without central can al stenosis or neural impingement. Upper Extremity CT 02/07/18 0000 Signed Impressions: CONCLUSION: 1. Severely comminuted right humeral head and neck fracture with impaction of the humeral shaft into the humeral head. 2. Mild posterior subluxation of the humeral head in relation to the glenoid. 3. Fracture of the lateral aspect of the acromion and distal clavicle. Lumbar Spine CT 02/07/18 0000 Signed Impressions: CONCLUSION: 1. Prominent S-shaped scoliosis of the thoracolumbar spine centered at L3-4 an d the lumbar spine. 2. Progressive severe compression fracture of L1 superior endplate in comparis on to 11/02/2017 CT exam. There is 5 mm posterior retropulsion of fragments with persistent fracture plane and vacuum phenomenon. This indicates persistent fra cture mobility at this level. 3. Prominent multilevel degenerative spondylosis most prominently at L4-5 with moderate severe right neural foraminal narrowing. Head CT 02/07/18 Signed Impressions: CONCLUSION: 1. Negative CT Head non contrast. Abdomen X-Ray 02/07/18 Signed Impressions: CONCLUSION: Benign-appearing abdomen. Myocardial Perfusion Scan Nuc Med 02/06/18 Signed Impressions: CONCLUSION: 1. Focal ischemia in the mid anterolateral wall. 2. Intact wall motion with EF of 65%. Shoulder X-Ray 02/05/18 Signed Impressions: CONCLUSION: Comminuted fracture right proximal humerus. There appears to be fracture of the acromion as well. Pelvis X-Ray 02/05/18 Signed Impressions: CONCLUSION: Questionable fracture inferior pubic ramus on the right. Pelvis CT 02/05/18 Signed Impressions: CONCLUSION: 1. No acute fracture. 2. Old fracture right inferior pubic ramus. Humerus X-Ray 02/05/18 Signed Impressions: CONCLUSION: Comminuted fracture right proximal humerus Elbow X-Ray 02/05/18 Signed Impressions: CONCLUSION: No acute fracture right elbow Chest X-Ray 02/05/18 Signed Impressions: CONCLUSION: Cardiomegaly. No consolidation or significant effusion. Comminuted right proxim al humeral fracture. Rotation left humerus. Cervical Spine CT 02/05/18 Signed Impressions: CONCLUSION: 1. No acute fracture or subluxation. Objective Remarks GENERAL: Awake alert and oriented 3 talkative and cooperative SKIN: Warm and dry. HEAD: Atraumatic. Normocephalic. EYES: Pupils equal and round. No scleral icterus. No injection or drainage. Extraocular muscles intact ENT: No nasal bleeding or discharge. Mucous membranes pink and moist. Tongue is midline NECK: Trachea midline. No JVD. Tongue is midline supple CARDIOVASCULAR: Regular rate and rhythm. S1-S2 no S3 or S4 RESPIRATORY: No accessory muscle use. Clear to auscultation. Breath sounds equal bilaterally. GASTROINTESTINAL: Abdomen soft, non-tender, nondistended. Hepatic and splenic margins not palpable. MUSCULOSKELETAL: Extremities without clubbing, cyanosis, or edema. No obvious deformities. Has some decreased range of motion secondary to back pain NEUROLOGICAL: Awake and alert. No obvious cranial nerve deficits. Motor grossly within normal limits. Five out of 5 muscle strength in the arms and legs. Normal speech. PSYCHIATRIC: Appropriate mood and affect; insight and judgment normal. Procedures None. Medications and IVs Current Medications Acetaminophen/ Hydrocodone Bitart (Ayer 5-325 Mg) 1 tab ONCE ONCE PO Last administered on 02/05/18at 02:47; Start 02/05/18 at 02:00; Stop 02/05/18 at 02:01 ; Status DC Hydroxyzine Pamoate (Vistaril) 50 mg ONCE ONCE PO Last administered on at 05:31; Start 02/05/18 at 05:15; Stop 02/05/18 at 05:19; Status DC Sodium Chloride 1,000 ml @ 100 mls/hr Q10H IV Last administered on 02/05/18at 15:05; Start 02/05/18 at 05:05; Stop 02/06/18 at 10:24; Status DC Sodium Chloride (NS Flush) 2 ml UNSCH PRN IV FLUSH FLUSH AFTER USING IV ACCESS ; Start 02/05/18 at 05:15; Stop 02/07/18 at 12:23; Status DC Sodium Chloride (NS Flush) 2 ml BID IV FLUSH Last administered on 02/07/18at 09: 43; Start 02/05/18 at 09:00; Stop 02/07/18 at 12:23; Status DC Metoclopramide HCl (Reglan Inj) 5 mg Q6H PRN IV PUSH NAUSEA OR VOMITING Last administered on 02/11/18 09:00; Start 02/05/18 at 05:15 Acetaminophen (Tylenol) 650 mg Q6H PRN PO FEVER/PAIN SCALE 1 TO 2 Last administered on 02/07/18at 00:07; Start 02/05/18 at 05:15 Acetaminophen/ Hydrocodone Bitart (Ayer 5-325 Mg) 1 tab Q4H PRN PO PAIN SCALE 3 TO 5 Last administered on 02/09/18 18:04; Start 02/05/18 at 05:15 Morphine Sulfate (Morphine Inj) 2 mg Q3H PRN IV PUSH BREAKTHROUGH PAIN Last administered on 02/06/18at 10:10; Start 02/05/18 at 05:30 Senna/Docusate Sodium (Racheal-Colace) 1 tab BID PO Last administered on 08:21; Start 02/05/18 at 09:00 Magnesium Hydroxide (Milk Of Magnesia Liq) 30 ml Q12H PRN PO Mild constipation Last administered on 02/08/18 09:08; Start 02/05/18 at 05:15 Sennosides (Senokot) 17.2 mg Q12H PRN PO Moderate constipation Last administered on 02/08/18 09:08; Start 02/05/18 at 05:15 Bisacodyl (Dulcolax Supp) 10 mg DAILY PRN RECTAL SEVERE CONSITIPATION; Start at 05:15 Lactulose (Lactulose Liq) 30 ml DAILY PRN PO SEVERE CONSITIPATION; Start at 05:15 Baclofen (Lioresal) 10 mg TID PO Last administered on 02/11/18 12:39; Start at 09:00 Clonazepam (KlonoPIN) 0.5 mg BID PO Last administered on 02/11/18 08:21; Start 02/05/18 at 09:00 Fluoxetine HCl (PROzac) 20 mg DAILY PO Last administered on 02/11/18 08:20; Start 02/05/18 at 09:00 Hydroxyzine HCl (Atarax) 50 mg TID PRN PO ANXIETY; Start 02/05/18 at 05:15 Metoprolol Succinate (Toprol Xl) 25 mg Q12HR PO Last administered on 02/11/18 08:21; Start 02/05/18 at 09:00 Enalaprilat (Vasotec Inj) 1.25 mg Q6H PRN IV PUSH SBP>160, DBP>90 Last administered on 02/09/18 14:24; Start 02/05/18 at 16:15 Acetaminophen/ Hydrocodone Bitart (Ayer 7.5-325 Mg) 1 tab Q4H PRN PO PAIN SCALE 6 TO 10 Last administered on 02/11/18 12:41; Start 02/05/18 at 16:15 Sodium Chloride (NS Flush) 2 ml BID IV FLUSH Last administered on 02/11/18 08: 22; Start 02/05/18 at 21:00 Sodium Chloride (NS Flush) 2 ml UNSCH PRN IV FLUSH FLUSH AFTER USING IV ACCESS ; Start 02/05/18 at 19:00 Aspirin (Aspirin) 325 mg NOW PO Last administered on 02/05/18at 19:36; Start at 19:00; Stop 02/06/18 at 18:59; Status DC Morphine Sulfate (Morphine Inj) 2 mg Q30M PRN IV PUSH CHEST PAIN Last administered on 02/05/18at 19:36; Start 02/05/18 at 19:00 Metoprolol Tartrate (Lopressor) 12.5 mg BID PO ; Start 02/05/18 at 21:00; Stop 02/05/18 at 21:00; Status DC Atorvastatin Calcium (Lipitor) 10 mg HS PO Last administered on 02/10/18at 20:52 ; Start 02/05/18 at 21:00 Nitroglycerin (Nitroglycerin 2% Oint) 0.5 inch Q6HR TOPICAL Last administered on 02/07/18at 12:18; Start 02/05/18 at 19:00; Stop 02/07/18 at 15:24; Status DC Lisinopril (Prinivil) 5 mg DAILY PO Last administered on 02/05/18at 19:44; Start 02/05/18 at 19:15; Stop 02/06/18 at 08:43; Status DC Lisinopril (Prinivil) 10 mg DAILY PO Last administered on 02/08/18at 09:08; Start 02/06/18 at 09:00; Stop 02/08/18 at 10:38; Status DC Potassium Chloride (KCl) 40 meq ONCE ONCE PO Last administered on 02/06/18at 10 :30; Start 02/06/18 at 10:30; Stop 02/06/18 at 10:43; Status DC Regadenoson (Lexiscan Inj) 0.4 mg STK-MED ONCE .ROUTE Last administered on 02/06at 11:16; Start 02/06/18 at 11:16; Stop 02/06/18 at 11:17; Status DC Potassium Chloride (KCl) 40 meq ONCE ONCE PO Last administered on 02/07/18at 13 :58; Start 02/07/18 at 12:30; Stop 02/07/18 at 12:31; Status DC Promethazine HCl (Phenergan Inj) 12.5 mg ONCE ONCE IM Last administered on at 16:58; Start 02/07/18 at 15:30; Stop 02/07/18 at 15:31; Status DC Lisinopril (Prinivil) 10 mg ONCE ONCE PO Last administered on 02/08/18at 11:55 ; Start 02/08/18 at 10:45; Stop 02/08/18 at 10:50; Status DC Lisinopril (Prinivil) 20 mg DAILY PO Last administered on 02/11/18at 08:21; Start 02/09/18 at 09:00 Enoxaparin Sodium (Lovenox Inj) 30 mg Q24H SQ Last administered on 02/09/18at 12 :24; Start 02/08/18 at 11:00; Stop 02/10/18 at 11:11; Status DC Enalaprilat (Vasotec Inj) 1.25 mg Q6H PRN IV PUSH SBP> OR = 180, DBP> OR = 100 ; Start 02/08/18 at 10:45 Calcium/Vitamin D (Oscal-D 250-125) 250 mg Q12HR PO Last administered on at 08:21; Start 02/08/18 at 21:00 Lorazepam (Ativan Inj) 0.5 mg ONCE ONCE IV PUSH Last administered on at 15:45; Start 02/09/18 at 09:15; Stop 02/09/18 at 09:16; Status DC Apixaban (Eliquis) 2.5 mg BID PO Last administered on 02/11/18at 08:21; Start at 21:00 A/P Problem List: (1) Fall ICD Code: W19.XXXA - Unspecified fall, initial encounter Status: Acute (2) Humerus fracture ICD Code: S42.309A - Unspecified fracture of shaft of humerus, unspecified arm , initial encounter for closed fracture (3) Anemia ICD Code: D64.9 - Anemia, unspecified (4) Lumbar compression fracture ICD Code: S32.000A - Wedge compression fracture of unspecified lumbar vertebra , initial encounter for closed fracture Status: Acute (5) Hypertension, benign ICD Code: I10 - Essential (primary) hypertension Status: Chronic Assessment and Plan 62-year-old female with a PMH of Rheumatoid Arthritis, Chronic Anemia, Lupus, Anxiety, Depression, Hepatitis C, COPD, A. fib on Eliquis and Tobacco Abuse who was brought to the ER by EMS after a fall. Patient states she was at home and had sudden trip and fall but was unable to get herself off the floor and laid there x2 days, "couldn't get motivated enough to get up". Fall: s/p mechanical trip and fall at home, reported prolonged down-time of 2 days as unable to get herself up. -Initial CPK 247, trended down to 141 -CT Head/C-Spine w/ no acute findings. -Pelvic X-ray w/ possible fracture, however CT Pelvis w/ old pubic fracture -PT consulted, recommending rehab. Patient lives alone and would definitely benefit from rehab placement Humerus/Acromion/Clavicle Fractures: X-ray w/ comminuted right proximal humerus fracture. -Consult ortho, who recommended nonoperative conservative treatment -RUE CT reviewed, showed severely comminuted right humeral head/neck fracture with impaction of humeral shaft into head; fracture of lateral acromion and distal clavicle -Dr. Thacker evaluated the patient and recommended on nonoperative conservative treatment for now -Continue sling and swath -Pain control with Ayer prn pain Lumbar 1 compression fracture -due to persistent pain obtained neurosurgical evaluation to determine if patient is a candidate for kyphoplasty. Will likely need brace TLS), MRI of the lumbar spine results reviewed and ordered by neurosurgery. At this time, neurosurgery does not recommend any further surgical intervention. Chest pains: suspect musculoskeletal secondary to fall, pain reproducible on exam, however rule out cardiac disease. -ACS ruled out with negative serial cardiac enzymes x4 and EKG without acute ischemic changes -Given morphine, nitropaste, BB and received one dose of ASA. -Cardiology consulted for cardiac clearance -Nuclear stress test showed small focal ischemic at mid anterolateral wall; EF 65% -Cardiology reviewed findings, likely noncardiac chest pain, cleared for surgery, no further cardiac work up/intervention -Pain reproducible on exam, likely musculoskeletal secondary to fall, give pain medications as needed, will discontinue telemetry today Acute anemia from blood loss from trauma Acute on Chronic. -Hgb 8.2, previously 10.8, most likely from the trauma/fx area as she does have extensive bruising in shoulder area -continue to monitor closely, transfuse as needed. -Last hemoglobin 11 HTN: acute, BP elevated to 180s, this may be due to pain -on metoprolol 25mg bid, and on lisinopril 20 mg p.o. daily. -continue IV Vasotec prn -Monitor BP, adjust antihypertensives as needed Atrial Fibrillation: chronic, on Eliquis prior to admission. -currently in sinus rhythm -continue BB, metoprolol -monitor on telemetry -Eliquis to restart Hypokalemia, repleted DVT Prophylaxis: teds/SCDs, will restart Eliquis upon discharge to snF Discharge Planning Await clearance for SNF placement Discharge has been none but BED is still pending Problem Qualifiers (1) Fall: Qualified Codes: W19.XXXA - Unspecified fall, initial encounter (2) Humerus fracture: Qualified Codes: S42.291A - Other displaced fracture of upper end of right humerus, initial encounter for closed fracture Anton Santoyo DO Feb 11, 2018 15:00
[2018-02-11 16:00] VITALS: BP 143/67; PULSE 71; RESP 16; TEMP 98; O2SAT 100
[2018-02-11 20:00] VITALS: BP 129/62; PULSE 66; RESP 18; TEMP 98; O2SAT 97
[2018-02-11] MEDS: ATORVASTATIN 10 MG TAB PO SCH (20:32)
[2018-02-12] VITALS: BP 117/58; PULSE 66; RESP 20; TEMP 97.6; O2SAT 96
[2018-02-12] MEDS: ACETAMINOPHEN/HYDROcodone 325 MG/7.5 MG TAB PO PRN ×5 (04:21→22:05)
[2018-02-12 06:34] LABS: BASOPHIL # 0.1 TH/MM3 (0-0.2); BASOPHIL % 0.8 % (0.0-2.0); EOSINOPHIL # 0.1 TH/MM3 (0-0.4); EOSINOPHIL % 1.3 % (0.0-4.0); HEMOGLOBIN 9.6 GM/DL (11.6-15.3); LYMPH % 28.2 % (9.0-44.0); LYMPHOCYTE # 1.9 TH/MM3 (1.0-4.8); MEAN CELL VOLUME 81.1 FL (80.0-100.0); MEAN CORPUSCULAR HEMOGLOBIN 26.8 PG (27.0-34.0); MEAN PLATELET VOLUME 7.8 FL (7.0-11.0); MONO % 9.5 % (0.0-8.0); MONOCYTE # 0.6 TH/MM3 (0-0.9); NEUT % 60.2 % (16.0-70.0); PLATELET COUNT 304 TH/MM3 (150-450); RED BLOOD COUNT 3.57 MIL/MM3 (4.00-5.30); RED CELL DISTRIBUTION WIDTH 16.3 % (11.6-17.2); WHITE BLOOD COUNT 6.7 TH/MM3 (4.0-11.0)
[2018-02-12 06:58] LABS: AST (GOT) 21 U/L (15-37); BICARBONATE 27.9 MEQ/L (21.0-32.0); BLOOD UREA NITROGEN 26 MG/DL (7-18); CALCIUM 8.7 MG/DL (8.5-10.1); CHLORIDE 102 MEQ/L (98-107); CREATININE 0.63 MG/DL (0.50-1.00); GLOMERULAR FILTRATION RATE 96 ML/MIN (>89); GLUCOSE,RANDOM 141 MG/DL (74-106); MAGNESIUM 2.1 MG/DL (1.5-2.5); SODIUM (NA) 140 MEQ/L (136-145)
[2018-02-12 06:59] LABS: ALT (GPT) 16 U/L (10-53)
[2018-02-12 07:08] LABS: ALKALINE PHOSPHATASE 136 U/L (45-117); FREE T4 1.23 NG/DL (0.76-1.46); TOTAL BILIRUBIN ADULT 0.5 MG/DL (0.2-1.0)
[2018-02-12 08:00] VITALS: BP 129/60; PULSE 61; RESP 16; TEMP 98.5; O2SAT 96
[2018-02-12] MEDS: SODIUM CHLORIDE 0.9% FLUSH 10 ML FLUSH IV FLUSH SCH ×2 (08:48→22:06)
[2018-02-12] MEDS: DOCUSATE SODIUM 50 MG/SENNA 8.6 MG TAB PO SCH ×2 (08:50→22:04)
[2018-02-12] MEDS: CALCIUM/VITAMIN D 250 MG/125 U TAB PO SCH ×2 (08:50→22:05)
[2018-02-12] MEDS: APIXABAN 2.5 MG TABLET PO SCH ×2 (08:50→22:04)
[2018-02-12] MEDS: clonazePAM 0.5 MG TAB PO SCH ×2 (08:50→22:05)
[2018-02-12] MEDS: BACLOFEN 10 MG TAB PO SCH ×3 (08:50→16:49)
[2018-02-12] MEDS: METOPROLOL SUCCINATE 25 MG EXTENDED RELEASE TAB PO SCH ×2 (08:51→22:05)
[2018-02-12] MEDS: FLUoxetine HCL 20 MG CAP PO SCH (08:51)
[2018-02-12] MEDS: LISINOPRIL 20 MG TAB PO SCH (08:51)
[2018-02-12] MEDS ORDERED: POTASSIUM CHLORIDE 25 MEQ EFFERVESCENT TAB PO ONE ×2 (11:30→13:30)
--- NOTE | 2018-02-12 11:31 | HHI.PR ---
Subjective Remarks 02-11 Patient is complaining of some back pain still Has a TLSO brace but not the correct one Patient needs to wait the correct one before discharge Await clearance by her insurance for SNF Continue PT and OT 02-12 AWAIT BETTER FITTING TSLO BRACE HOPEFULLY TO SNF TOMORROW WORKING WITH PT AND OT DC TO SNF ONCE HAS [facility] APPROVAL [facility] RN AND PT AND CM HYPOKALEMIA - REPLACE POTASSIUM Objective Vitals Vital Signs Date Time Temp Pulse Resp B/P (MAP) Pulse Ox O2 Delivery O2 Flow Rate FiO2 02/12/18 09:49 19 02/12/18 00:00 97.6 66 20 117/58 (77) 96 02/11/18 20:00 98.0 66 18 129/62 (84) 97 02/11/18 16:00 98.0 71 16 143/67 (92) 100 I/O 02/11/18 02/11/18 02/11/18 02/12/18 02/12/18 02/12/18 07:00 15:00 23:00 07:00 15:00 23:00 Intake Total 480 ml 600 ml 480 ml Balance 480 ml 600 ml 480 ml Intake Oral 480 ml 600 ml 480 ml # Voids 1 3 # Bowel Movements 0 Result Diagram: 02/12/18 0525 02/12/18 0525 Other Results Laboratory Tests Test 02/12/18 05:25 White Blood Count 6.7 TH/MM3 Red Blood Count 3.57 MIL/MM3 Hemoglobin 9.6 GM/DL Hematocrit 29.0 % Mean Corpuscular Volume 81.1 FL Mean Corpuscular Hemoglobin 26.8 PG Mean Corpuscular Hemoglobin Concent 33.0 % Red Cell Distribution Width 16.3 % Platelet Count 304 TH/MM3 Mean Platelet Volume 7.8 FL Neutrophils (%) (Auto) 60.2 % Lymphocytes (%) (Auto) 28.2 % Monocytes (%) (Auto) 9.5 % Eosinophils (%) (Auto) 1.3 % Basophils (%) (Auto) 0.8 % Neutrophils # (Auto) 4.0 TH/MM3 Lymphocytes # (Auto) 1.9 TH/MM3 Monocytes # (Auto) 0.6 TH/MM3 Eosinophils # (Auto) 0.1 TH/MM3 Basophils # (Auto) 0.1 TH/MM3 CBC Comment DIFF FINAL Differential Comment Blood Urea Nitrogen 26 MG/DL Creatinine 0.63 MG/DL Random Glucose 141 MG/DL Total Protein 7.0 GM/DL Albumin 3.0 GM/DL Calcium Level 8.7 MG/DL Phosphorus Level 3.0 MG/DL Magnesium Level 2.1 MG/DL Alkaline Phosphatase 136 U/L Aspartate Amino Transf (AST/SGOT) 21 U/L Alanine Aminotransferase (ALT/SGPT) 16 U/L Total Bilirubin 0.5 MG/DL Sodium Level 140 MEQ/L Potassium Level 3.0 MEQ/L Chloride Level 102 MEQ/L Carbon Dioxide Level 27.9 MEQ/L Anion Gap 10 MEQ/L Estimat Glomerular Filtration Rate 96 ML/MIN Free Thyroxine 1.23 NG/DL Thyroid Stimulating Hormone 3rd Gen 2.690 uIU/ML Imaging Last Impressions Lumbar Spine MRI 02/09/18 0000 Signed Impressions: CONCLUSION: 1. Unchanged compression fracture of L1 with 5 mm of retropulsion. There is ab utment of the conus. 2. Degenerative changes most pronounced at L3-L4 and L4-L5 without central can al stenosis or neural impingement. Upper Extremity CT 02/07/18 0000 Signed Impressions: CONCLUSION: 1. Severely comminuted right humeral head and neck fracture with impaction of the humeral shaft into the humeral head. 2. Mild posterior subluxation of the humeral head in relation to the glenoid. 3. Fracture of the lateral aspect of the acromion and distal clavicle. Lumbar Spine CT 02/07/18 0000 Signed Impressions: CONCLUSION: 1. Prominent S-shaped scoliosis of the thoracolumbar spine centered at L3-4 an d the lumbar spine. 2. Progressive severe compression fracture of L1 superior endplate in comparis on to 11/02/2017 CT exam. There is 5 mm posterior retropulsion of fragments with persistent fracture plane and vacuum phenomenon. This indicates persistent fra cture mobility at this level. 3. Prominent multilevel degenerative spondylosis most prominently at L4-5 with moderate severe right neural foraminal narrowing. Head CT 02/07/18 0000 Signed Impressions: CONCLUSION: 1. Negative CT Head non contrast. Abdomen X-Ray 02/07/18 0000 Signed Impressions: CONCLUSION: Benign-appearing abdomen. Myocardial Perfusion Scan Nuc Med 02/06/18 0000 Signed Impressions: CONCLUSION: 1. Focal ischemia in the mid anterolateral wall. 2. Intact wall motion with EF of 65%. Shoulder X-Ray 02/05/18 0000 Signed Impressions: CONCLUSION: Comminuted fracture right proximal humerus. There appears to be fracture of the acromion as well. Pelvis X-Ray 02/05/18 0000 Signed Impressions: CONCLUSION: Questionable fracture inferior pubic ramus on the right. Pelvis CT 02/05/18 0000 Signed Impressions: CONCLUSION: 1. No acute fracture. 2. Old fracture right inferior pubic ramus. Humerus X-Ray 02/05/18 0000 Signed Impressions: CONCLUSION: Comminuted fracture right proximal humerus Elbow X-Ray 02/05/18 0000 Signed Impressions: CONCLUSION: No acute fracture right elbow Chest X-Ray 02/05/18 0000 Signed Impressions: CONCLUSION: Cardiomegaly. No consolidation or significant effusion. Comminuted right proxim al humeral fracture. Rotation left humerus. Cervical Spine CT 02/05/18 0000 Signed Impressions: CONCLUSION: 1. No acute fracture or subluxation. Objective Remarks GENERAL: Awake alert and oriented 3 talkative and cooperative SKIN: Warm and dry. HEAD: Atraumatic. Normocephalic. EYES: Pupils equal and round. No scleral icterus. No injection or drainage. Extraocular muscles intact ENT: No nasal bleeding or discharge. Mucous membranes pink and moist. Tongue is midline NECK: Trachea midline. No JVD. Tongue is midline supple CARDIOVASCULAR: Regular rate and rhythm. S1-S2 no S3 or S4 RESPIRATORY: No accessory muscle use. Clear to auscultation. Breath sounds equal bilaterally. GASTROINTESTINAL: Abdomen soft, non-tender, nondistended. Hepatic and splenic margins not palpable. MUSCULOSKELETAL: Extremities without clubbing, cyanosis, or edema. No obvious deformities. Has some decreased range of motion secondary to back pain NEUROLOGICAL: Awake and alert. No obvious cranial nerve deficits. Motor grossly within normal limits. Five out of 5 muscle strength in the arms and legs. Normal speech. PSYCHIATRIC: Appropriate mood and affect; insight and judgment normal. Procedures None. Medications and IVs Current Medications Acetaminophen/ Hydrocodone Bitart (Rosanky 5-325 Mg) 1 tab ONCE ONCE PO Last administered on 02/05/18at 02:47; Start 02/05/18 at 02:00; Stop 02/05/18 at 02:01 ; Status DC Hydroxyzine Pamoate (Vistaril) 50 mg ONCE ONCE PO Last administered on at 05:31; Start 02/05/18 at 05:15; Stop 02/05/18 at 05:19; Status DC Sodium Chloride 1,000 ml @ 100 mls/hr Q10H IV Last administered on 02/05/18at 15:05; Start 02/05/18 at 05:05; Stop 02/06/18 at 10:24; Status DC Sodium Chloride (NS Flush) 2 ml UNSCH PRN IV FLUSH FLUSH AFTER USING IV ACCESS ; Start 02/05/18 at 05:15; Stop 02/07/18 at 12:23; Status DC Sodium Chloride (NS Flush) 2 ml BID IV FLUSH Last administered on 02/07/18at 09: 43; Start 02/05/18 at 09:00; Stop 02/07/18 at 12:23; Status DC Metoclopramide HCl (Reglan Inj) 5 mg Q6H PRN IV PUSH NAUSEA OR VOMITING Last administered on 02/11/18at 23:38; Start 02/05/18 at 05:15 Acetaminophen (Tylenol) 650 mg Q6H PRN PO FEVER/PAIN SCALE 1 TO 2 Last administered on 02/07/18at 00:07; Start 02/05/18 at 05:15 Acetaminophen/ Hydrocodone Bitart (Rosanky 5-325 Mg) 1 tab Q4H PRN PO PAIN SCALE 3 TO 5 Last administered on 02/09/18 18:04; Start 02/05/18 at 05:15 Morphine Sulfate (Morphine Inj) 2 mg Q3H PRN IV PUSH BREAKTHROUGH PAIN Last administered on 02/06/18 10:10; Start 02/05/18 at 05:30 Senna/Docusate Sodium (Racheal-Colace) 1 tab BID PO Last administered on 20:32; Start 02/05/18 at 09:00 Magnesium Hydroxide (Milk Of Magnesia Liq) 30 ml Q12H PRN PO Mild constipation Last administered on 02/08/18 09:08; Start 02/05/18 at 05:15 Sennosides (Senokot) 17.2 mg Q12H PRN PO Moderate constipation Last administered on 02/08/18 09:08; Start 02/05/18 at 05:15 Bisacodyl (Dulcolax Supp) 10 mg DAILY PRN RECTAL SEVERE CONSITIPATION; Start at 05:15 Lactulose (Lactulose Liq) 30 ml DAILY PRN PO SEVERE CONSITIPATION; Start at 05:15 Baclofen (Lioresal) 10 mg TID PO Last administered on 02/12/18 08:50; Start at 09:00 Clonazepam (KlonoPIN) 0.5 mg BID PO Last administered on 02/12/18 08:50; Start 02/05/18 at 09:00 Fluoxetine HCl (PROzac) 20 mg DAILY PO Last administered on 02/12/18 08:51; Start 02/05/18 at 09:00 Hydroxyzine HCl (Atarax) 50 mg TID PRN PO ANXIETY; Start 02/05/18 at 05:15 Metoprolol Succinate (Toprol Xl) 25 mg Q12HR PO Last administered on 02/12/18 08:51; Start 02/05/18 at 09:00 Enalaprilat (Vasotec Inj) 1.25 mg Q6H PRN IV PUSH SBP>160, DBP>90 Last administered on 02/09/18at 14:24; Start 02/05/18 at 16:15 Acetaminophen/ Hydrocodone Bitart (Rosanky 7.5-325 Mg) 1 tab Q4H PRN PO PAIN SCALE 6 TO 10 Last administered on 02/12/18 08:49; Start 02/05/18 at 16:15 Sodium Chloride (NS Flush) 2 ml BID IV FLUSH Last administered on 02/12/18 08: 48; Start 02/05/18 at 21:00 Sodium Chloride (NS Flush) 2 ml UNSCH PRN IV FLUSH FLUSH AFTER USING IV ACCESS ; Start 02/05/18 at 19:00 Aspirin (Aspirin) 325 mg NOW PO Last administered on 02/05/18at 19:36; Start at 19:00; Stop 02/06/18 at 18:59; Status DC Morphine Sulfate (Morphine Inj) 2 mg Q30M PRN IV PUSH CHEST PAIN Last administered on 02/05/18at 19:36; Start 02/05/18 at 19:00 Metoprolol Tartrate (Lopressor) 12.5 mg BID PO ; Start 02/05/18 at 21:00; Stop 02/05/18 at 21:00; Status DC Atorvastatin Calcium (Lipitor) 10 mg HS PO Last administered on 02/11/18at 20:32 ; Start 02/05/18 at 21:00 Nitroglycerin (Nitroglycerin 2% Oint) 0.5 inch Q6HR TOPICAL Last administered on 02/07/18at 12:18; Start 02/05/18 at 19:00; Stop 02/07/18 at 15:24; Status DC Lisinopril (Prinivil) 5 mg DAILY PO Last administered on 02/05/18at 19:44; Start 02/05/18 at 19:15; Stop 02/06/18 at 08:43; Status DC Lisinopril (Prinivil) 10 mg DAILY PO Last administered on 02/08/18at 09:08; Start 02/06/18 at 09:00; Stop 02/08/18 at 10:38; Status DC Potassium Chloride (KCl) 40 meq ONCE ONCE PO Last administered on 02/06/18at 10 :30; Start 02/06/18 at 10:30; Stop 02/06/18 at 10:43; Status DC Regadenoson (Lexiscan Inj) 0.4 mg STK-MED ONCE .ROUTE Last administered on 02/06at 11:16; Start 02/06/18 at 11:16; Stop 02/06/18 at 11:17; Status DC Potassium Chloride (KCl) 40 meq ONCE ONCE PO Last administered on 02/07/18at 13 :58; Start 02/07/18 at 12:30; Stop 02/07/18 at 12:31; Status DC Promethazine HCl (Phenergan Inj) 12.5 mg ONCE ONCE IM Last administered on at 16:58; Start 02/07/18 at 15:30; Stop 02/07/18 at 15:31; Status DC Lisinopril (Prinivil) 10 mg ONCE ONCE PO Last administered on 02/08/18at 11:55 ; Start 02/08/18 at 10:45; Stop 02/08/18 at 10:50; Status DC Lisinopril (Prinivil) 20 mg DAILY PO Last administered on 02/12/18at 08:51; Start 02/09/18 at 09:00 Enoxaparin Sodium (Lovenox Inj) 30 mg Q24H SQ Last administered on 02/09/18at 12 :24; Start 02/08/18 at 11:00; Stop 02/10/18 at 11:11; Status DC Enalaprilat (Vasotec Inj) 1.25 mg Q6H PRN IV PUSH SBP> OR = 180, DBP> OR = 100 ; Start 02/08/18 at 10:45 Calcium/Vitamin D (Oscal-D 250-125) 250 mg Q12HR PO Last administered on at 08:50; Start 02/08/18 at 21:00 Lorazepam (Ativan Inj) 0.5 mg ONCE ONCE IV PUSH Last administered on at 15:45; Start 02/09/18 at 09:15; Stop 02/09/18 at 09:16; Status DC Apixaban (Eliquis) 2.5 mg BID PO Last administered on 02/12/18at 08:50; Start at 21:00 A/P Problem List: (1) Fall ICD Code: W19.XXXA - Unspecified fall, initial encounter Status: Acute (2) Humerus fracture ICD Code: S42.309A - Unspecified fracture of shaft of humerus, unspecified arm , initial encounter for closed fracture (3) Anemia ICD Code: D64.9 - Anemia, unspecified (4) Lumbar compression fracture ICD Code: S32.000A - Wedge compression fracture of unspecified lumbar vertebra , initial encounter for closed fracture Status: Acute (5) Hypertension, benign ICD Code: I10 - Essential (primary) hypertension Status: Chronic Assessment and Plan 62-year-old female with a PMH of Rheumatoid Arthritis, Chronic Anemia, Lupus, Anxiety, Depression, Hepatitis C, COPD, A. fib on Eliquis and Tobacco Abuse who was brought to the ER by EMS after a fall. Patient states she was at home and had sudden trip and fall but was unable to get herself off the floor and laid there x2 days, "couldn't get motivated enough to get up". Fall: s/p mechanical trip and fall at home, reported prolonged down-time of 2 days as unable to get herself up. -Initial CPK 247, trended down to 141 -CT Head/C-Spine w/ no acute findings. -Pelvic X-ray w/ possible fracture, however CT Pelvis w/ old pubic fracture -PT consulted, recommending rehab. Patient lives alone and would definitely benefit from rehab placement Humerus/Acromion/Clavicle Fractures: X-ray w/ comminuted right proximal humerus fracture. -Consult ortho, who recommended nonoperative conservative treatment -RUE CT reviewed, showed severely comminuted right humeral head/neck fracture with impaction of humeral shaft into head; fracture of lateral acromion and distal clavicle -Dr. Thacker evaluated the patient and recommended on nonoperative conservative treatment for now -Continue sling and swath -Pain control with Rosanky prn pain Lumbar 1 compression fracture -due to persistent pain obtained neurosurgical evaluation to determine if patient is a candidate for kyphoplasty. Will likely need brace TLS), MRI of the lumbar spine results reviewed and ordered by neurosurgery. At this time, neurosurgery does not recommend any further surgical intervention. Chest pains: suspect musculoskeletal secondary to fall, pain reproducible on exam, however rule out cardiac disease. -ACS ruled out with negative serial cardiac enzymes x4 and EKG without acute ischemic changes -Given morphine, nitropaste, BB and received one dose of ASA. -Cardiology consulted for cardiac clearance -Nuclear stress test showed small focal ischemic at mid anterolateral wall; EF 65% -Cardiology reviewed findings, likely noncardiac chest pain, cleared for surgery, no further cardiac work up/intervention -Pain reproducible on exam, likely musculoskeletal secondary to fall, give pain medications as needed, will discontinue telemetry today Acute anemia from blood loss from trauma Acute on Chronic. -Hgb 8.2, previously 10.8, most likely from the trauma/fx area as she does have extensive bruising in shoulder area -continue to monitor closely, transfuse as needed. -Last hemoglobin 11 HTN: acute, BP elevated to 180s, this may be due to pain -on metoprolol 25mg bid, and on lisinopril 20 mg p.o. daily. -continue IV Vasotec prn -Monitor BP, adjust antihypertensives as needed Atrial Fibrillation: chronic, on Eliquis prior to admission. -currently in sinus rhythm -continue BB, metoprolol -monitor on telemetry -Eliquis to restart Hypokalemia, repleted-- WILL REPLACE AGAIN DVT Prophylaxis: teds/SCDs, will restart Eliquis upon discharge to snF Discharge Planning Await clearance for SNF placement Discharge has been none but BED is still pending Problem Qualifiers (1) Fall: Qualified Codes: W19.XXXA - Unspecified fall, initial encounter (2) Humerus fracture: Qualified Codes: S42.291A - Other displaced fracture of upper end of right humerus, initial encounter for closed fracture Anton Santoyo DO Feb 12, 2018 11:31
[2018-02-12 12:00] VITALS: BP 122/58; PULSE 70; RESP 16; TEMP 98.3; O2SAT 96
--- NOTE | 2018-02-12 12:05 | HHI.NSPN ---
Note Status Status: Progress Note Interval History Interval History Ms. Aguirre is a 62 year old female who presents following a fall. She states she has been recently falling at home. She was found to have a right humeral fracture that is being managed nonsurgically by Dr. Vila. She complains also of severe low back pain when she tries to move. She complains of worsening lower extremity weakness also. She denies radiating pain or paresthesias in her lower extremities, bowel or bladder incontinence. She suffers from Lupus. A CT of the lumbar spine shows severe compression fracture of L1 with 5 mm posterior retropulsion of fragments. Her anticoagulation has been held. Neurosurgical evaluation was requested. 02/09: pt seen this am during rounds, no change in low back pain, mri pending 02/10: MRI lumbar spine completed, no new changes to examination. 02/11: awaiting custom TLSO, regular TLSO not very comfortable. 02/12: ambulated with PT with regular TLSO, still awaiting custom. stable low back pain, no neuro complaints. Labs, Micro, & Vital Signs Results Date Time Temp Pulse Resp B/P (MAP) Pulse Ox O2 Delivery O2 Flow Rate FiO2 02/12/18 09:49 19 02/12/18 00:00 97.6 66 20 117/58 (77) 96 02/11/18 20:00 98.0 66 18 129/62 (84) 97 02/11/18 16:00 98.0 71 16 143/67 (92) 100 Constitutional Vital Signs Date Time Temp Pulse Resp B/P (MAP) Pulse Ox O2 Delivery O2 Flow Rate FiO2 02/12/18 09:49 19 02/12/18 00:00 97.6 66 20 117/58 (77) 96 02/11/18 20:00 98.0 66 18 129/62 (84) 97 02/11/18 16:00 98.0 71 16 143/67 (92) 100 Physical Exam General: Ms. Aguirre in no obvious distress in bed Neuro: Awake, alert and oriented to person, place, and time. Speech is clear but slow. Can follow single and multi-step commands without apraxia. Cranial nerve examination: pupils equal, round, and reactive to light. Extra-ocular movements are intact with normal convergence. Facial motor and sensory function are normal and symmetrical. Gross hearing is intact, bilaterally, to finger rub. The uvula is midline and elevates symmetrically with the soft palate. Sternocleidomastoid and deltoid muscles have normal and symmetrical strength. Other cranial nerves are intact. HEENT: Normocephalic, atraumatic. Gross hearing intact bilaterally. Nonicteric sclera. Neck: Kyphotic. No massess, no JVD. Trachea midline. Soft, supple, no meningismus or nuchal rigidity. Range of motion without pain Musculoskeletal: No peripheral edema. Right arm in sling. No clubbing. 4+ to 5-/ 5 left deltoid, biceps, triceps and clinical psychology teacher. In the lower extremities, strength is 4+ to 5-/5 bilateral iliopsoas, quadriceps, hamstrings, tibialis anterior, gastrocnemius, and extensor hallucis longus. Sensory examination report intact light touch in both the upper and lower extremities Deep tendon reflexes are left 1+ biceps, triceps, and brachioradialis in the upper extremities. In the lower extremities, the patellar and Achilles are trace , bilaterally. There is a bilateral plantar flexion response. Hoffmanns sign is negative. There is no ankle clonus. Thoracolumbar scoliosis, thoracic kyphosis. She is painful in the lumbar spine when she tries to move, and tender to palpation over the upper lumbar region. Cerebellar: intact finger to nose bilaterally Lungs: clear to auscultate bilaterally, nonlabored breathing on room air, no wheezing, no accessory muscle use. Heart: irregularly irregular Skin: warm and dry, no cyanosis or erythema. Medications Current Medications Current Medications Medications (Trade) Dose Ordered Sig/Jefferson Route PRN Reason Start Time Stop Time Status Last Admin Dose Admin Metoclopramide HCl (Reglan Inj) 5 mg Q6H PRN IV PUSH NAUSEA OR VOMITING 02/05/18 05:15 02/11/18 23:38 Acetaminophen (Tylenol) 650 mg Q6H PRN PO FEVER/PAIN SCALE 1 TO 2 02/05/18 05:15 02/07/18 00:07 Acetaminophen/ Hydrocodone Bitart (Orange 5-325 Mg) 1 tab Q4H PRN PO PAIN SCALE 3 TO 5 02/05/18 05:15 02/09/18 18:04 Morphine Sulfate (Morphine Inj) 2 mg Q3H PRN IV PUSH BREAKTHROUGH PAIN 02/05/18 05:30 02/06/18 10:10 Senna/Docusate Sodium (Racheal-Colace) 1 tab BID PO 02/05/18 09:00 02/11/18 20:32 Magnesium Hydroxide (Milk Of Magnesia Liq) 30 ml Q12H PRN PO Mild constipation 02/05/18 05:15 02/08/18 09:08 Sennosides (Senokot) 17.2 mg Q12H PRN PO Moderate constipation 02/05/18 05:15 02/08/18 09:08 Bisacodyl (Dulcolax Supp) 10 mg DAILY PRN RECTAL SEVERE CONSITIPATION 02/05/18 05:15 Lactulose (Lactulose Liq) 30 ml DAILY PRN PO SEVERE CONSITIPATION 02/05/18 05:15 Baclofen (Lioresal) 10 mg TID PO 02/05/18 09:00 02/12/18 08:50 Clonazepam (KlonoPIN) 0.5 mg BID PO 02/05/18 09:00 02/12/18 08:50 Fluoxetine HCl (PROzac) 20 mg DAILY PO 02/05/18 09:00 02/12/18 08:51 Hydroxyzine HCl (Atarax) 50 mg TID PRN PO ANXIETY 02/05/18 05:15 Metoprolol Succinate (Toprol Xl) 25 mg Q12HR PO 02/05/18 09:00 02/12/18 08:51 Enalaprilat (Vasotec Inj) 1.25 mg Q6H PRN IV PUSH SBP>160, DBP>90 02/05/18 16:15 02/09/18 14:24 Acetaminophen/ Hydrocodone Bitart (Orange 7.5-325 Mg) 1 tab Q4H PRN PO PAIN SCALE 6 TO 10 02/05/18 16:15 02/12/18 08:49 Sodium Chloride (NS Flush) 2 ml BID IV FLUSH 02/05/18 21:00 02/12/18 08:48 Sodium Chloride (NS Flush) 2 ml UNSCH PRN IV FLUSH FLUSH AFTER USING IV ACCESS 02/05/18 19:00 Morphine Sulfate (Morphine Inj) 2 mg Q30M PRN IV PUSH CHEST PAIN 02/05/18 19:00 02/05/18 19:36 Atorvastatin Calcium (Lipitor) 10 mg HS PO 02/05/18 21:00 02/11/18 20:32 Lisinopril (Prinivil) 20 mg DAILY PO 02/09/18 09:00 02/12/18 08:51 Enalaprilat (Vasotec Inj) 1.25 mg Q6H PRN IV PUSH SBP> OR = 180, DBP> OR = 100 02/08/18 10:45 Calcium/Vitamin D (Oscal-D 250-125) 250 mg Q12HR PO 02/08/18 21:00 02/12/18 08:50 Apixaban (Eliquis) 2.5 mg BID PO 02/10/18 21:00 02/12/18 08:50 Potassium Bicarb/ Potassium Chloride (K-Lyte Cl Eff) 50 meq ONCE ONCE PO 02/12/18 11:30 02/12/18 11:31 UNV Potassium Bicarb/ Potassium Chloride (K-Lyte Cl Eff) 50 meq ONCE ONCE PO 02/12/18 13:30 02/12/18 13:31 UNV Medical Decision Making MDM Remarks 62 y/o female s/p fall acute L1 severe compression fracture with canal retropulsion MRI reviewed by Dr. Doran, Plan Plan Remarks cont nonsurgical management, mobilize with TLSO brace, clear to dc to rehab once CUSTOM TLSO obtained, supportive care Sandi Mcnally Feb 12, 2018 12:05
[2018-02-12 12:29] LABS: HEMOGLOBIN A1C 4.7 % (4.3-6.0)
[2018-02-12] MEDS ORDERED: ONDANSETRON HCL 4 MG/2 ML VIAL ONE (13:09)
[2018-02-12] MEDS ORDERED: POTASSIUM CHLORIDE 10 MEQ CONTROLLED RELEASE TAB PO ONE (15:00)
--- NOTE | 2018-02-12 15:55 | OTSOAPIP ---
RECEIVED OCCUPATIONAL THERAPY ORDERS FROM DR. FLOREZ. ATTEMPTED TO SEE PATIENT, HOWEVER PATIENT ADAMANTLY DECLINES EVALUATION DESPITE EDUCATION IN ROLE OF OT. PATIENT REPORTED SHE FEELS NAUSEOUS AND STATED, "I HAVE PRESSURE ON MY CHEST." REPORTED TO LAYNE CHRISTINA. .WILL REATTEMPT NEXT DAY. INTERDISCIPLINARY COMMUNICATION: REVIEWED ELECTRONIC MEDICAL RECORD Therapist: Joann Florence, OTR/L Signature on file
[2018-02-12 16:00] VITALS: BP 119/76; PULSE 75; RESP 16; TEMP 98.4; O2SAT 94
[2018-02-12] MEDS ORDERED: POTASSIUM CHLORIDE 10 MEQ CAP PO ONE (17:00)
[2018-02-12 20:00] VITALS: BP 128/62; PULSE 66; RESP 16; TEMP 98; O2SAT 94
[2018-02-12] MEDS: ATORVASTATIN 10 MG TAB PO SCH (22:05)
[2018-02-13 00:20] VITALS: BP 132/64; PULSE 67; RESP 16; TEMP 98; O2SAT 98
[2018-02-13] MEDS: ACETAMINOPHEN/HYDROcodone 325 MG/7.5 MG TAB PO PRN ×5 (03:19→21:20)
[2018-02-13 08:00] VITALS: BP 133/64; PULSE 63; RESP 17; TEMP 97.3; O2SAT 96
[2018-02-13] MEDS: clonazePAM 0.5 MG TAB PO SCH ×2 (08:41→21:18)
[2018-02-13] MEDS: APIXABAN 2.5 MG TABLET PO SCH ×2 (08:41→21:18)
[2018-02-13] MEDS: CALCIUM/VITAMIN D 250 MG/125 U TAB PO SCH ×2 (08:41→21:18)
[2018-02-13] MEDS: DOCUSATE SODIUM 50 MG/SENNA 8.6 MG TAB PO SCH ×2 (08:41→21:18)
[2018-02-13] MEDS: FLUoxetine HCL 20 MG CAP PO SCH (08:41)
[2018-02-13] MEDS: BACLOFEN 10 MG TAB PO SCH ×3 (08:41→17:06)
[2018-02-13] MEDS: METOPROLOL SUCCINATE 25 MG EXTENDED RELEASE TAB PO SCH ×2 (08:41→21:19)
[2018-02-13] MEDS: LISINOPRIL 20 MG TAB PO SCH ×2 (08:41→08:44)
[2018-02-13] MEDS: SODIUM CHLORIDE 0.9% FLUSH 10 ML FLUSH IV FLUSH SCH ×2 (09:00→21:20)
[2018-02-13 09:55] LABS: AUTOMATED NEUTROPHIL # 5.5 TH/MM3 (1.8-7.7); BASOPHIL # 0.1 TH/MM3 (0-0.2); BASOPHIL % 0.7 % (0.0-2.0); EOSINOPHIL % 0.6 % (0.0-4.0); HEMATOCRIT 34.7 % (35.0-46.0); HEMOGLOBIN 11.1 GM/DL (11.6-15.3); LYMPH % 15.4 % (9.0-44.0); LYMPHOCYTE # 1.1 TH/MM3 (1.0-4.8); MEAN CELL VOLUME 82.3 FL (80.0-100.0); MEAN CORPUSCULAR HEMOGLOBIN 26.3 PG (27.0-34.0); MONO % 4.1 % (0.0-8.0); MONOCYTE # 0.3 TH/MM3 (0-0.9); NEUT % 79.2 % (16.0-70.0); PLATELET COUNT 264 TH/MM3 (150-450); RED BLOOD COUNT 4.22 MIL/MM3 (4.00-5.30); RED CELL DISTRIBUTION WIDTH 16.3 % (11.6-17.2); WHITE BLOOD COUNT 6.9 TH/MM3 (4.0-11.0)
--- NOTE | 2018-02-13 10:41 | HHI.NSPN ---
(Sandi Mcnally) Note Status Status: Progress Note (Sandi Mcnally) Interval History Interval History Ms. Aguirre is a 62 year old female who presents following a fall. She states she has been recently falling at home. She was found to have a right humeral fracture that is being managed nonsurgically by Dr. Vila. She complains also of severe low back pain when she tries to move. She complains of worsening lower extremity weakness also. She denies radiating pain or paresthesias in her lower extremities, bowel or bladder incontinence. She suffers from Lupus. A CT of the lumbar spine shows severe compression fracture of L1 with 5 mm posterior retropulsion of fragments. Her anticoagulation has been held. Neurosurgical evaluation was requested. 02/09: pt seen this am during rounds, no change in low back pain, mri pending 02/10: MRI lumbar spine completed, no new changes to examination. 02/11: awaiting custom TLSO, regular TLSO not very comfortable. 02/12: ambulated with PT with regular TLSO, still awaiting custom. stable low back pain, no neuro complaints. 02/13: no changes overnight, still awaiting custom brace. denies new neurological complaints. (Sandi Mcnally) Labs, Micro, & Vital Signs Results Date Time Temp Pulse Resp B/P (MAP) Pulse Ox O2 Delivery O2 Flow Rate FiO2 02/13/18 08:00 97.3 63 17 133/64 (87) 96 02/13/18 00:20 98.0 67 16 132/64 (86) 98 02/12/18 20:00 98.0 66 16 128/62 (84) 94 02/12/18 16:00 98.4 75 16 119/76 (90) 94 02/12/18 13:57 18 02/12/18 12:00 98.3 70 16 122/58 (79) 96 Constitutional Vital Signs Date Time Temp Pulse Resp B/P (MAP) Pulse Ox O2 Delivery O2 Flow Rate FiO2 02/13/18 08:00 97.3 63 17 133/64 (87) 96 02/13/18 00:20 98.0 67 16 132/64 (86) 98 02/12/18 20:00 98.0 66 16 128/62 (84) 94 02/12/18 16:00 98.4 75 16 119/76 (90) 94 02/12/18 13:57 18 02/12/18 12:00 98.3 70 16 122/58 (79) 96 (Sandi Mcnally) Physical Exam General: Ms. Aguirre is very khyphotic, painful but in no obvious distress in bed Neuro: Awake, alert and oriented to person, place, and time. Speech is clear but slow. Can follow single and multi-step commands without apraxia. Cranial nerve examination: pupils equal, round, and reactive to light. Extra-ocular movements are intact with normal convergence. Facial motor and sensory function are normal and symmetrical. Gross hearing is intact, bilaterally, to finger rub. The uvula is midline and elevates symmetrically with the soft palate. Sternocleidomastoid and deltoid muscles have normal and symmetrical strength. Other cranial nerves are intact. HEENT: Normocephalic, atraumatic. Gross hearing intact bilaterally. Nonicteric sclera. Neck: Kyphotic. No massess, no JVD. Trachea midline. Soft, supple, no meningismus or nuchal rigidity. Range of motion without pain Musculoskeletal: No peripheral edema. Right arm in sling. No clubbing. 4+ to 5-/ 5 left deltoid, biceps, triceps and sql report analyst. In the lower extremities, strength is 4+ to 5-/5 bilateral iliopsoas, quadriceps, hamstrings, tibialis anterior, gastrocnemius, and extensor hallucis longus. Sensory examination report intact light touch in both the upper and lower extremities Deep tendon reflexes are left 1+ biceps, triceps, and brachioradialis in the upper extremities. In the lower extremities, the patellar and Achilles are trace , bilaterally. There is a bilateral plantar flexion response. Hoffmanns sign is negative. There is no ankle clonus. Thoracolumbar scoliosis, thoracic kyphosis. She is painful in the lumbar spine when she tries to move, and tender to palpation over the upper lumbar region. Cerebellar: intact finger to nose bilaterally Lungs: clear to auscultate bilaterally, nonlabored breathing on room air, no wheezing, no accessory muscle use. Heart: irregularly irregular Skin: warm and dry, no cyanosis or erythema. (Sandi Mcnally) General: Ms. Aguirre is very khyphotic, painful but in no obvious distress in bed Neuro: Awake, alert and oriented to person, place, and time. Speech is clear but slow. Can follow single and multi-step commands without apraxia. Cranial nerve examination: pupils equal, round, and reactive to light. Extra-ocular movements are intact with normal convergence. Facial motor and sensory function are normal and symmetrical. Gross hearing is intact, bilaterally, to finger rub. The uvula is midline and elevates symmetrically with the soft palate. Sternocleidomastoid and deltoid muscles have normal and symmetrical strength. Other cranial nerves are intact. HEENT: Normocephalic, atraumatic. Gross hearing intact bilaterally. Nonicteric sclera. Neck: Kyphotic. No massess, no JVD. Trachea midline. Soft, supple, no meningismus or nuchal rigidity. Range of motion without pain Musculoskeletal: No peripheral edema. Right arm in sling. No clubbing. 4+ to 5-/ 5 left deltoid, biceps, triceps and sql report analyst. In the lower extremities, strength is 4+ to 5-/5 bilateral iliopsoas, quadriceps, hamstrings, tibialis anterior, gastrocnemius, and extensor hallucis longus. Sensory examination report intact light touch in both the upper and lower extremities Deep tendon reflexes are left 1+ biceps, triceps, and brachioradialis in the upper extremities. In the lower extremities, the patellar and Achilles are trace , bilaterally. There is a bilateral plantar flexion response. Hoffmanns sign is negative. There is no ankle clonus. Thoracolumbar scoliosis, thoracic kyphosis. She is painful in the lumbar spine when she tries to move, and tender to palpation over the upper lumbar region. Cerebellar: intact finger to nose bilaterally Lungs: clear to auscultate bilaterally, nonlabored breathing on room air, no wheezing, no accessory muscle use. Heart: irregularly irregular Skin: warm and dry, no cyanosis or erythema. (Ankit Doran MD) Medications Current Medications Current Medications Medications (Trade) Dose Ordered Sig/Jefferson Route PRN Reason Start Time Stop Time Status Last Admin Dose Admin Metoclopramide HCl (Reglan Inj) 5 mg Q6H PRN IV PUSH NAUSEA OR VOMITING 02/05/18 05:15 02/11/18 23:38 Acetaminophen (Tylenol) 650 mg Q6H PRN PO FEVER/PAIN SCALE 1 TO 2 02/05/18 05:15 02/07/18 00:07 Acetaminophen/ Hydrocodone Bitart (Indore 5-325 Mg) 1 tab Q4H PRN PO PAIN SCALE 3 TO 5 02/05/18 05:15 02/09/18 18:04 Morphine Sulfate (Morphine Inj) 2 mg Q3H PRN IV PUSH BREAKTHROUGH PAIN 02/05/18 05:30 02/06/18 10:10 Senna/Docusate Sodium (Racheal-Colace) 1 tab BID PO 02/05/18 09:00 02/13/18 08:41 Magnesium Hydroxide (Milk Of Magnesia Liq) 30 ml Q12H PRN PO Mild constipation 02/05/18 05:15 02/08/18 09:08 Sennosides (Senokot) 17.2 mg Q12H PRN PO Moderate constipation 02/05/18 05:15 02/08/18 09:08 Bisacodyl (Dulcolax Supp) 10 mg DAILY PRN RECTAL SEVERE CONSITIPATION 02/05/18 05:15 Lactulose (Lactulose Liq) 30 ml DAILY PRN PO SEVERE CONSITIPATION 02/05/18 05:15 Baclofen (Lioresal) 10 mg TID PO 02/05/18 09:00 02/13/18 08:41 Clonazepam (KlonoPIN) 0.5 mg BID PO 02/05/18 09:00 02/13/18 08:41 Fluoxetine HCl (PROzac) 20 mg DAILY PO 02/05/18 09:00 02/13/18 08:41 Hydroxyzine HCl (Atarax) 50 mg TID PRN PO ANXIETY 02/05/18 05:15 Metoprolol Succinate (Toprol Xl) 25 mg Q12HR PO 02/05/18 09:00 02/13/18 08:41 Acetaminophen/ Hydrocodone Bitart (Indore 7.5-325 Mg) 1 tab Q4H PRN PO PAIN SCALE 6 TO 10 02/05/18 16:15 02/13/18 08:40 Sodium Chloride (NS Flush) 2 ml BID IV FLUSH 02/05/18 21:00 02/13/18 09:00 Sodium Chloride (NS Flush) 2 ml UNSCH PRN IV FLUSH FLUSH AFTER USING IV ACCESS 02/05/18 19:00 Morphine Sulfate (Morphine Inj) 2 mg Q30M PRN IV PUSH CHEST PAIN 02/05/18 19:00 02/05/18 19:36 Atorvastatin Calcium (Lipitor) 10 mg HS PO 02/05/18 21:00 02/12/18 22:05 Lisinopril (Prinivil) 20 mg DAILY PO 02/09/18 09:00 02/12/18 08:51 Enalaprilat (Vasotec Inj) 1.25 mg Q6H PRN IV PUSH SBP> OR = 180, DBP> OR = 100 02/08/18 10:45 Calcium/Vitamin D (Oscal-D 250-125) 250 mg Q12HR PO 02/08/18 21:00 02/13/18 08:41 Apixaban (Eliquis) 2.5 mg BID PO 02/10/18 21:00 02/13/18 08:41 (Sandi Mcnally) Current Medications Current Medications Acetaminophen/ Hydrocodone Bitart (Indore 5-325 Mg) 1 tab ONCE ONCE PO Last administered on 02/05/18at 02:47; Start 02/05/18 at 02:00; Stop 02/05/18 at 02:01 ; Status DC Hydroxyzine Pamoate (Vistaril) 50 mg ONCE ONCE PO Last administered on at 05:31; Start 02/05/18 at 05:15; Stop 02/05/18 at 05:19; Status DC Sodium Chloride 1,000 ml @ 100 mls/hr Q10H IV Last administered on 02/05/18at 15:05; Start 02/05/18 at 05:05; Stop 02/06/18 at 10:24; Status DC Sodium Chloride (NS Flush) 2 ml UNSCH PRN IV FLUSH FLUSH AFTER USING IV ACCESS ; Start 02/05/18 at 05:15; Stop 02/07/18 at 12:23; Status DC Sodium Chloride (NS Flush) 2 ml BID IV FLUSH Last administered on 02/07/18at 09: 43; Start 02/05/18 at 09:00; Stop 02/07/18 at 12:23; Status DC Metoclopramide HCl (Reglan Inj) 5 mg Q6H PRN IV PUSH NAUSEA OR VOMITING Last administered on 02/13/18at 21:26; Start 02/05/18 at 05:15; Stop 02/14/18 at 11:41 ; Status DC Acetaminophen (Tylenol) 650 mg Q6H PRN PO FEVER/PAIN SCALE 1 TO 2 Last administered on 02/07/18at 00:07; Start 02/05/18 at 05:15; Stop 02/14/18 at 11:41 ; Status DC Acetaminophen/ Hydrocodone Bitart (Indore 5-325 Mg) 1 tab Q4H PRN PO PAIN SCALE 3 TO 5 Last administered on 02/09/18at 18:04; Start 02/05/18 at 05:15; Stop 02/14/18 at 11:41; Status DC Morphine Sulfate (Morphine Inj) 2 mg Q3H PRN IV PUSH BREAKTHROUGH PAIN Last administered on 02/06/18at 10:10; Start 02/05/18 at 05:30; Stop 02/14/18 at 11:41 ; Status DC Senna/Docusate Sodium (Racheal-Colace) 1 tab BID PO Last administered on at 08:23; Start 02/05/18 at 09:00; Stop 02/14/18 at 11:41; Status DC Magnesium Hydroxide (Milk Of Magnesia Liq) 30 ml Q12H PRN PO Mild constipation Last administered on 02/14/18at 06:50; Start 02/05/18 at 05:15; Stop 02/14/18 at 11:41; Status DC Sennosides (Senokot) 17.2 mg Q12H PRN PO Moderate constipation Last administered on 02/08/18at 09:08; Start 02/05/18 at 05:15; Stop 02/14/18 at 11:41 ; Status DC Bisacodyl (Dulcolax Supp) 10 mg DAILY PRN RECTAL SEVERE CONSITIPATION; Start at 05:15; Stop 02/14/18 at 11:41; Status DC Lactulose (Lactulose Liq) 30 ml DAILY PRN PO SEVERE CONSITIPATION; Start at 05:15; Stop 02/14/18 at 11:41; Status DC Baclofen (Lioresal) 10 mg TID PO Last administered on 02/14/18at 08:23; Start at 09:00; Stop 02/14/18 at 11:41; Status DC Clonazepam (KlonoPIN) 0.5 mg BID PO Last administered on 02/14/18at 08:23; Start 02/05/18 at 09:00; Stop 02/14/18 at 11:41; Status DC Fluoxetine HCl (PROzac) 20 mg DAILY PO Last administered on 02/14/18at 08:22; Start 02/05/18 at 09:00; Stop 02/14/18 at 11:41; Status DC Hydroxyzine HCl (Atarax) 50 mg TID PRN PO ANXIETY; Start 02/05/18 at 05:15; Stop 02/14/18 at 11:41; Status DC Metoprolol Succinate (Toprol Xl) 25 mg Q12HR PO Last administered on 02/14/18at 08:22; Start 02/05/18 at 09:00; Stop 02/14/18 at 11:41; Status DC Enalaprilat (Vasotec Inj) 1.25 mg Q6H PRN IV PUSH SBP>160, DBP>90 Last administered on 02/09/18at 14:24; Start 02/05/18 at 16:15; Stop 02/12/18 at 13:33 ; Status DC Acetaminophen/ Hydrocodone Bitart (Indore 7.5-325 Mg) 1 tab Q4H PRN PO PAIN SCALE 6 TO 10 Last administered on 02/14/18at 10:37; Start 02/05/18 at 16:15; Stop 02/14/18 at 11:41; Status DC Sodium Chloride (NS Flush) 2 ml BID IV FLUSH Last administered on 02/14/18at 08: 23; Start 02/05/18 at 21:00; Stop 02/14/18 at 11:41; Status DC Sodium Chloride (NS Flush) 2 ml UNSCH PRN IV FLUSH FLUSH AFTER USING IV ACCESS ; Start 02/05/18 at 19:00; Stop 02/14/18 at 11:41; Status DC Aspirin (Aspirin) 325 mg NOW PO Last administered on 02/05/18at 19:36; Start at 19:00; Stop 02/06/18 at 18:59; Status DC Morphine Sulfate (Morphine Inj) 2 mg Q30M PRN IV PUSH CHEST PAIN Last administered on 02/05/18at 19:36; Start 02/05/18 at 19:00; Stop 02/14/18 at 11:41 ; Status DC Metoprolol Tartrate (Lopressor) 12.5 mg BID PO ; Start 02/05/18 at 21:00; Stop 02/05/18 at 21:00; Status DC Atorvastatin Calcium (Lipitor) 10 mg HS PO Last administered on 02/13/18at 21:18 ; Start 02/05/18 at 21:00; Stop 02/14/18 at 11:41; Status DC Nitroglycerin (Nitroglycerin 2% Oint) 0.5 inch Q6HR TOPICAL Last administered on 02/07/18at 12:18; Start 02/05/18 at 19:00; Stop 02/07/18 at 15:24; Status DC Lisinopril (Prinivil) 5 mg DAILY PO Last administered on 02/05/18at 19:44; Start 02/05/18 at 19:15; Stop 02/06/18 at 08:43; Status DC Lisinopril (Prinivil) 10 mg DAILY PO Last administered on 02/08/18at 09:08; Start 02/06/18 at 09:00; Stop 02/08/18 at 10:38; Status DC Potassium Chloride (KCl) 40 meq ONCE ONCE PO Last administered on 02/06/18at 10 :30; Start 02/06/18 at 10:30; Stop 02/06/18 at 10:43; Status DC Regadenoson (Lexiscan Inj) 0.4 mg STK-MED ONCE .ROUTE Last administered on 02/06at 11:16; Start 02/06/18 at 11:16; Stop 02/06/18 at 11:17; Status DC Potassium Chloride (KCl) 40 meq ONCE ONCE PO Last administered on 02/07/18at 13 :58; Start 02/07/18 at 12:30; Stop 02/07/18 at 12:31; Status DC Promethazine HCl (Phenergan Inj) 12.5 mg ONCE ONCE IM Last administered on at 16:58; Start 02/07/18 at 15:30; Stop 02/07/18 at 15:31; Status DC Lisinopril (Prinivil) 10 mg ONCE ONCE PO Last administered on 02/08/18at 11:55 ; Start 02/08/18 at 10:45; Stop 02/08/18 at 10:50; Status DC Lisinopril (Prinivil) 20 mg DAILY PO Last administered on 02/14/18at 08:23; Start 02/09/18 at 09:00; Stop 02/14/18 at 11:41; Status DC Enoxaparin Sodium (Lovenox Inj) 30 mg Q24H SQ Last administered on 02/09/18at 12 :24; Start 02/08/18 at 11:00; Stop 02/10/18 at 11:11; Status DC Enalaprilat (Vasotec Inj) 1.25 mg Q6H PRN IV PUSH SBP> OR = 180, DBP> OR = 100 ; Start 02/08/18 at 10:45; Stop 02/14/18 at 11:41; Status DC Calcium/Vitamin D (Oscal-D 250-125) 250 mg Q12HR PO Last administered on at 08:22; Start 02/08/18 at 21:00; Stop 02/14/18 at 11:41; Status DC Lorazepam (Ativan Inj) 0.5 mg ONCE ONCE IV PUSH Last administered on at 15:45; Start 02/09/18 at 09:15; Stop 02/09/18 at 09:16; Status DC Apixaban (Eliquis) 2.5 mg BID PO Last administered on 02/14/18at 08:23; Start at 21:00; Stop 02/14/18 at 11:41; Status DC Potassium Bicarb/ Potassium Chloride (K-Lyte Cl Eff) 50 meq ONCE ONCE PO ; Start 02/12/18 at 11:30; Stop 02/12/18 at 14:58; Status DC Potassium Bicarb/ Potassium Chloride (K-Lyte Cl Eff) 50 meq ONCE ONCE PO ; Start 02/12/18 at 13:30; Stop 02/12/18 at 14:58; Status DC Ondansetron HCl (Zofran Inj) 4 mg STK-MED ONCE .ROUTE Last administered on 02/12at 13:11; Start 02/12/18 at 13:09; Stop 02/12/18 at 13:10; Status DC Potassium Chloride (KCl) 50 meq ONCE ONCE PO Last administered on 02/12/18at 15 :10; Start 02/12/18 at 15:00; Stop 02/12/18 at 15:04; Status DC Potassium Chloride (KCl) 50 meq ONCE ONCE PO Last administered on 02/12/18at 16 :49; Start 02/12/18 at 17:00; Stop 02/12/18 at 17:01; Status DC (Ankit Doran MD) Medical Decision Making MDM Remarks 62 y/o female s/p fall acute L1 severe compression fracture with canal retropulsion MRI reviewed by Dr. Doran, (Sandi Mcnally) Plan Plan Remarks MRI lumbar spine reviewed, cont nonsurgical management of lumbar fracture, recommend custom molded TLSO brace, she may be discharged to rehab once custom TLSO brace obtained We have discussed with the patient the alternatives of treatment regarding continuing nonsurgical management with an orthopedic brace, versus surgical fixation. She is not interested in undergoing any surgical procedures. Awaiting custom TLSO brace, once completed she may be discharged to snf facility (Sandi Mcnally) Attending Statement Continue nonoperative treatment with thoracolumbar orthosis. She does not want surgery. She wants to be managed in a nonsurgical fashion Continue analgesics for pain control Continue aggressive pulmonary toilette, nasotracheal suction, and breathing treatments with nebulizers. Renal. monitor closely urine output, BUN and creatinine Endocrine. Monitor serial Acu checks and SSI as needed in detail ID monitor for signs of infection Protonix for stress ulcer prophylaxis Orion hose and SCD's for DVT prophylaxis The exam, history, and the medical decision-making described in the above note were completed with the assistance of the mid-level provider. I reviewed and agree with the findings presented. I attest that I had a [id number] encounter with the patient on the same day, and personally performed and documented my assessment and findings in the medical record. (Ankit Doran MD) Sandi Mcnally Feb 13, 2018 10:41 Ankit Doran MD Feb 15, 2018 14:14
--- NOTE | 2018-02-13 11:04 | HHI.PR ---
Subjective Remarks 02-11 Patient is complaining of some back pain still Has a TLSO brace but not the correct one Patient needs to wait the correct one before discharge Await clearance by her insurance for SNF Continue PT and OT 02-12 AWAIT BETTER FITTING TSLO BRACE HOPEFULLY TO SNF TOMORROW WORKING WITH PT AND OT DC TO SNF ONCE HAS [facility] APPROVAL DW RN AND PT AND CM HYPOKALEMIA - REPLACE POTASSIUM 02-13 AWAIT CUSTOM BRACE DC ONCE HAS BRACE AND SNF APPROVAL Objective Vitals Vital Signs Date Time Temp Pulse Resp B/P (MAP) Pulse Ox O2 Delivery O2 Flow Rate FiO2 02/13/18 08:00 97.3 63 17 133/64 (87) 96 02/13/18 00:20 98.0 67 16 132/64 (86) 98 02/12/18 20:00 98.0 66 16 128/62 (84) 94 02/12/18 16:00 98.4 75 16 119/76 (90) 94 02/12/18 13:57 18 02/12/18 12:00 98.3 70 16 122/58 (79) 96 I/O 02/12/18 02/12/18 02/12/18 02/13/18 02/13/18 02/13/18 07:00 15:00 23:00 07:00 15:00 23:00 Intake Total 480 ml 360 ml Balance 480 ml 360 ml Intake Oral 480 ml 360 ml # Voids 3 4 # Bowel Movements 1 Result Diagram: 02/13/18 0913 02/12/18 0525 Other Results Laboratory Tests Test 02/12/18 05:25 02/13/18 09:13 White Blood Count 6.7 TH/MM3 6.9 TH/MM3 Red Blood Count 3.57 MIL/MM3 4.22 MIL/MM3 Hemoglobin 9.6 GM/DL 11.1 GM/DL Hematocrit 29.0 % 34.7 % Mean Corpuscular Volume 81.1 FL 82.3 FL Mean Corpuscular Hemoglobin 26.8 PG 26.3 PG Mean Corpuscular Hemoglobin Concent 33.0 % 32.0 % Red Cell Distribution Width 16.3 % 16.3 % Platelet Count 304 TH/MM3 264 TH/MM3 Mean Platelet Volume 7.8 FL 8.0 FL Neutrophils (%) (Auto) 60.2 % 79.2 % Lymphocytes (%) (Auto) 28.2 % 15.4 % Monocytes (%) (Auto) 9.5 % 4.1 % Eosinophils (%) (Auto) 1.3 % 0.6 % Basophils (%) (Auto) 0.8 % 0.7 % Neutrophils # (Auto) 4.0 TH/MM3 5.5 TH/MM3 Lymphocytes # (Auto) 1.9 TH/MM3 1.1 TH/MM3 Monocytes # (Auto) 0.6 TH/MM3 0.3 TH/MM3 Eosinophils # (Auto) 0.1 TH/MM3 0.0 TH/MM3 Basophils # (Auto) 0.1 TH/MM3 0.1 TH/MM3 CBC Comment DIFF FINAL DIFF FINAL Differential Comment Blood Urea Nitrogen 26 MG/DL Creatinine 0.63 MG/DL Random Glucose 141 MG/DL Total Protein 7.0 GM/DL Albumin 3.0 GM/DL Calcium Level 8.7 MG/DL Phosphorus Level 3.0 MG/DL Magnesium Level 2.1 MG/DL Alkaline Phosphatase 136 U/L Aspartate Amino Transf (AST/SGOT) 21 U/L Alanine Aminotransferase (ALT/SGPT) 16 U/L Total Bilirubin 0.5 MG/DL Sodium Level 140 MEQ/L Potassium Level 3.0 MEQ/L Chloride Level 102 MEQ/L Carbon Dioxide Level 27.9 MEQ/L Anion Gap 10 MEQ/L Estimat Glomerular Filtration Rate 96 ML/MIN Hemoglobin A1c 4.7 % Free Thyroxine 1.23 NG/DL Thyroid Stimulating Hormone 3rd Gen 2.690 uIU/ML Imaging Last Impressions Lumbar Spine MRI 02/09/18 0000 Signed Impressions: CONCLUSION: 1. Unchanged compression fracture of L1 with 5 mm of retropulsion. There is ab utment of the conus. 2. Degenerative changes most pronounced at L3-L4 and L4-L5 without central can al stenosis or neural impingement. Upper Extremity CT 02/07/18 0000 Signed Impressions: CONCLUSION: 1. Severely comminuted right humeral head and neck fracture with impaction of the humeral shaft into the humeral head. 2. Mild posterior subluxation of the humeral head in relation to the glenoid. 3. Fracture of the lateral aspect of the acromion and distal clavicle. Lumbar Spine CT 02/07/18 0000 Signed Impressions: CONCLUSION: 1. Prominent S-shaped scoliosis of the thoracolumbar spine centered at L3-4 an d the lumbar spine. 2. Progressive severe compression fracture of L1 superior endplate in comparis on to 11/02/2017 CT exam. There is 5 mm posterior retropulsion of fragments with persistent fracture plane and vacuum phenomenon. This indicates persistent fra cture mobility at this level. 3. Prominent multilevel degenerative spondylosis most prominently at L4-5 with moderate severe right neural foraminal narrowing. Head CT 02/07/18 0000 Signed Impressions: CONCLUSION: 1. Negative CT Head non contrast. Abdomen X-Ray 02/07/18 0000 Signed Impressions: CONCLUSION: Benign-appearing abdomen. Myocardial Perfusion Scan Nuc Med 02/06/18 0000 Signed Impressions: CONCLUSION: 1. Focal ischemia in the mid anterolateral wall. 2. Intact wall motion with EF of 65%. Shoulder X-Ray 02/05/18 0000 Signed Impressions: CONCLUSION: Comminuted fracture right proximal humerus. There appears to be fracture of the acromion as well. Pelvis X-Ray 02/05/18 0000 Signed Impressions: CONCLUSION: Questionable fracture inferior pubic ramus on the right. Pelvis CT 02/05/18 0000 Signed Impressions: CONCLUSION: 1. No acute fracture. 2. Old fracture right inferior pubic ramus. Humerus X-Ray 02/05/18 0000 Signed Impressions: CONCLUSION: Comminuted fracture right proximal humerus Elbow X-Ray 02/05/18 0000 Signed Impressions: CONCLUSION: No acute fracture right elbow Chest X-Ray 02/05/18 0000 Signed Impressions: CONCLUSION: Cardiomegaly. No consolidation or significant effusion. Comminuted right proxim al humeral fracture. Rotation left humerus. Cervical Spine CT 02/05/18 0000 Signed Impressions: CONCLUSION: 1. No acute fracture or subluxation. Objective Remarks GENERAL: Awake alert and oriented 3 talkative and cooperative SKIN: Warm and dry. HEAD: Atraumatic. Normocephalic. EYES: Pupils equal and round. No scleral icterus. No injection or drainage. Extraocular muscles intact ENT: No nasal bleeding or discharge. Mucous membranes pink and moist. Tongue is midline NECK: Trachea midline. No JVD. Tongue is midline supple CARDIOVASCULAR: Regular rate and rhythm. S1-S2 no S3 or S4 RESPIRATORY: No accessory muscle use. Clear to auscultation. Breath sounds equal bilaterally. GASTROINTESTINAL: Abdomen soft, non-tender, nondistended. Hepatic and splenic margins not palpable. MUSCULOSKELETAL: Extremities without clubbing, cyanosis, or edema. No obvious deformities. Has some decreased range of motion secondary to back pain NEUROLOGICAL: Awake and alert. No obvious cranial nerve deficits. Motor grossly within normal limits. 4 out of 5 muscle strength in the arms and legs. Normal speech. PSYCHIATRIC: Appropriate mood and affect; insight and judgment normal. Procedures None. Medications and IVs Current Medications Acetaminophen/ Hydrocodone Bitart ([place] 5-325 Mg) 1 tab ONCE ONCE PO Last administered on 02/05/18at 02:47; Start 02/05/18 at 02:00; Stop 02/05/18 at 02:01 ; Status DC Hydroxyzine Pamoate (Vistaril) 50 mg ONCE ONCE PO Last administered on at 05:31; Start 02/05/18 at 05:15; Stop 02/05/18 at 05:19; Status DC Sodium Chloride 1,000 ml @ 100 mls/hr Q10H IV Last administered on 02/05/18at 15:05; Start 02/05/18 at 05:05; Stop 02/06/18 at 10:24; Status DC Sodium Chloride (NS Flush) 2 ml UNSCH PRN IV FLUSH FLUSH AFTER USING IV ACCESS ; Start 02/05/18 at 05:15; Stop 02/07/18 at 12:23; Status DC Sodium Chloride (NS Flush) 2 ml BID IV FLUSH Last administered on 02/07/18at 09: 43; Start 02/05/18 at 09:00; Stop 02/07/18 at 12:23; Status DC Metoclopramide HCl (Reglan Inj) 5 mg Q6H PRN IV PUSH NAUSEA OR VOMITING Last administered on 02/11/18at 23:38; Start 02/05/18 at 05:15 Acetaminophen (Tylenol) 650 mg Q6H PRN PO FEVER/PAIN SCALE 1 TO 2 Last administered on 02/07/18at 00:07; Start 02/05/18 at 05:15 Acetaminophen/ Hydrocodone Bitart ([place] 5-325 Mg) 1 tab Q4H PRN PO PAIN SCALE 3 TO 5 Last administered on 02/09/18 18:04; Start 02/05/18 at 05:15 Morphine Sulfate (Morphine Inj) 2 mg Q3H PRN IV PUSH BREAKTHROUGH PAIN Last administered on 02/06/18at 10:10; Start 02/05/18 at 05:30 Senna/Docusate Sodium (Racheal-Colace) 1 tab BID PO Last administered on 08:41; Start 02/05/18 at 09:00 Magnesium Hydroxide (Milk Of Magnesia Liq) 30 ml Q12H PRN PO Mild constipation Last administered on 02/08/18 09:08; Start 02/05/18 at 05:15 Sennosides (Senokot) 17.2 mg Q12H PRN PO Moderate constipation Last administered on 02/08/18 09:08; Start 02/05/18 at 05:15 Bisacodyl (Dulcolax Supp) 10 mg DAILY PRN RECTAL SEVERE CONSITIPATION; Start at 05:15 Lactulose (Lactulose Liq) 30 ml DAILY PRN PO SEVERE CONSITIPATION; Start at 05:15 Baclofen (Lioresal) 10 mg TID PO Last administered on 02/13/18 08:41; Start at 09:00 Clonazepam (KlonoPIN) 0.5 mg BID PO Last administered on 02/13/18 08:41; Start 02/05/18 at 09:00 Fluoxetine HCl (PROzac) 20 mg DAILY PO Last administered on 02/13/18 08:41; Start 02/05/18 at 09:00 Hydroxyzine HCl (Atarax) 50 mg TID PRN PO ANXIETY; Start 02/05/18 at 05:15 Metoprolol Succinate (Toprol Xl) 25 mg Q12HR PO Last administered on 02/13/18 08:41; Start 02/05/18 at 09:00 Enalaprilat (Vasotec Inj) 1.25 mg Q6H PRN IV PUSH SBP>160, DBP>90 Last administered on 02/09/18 14:24; Start 02/05/18 at 16:15; Stop 02/12/18 at 13:33 ; Status DC Acetaminophen/ Hydrocodone Bitart ([place] 7.5-325 Mg) 1 tab Q4H PRN PO PAIN SCALE 6 TO 10 Last administered on 02/13/18 08:40; Start 02/05/18 at 16:15 Sodium Chloride (NS Flush) 2 ml BID IV FLUSH Last administered on 02/13/18 09: 00; Start 02/05/18 at 21:00 Sodium Chloride (NS Flush) 2 ml UNSCH PRN IV FLUSH FLUSH AFTER USING IV ACCESS ; Start 02/05/18 at 19:00 Aspirin (Aspirin) 325 mg NOW PO Last administered on 02/05/18at 19:36; Start at 19:00; Stop 02/06/18 at 18:59; Status DC Morphine Sulfate (Morphine Inj) 2 mg Q30M PRN IV PUSH CHEST PAIN Last administered on 02/05/18at 19:36; Start 02/05/18 at 19:00 Metoprolol Tartrate (Lopressor) 12.5 mg BID PO ; Start 02/05/18 at 21:00; Stop 02/05/18 at 21:00; Status DC Atorvastatin Calcium (Lipitor) 10 mg HS PO Last administered on 02/12/18at 22:05 ; Start 02/05/18 at 21:00 Nitroglycerin (Nitroglycerin 2% Oint) 0.5 inch Q6HR TOPICAL Last administered on 02/07/18at 12:18; Start 02/05/18 at 19:00; Stop 02/07/18 at 15:24; Status DC Lisinopril (Prinivil) 5 mg DAILY PO Last administered on 02/05/18at 19:44; Start 02/05/18 at 19:15; Stop 02/06/18 at 08:43; Status DC Lisinopril (Prinivil) 10 mg DAILY PO Last administered on 02/08/18at 09:08; Start 02/06/18 at 09:00; Stop 02/08/18 at 10:38; Status DC Potassium Chloride (KCl) 40 meq ONCE ONCE PO Last administered on 02/06/18at 10 :30; Start 02/06/18 at 10:30; Stop 02/06/18 at 10:43; Status DC Regadenoson (Lexiscan Inj) 0.4 mg STK-MED ONCE .ROUTE Last administered on 02/06at 11:16; Start 02/06/18 at 11:16; Stop 02/06/18 at 11:17; Status DC Potassium Chloride (KCl) 40 meq ONCE ONCE PO Last administered on 02/07/18at 13 :58; Start 02/07/18 at 12:30; Stop 02/07/18 at 12:31; Status DC Promethazine HCl (Phenergan Inj) 12.5 mg ONCE ONCE IM Last administered on at 16:58; Start 02/07/18 at 15:30; Stop 02/07/18 at 15:31; Status DC Lisinopril (Prinivil) 10 mg ONCE ONCE PO Last administered on 02/08/18at 11:55 ; Start 02/08/18 at 10:45; Stop 02/08/18 at 10:50; Status DC Lisinopril (Prinivil) 20 mg DAILY PO Last administered on 02/12/18at 08:51; Start 02/09/18 at 09:00 Enoxaparin Sodium (Lovenox Inj) 30 mg Q24H SQ Last administered on 02/09/18at 12 :24; Start 02/08/18 at 11:00; Stop 02/10/18 at 11:11; Status DC Enalaprilat (Vasotec Inj) 1.25 mg Q6H PRN IV PUSH SBP> OR = 180, DBP> OR = 100 ; Start 02/08/18 at 10:45 Calcium/Vitamin D (Oscal-D 250-125) 250 mg Q12HR PO Last administered on at 08:41; Start 02/08/18 at 21:00 Lorazepam (Ativan Inj) 0.5 mg ONCE ONCE IV PUSH Last administered on at 15:45; Start 02/09/18 at 09:15; Stop 02/09/18 at 09:16; Status DC Apixaban (Eliquis) 2.5 mg BID PO Last administered on 02/13/18at 08:41; Start at 21:00 Potassium Bicarb/ Potassium Chloride (K-Lyte Cl Eff) 50 meq ONCE ONCE PO ; Start 02/12/18 at 11:30; Stop 02/12/18 at 14:58; Status DC Potassium Bicarb/ Potassium Chloride (K-Lyte Cl Eff) 50 meq ONCE ONCE PO ; Start 02/12/18 at 13:30; Stop 02/12/18 at 14:58; Status DC Ondansetron HCl (Zofran Inj) 4 mg STK-MED ONCE .ROUTE Last administered on 02/12at 13:11; Start 02/12/18 at 13:09; Stop 02/12/18 at 13:10; Status DC Potassium Chloride (KCl) 50 meq ONCE ONCE PO Last administered on 02/12/18at 15 :10; Start 02/12/18 at 15:00; Stop 02/12/18 at 15:04; Status DC Potassium Chloride (KCl) 50 meq ONCE ONCE PO Last administered on 02/12/18at 16 :49; Start 02/12/18 at 17:00; Stop 02/12/18 at 17:01; Status DC A/P Problem List: (1) Fall ICD Code: W19.XXXA - Unspecified fall, initial encounter Status: Acute (2) Humerus fracture ICD Code: S42.309A - Unspecified fracture of shaft of humerus, unspecified arm , initial encounter for closed fracture (3) Anemia ICD Code: D64.9 - Anemia, unspecified (4) Lumbar compression fracture ICD Code: S32.000A - Wedge compression fracture of unspecified lumbar vertebra , initial encounter for closed fracture Status: Acute (5) Hypertension, benign ICD Code: I10 - Essential (primary) hypertension Status: Chronic Assessment and Plan 62-year-old female with a PMH of Rheumatoid Arthritis, Chronic Anemia, Lupus, Anxiety, Depression, Hepatitis C, COPD, A. fib on Eliquis and Tobacco Abuse who was brought to the ER by EMS after a fall. Patient states she was at home and had sudden trip and fall but was unable to get herself off the floor and laid there x2 days, "couldn't get motivated enough to get up". Fall: s/p mechanical trip and fall at home, reported prolonged down-time of 2 days as unable to get herself up. -Initial CPK 247, trended down to 141 -CT Head/C-Spine w/ no acute findings. -Pelvic X-ray w/ possible fracture, however CT Pelvis w/ old pubic fracture -PT consulted, recommending rehab. Patient lives alone and would definitely benefit from rehab placement Humerus/Acromion/Clavicle Fractures: X-ray w/ comminuted right proximal humerus fracture. -Consult ortho, who recommended nonoperative conservative treatment -RUE CT reviewed, showed severely comminuted right humeral head/neck fracture with impaction of humeral shaft into head; fracture of lateral acromion and distal clavicle -Dr. Thacker evaluated the patient and recommended on nonoperative conservative treatment for now -Continue sling and swath -Pain control with [place] prn pain Lumbar 1 compression fracture -due to persistent pain obtained neurosurgical evaluation to determine if patient is a candidate for kyphoplasty. Will likely need brace TLS), MRI of the lumbar spine results reviewed and ordered by neurosurgery. At this time, neurosurgery does not recommend any further surgical intervention. Chest pains: suspect musculoskeletal secondary to fall, pain reproducible on exam, however rule out cardiac disease. -ACS ruled out with negative serial cardiac enzymes x4 and EKG without acute ischemic changes -Given morphine, nitropaste, BB and received one dose of ASA. -Cardiology consulted for cardiac clearance -Nuclear stress test showed small focal ischemic at mid anterolateral wall; EF 65% -Cardiology reviewed findings, likely noncardiac chest pain, cleared for surgery, no further cardiac work up/intervention -Pain reproducible on exam, likely musculoskeletal secondary to fall, give pain medications as needed, will discontinue telemetry today Acute anemia from blood loss from trauma Acute on Chronic. -Hgb 8.2, previously 10.8, most likely from the trauma/fx area as she does have extensive bruising in shoulder area -continue to monitor closely, transfuse as needed. -Last hemoglobin 11 HTN: acute, BP elevated to 180s, this may be due to pain -on metoprolol 25mg bid, and on lisinopril 20 mg p.o. daily. -continue IV Vasotec prn -Monitor BP, adjust antihypertensives as needed Atrial Fibrillation: chronic, on Eliquis prior to admission. -currently in sinus rhythm -continue BB, metoprolol -monitor on telemetry -Eliquis to restart Hypokalemia, repleted-- WILL REPLACE AGAIN DVT Prophylaxis: teds/SCDs, will restart Eliquis upon discharge to snF DC TO SNF TODAY Discharge Planning Await clearance for SNF placement Discharge has been DONE but BED is still pending DC WHEN HAS BRACE AND SNF BED Problem Qualifiers (1) Fall: Qualified Codes: W19.XXXA - Unspecified fall, initial encounter (2) Humerus fracture: Qualified Codes: S42.291A - Other displaced fracture of upper end of right humerus, initial encounter for closed fracture Anton Santoyo DO Feb 13, 2018 11:04
[2018-02-13 12:25] LABS: ALBUMIN 2.9 GM/DL (3.4-5.0); ALKALINE PHOSPHATASE 121 U/L (45-117); ALT (GPT) 14 U/L (10-53); AST (GOT) 20 U/L (15-37); BICARBONATE 25.8 MEQ/L (21.0-32.0); BLOOD UREA NITROGEN 18 MG/DL (7-18); CHLORIDE 102 MEQ/L (98-107); CREATININE 0.54 MG/DL (0.50-1.00); GLOMERULAR FILTRATION RATE 115 ML/MIN (>89); GLUCOSE,RANDOM 131 MG/DL (74-106); MAGNESIUM 2.4 MG/DL (1.5-2.5); PHOSPHORUS 2.7 MG/DL (2.5-4.9); SODIUM (NA) 135 MEQ/L (136-145); TOTAL BILIRUBIN ADULT 0.4 MG/DL (0.2-1.0)
[2018-02-13] MEDS: METOCLOPRAMIDE HCL 10 MG/2 ML VIAL IV PUSH PRN ×2 (12:41→21:26)
[2018-02-13 12:44] VITALS: BP 107/57; PULSE 69; RESP 18; TEMP 97.7; O2SAT 99
[2018-02-13 16:41] VITALS: BP 117/58; PULSE 68; RESP 17; TEMP 98; O2SAT 98
[2018-02-13 20:00] VITALS: BP 142/61; PULSE 79; RESP 17; TEMP 97.6; O2SAT 99
[2018-02-13] MEDS: ATORVASTATIN 10 MG TAB PO SCH (21:18)
[2018-02-14] VITALS: BP 131/62; PULSE 77; RESP 17; TEMP 97.2; O2SAT 99
[2018-02-14] MEDS: ACETAMINOPHEN/HYDROcodone 325 MG/7.5 MG TAB PO PRN ×2 (05:12→10:37)
[2018-02-14] MEDS: MAGNESIUM HYDROXIDE SUSP 30 ML CUP PO PRN (06:50)
--- NOTE | 2018-02-14 06:56 | PD.ORT.PN ---
Subjective Subjective Remarks Resting comfortably in bed. Objective Vitals Vital Signs Date Time Temp Pulse Resp B/P (MAP) Pulse Ox O2 Delivery O2 Flow Rate FiO2 02/14/18 00:00 97.2 77 17 131/62 (85) 99 02/13/18 20:00 97.6 79 17 142/61 (88) 99 02/13/18 16:41 98.0 68 17 117/58 (77) 98 02/13/18 12:44 97.7 69 18 107/57 (74) 99 02/13/18 08:00 97.3 63 17 133/64 (87) 96 I/O 02/13/18 02/13/18 02/13/18 02/14/18 02/14/18 02/14/18 07:00 15:00 23:00 07:00 15:00 23:00 Intake Total 360 ml 800 ml 240 ml Balance 360 ml 800 ml 240 ml Intake Oral 360 ml 800 ml 240 ml # Voids 4 1 7 4 # Bowel Movements 1 0 Result Diagram: 02/13/18 0913 02/13/18 1122 Imaging Last [address] 02/07/18 0000 Signed Impressions: CONCLUSION: 1. Negative CT Head non contrast. Objective Remarks Bilateral lower extremities: Full range of motion and neurovascularly intact Left upper extremity: Full range of motion neurovascularly intact Right upper extremity: Significant bruising and pain to palpation of proximal humerus. Skin is intact. No pain with elbow wrist range of motion. Intact sensation distally with moderate swelling. Good capillary refills. Full extension flexion of fingers Assessment & Plan Assessment and Plan Right proximal humerus fracture - nonop She will be nonweightbearing on the right upper extremity and remain in sling and swath at all times Case management for probable rehabilitation placement We will re-x-ray over the weekend for reevaluation on Tuesday Follow-up with Dr. Vila or ZACH in 2 weeks for evaluation of alignment of fracture Rodney Alcocer Jr. Feb 14, 2018 06:56
[2018-02-14 08:00] VITALS: BP 119/55; PULSE 78; RESP 16; TEMP 98.2; O2SAT 97
[2018-02-14] MEDS: METOPROLOL SUCCINATE 25 MG EXTENDED RELEASE TAB PO SCH (08:22)
[2018-02-14] MEDS: CALCIUM/VITAMIN D 250 MG/125 U TAB PO SCH (08:22)
[2018-02-14] MEDS: FLUoxetine HCL 20 MG CAP PO SCH (08:22)
[2018-02-14] MEDS: APIXABAN 2.5 MG TABLET PO SCH (08:23)
[2018-02-14] MEDS: DOCUSATE SODIUM 50 MG/SENNA 8.6 MG TAB PO SCH (08:23)
[2018-02-14] MEDS: SODIUM CHLORIDE 0.9% FLUSH 10 ML FLUSH IV FLUSH SCH (08:23)
[2018-02-14] MEDS: BACLOFEN 10 MG TAB PO SCH (08:23)
[2018-02-14] MEDS: LISINOPRIL 20 MG TAB PO SCH (08:23)
[2018-02-14] MEDS: clonazePAM 0.5 MG TAB PO SCH (08:23)
--- NOTE | 2018-02-14 10:39 | HHI.PR ---
Subjective Remarks Follow-up visit compression fracture. Patient seen and examined today. Reports she is doing well. As per nursing, patient is awaiting for corset brace to be able to to rehab facility, [facility]. Patient states she is eating okay. Denies pain and discomfort. Denies SOB/ dyspnea. Denies chest pain, palpitations, headaches, dizziness. Denies fevers, chills, n/v/d. Denies dysuria. Objective Vitals Vital Signs Date Time Temp Pulse Resp B/P (MAP) Pulse Ox O2 Delivery O2 Flow Rate FiO2 02/14/18 08:00 98.2 78 16 119/55 (76) 97 02/14/18 00:00 97.2 77 17 131/62 (85) 99 02/13/18 20:00 97.6 79 17 142/61 (88) 99 02/13/18 16:41 98.0 68 17 117/58 (77) 98 02/13/18 12:44 97.7 69 18 107/57 (74) 99 I/O 02/13/18 02/13/18 02/13/18 02/14/18 02/14/18 02/14/18 07:00 15:00 23:00 07:00 15:00 23:00 Intake Total 360 ml 800 ml 240 ml Balance 360 ml 800 ml 240 ml Intake Oral 360 ml 800 ml 240 ml # Voids 4 1 7 4 # Bowel Movements 1 0 Result Diagram: 02/13/18 0913 02/13/18 1122 Imaging Last Impressions Lumbar Spine MRI 02/09/18 0000 Signed Impressions: CONCLUSION: 1. Unchanged compression fracture of L1 with 5 mm of retropulsion. There is ab utment of the conus. 2. Degenerative changes most pronounced at L3-L4 and L4-L5 without central can al stenosis or neural impingement. Upper Extremity CT 02/07/18 0000 Signed Impressions: CONCLUSION: 1. Severely comminuted right humeral head and neck fracture with impaction of the humeral shaft into the humeral head. 2. Mild posterior subluxation of the humeral head in relation to the glenoid. 3. Fracture of the lateral aspect of the acromion and distal clavicle. Lumbar Spine CT 02/07/18 0000 Signed Impressions: CONCLUSION: 1. Prominent S-shaped scoliosis of the thoracolumbar spine centered at L3-4 an d the lumbar spine. 2. Progressive severe compression fracture of L1 superior endplate in comparis on to 11/02/2017 CT exam. There is 5 mm posterior retropulsion of fragments with persistent fracture plane and vacuum phenomenon. This indicates persistent fra cture mobility at this level. 3. Prominent multilevel degenerative spondylosis most prominently at L4-5 with moderate severe right neural foraminal narrowing. Head CT 02/07/18 Signed Impressions: CONCLUSION: 1. Negative CT Head non contrast. Abdomen X-Ray 02/07/18 Signed Impressions: CONCLUSION: Benign-appearing abdomen. Myocardial Perfusion Scan Nuc Med 02/06/18 0000 Signed Impressions: CONCLUSION: 1. Focal ischemia in the mid anterolateral wall. 2. Intact wall motion with EF of 65%. Shoulder X-Ray 02/05/18 0000 Signed Impressions: CONCLUSION: Comminuted fracture right proximal humerus. There appears to be fracture of the acromion as well. Pelvis X-Ray 02/05/18 0000 Signed Impressions: CONCLUSION: Questionable fracture inferior pubic ramus on the right. Pelvis CT 02/05/18 0000 Signed Impressions: CONCLUSION: 1. No acute fracture. 2. Old fracture right inferior pubic ramus. Humerus X-Ray 02/05/18 0000 Signed Impressions: CONCLUSION: Comminuted fracture right proximal humerus Elbow X-Ray 02/05/18 Signed Impressions: CONCLUSION: No acute fracture right elbow Chest X-Ray 02/05/18 0000 Signed Impressions: CONCLUSION: Cardiomegaly. No consolidation or significant effusion. Comminuted right proxim al humeral fracture. Rotation left humerus. Cervical Spine CT 02/05/18 Signed Impressions: CONCLUSION: 1. No acute fracture or subluxation. Objective Remarks GENERAL: This is a well-nourished, well-developed patient, in no apparent distress. SKIN: Warm and dry. Pale HEENT: Normocephalic. Pupils equal round and reactive. Nose without bleeding. Airway patent. NECK: Trachea midline. No JVD. Supple. CARDIOVASCULAR: Regular rate and rhythm without murmurs, gallops, or rubs. RESPIRATORY: Diminished bases. No wheezes, rales, or rhonchi. GASTROINTESTINAL: Abdomen soft, non-tender, nondistended. Bowel Sounds normoactive x4. MUSCULOSKELETAL: Extremities without clubbing, cyanosis, or edema. Kyphosis noted. Right arm on sling. NEUROLOGICAL: Awake and alert. Oriented to place, person. Moves all extremities. Normal speech. Procedures None. A/P Problem List: (1) Fall ICD Code: W19.XXXA - Unspecified fall, initial encounter Status: Acute (2) Humerus fracture ICD Code: S42.309A - Unspecified fracture of shaft of humerus, unspecified arm , initial encounter for closed fracture (3) Anemia ICD Code: D64.9 - Anemia, unspecified (4) Lumbar compression fracture ICD Code: S32.000A - Wedge compression fracture of unspecified lumbar vertebra , initial encounter for closed fracture Status: Acute (5) Hypertension, benign ICD Code: I10 - Essential (primary) hypertension Status: Chronic Assessment and Plan 62-year-old female with a PMH of Rheumatoid Arthritis, Chronic Anemia, Lupus, Anxiety, Depression, Hepatitis C, COPD, A. fib on Eliquis and Tobacco Abuse who was brought to the ER by EMS after a fall. Patient states she was at home and had sudden trip and fall but was unable to get herself off the floor and laid there x2 days, "couldn't get motivated enough to get up". Fall: s/p mechanical trip and fall at home, reported prolonged down-time of 2 days as unable to get herself up. -Initial CPK 247, trended down to 141 -CT Head/C-Spine w/ no acute findings. -Pelvic X-ray w/ possible fracture, however CT Pelvis w/ old pubic fracture -PT consulted, recommending rehab. Patient lives alone and would definitely benefit from rehab placement Humerus/Acromion/Clavicle Fractures: X-ray w/ comminuted right proximal humerus fracture. -Consult ortho, who recommended nonoperative conservative treatment -RUE CT reviewed, showed severely comminuted right humeral head/neck fracture with impaction of humeral shaft into head; fracture of lateral acromion and distal clavicle -Dr. Thacker evaluated the patient and recommended on nonoperative conservative treatment for now -Continue sling and swath -Pain control with [place] prn pain Lumbar 1 compression fracture -due to persistent pain obtained neurosurgical evaluation to determine if patient is a candidate for kyphoplasty. Will likely need brace TLS), MRI of the lumbar spine results reviewed and ordered by neurosurgery. At this time, neurosurgery does not recommend any further surgical intervention. Chest pains: suspect musculoskeletal secondary to fall, pain reproducible on exam, however rule out cardiac disease. -ACS ruled out with negative serial cardiac enzymes x4 and EKG without acute ischemic changes -Given morphine, nitropaste, BB and received one dose of ASA. -Cardiology consulted for cardiac clearance -Nuclear stress test showed small focal ischemic at mid anterolateral wall; EF 65% -Cardiology reviewed findings, likely noncardiac chest pain, cleared for surgery, no further cardiac work up/intervention -Pain reproducible on exam, likely musculoskeletal secondary to fall, give pain medications as needed, will discontinue telemetry today Acute anemia from blood loss from trauma Acute on Chronic. -Hgb 8.2, previously 10.8, most likely from the trauma/fx area as she does have extensive bruising in shoulder area -continue to monitor closely, transfuse as needed. -Last hemoglobin 11 HTN: acute, BP elevated to 180s, this may be due to pain -on metoprolol 25mg bid, and on lisinopril 20 mg p.o. daily. -Vasotec as needed -Monitor BP, adjust antihypertensives as needed Atrial Fibrillation: chronic, on Eliquis prior to admission. -currently in sinus rhythm -continue BB, metoprolol -monitor on telemetry -Eliquis to restart Hypokalemia, repleted -Resolved DVT Prophylaxis: teds/SCDs, will restart Eliquis upon discharge to snF Discharge Planning Plan to DC to SNF today. Problem Qualifiers (1) Fall: Qualified Codes: W19.XXXA - Unspecified fall, initial encounter (2) Humerus fracture: Qualified Codes: S42.291A - Other displaced fracture of upper end of right humerus, initial encounter for closed fracture Alex Fox [employer] Feb 14, 2018 10:39
== END 2018-02-14 11:41 | DRG 552 ==
LOC: NEPC 01:44 → NEDA 05:05 → N06B 06:55
PROVIDERS: ADMIT Family Medicine; ATTEND Family Medicine
DX: S32.010A Wedge compression fracture of first lumbar vertebra, initial encounter for closed fracture (principal); R64 Cachexia; I50.9 Heart failure, unspecified; D62 Acute posthemorrhagic anemia; I48.2 Chronic atrial fibrillation; I11.0 Hypertensive heart disease with heart failure; S42.291A Other displaced fracture of upper end of right humerus, initial encounter for closed fracture; Z68.1 Body mass index [BMI] 19.9 or less, adult; M41.9 Scoliosis, unspecified; F32.9 Major depressive disorder, single episode, unspecified; M06.9 Rheumatoid arthritis, unspecified; F41.9 Anxiety disorder, unspecified; B19.20 Unspecified viral hepatitis C without hepatic coma; J44.9 Chronic obstructive pulmonary disease, unspecified; W01.0XXA Fall on same level from slipping, tripping and stumbling without subsequent striking against object, initial encounter; F17.210 Nicotine dependence, cigarettes, uncomplicated; R32 Unspecified urinary incontinence; S42.121A Displaced fracture of acromial process, right shoulder, initial encounter for closed fracture; S42.031A Displaced fracture of lateral end of right clavicle, initial encounter for closed fracture; R07.2 Precordial pain; E87.6 Hypokalemia; H91.92 Unspecified hearing loss, left ear; M81.0 Age-related osteoporosis without current pathological fracture; M19.90 Unspecified osteoarthritis, unspecified site; R11.2 Nausea with vomiting, unspecified; Z79.01 Long term (current) use of anticoagulants
CPT/HCPCS: 29240; 36600; 70450; 71045; 72125; 72131; 72148; 72170; 72192; 73030; 73060; 73080; 73200; 74018; 78452; 80048; 80053; 80061; 81001; 82550; 82552; 82805; 83036; 83690; 83735; 84100; 84439; 84443; 84484; 85014; 85018; 85025; 93005; 93017; 93306; A9502; J1650; J2060; J2270; J2405; J2550; J2765; J2785; J7030; L0484

== ENCOUNTER 2018-04-04 18:30 | Inpatient (IN) ==
[2018-04-04] MEDS ORDERED: Sod Chloride 0.9% Inj 1,000 ML IV.SIG ONE (18:51)
--- NOTE | 2018-04-04 18:53 | ED ---
HPI General Chief complaint: Altered Mental Status Stated complaint: Evac/Fall Time Seen by Provider: 04/04/18 18:46 History of Present Illness HPI narrative: 62-year-old female is brought to the emergency room by EMS for evaluation of fall. Per EMS the patient was found down in her kitchen in a puddle of urine, found by family member. Unknown down time. Per EMS the patient has a history of seizures and told them she thinks she had a seizure. The patient is very difficult to understand when she speaks as she speaks very quietly - very little history obtained from her. She is awake and oriented x 3 , she is somewhat lethargic but does answer yes and no. She does not have any specific complaints. Related Data Home Medications Medication Instructions Recorded Confirmed Saccharomyces boulardii [Florastor] 250 mg PO DAILY 04/04/18 04/04/18 acetaminophen [Tylenol] 650 mg PO Q6H PRN 04/04/18 04/04/18 albuterol sulfate [Proventil HFA] 2 puff INHALATION Q4-6H PRN 04/04/18 04/04/18 apixaban [Eliquis] 2.5 mg PO BID 04/04/18 04/04/18 aspirin [Aspir-81] PO DAILY 04/04/18 baclofen 10 mg PO TID 04/04/18 04/04/18 clonazepam [Klonopin] 0.5 mg PO BID 04/04/18 04/04/18 docusate sodium [Dulcolax Stool 100 mg PO DAILY 04/04/18 04/04/18 Softener (dss)] fentanyl 1 patch TRANSDERMAL Q72H 04/04/18 04/04/18 fluoxetine [Prozac] 20 mg PO DAILY 04/04/18 04/04/18 furosemide [Lasix] 20 mg PO DAILY 04/04/18 04/04/18 gabapentin [Neurontin] 600 mg PO TID 04/04/18 04/04/18 hydrocodone-acetaminophen [[place]] 1 tab PO Q4-6H PRN 04/04/18 04/04/18 hydrocodone-acetaminophen [[place]] 1 tab PO Q6H PRN 04/04/18 04/04/18 hydroxyzine HCl 50 mg PO TID PRN 04/04/18 04/04/18 lisinopril 20 mg PO DAILY 04/04/18 04/04/18 metoprolol succinate [Toprol XL] 25 mg PO BID 04/04/18 04/04/18 potassium chloride 10 meq PO DAILY 04/04/18 04/04/18 Allergies Allergy/AdvReac Type Severity Reaction Status Date / Time penicillin G Allergy Severe Anaphylaxis Verified 04/04/18 18:53 mold Allergy Unknown Cough Verified 04/04/18 18:53 Review of Systems ROS: all other systems reviewed are negative [facility] Medical History Medical History Congestive heart failure (Acute) Hypertension (Acute) Lupus (Acute) Scoliosis (Acute) Seizures (Acute) Shoulder fracture, right (Acute) Hepatitis C (Acute) Surgical History Surgical History History of arthroplasty of left shoulder (Acute) Social History Social History Substance History: No History of Abuse Second Hand Smoke Exposure: Yes Smoking Status: Current every day smoker Tobacco Type: Cigarettes How Often Do You Have a Drink Containing Alcohol: Never Exam Narrative Exam Narrative: GENERAL: Well-nourished and well-developed female patient in no acute distress. SKIN: No obvious lacerations or abrasions noted. HEAD: Normocephalic and atraumatic. No bony point tenderness or crepitus noted throughout the scalp and facial bones. EYES: No scleral icterus, injection, or drainage. PERRLA. EOMI. No hyphema present. ENT: No septal hematoma or hemotympanum noted. Oropharynx is clear and the airway is patent. NECK: Supple and the trachea is midline. Bent forward due to kyphosis. No crepitus or midline tenderness noted. CARDIOVASCULAR: Regular rate and rhythm. RESPIRATORY: Breath sounds are equal bilaterally with no accessory muscle use, wheezing, rhonchi, or crackles. GASTROINTESTINAL: Abdomen is soft, non-tender, and nondistended. MUSCULOSKELETAL: Mild swelling to lower extremities. No obvious deformities, cyanosis, or ecchymosis is present throughout the upper and lower extremities. Patient has full range of motion without any signs of neurovascular compromise. BACK: Very kyphotic, patient bent forward at 90 degrees. NEUROLOGICAL: Drowsy, oriented x 3. Gives yes and no answers. Speaks very quietly. Cranial nerves are grossly intact. Course Initial Documented Vital Signs Temperature 95.9 F L 04/04/18 18:44 Respiratory Rate 19 04/04/18 18:44 Blood Pressure 171/85 H 04/04/18 18:44 Pulse Oximetry 97 04/04/18 18:44 Last Documented Vital Signs Temperature 99.1 F 04/05/18 04:00 Pulse Rate 74 04/05/18 06:00 Respiratory Rate 19 04/05/18 06:00 Blood Pressure 158/99 H 04/05/18 06:00 Pulse Oximetry 96 04/05/18 06:00 Medical Decision Making HAYLIE Attestation HAYLIE supervised visit: Yes Attestation: I, Dr. Guillaume, have reviewed the advance practice practitioner's documentation and am in agreement, met with the patient face to face, made the diagnosis, and the medical decision making was done by me. The patient was initially evaluated by Leatha, the HAYLIE. Please see their complete history and physical. *My assessment and Findings: The patient presents with a history of being found on the floor of her kitchen in a puddle of urine by a family member prior to arrival. The patient on arrival is noted to be sedate, decreased level of consciousness. The patient's vital signs are otherwise unremarkable except for mild bradycardia on my arrival to the room in the 50s. Blood pressure is being maintained in the 150s systolic. The patient was found to have 75 mcg of fentanyl patch on her person. The patient according to the record is in hospice. Hospice has been consulted for additional information regarding the patient's history as information is difficult to obtain from the patient. During the course of the patient's emergency department visit, the patient's history, examination, and differential diagnosis were reviewed with the patient. The patient was placed on a cardiac monitor technician with oximetry and frequent blood pressure monitoring. The patient had IV access obtained and blood work sent for analysis. The patient was noted to be hypothermic and was placed on a Bear hugger. The patient was initially provided warm normal saline IV fluids. The patient was given Narcan 0.4 mg IV. I was notified by the patient's nurse that the patient became awake and alert and was conversive after the dose of Narcan 0.4 mg IV. The patient's diagnostic studies are remarkable for a white count of 4.4, platelets 186, monocytosis at 10.9, hemoglobin 8.4, PT PTT within normal limits , chemistry is remarkable for troponin I of less than 0.02, total protein 6.3, sodium 147, GFR of 75, chloride 115, calcium 8.0, BUN 27, alk phos 148, albumin 2.7. Urinalysis shows no signs of infection. Chest x-ray shows mild inspiratory suboptimal study with crowding of the lung vasculature and no definite acute cardiopulmonary disease, CT scan of the brain showed no acute abnormality, CT scan of the C-spine showed no acute abnormality. The patient's results were discussed with the patient, including the plan of care. I explained that further testing and/ or monitoring is indicated based on the patient's history, examination, and/ or laboratory findings. Therefore, I recommended admission for additional evaluation. The patient expressed understanding and was agreeable with this plan. 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 [facility] Narrative Medical decision making narrative: 62-year-old female brought to the ED for evaluation of found down for unknown amount of time. Patient is hypothermic, vitals otherwise unremarkable. Bear hugger and warm IV fluids administered. IV access is obtained, labs have been drawn and sent. Hospice nurse arrived to the ED as [facility]. She reviewed with us the patient's med list and it shows the patient is on multiple opiates and she has 75 mcg of fentanyl patch currently on her person. We administered Narcan 0.4mg IV and patient has become more awake and alert. Labs are essentially unremarkable with exception of anemia which is at baseline and elevated AST and Alk phos also at baseline. Patient has remained stable while here in the ED. My attending physician recommends admission to ICU for opiate overdose, Dr. Mora accepts admission. Medical Screen Exam Complete: Yes Emergency Medical Condition: Yes Differential Diagnosis Differential Diagnosis: Sepsis versus Seizure versus syncope versus Lab Data Result diagrams: 04/05/18 01:39 04/05/18 01:39 Lab Results 04/04/18 04/04/18 04/04/18 Range/Units 19:08 19:08 19:08 WBC 5.5 (4.0-11.0) th/mm3 RBC 3.72 L (4.00-5.30) mil/mm3 Hgb 9.9 L (11.6-15.3) gm/dL Hct 30.4 L (35.0-46.0) % MCV 81.6 (80.0-100.0) fL MCH 26.5 L (27.0-34.0) pg MCHC 32.5 (32.0-36.0) % RDW 17.7 H (11.6-17.2) % Plt Count 225 (150-450) th/mm3 MPV 7.7 (7.0-11.0) fL Neut % (Auto) 56.6 (16.0-70.0) % Lymph % (Auto) 29.5 (9.0-44.0) % [place] % (Auto) 11.3 H (0.0-8.0) % Eos % (Auto) 1.9 (0.0-4.0) % Baso % (Auto) 0.7 (0.0-2.0) % Neut # (Auto) 3.1 (1.8-7.7) th/mm3 Lymph # (Auto) 1.6 (1.0-4.8) th/mm3 [place] # (Auto) 0.6 (0.0-0.9) th/mm3 Eos # (Auto) 0.1 (0.0-0.4) th/mm3 Baso # (Auto) 0.0 (0.0-0.2) th/mm3 WBC Differential . Differential Comment Auto diff final PT 10.4 (9.8-11.6) sec INR 1.0 Ratio APTT 25.0 (24.3-30.1) sec Puncture Site Patient Temperature O2 Saturation (90-100) % ABG pH (7.380-7.420) ABG pCO2 (38-42) mmHg ABG pO2 (61-120) mmHg ABG HCO3 (22-26) mmol/L ABG O2 Content (12.0-20.0) Vol % ABG Base Excess (-2-2) mmol/L ABG Methemoglobin (0-2) % Geovanni Test Hemoglobin (12.0-16.0) G/DL Carboxyhemoglobin (0-4) % O2 Delivery Device Inspired O2 % Critical Value Sodium 140 (136-145) meq/L Potassium 5.1 (3.5-5.1) meq/L Chloride 111 H (98-107) meq/L Carbon Dioxide 20.9 L (21.0-32.0) meq/L Anion Gap 8 (5-15) meq/L BUN 30 H (7-18) mg/dL Creatinine 0.97 (0.50-1.00) mg/dL Estimated GFR 59 L (>89) mL/min POC Glucose (68-110) mg/dl Random Glucose 99 (74-106) mg/dL Lactic Acid (0.4-2.0) mmol/L Calcium 8.7 (8.5-10.1) mg/dL Phosphorus (2.5-4.9) mg/dL Magnesium (1.5-2.5) mg/dL Total Bilirubin 0.2 (0.2-1.0) mg/dL AST 64 H (15-37) U/L ALT 20 (10-53) U/L Alkaline Phosphatase 190 H (45-117) U/L Ammonia (11-32) mcmol/L Total Creatine Kinase (26-192) U/L Troponin I Less than 0.02 L (0.02-0.05) ng/mL Total Protein 7.8 (6.4-8.2) g/dL Albumin 2.9 L (3.4-5.0) g/dL Urine Color (Yellw/Straw) Urine Clarity (Clear) Urine pH (5.0-8.5) Ur Specific [place] (1.002-1.035) Urine Protein (Neg-Trace) mg/dL Urine Glucose (UA) (Negative) mg/dL Urine Ketones (Negative) mg/dL Urine Occult Blood (Negative) Urine Nitrate (Negative) Urine Bilirubin (Negative) Urine Urobilinogen (Less than 2) mg/dL Ur Leukocyte Esterase (Negative) Hyaline Casts (0-3) /lpf Micro UA Comment Urine Culture Comments Nasal Screen MRSA (PCR) (Negative) Urine Opiates Screen (Neg) Ur Barbiturates Screen (Neg) Ur Amphetamines Screen (Neg) U Benzodiazepines Scrn (Neg) Urine Cocaine Screen (Neg) U Cannabinoids Screen (Neg) 04/04/18 04/04/18 04/04/18 Range/Units 19:08 19:08 21:30 WBC (4.0-11.0) th/mm3 RBC (4.00-5.30) mil/mm3 Hgb (11.6-15.3) gm/dL Hct (35.0-46.0) % MCV (80.0-100.0) fL MCH (27.0-34.0) pg MCHC (32.0-36.0) % RDW (11.6-17.2) % Plt Count (150-450) th/mm3 MPV (7.0-11.0) fL Neut % (Auto) (16.0-70.0) % Lymph % (Auto) (9.0-44.0) % [place] % (Auto) (0.0-8.0) % Eos % (Auto) (0.0-4.0) % Baso % (Auto) (0.0-2.0) % Neut # (Auto) (1.8-7.7) th/mm3 Lymph # (Auto) (1.0-4.8) th/mm3 [place] # (Auto) (0.0-0.9) th/mm3 Eos # (Auto) (0.0-0.4) th/mm3 Baso # (Auto) (0.0-0.2) th/mm3 WBC Differential Differential Comment PT (9.8-11.6) sec INR Ratio APTT (24.3-30.1) sec Puncture Site Patient Temperature O2 Saturation (90-100) % ABG pH (7.380-7.420) ABG pCO2 (38-42) mmHg ABG pO2 (61-120) mmHg ABG HCO3 (22-26) mmol/L ABG O2 Content (12.0-20.0) Vol % ABG Base Excess (-2-2) mmol/L ABG Methemoglobin (0-2) % Geovanni Test Hemoglobin (12.0-16.0) G/DL Carboxyhemoglobin (0-4) % O2 Delivery Device Inspired O2 % Critical Value Sodium (136-145) meq/L Potassium (3.5-5.1) meq/L Chloride (98-107) meq/L Carbon Dioxide (21.0-32.0) meq/L Anion Gap (5-15) meq/L BUN (7-18) mg/dL Creatinine (0.50-1.00) mg/dL Estimated GFR (>89) mL/min POC Glucose (68-110) mg/dl Random Glucose (74-106) mg/dL Lactic Acid 0.5 (0.4-2.0) mmol/L Calcium (8.5-10.1) mg/dL Phosphorus (2.5-4.9) mg/dL Magnesium (1.5-2.5) mg/dL Total Bilirubin (0.2-1.0) mg/dL AST (15-37) U/L ALT (10-53) U/L Alkaline Phosphatase (45-117) U/L Ammonia (11-32) mcmol/L Total Creatine Kinase 171 (26-192) U/L Troponin I (0.02-0.05) ng/mL Total Protein (6.4-8.2) g/dL Albumin (3.4-5.0) g/dL Urine Color Straw (Yellw/Straw) Urine Clarity Clear (Clear) Urine pH 5.0 (5.0-8.5) Ur Specific [place] 1.008 (1.002-1.035) Urine Protein Negative (Neg-Trace) mg/dL Urine Glucose (UA) Negative (Negative) mg/dL Urine Ketones Negative (Negative) mg/dL Urine Occult Blood Negative (Negative) Urine Nitrate Negative (Negative) Urine Bilirubin Negative (Negative) Urine Urobilinogen Less than 2 (Less than 2) mg/dL Ur Leukocyte Esterase Negative (Negative) Hyaline Casts 3 (0-3) /lpf Micro UA Comment Cath-culture not ind Urine Culture Comments Cath-cult not ind Nasal Screen MRSA (PCR) (Negative) Urine Opiates Screen (Neg) Ur Barbiturates Screen (Neg) Ur Amphetamines Screen (Neg) U Benzodiazepines Scrn (Neg) Urine Cocaine Screen (Neg) U Cannabinoids Screen (Neg) 04/04/18 04/04/18 04/05/18 Range/Units 21:30 22:33 00:45 WBC (4.0-11.0) th/mm3 RBC (4.00-5.30) mil/mm3 Hgb (11.6-15.3) gm/dL Hct (35.0-46.0) % MCV (80.0-100.0) fL MCH (27.0-34.0) pg MCHC (32.0-36.0) % RDW (11.6-17.2) % Plt Count (150-450) th/mm3 MPV (7.0-11.0) fL Neut % (Auto) (16.0-70.0) % Lymph % (Auto) (9.0-44.0) % [place] % (Auto) (0.0-8.0) % Eos % (Auto) (0.0-4.0) % Baso % (Auto) (0.0-2.0) % Neut # (Auto) (1.8-7.7) th/mm3 Lymph # (Auto) (1.0-4.8) th/mm3 [place] # (Auto) (0.0-0.9) th/mm3 Eos # (Auto) (0.0-0.4) th/mm3 Baso # (Auto) (0.0-0.2) th/mm3 WBC Differential Differential Comment PT (9.8-11.6) sec INR Ratio APTT (24.3-30.1) sec Puncture Site Left radial Patient Temperature 98.6 O2 Saturation 94 (90-100) % ABG pH 7.42 (7.380-7.420) ABG pCO2 35 L (38-42) mmHg ABG pO2 80 (61-120) mmHg ABG HCO3 22 (22-26) mmol/L ABG O2 Content 11.8 L (12.0-20.0) Vol % ABG Base Excess -1.8 (-2-2) mmol/L ABG Methemoglobin 0.4 (0-2) % Geovanni Test Present Hemoglobin 8.8 L (12.0-16.0) G/DL Carboxyhemoglobin 2.1 (0-4) % O2 Delivery Device Room air Inspired O2 21 % Critical Value No Sodium (136-145) meq/L Potassium (3.5-5.1) meq/L Chloride (98-107) meq/L Carbon Dioxide (21.0-32.0) meq/L Anion Gap (5-15) meq/L BUN (7-18) mg/dL Creatinine (0.50-1.00) mg/dL Estimated GFR (>89) mL/min POC Glucose (68-110) mg/dl Random Glucose (74-106) mg/dL Lactic Acid (0.4-2.0) mmol/L Calcium (8.5-10.1) mg/dL Phosphorus (2.5-4.9) mg/dL Magnesium (1.5-2.5) mg/dL Total Bilirubin (0.2-1.0) mg/dL AST (15-37) U/L ALT (10-53) U/L Alkaline Phosphatase (45-117) U/L Ammonia (11-32) mcmol/L Total Creatine Kinase (26-192) U/L Troponin I (0.02-0.05) ng/mL Total Protein (6.4-8.2) g/dL Albumin (3.4-5.0) g/dL Urine Color (Yellw/Straw) Urine Clarity (Clear) Urine pH (5.0-8.5) Ur Specific [place] (1.002-1.035) Urine Protein (Neg-Trace) mg/dL Urine Glucose (UA) (Negative) mg/dL Urine Ketones (Negative) mg/dL Urine Occult Blood (Negative) Urine Nitrate (Negative) Urine Bilirubin (Negative) Urine Urobilinogen (Less than 2) mg/dL Ur Leukocyte Esterase (Negative) Hyaline Casts (0-3) /lpf Micro UA Comment Urine Culture Comments Nasal Screen MRSA (PCR) Not detected (Negative) Urine Opiates Screen Neg (Neg) Ur Barbiturates Screen Neg (Neg) Ur Amphetamines Screen Neg (Neg) U Benzodiazepines Scrn Neg (Neg) Urine Cocaine Screen Neg (Neg) U Cannabinoids Screen Neg (Neg) 04/05/18 04/05/18 04/05/18 Range/Units 01:25 01:39 01:39 WBC 4.4 (4.0-11.0) th/mm3 RBC 3.07 L (4.00-5.30) mil/mm3 Hgb 8.4 L (11.6-15.3) gm/dL Hct 24.7 L (35.0-46.0) % MCV 80.6 (80.0-100.0) fL MCH 27.2 (27.0-34.0) pg MCHC 33.8 (32.0-36.0) % RDW 17.6 H (11.6-17.2) % Plt Count 186 (150-450) th/mm3 MPV 7.5 (7.0-11.0) fL Neut % (Auto) 52.0 (16.0-70.0) % Lymph % (Auto) 35.0 (9.0-44.0) % [place] % (Auto) 10.9 H (0.0-8.0) % Eos % (Auto) 1.7 (0.0-4.0) % Baso % (Auto) 0.4 (0.0-2.0) % Neut # (Auto) 2.3 (1.8-7.7) th/mm3 Lymph # (Auto) 1.5 (1.0-4.8) th/mm3 [place] # (Auto) 0.5 (0.0-0.9) th/mm3 Eos # (Auto) 0.1 (0.0-0.4) th/mm3 Baso # (Auto) 0.0 (0.0-0.2) th/mm3 WBC Differential . Differential Comment Auto diff final PT (9.8-11.6) sec INR Ratio APTT (24.3-30.1) sec Puncture Site Patient Temperature O2 Saturation (90-100) % ABG pH (7.380-7.420) ABG pCO2 (38-42) mmHg ABG pO2 (61-120) mmHg ABG HCO3 (22-26) mmol/L ABG O2 Content (12.0-20.0) Vol % ABG Base Excess (-2-2) mmol/L ABG Methemoglobin (0-2) % Geovanni Test Hemoglobin (12.0-16.0) G/DL Carboxyhemoglobin (0-4) % O2 Delivery Device Inspired O2 % Critical Value Sodium (136-145) meq/L Potassium (3.5-5.1) meq/L Chloride (98-107) meq/L Carbon Dioxide (21.0-32.0) meq/L Anion Gap (5-15) meq/L BUN (7-18) mg/dL Creatinine (0.50-1.00) mg/dL Estimated GFR (>89) mL/min POC Glucose 96 (68-110) mg/dl Random Glucose (74-106) mg/dL Lactic Acid (0.4-2.0) mmol/L Calcium (8.5-10.1) mg/dL Phosphorus (2.5-4.9) mg/dL Magnesium (1.5-2.5) mg/dL Total Bilirubin (0.2-1.0) mg/dL AST (15-37) U/L ALT (10-53) U/L Alkaline Phosphatase (45-117) U/L Ammonia 27 (11-32) mcmol/L Total Creatine Kinase (26-192) U/L Troponin I (0.02-0.05) ng/mL Total Protein (6.4-8.2) g/dL Albumin (3.4-5.0) g/dL Urine Color (Yellw/Straw) Urine Clarity (Clear) Urine pH (5.0-8.5) Ur Specific [place] (1.002-1.035) Urine Protein (Neg-Trace) mg/dL Urine Glucose (UA) (Negative) mg/dL Urine Ketones (Negative) mg/dL Urine Occult Blood (Negative) Urine Nitrate (Negative) Urine Bilirubin (Negative) Urine Urobilinogen (Less than 2) mg/dL Ur Leukocyte Esterase (Negative) Hyaline Casts (0-3) /lpf Micro UA Comment Urine Culture Comments Nasal Screen MRSA (PCR) (Negative) Urine Opiates Screen (Neg) Ur Barbiturates Screen (Neg) Ur Amphetamines Screen (Neg) U Benzodiazepines Scrn (Neg) Urine Cocaine Screen (Neg) U Cannabinoids Screen (Neg) 04/05/18 04/05/18 04/05/18 Range/Units 01:39 01:39 06:04 WBC (4.0-11.0) th/mm3 RBC (4.00-5.30) mil/mm3 Hgb (11.6-15.3) gm/dL Hct (35.0-46.0) % MCV (80.0-100.0) fL MCH (27.0-34.0) pg MCHC (32.0-36.0) % RDW (11.6-17.2) % Plt Count (150-450) th/mm3 MPV (7.0-11.0) fL Neut % (Auto) (16.0-70.0) % Lymph % (Auto) (9.0-44.0) % [place] % (Auto) (0.0-8.0) % Eos % (Auto) (0.0-4.0) % Baso % (Auto) (0.0-2.0) % Neut # (Auto) (1.8-7.7) th/mm3 Lymph # (Auto) (1.0-4.8) th/mm3 [place] # (Auto) (0.0-0.9) th/mm3 Eos # (Auto) (0.0-0.4) th/mm3 Baso # (Auto) (0.0-0.2) th/mm3 WBC Differential Differential Comment PT 10.8 (9.8-11.6) sec INR 1.1 Ratio APTT 25.8 (24.3-30.1) sec Puncture Site Patient Temperature O2 Saturation (90-100) % ABG pH (7.380-7.420) ABG pCO2 (38-42) mmHg ABG pO2 (61-120) mmHg ABG HCO3 (22-26) mmol/L ABG O2 Content (12.0-20.0) Vol % ABG Base Excess (-2-2) mmol/L ABG Methemoglobin (0-2) % Geovanni Test Hemoglobin (12.0-16.0) G/DL Carboxyhemoglobin (0-4) % O2 Delivery Device Inspired O2 % Critical Value Sodium 147 H (136-145) meq/L Potassium 3.8 D (3.5-5.1) meq/L Chloride 115 H (98-107) meq/L Carbon Dioxide 25.3 (21.0-32.0) meq/L Anion Gap 7 (5-15) meq/L BUN 27 H (7-18) mg/dL Creatinine 0.78 (0.50-1.00) mg/dL Estimated GFR 75 L (>89) mL/min POC Glucose 65 L (68-110) mg/dl Random Glucose 86 (74-106) mg/dL Lactic Acid (0.4-2.0) mmol/L Calcium 8.0 L (8.5-10.1) mg/dL Phosphorus 3.8 (2.5-4.9) mg/dL Magnesium 1.9 (1.5-2.5) mg/dL Total Bilirubin 0.3 (0.2-1.0) mg/dL AST 19 (15-37) U/L ALT 16 (10-53) U/L Alkaline Phosphatase 148 H (45-117) U/L Ammonia (11-32) mcmol/L Total Creatine Kinase (26-192) U/L Troponin I Less than 0.02 L (0.02-0.05) ng/mL Total Protein 6.3 L D (6.4-8.2) g/dL Albumin 2.7 L (3.4-5.0) g/dL Urine Color (Yellw/Straw) Urine Clarity (Clear) Urine pH (5.0-8.5) Ur Specific [place] (1.002-1.035) Urine Protein (Neg-Trace) mg/dL Urine Glucose (UA) (Negative) mg/dL Urine Ketones (Negative) mg/dL Urine Occult Blood (Negative) Urine Nitrate (Negative) Urine Bilirubin (Negative) Urine Urobilinogen (Less than 2) mg/dL Ur Leukocyte Esterase (Negative) Hyaline Casts (0-3) /lpf Micro UA Comment Urine Culture Comments Nasal Screen MRSA (PCR) (Negative) Urine Opiates Screen (Neg) Ur Barbiturates Screen (Neg) Ur Amphetamines Screen (Neg) U Benzodiazepines Scrn (Neg) Urine Cocaine Screen (Neg) U Cannabinoids Screen (Neg) 04/05/18 Range/Units 06:56 WBC (4.0-11.0) th/mm3 RBC (4.00-5.30) mil/mm3 Hgb (11.6-15.3) gm/dL Hct (35.0-46.0) % MCV (80.0-100.0) fL MCH (27.0-34.0) pg MCHC (32.0-36.0) % RDW (11.6-17.2) % Plt Count (150-450) th/mm3 MPV (7.0-11.0) fL Neut % (Auto) (16.0-70.0) % Lymph % (Auto) (9.0-44.0) % [place] % (Auto) (0.0-8.0) % Eos % (Auto) (0.0-4.0) % Baso % (Auto) (0.0-2.0) % Neut # (Auto) (1.8-7.7) th/mm3 Lymph # (Auto) (1.0-4.8) th/mm3 [place] # (Auto) (0.0-0.9) th/mm3 Eos # (Auto) (0.0-0.4) th/mm3 Baso # (Auto) (0.0-0.2) th/mm3 WBC Differential Differential Comment PT (9.8-11.6) sec INR Ratio APTT (24.3-30.1) sec Puncture Site Patient Temperature O2 Saturation (90-100) % ABG pH (7.380-7.420) ABG pCO2 (38-42) mmHg ABG pO2 (61-120) mmHg ABG HCO3 (22-26) mmol/L ABG O2 Content (12.0-20.0) Vol % ABG Base Excess (-2-2) mmol/L ABG Methemoglobin (0-2) % Geovanni Test Hemoglobin (12.0-16.0) G/DL Carboxyhemoglobin (0-4) % O2 Delivery Device Inspired O2 % Critical Value Sodium (136-145) meq/L Potassium (3.5-5.1) meq/L Chloride (98-107) meq/L Carbon Dioxide (21.0-32.0) meq/L Anion Gap (5-15) meq/L BUN (7-18) mg/dL Creatinine (0.50-1.00) mg/dL Estimated GFR (>89) mL/min POC Glucose 100 (68-110) mg/dl Random Glucose (74-106) mg/dL Lactic Acid (0.4-2.0) mmol/L Calcium (8.5-10.1) mg/dL Phosphorus (2.5-4.9) mg/dL Magnesium (1.5-2.5) mg/dL Total Bilirubin (0.2-1.0) mg/dL AST (15-37) U/L ALT (10-53) U/L Alkaline Phosphatase (45-117) U/L Ammonia (11-32) mcmol/L Total Creatine Kinase (26-192) U/L Troponin I (0.02-0.05) ng/mL Total Protein (6.4-8.2) g/dL Albumin (3.4-5.0) g/dL Urine Color (Yellw/Straw) Urine Clarity (Clear) Urine pH (5.0-8.5) Ur Specific [place] (1.002-1.035) Urine Protein (Neg-Trace) mg/dL Urine Glucose (UA) (Negative) mg/dL Urine Ketones (Negative) mg/dL Urine Occult Blood (Negative) Urine Nitrate (Negative) Urine Bilirubin (Negative) Urine Urobilinogen (Less than 2) mg/dL Ur Leukocyte Esterase (Negative) Hyaline Casts (0-3) /lpf Micro UA Comment Urine Culture Comments Nasal Screen MRSA (PCR) (Negative) Urine Opiates Screen (Neg) Ur Barbiturates Screen (Neg) Ur Amphetamines Screen (Neg) U Benzodiazepines Scrn (Neg) Urine Cocaine Screen (Neg) U Cannabinoids Screen (Neg) Imaging Data Radiologist's impression: Cervical Spine CT 04/04/18 18:46 CONCLUSION: 1. Negative trauma study. Chest X-Ray 04/04/18 18:46 CONCLUSION: Mid inspiratory, suboptimal study with crowding of the lung vasculature and no definite acute cardiopulmonary disease. Head CT 04/04/18 18:46 CONCLUSION: 1. Negative noncontrast head CT. 2. The study is degraded by motion and streak artifact. . ECG Data Attestation: I personally reviewed and interpreted this ECG as follows: Interpretation: She had an EKG done on arrival that shows a anus rhythm with occasional supraventricular premature complexes, heart rate is 61, QRS duration 104 ms, QTC 453 ms with nonspecific T-wave abnormalities. T waves are inverted in lead III, aVF, V1. Discharge Plan Discharge Disposition Patient Disposition: 30 Still Patient Discharge Details Diagnosis: Opiate overdose, Fall Physicians Team ED Provider: Lisa Guillaume ED Midlevel Provider: Leatha Tsang Primary Care Provider: Colt Miller Attending Provider: Poppy Johnson Other Providers: Juan Da Silva Status ED Status: Left Department Discharge Information Discharge Date/Time: 04/05/18 00:51
[2018-04-04 19:36] LABS: Baso % (Auto) 0.7 % (0.0-2.0); Eos # (Auto) 0.1 th/mm3 (0.0-0.4); Eos % (Auto) 1.9 % (0.0-4.0); Hematocrit 30.4 % (35.0-46.0); Hemoglobin 9.9 gm/dL (11.6-15.3); Lymph # (Auto) 1.6 th/mm3 (1.0-4.8); Lymph % (Auto) 29.5 % (9.0-44.0); Mean Corpuscular HGB Conc 32.5 % (32.0-36.0); Mean Corpuscular Hemoglobin 26.5 pg (27.0-34.0); Mean Corpuscular Volume 81.6 fL (80.0-100.0); Mean Platelet Volume 7.7 fL (7.0-11.0); Mono # (Auto) 0.6 th/mm3 (0.0-0.9); Mono % (Auto) 11.3 % (0.0-8.0); Neut # (Auto) 3.1 th/mm3 (1.8-7.7); Neut % (Auto) 56.6 % (16.0-70.0); Platelet Count 225 th/mm3 (150-450); Red Blood Count 3.72 mil/mm3 (4.00-5.30); Red Cell Distribution Width 17.7 % (11.6-17.2); White Blood Count 5.5 th/mm3 (4.0-11.0)
--- NOTE | 2018-04-04 19:44 | XR ---
EXAM DATE: 04/04/2018 7:40 PM EDT AGE/SEX: 62 years / Female INDICATIONS: Shortness of breath. CLINICAL DATA: This is the patient's initial encounter. Patient reports that signs and symptoms have been present for 1 day and indicates a pain score of Nonresponsive. MEDICAL/SURGICAL HISTORY: . Lupus. Chronic obstructive pulmonary disease. Hepatitis C . . Tuba l ligation. Tonsillectomy. ORIF Lt humerus. [place] [facility] [place] . FINDINGS: A single AP semierect view of the chest was obtained. The study is more mid inspiratory with crowding of the lung vasculature. There are no confluent infiltrates or effusions. The heart size remains mil dly prominent. The bony thorax is intact with moderate scoliosis. Postsurgical changes are again note d involving the left shoulder and there is an old fracture deformity of the right femoral head and ne ck. CONCLUSION: Mid inspiratory, suboptimal study with crowding of the lung vasculature and no definite acute cardiop ulmonary disease. Electronically signed by: Rodney Farah MD 04/04/2018 7:43 PM EDT
[2018-04-04 19:52] LABS: Alanine Aminotransferase 20 U/L (10-53)
[2018-04-04 19:55] LABS: Albumin 2.9 g/dL (3.4-5.0); Anion Gap 8 meq/L (5-15); Aspartate Aminotransferase 64 U/L (15-37); Blood Urea Nitrogen 30 mg/dL (7-18); Calcium 8.7 mg/dL (8.5-10.1); Carbon Dioxide 20.9 meq/L (21.0-32.0); Chloride 111 meq/L (98-107); Glomerular Filtration Rate 59 mL/min (>89); Glucose,Random 99 mg/dL (74-106); Sodium 140 meq/L (136-145)
[2018-04-04 19:56] LABS: Alkaline Phosphatase 190 U/L (45-117); Total Protein 7.8 g/dL (6.4-8.2)
[2018-04-04 19:58] LABS: Potassium 5.1 meq/L (3.5-5.1)
[2018-04-04] MEDS ORDERED: Naloxone Inj 0.4 MG/ML Vial IV.PUSH ONE (19:58)
[2018-04-04 20:00] LABS: Prothrombin Time 10.4 sec (9.8-11.6)
--- NOTE | 2018-04-04 20:34 | CT ---
EXAM DATE: 04/04/2018 8:29 PM EDT AGE/SEX: 62 years / Female INDICATIONS: Trauma; fall. CLINICAL DATA: This is the patient's initial encounter. Patient reports that signs and symptoms have been present for 1 day and indicates a pain score of Nonresponsive. MEDICAL/SURGICAL HISTORY: Hypertension. Lupus. Seizures. Scoliosis. None. RADIATION DOSE: 25.35 CTDI (mGy) COMPARISON: [facility] – [place] BRAIN W/O CONTRAST, 02/07/2018. . TECHNIQUE: CT of the head without contrast. Using automated exposure control and adjustment of the mA and/or kV according to patient size, radiation dose was kept as low as reasonably achievable to ob tain optimal diagnostic quality images. DICOM format image data is available electronically for revi ew and comparison. FINDINGS: Study is degraded by motion and streak artifact. Cerebrum: The ventricles are normal for age. No evidence of midline shift, mass lesion, hemorrhage or acute infarction. No extraaxial fluid collections are seen. Posterior Fossa: The cerebellum and brainstem are intact. The 4th ventricle is midline. The cerebe llopontine angle is unremarkable. Extracranial: The visualized portion of the orbits is intact. Skull: The calvaria is intact. No evidence of skull fracture. CONCLUSION: 1. Negative noncontrast head CT. 2. The study is degraded by motion and streak artifact. . Electronically signed by: Rodney Farah MD 04/04/2018 8:33 PM EDT
--- NOTE | 2018-04-04 20:42 | CT ---
EXAM DATE: 04/04/2018 8:35 PM EDT AGE/SEX: 62 years / Female INDICATIONS: Trauma; fall. CLINICAL DATA: This is the patient's initial encounter. Patient reports that signs and symptoms have been present for 1 day and indicates a pain score of Nonresponsive. MEDICAL/SURGICAL HISTORY: Hypertension. Lupus. Seizures. Scoliosis. None. RADIATION DOSE: 20.64 CTDI (mGy) COMPARISON: [place], CT LUMBAR SPINE W/O CONTRAST, 02/07/2018. . TECHNIQUE: Contiguous axial images were obtained using helical multirow detector technique. The vol umetric data was post-processed with multiplanar reconstruction in oblique axial, sagittal, and coron al planes. Using automated exposure control and adjustment of the mA and/or kV according to patient s ize, radiation dose was kept as low as reasonably achievable to obtain optimal diagnostic quality tanisha ges. DICOM format image data is available electronically for review and comparison. FINDINGS: Vertebrae: Normal vertebral body height. Discs: There are degenerative disc changes at the C6-7 level with disc space narrowing and hyp ertrophic changes. Degenerative changes involving the axial joint as well. Alignment: Normal. No subluxation. The axial images demonstrate mild degenerative changes. The vertebral bodies and posterior elements a re intact. CONCLUSION: 1. Negative trauma study. Electronically signed by: Rodney Farah MD 04/04/2018 8:41 PM EDT
--- NOTE | 2018-04-04 20:54 | ECG ---
Date Performed: 04/04/2018 Time Performed: 19:49:31 PTAGE: 62 years EKG: NORMAL Sinus rhythm , OCCASIONAL PVC NONSPECIFIC T-WAVE ABNORMALITY BORDERLINE ECG PREVIOUS TRACING : 02/06/2018 01.49 Compared to previous tracing, PVCs are now present. DOCTOR: Valentín Stewart Interpretating Date/Time 04/04/2018 20:53:11
--- NOTE | 2018-04-04 22:07 | P.HPCC ---
History of Present Illness Primary Care Physician: Colt Miller History of Present Illness: 62-year-old unfortunate female with past medical history of rheumatoid Arthritis , Chronic Anemia, Lupus, Anxiety, Depression, Hepatitis C, COPD, A. fib on Eliquis and Tobacco Abuse is brought for an evaluation of fall. This is her fourth admission this year. Per EMS the patient was found down in her kitchen in a puddle of urine, found by family member. Unknown down time. Per EMS the patient has a history of seizures, and told them she thinks she had a seizure. However I do not see any history of seizure disorder documented within the last 5 admissions, neither any home antiseizure medications. The patient is very difficult to understand when she speaks as she speaks very quietly and very little history can be obtained from her. She is awake and oriented x 3, she is somewhat lethargic but does answer yes and no. She does not have any specific complaints. During my reassessment she claims she was aware when the EMS arrived and she wants to go home. However there is a serious question about patient's home safety living alone. Review of Systems unobtainable due to mental condition PMFSH - History History Provided By: Cigarette Maker / EMT - Medical History Medical History: Medical History (Last Updated 04/04/18 @ 19:35 by Sheridan Anthony) Congestive heart failure Hypertension Lupus Scoliosis Seizures Shoulder fracture, right Hepatitis C Medications and Allergies Active Medications: Active Medications Sodium Chloride (Ns Flush) 2 ml IV.FLUSH PRN PRN PRN Reason: FLUSH AFTER USING IV ACCESS Last Admin: 04/04/18 19:18 Dose: 2 ml Active Medications Acetaminophen (Tylenol) 650 mg PO Q6H PRN PRN Reason: PAIN 1-10 AND/OR FEVER >101F Al Hydroxide/Mg Hydroxide (Milk Of Magnradha Liq) 30 ml PO Q12H PRN PRN Reason: Mild Constipation Albuterol (Duoneb Neb (Prn)) 1 ampul NEB Q2HR NEB PRN PRN Reason: WHEEZING Albuterol (Duoneb Neb (Prn)) 1 ampul NEB Q4HR NEB [facility] Apixaban (Eliquis) 2.5 mg PO BID [facility] Aspirin (Ecotrin) 81 mg PO DAILY [facility] Baclofen (Lioresal) 10 mg PO TID [facility] Bisacodyl (Dulcolax Supp) 10 mg RECTAL DAILY PRN PRN Reason: SEVERE CONSITIPATION Chlorhexidine Gluconate (Chlorhexidine 2% Cloth) 3 pack TOPICAL DAILY@0400 [facility] Stop: 04/10/18 03:59 Chlorhexidine Gluconate (Chlorhexidine 2% Cloth) 3 pack TOPICAL DAILY@0400 PRN PRN Reason: Extra cloth needed Stop: 04/10/18 03:59 Clonazepam (Klonopin) 0.5 mg PO BID [facility] Famotidine (Pepcid Pf Inj) 20 mg IV.PUSH Q12HR [facility] Fluoxetine HCl (Prozac) 20 mg PO DAILY [facility] Gabapentin (Neurontin) 600 mg PO TID [facility] Hydromorphone HCl (Dilaudid Pf Inj) 1 mg IV.PUSH Q4H PRN PRN Reason: PAIN SCALE 6 TO 10 Sodium Chloride (Ns Inj) 1,000 mls @ 84 mls/hr IV.CONT .[id number] [facility] Lactulose (Lactulose Liq) 30 ml PO DAILY PRN PRN Reason: SEVERE CONSITIPATION Lisinopril (Prinivil) 20 mg PO DAILY [facility] Metoclopramide HCl (Reglan Inj) 10 mg IV.PUSH Q6H PRN; Protocol PRN Reason: NAUSEA OR VOMITING Metoprolol Succinate (Toprol Xl) 25 mg PO BID [facility] Non-Formulary Medication (Hydroxyzine Hcl) 50 mg PO TID PRN PRN Reason: Itching Non-Formulary Medication (Saccharomyces Boulardii [Florastor]) 250 mg PO DAILY [facility] Ondansetron HCl (Zofran Inj) 4 mg IV.PUSH Q6H PRN PRN Reason: NAUSEA OR VOMITING Potassium Chloride (Klor-Con 10) 10 meq PO DAILY [facility] Senna/Docusate Sodium (Racheal-Colace) 1 tab PO BID [facility] Sennosides (Senokot) 17.2 mg PO Q12H PRN PRN Reason: Moderate Constipation Sodium Chloride (Ns Flush) 2 ml IV.FLUSH PRN PRN PRN Reason: FLUSH AFTER USING IV ACCESS Sodium Chloride (Ns Flush) 2 ml IV.FLUSH BID [facility] Allergies Allergy/AdvReac Type Severity Reaction Status Date / Time penicillin G Allergy Severe Anaphylaxis Verified 04/04/18 18:53 mold Allergy Unknown Cough Verified 04/04/18 18:53 Home Medications Medication Instructions Recorded Confirmed Type Saccharomyces boulardii [Florastor] 250 mg PO DAILY 04/04/18 04/04/18 History acetaminophen [Tylenol] 650 mg PO Q6H PRN 04/04/18 04/04/18 History albuterol sulfate [Proventil HFA] 2 puff INHALATION Q4-6H PRN 04/04/18 04/04/18 History apixaban [Eliquis] 2.5 mg PO BID 04/04/18 04/04/18 History aspirin [Aspir-81] PO DAILY 04/04/18 History baclofen 10 mg PO TID 04/04/18 04/04/18 History clonazepam [Klonopin] 0.5 mg PO BID 04/04/18 04/04/18 History docusate sodium [Dulcolax Stool 100 mg PO DAILY 04/04/18 04/04/18 History Softener (dss)] fentanyl 1 patch TRANSDERMAL Q72H 04/04/18 04/04/18 History fluoxetine [Prozac] 20 mg PO DAILY 04/04/18 04/04/18 History furosemide [Lasix] 20 mg PO DAILY 04/04/18 04/04/18 History gabapentin [Neurontin] 600 mg PO TID 04/04/18 04/04/18 History hydrocodone-acetaminophen [[place]] 1 tab PO Q4-6H PRN 04/04/18 04/04/18 History hydrocodone-acetaminophen [[place]] 1 tab PO Q6H PRN 04/04/18 04/04/18 History hydroxyzine HCl 50 mg PO TID PRN 04/04/18 04/04/18 History lisinopril 20 mg PO DAILY 04/04/18 04/04/18 History metoprolol succinate [Toprol XL] 25 mg PO BID 04/04/18 04/04/18 History potassium chloride 10 meq PO DAILY 04/04/18 04/04/18 History Results - Labs CBC & Chem 7: 04/04/18 19:08 04/04/18 19:08 Labs: Short CBC 04/04/18 Range/Units 19:08 WBC 5.5 (4.0-11.0) th/mm3 Hgb 9.9 L (11.6-15.3) gm/dL Hct 30.4 L (35.0-46.0) % Plt Count 225 (150-450) th/mm3 BMP 04/04/18 19:08 Sodium 140 Potassium 5.1 Chloride 111 H Carbon Dioxide 20.9 L BUN 30 H Creatinine 0.97 Calcium 8.7 Cardiac Enzymes 04/04/18 04/04/18 Range/Units 19:08 19:08 Total Creatine Kinase 171 (26-192) U/L Troponin I Less than 0.02 L (0.02-0.05) ng/mL Liver Function 04/04/18 Range/Units 19:08 Total Bilirubin 0.2 (0.2-1.0) mg/dL AST 64 H (15-37) U/L ALT 20 (10-53) U/L Alkaline Phosphatase 190 H (45-117) U/L Albumin 2.9 L (3.4-5.0) g/dL - Imaging Impressions Cervical Spine CT 04/04/18 18:46 CONCLUSION: 1. Negative trauma study. Chest X-Ray 04/04/18 18:46 CONCLUSION: Mid inspiratory, suboptimal study with crowding of the lung vasculature and no definite acute cardiopulmonary disease. Head CT 04/04/18 18:46 CONCLUSION: 1. Negative noncontrast head CT. 2. The study is degraded by motion and streak artifact. . Exam Vital signs: Vital Signs 04/04/18 18:44 Temperature 95.9 F L Respiratory Rate 19 Blood Pressure 171/85 H Pulse Oximetry 97 Intake & Output 04/04/18 04/04/18 04/05/18 06:59 18:59 06:59 Weight 45 kg - Constitutional mild distress - Routine HEENT Exam Head: Present: normocephalic, atraumatic Eye: Present: PERRL ENT: Present: mucous membranes moist - Routine Neck Exam Present: supple, full ROM. Absent: JVD, carotid bruit - Routine Chest/Breast/Axilla Exam Chest wall: Absent: tenderness - Routine Respiratory Exam Absent: accessory muscle use, rales, respiratory distress, stridor, wheezes - Routine Cardiovascular Exam Present: RRR, S1, S2 - Routine Abdominal Exam Present: soft, normoactive bowel sounds. Absent: tenderness, distended - Routine Extremities Exam Absent: cyanosis, clubbing, edema - Routine Skin Exam Present: intact. Absent: cyanosis, erythema - Routine Neurological Exam Present: alert, CN II-XII intact. Absent: sensory deficit, motor deficit Caprini VTE Risk Assessment Caprini VTE Risk Assessment: Moderate/High Risk (score >= 2) Caprini Risk Assessment Model: Point Value = 1 Point Value = 2 Point Value = 3 Point Value = 5 Age 41-60 Minor surgery BMI > 25 kg/m2 Swollen legs Varicose veins or History of unexplained or recurrent spontaneous Oral contraceptives or hormone replacement Sepsis (< 1 month) Serious lung disease, including pneumonia (< 1 month) Abnormal pulmonary function Acute myocardial infarction Congestive heart failure (< 1 month) History of inflammatory bowel disease Medical patient at bed rest Age 61-74 Arthroscopic surgery Major open surgery (> 45 min) Laparoscopic surgery (> 45 min) Malignancy Confined to bed (> 72 hours) Immobilizing plaster cast Central venous access Age >= 75 History of VTE Family history of VTE Factor V Leiden Prothrombin [id number] Lupus anticoagulant Anticardiolipin antibodies Elevated serum homocysteine Heparin-induced thrombocytopenia Other congenital or acquired thrombophilia Stroke (< 1 month) Elective arthroplasty Hip, pelvis, or leg fracture Acute spinal cord injury (< 1 month) Prophylaxis Regimen: Total Risk Factor Score Risk Level Prophylaxis Regimen 0-1 Low Early ambulation 2 Moderate Order ONE of the following: *Sequential Compression Device (SCD) *Heparin 5000 units SQ BID 3-4 Higher Order ONE of the following medications: *Heparin 5000 units SQ TID *Enoxaparin/Lovenox 40 mg SQ daily (WT < 150 kg, CrCl > 30 mL/min) *Enoxaparin/Lovenox 30 mg SQ daily (WT < 150 kg, CrCl > 10-29 mL/min) *Enoxaparin/Lovenox 30 mg SQ BID (WT < 150 kg, CrCl > 30 mL/min) AND/OR *Sequential Compression Device (SCD) 5 or more Highest Order ONE of the following medications: *Heparin 5000 units SQ TID (Preferred with Epidurals) *Enoxaparin/Lovenox 40 mg SQ daily (WT < 150 kg, CrCl > 30 mL/min) *Enoxaparin/Lovenox 30 mg SQ daily (WT < 150 kg, CrCl > 10-29 mL/min) *Enoxaparin/Lovenox 30 mg SQ BID (WT < 150 kg, CrCl > 30 mL/min) AND *Sequential Compression Device (SCD) Assessment and Plan - Assessment and Plan Plan: Altered mental state -post ictal ??? -CT head negative -Neuro checks per unit protocol -Improving -Supportive care -Ammonia level pending Congestive heart failure -Continue lisinopril and metoprolol -Hold Lasix while n.p.o. and IV fluids Hypertension -Lisinopril -Metoprolol Seizures -No seizure activity observed -Seizure precautions COPD -DuoNeb scheduled and as needed Atrial fibrillation -Continue Eliquis and aspirin -Rate controlled with metoprolol Anxiety -Fluoxetine -Hydroxyzine -Klonopin Chronic back pain with neuropathy -Gabapentin team -Hold fentanyl patch until neurologically improve DVT GI prophylaxis -Teds SCDs -Eliquis -Pepcid Level 3
[2018-04-04] MEDS ORDERED: Acetaminophen 325 MG Tablet PO PRN ×2 (22:08→22:12)
[2018-04-04 22:10] LABS: Bilirubin,Urine Negative (Negative); Clarity,Urine Clear (Clear); Color,Urine Straw (Yellw/Straw); Glucose,Urine (UA) Negative (Negative); Hyaline Casts,Urine 3 /lpf (0-3); Leukocyte Esterase,Urine Negative (Negative); Nitrite,Urine Negative (Negative); Specific Gravity,Urine 1.008 (1.002-1.035)
[2018-04-04] MEDS ORDERED: Bisacodyl 10 MG Supp RECTAL PRN (22:12)
[2018-04-04 22:13] LABS: Amphetamine Screen,Urine Neg (Neg); Barbiturate Screen,Urine Neg (Neg); Cannabinoid Screen,Urine Neg (Neg); Cocaine Screen,Urine Neg (Neg)
[2018-04-04] MEDS ORDERED: Heparin - SQ 10,000 UNITS/ML Vial SQ SCH (22:15)
[2018-04-04 22:20] LABS: Opiate Screen,Urine Neg (Neg)
[2018-04-04 22:48] LABS: ABG Base Excess -1.8 mmol/L (-2-2); ABG PCO2 35 mmHg (38-42); ABG PO2 80 mmHg (61-120)
[2018-04-04] MEDS: HYDROmorphone PF Inj 2 MG/ML Vial IV.PUSH PRN (23:23)
[2018-04-05 01:58] LABS: Baso % (Auto) 0.4 % (0.0-2.0); Eos # (Auto) 0.1 th/mm3 (0.0-0.4); Eos % (Auto) 1.7 % (0.0-4.0); Hematocrit 24.7 % (35.0-46.0); Hemoglobin 8.4 gm/dL (11.6-15.3); Lymph # (Auto) 1.5 th/mm3 (1.0-4.8); Mean Corpuscular HGB Conc 33.8 % (32.0-36.0); Mean Corpuscular Hemoglobin 27.2 pg (27.0-34.0); Mean Corpuscular Volume 80.6 fL (80.0-100.0); Mean Platelet Volume 7.5 fL (7.0-11.0); Mono # (Auto) 0.5 th/mm3 (0.0-0.9); Mono % (Auto) 10.9 % (0.0-8.0); Neut # (Auto) 2.3 th/mm3 (1.8-7.7); Platelet Count 186 th/mm3 (150-450); Red Blood Count 3.07 mil/mm3 (4.00-5.30); Red Cell Distribution Width 17.6 % (11.6-17.2); White Blood Count 4.4 th/mm3 (4.0-11.0)
[2018-04-05 02:02] LABS: Activated Partial Thrombo Time 25.8 sec (24.3-30.1); INR 1.1 Ratio; Prothrombin Time 10.8 sec (9.8-11.6)
[2018-04-05 02:11] LABS: Alanine Aminotransferase 16 U/L (10-53); Albumin 2.7 g/dL (3.4-5.0); Alkaline Phosphatase 148 U/L (45-117); Anion Gap 7 meq/L (5-15); Aspartate Aminotransferase 19 U/L (15-37); Blood Urea Nitrogen 27 mg/dL (7-18); Carbon Dioxide 25.3 meq/L (21.0-32.0); Chloride 115 meq/L (98-107); Glomerular Filtration Rate 75 mL/min (>89); Glucose,Random 86 mg/dL (74-106); Magnesium 1.9 mg/dL (1.5-2.5); Phosphorus 3.8 mg/dL (2.5-4.9); Potassium 3.8 meq/L (3.5-5.1); Sodium 147 meq/L (136-145); Total Protein 6.3 g/dL (6.4-8.2)
[2018-04-05] MEDS ORDERED: Chlorhexidine Gluconate 2% 1 Pack (2 Cloths) TOPICAL PRN (04:00)
[2018-04-05] MEDS: Chlorhexidine Gluconate 2% 1 Pack (2 Cloths) TOPICAL SCH (04:44)
[2018-04-05] MEDS: HYDROmorphone PF Inj 2 MG/ML Vial IV.PUSH PRN ×3 (06:00→19:39)
[2018-04-05] MEDS: Sod Chloride 0.9% Inj 1,000 ML IV.CONT SCH ×2 (06:24→12:10)
--- NOTE | 2018-04-05 08:37 | ECG ---
Date Performed: 04/05/2018 Time Performed: 05:51:28 PTAGE: 62 years EKG: Sinus rhythm with occasional PAC Normal ECG NO PREVIOUS TRACING DOCTOR: Valentín Stewart Interpretating Date/Time 04/05/2018 08:36:52
--- NOTE | 2018-04-05 08:43 | ECG ---
Date Performed: 04/04/2018 Time Performed: 23:17:56 PTAGE: 62 years EKG: Sinus rhythm NORMAL ECG PREVIOUS TRACING : 04/04/2018 19.49 Compared to previous tracing, PVCs are no longer present. DOCTOR: Valentín Stewart Interpretating Date/Time 04/05/2018 08:42:12
[2018-04-05] MEDS: Famotidine PF Inj 20 MG/2 ML Vial IV.PUSH SCH ×2 (09:18→20:28)
[2018-04-05] MEDS: Lactobacillus Acidophilus/L. Spores Tablet PO SCH (09:18)
[2018-04-05] MEDS: Senna/Docusate Sodium 8.6/50 MG Tablet PO SCH ×2 (09:18→20:28)
[2018-04-05] MEDS: Lisinopril 20 MG Tablet PO SCH (09:19)
[2018-04-05] MEDS: FLUoxetine 20 MG Capsule PO SCH (09:19)
[2018-04-05] MEDS: Baclofen 10 MG Tablet PO SCH ×3 (09:20→18:38)
[2018-04-05] MEDS: Gabapentin 300 MG Capsule PO SCH ×3 (09:20→18:38)
[2018-04-05] MEDS: clonazePAM 0.5 MG Tablet PO SCH ×2 (09:45→20:28)
--- NOTE | 2018-04-05 10:19 | P.CONPAL ---
Consult Service: Palliative Care Requesting Physician: Dl Mora Reason for Consult: a. To assist with evaluation and management of symptoms including: Pain, debility b. To assist medical decision maker(s) with: better understanding of current medical conditions; weighing benefits/burdens of medical treatment options; making medical treatment decisions. Primary Care Provider: Colt Miller History of Present Illness History of Present Illness: Mrs. May is a 62-year-old female with a past medical history of congestive heart failure, atrial fibrillation on Eliquis, chronic anemia, COPD, seizures, lupus, scoliosis, depression, rheumatoid arthritis, hepatitis C and tobacco use. Patient was brought to the ER by EMS on 04/04/18 for further evaluation after she was found on the floor with family and incontinent of urine. EMS report patient stated to them that she thought she had a seizure prior to falling. Patient is on [facility] hospice. She was noted to have 75 mcg of fentanyl patch on her in the ER. Patient stated that she fell at home and was not able to get up. When she was able to reach his telephone, the only number she could not remember was 911. Per EMR records, patient was hospitalized for possible new onset of seizures in July, for a witnessed seizure and she indicated that she had run out of her pain medications as well as lorazepam that she took 2-3 times per day. During that admission, EEG done was abnormal due to some faster frequency waves consistent with beta frequency and was thought to be most likely due to benzodiazepine use however there was no epileptiform discharges. ER course: * Vital signs: Temperature 95.9F, respirations 19, blood pressure 171/85, O2 saturation 97%. * Laboratory workup revealed WBC 5.5, hemoglobin 9.9, hematocrit 30.4, platelet count 225, PT 10.4, INR 1.0, APTT 25.0, sodium 140, potassium 5.1, BUN/ creatinine 30/0.97, AST 64, ALT 20, troponin less than 0.02, total protein 7.8, albumin 2.9 * EKG showed sinus rhythm * ABG revealed pH 7.42, PCO2 35, PO2 80, HCO3 22, O2 saturation 94% on room air. * Urinalysis negative for leukocyte esterase. * Toxicology negative * Head CT revealed no acute abnormality the study was degraded by motion and streak artifact. * Chest x-ray revealed no definite acute cardiopulmonary disease. * Cervical spine CT revealed degenerative disc changes at C6-7 level with disc space narrowing and hypertrophic changes with no acute abnormalities. * Patient admitted for further evaluation and treatment under critical care management physicians. Laboratory workup today revealing WBC 4.4, hemoglobin 8.4, hematocrit 24.7, platelet count 186, sodium 147, potassium 3.8, BUN/creatinine 27/0.78, random glucose 86, troponin less than 0.02, total protein 6.3, albumin 2.7. EKG today revealing sinus rhythm with occasional PAC otherwise normal ECG. Patient afebrile, vital signs stable. Patient seen and examined in the room. Patient is awake, alert, oriented to self, place and situation. Patient complaining of dryness to both her eyes, reports that at home she uses artificial tears and she also is complaining of lower back pain. Patient appears to have insight regarding her medical condition and is able to participate in making decisions. Introduced palliative care and its role in symptom management and establishing goals of care. Obtained psychosocial, past medical history and events leading to this hospitalization. Patient states that she fell at home and thinks she might have had a seizure. She was not able to get up by herself and when she reached and pulled her linen off the bed her phone fell and was able to reach it. The only telephone number she was able to recall was [phone]. Patient has never completed advanced directives and has discussed with her son that she would not want to continue to live if she is no longer able to take care of yourself or if she is in a vegetative state. Addressed code status, discussed CPR benefits, complications and limitations. Patient stated that she is supposed to be a DNR. She elaborated by stating that she does not want to be put on life support or have a feeding tube. Patient designated her son Ryan Saba as her health care surrogate and her Ryan Aguirre Jr is here alternate healthcare surrogate. Patient indicated that she would want to go back home on hospice and does not want to move into an assisted living facility as suggested by her son. She states that the idea of sharing a room with a stranger is why she does not want to move into an [facility]. Patient signed [facility] DNR today and health care surrogate form today. Consultation for hospice placed. Telephone conversation with patient's son Ryan and updated him on patient's current medical status. Discussed on decisions made by patient regarding going back home on hospice. Patient's son expressing concern regarding patient's safety at home. He is worried that patient has had multiple falls at home where she lives by herself. He has discussed an option of moving into an assisted living facility but patient is not amenable to that. Encouraged patient `s son to seek help from hospice massage therapist regarding options of ALFs patient is legible for and allow patient to go and visit the [facility] to see if she likes it. Patient`s son appreciative of conversation with palliative care. Function/Cognitive Trajectory: This is patient's fourth hospitalization since October 2017. Her last hospitalization was in January, and she was treated for a comminuted right humeral fracture which was nonoperable and patient was discharged to [facility]. Patient is currently on [facility] hospice. She lives alone. Patient ambulates with 4 pronged cane. She uses O2NC prn at home and has a nebulizer. She is able to perform all her ADLs though it takes her a long time due to pain and shortness of breath. Her son who lives locally assists her with grocery shopping and some of her home chores. Patient has had multiple falls at home. She is able to verbalize her needs. Review of Systems Constitutional: Reports weight loss, Denies fever(s) Eyes: Reports discharge (c/o dry eyes. Has yellowish colered drainage), Reports irritation Ears, Nose, Mouth, and Throat: Denies difficulty swallowing, Denies hearing loss , Denies nasal congestion, Denies nasal discharge Cardiovascular: Reports generalized swelling, Reports leg swelling, Reports shortness of breath, Reports shortness of breath with activity, Denies chest pain, Denies irregular heart rhythm, Denies rapid, pounding, or irregular heartbeat, Denies slow heart rate Respiratory: Reports chest congestion, Reports shortness of breath with activity , Denies coughing up blood, Denies wheezing Gastrointestinal: Denies belching, Denies bloating, Denies bright, red blood in stools, Denies constipation, Denies cramping, Denies difficulty swallowing, Denies nausea Genitourinary: Denies painful urination, Denies urinary incontinence Musculoskeletal: Reports limited joint movement (right leg) Skin/Breast: Reports unusual bruising, Reports other, Denies itching, Denies rash Neurologic: Reports fainting, Reports frequent falls, Reports seizure-like activity, Reports unsteadiness, Reports weakness, Denies lack of coordination, Denies tremor(s) Psychiatric: Reports anxiety, Denies abnormal sleep pattern, Denies change in appetite Endocrine: Denies heat intolerance, Denies increased urination Hematologic/Lymphatic: Reports easy bruising PMFSH - History History Provided By: Family Member - Medical History Medical History: Medical History (Last Updated 04/05/18 @ 10:16 by Teofilo Alexander) Chronic pain syndrome Congestive heart failure History of fibromyalgia Hypertension Lupus Scoliosis Shoulder fracture, right Hepatitis C - Surgical History Surgical History: Surgical History (Last Updated 04/05/18 @ 10:32 by Teofilo Alexander) H/O elbow surgery H/O esophagogastroduodenoscopy History of arthroplasty of left shoulder History of colonoscopy Hx of tonsillectomy Status post wrist surgery History of tubal ligation (Resolved) - Family History Family History: Family History (Last Updated 04/05/18 @ 10:33 by Teofilo Alexander) Mother Diabetes mellitus Hypertension - Tobacco History Second Hand Smoke Exposure: Yes Tobacco Use In Past 30 Days: Yes Smoking Status: Current every day smoker Tobacco Type: Cigarettes - Alcohol History How Often Do You Have a Drink Containing Alcohol: Never - Substance Use History Substance History: No History of Abuse - Immunization History Tetanus Immunization: Unsure Hx Influenza Vaccine This Season: No Medications and Allergies Active Medications: Active Medications Acetaminophen (Tylenol) 650 mg PO Q6H PRN PRN Reason: PAIN 1-10 AND/OR FEVER >101F Al Hydroxide/Mg Hydroxide (Milk Of Magnradha Liq) 30 ml PO Q12H PRN PRN Reason: Mild Constipation Albuterol (Duoneb Neb (Prn)) 1 ampul NEB Q2HR NEB PRN PRN Reason: WHEEZING Albuterol (Duoneb Neb ([place])) 1 ampul NEB Q4HR NEB [facility] Last Admin: 04/05/18 08:09 Dose: 1 ampul Apixaban (Eliquis) 2.5 mg PO BID [facility] Last Admin: 04/05/18 09:19 Dose: 2.5 mg Aspirin (Ecotrin) 81 mg PO DAILY [facility] Last Admin: 04/05/18 09:20 Dose: 81 mg Baclofen (Lioresal) 10 mg PO TID [facility] Last Admin: 04/05/18 09:20 Dose: 10 mg Bisacodyl (Dulcolax Supp) 10 mg RECTAL DAILY PRN PRN Reason: SEVERE CONSITIPATION Chlorhexidine Gluconate (Chlorhexidine 2% Cloth) 3 pack TOPICAL DAILY@0400 [facility] Stop: 04/10/18 03:59 Last Admin: 04/05/18 04:44 Dose: 3 pack Chlorhexidine Gluconate (Chlorhexidine 2% Cloth) 3 pack TOPICAL DAILY@0400 PRN PRN Reason: Extra cloth needed Stop: 04/10/18 03:59 Clonazepam (Klonopin) 0.5 mg PO BID [facility] Famotidine (Pepcid Pf Inj) 20 mg IV.PUSH Q12HR [facility] Last Admin: 04/05/18 09:18 Dose: 20 mg Fluoxetine HCl (Prozac) 20 mg PO DAILY [facility] Last Admin: 04/05/18 09:19 Dose: 20 mg Gabapentin (Neurontin) 600 mg PO TID [facility] Last Admin: 04/05/18 09:20 Dose: 600 mg Hydromorphone HCl (Dilaudid Pf Inj) 1 mg IV.PUSH Q4H PRN PRN Reason: PAIN SCALE 6 TO 10 Last Admin: 04/05/18 06:00 Dose: 1 mg Hydroxyzine HCl (Atarax) 50 mg PO TID PRN PRN Reason: Itching Sodium Chloride (Ns Inj) 1,000 mls @ 84 mls/hr IV.CONT .[id number] [facility] Last Admin: 04/05/18 06:24 Dose: 84 mls/hr Lactobacillus Acidophilus (Lactinex) 1 tab PO DAILY [facility] Last Admin: 04/05/18 09:18 Dose: 1 tab Lactulose (Lactulose Liq) 30 ml PO DAILY PRN PRN Reason: SEVERE CONSITIPATION Lisinopril (Prinivil) 20 mg PO DAILY [facility] Last Admin: 04/05/18 09:19 Dose: 20 mg Metoclopramide HCl (Reglan Inj) 10 mg IV.PUSH Q6H PRN; Protocol PRN Reason: SEE LABEL COMMENTS Metoprolol Succinate (Toprol Xl) 25 mg PO BID [facility] Last Admin: 04/05/18 09:19 Dose: 25 mg Ondansetron HCl (Zofran Inj) 4 mg IV.PUSH Q6H PRN PRN Reason: NAUSEA OR VOMITING Potassium Chloride (Klor-Con 10) 10 meq PO DAILY [facility] Last Admin: 04/05/18 09:18 Dose: 10 meq Senna/Docusate Sodium (Racheal-Colace) 1 tab PO BID [facility] Last Admin: 04/05/18 09:18 Dose: 1 tab Sennosides (Senokot) 17.2 mg PO Q12H PRN PRN Reason: Moderate Constipation Sodium Chloride (Ns Flush) 2 ml IV.FLUSH PRN PRN PRN Reason: FLUSH AFTER USING IV ACCESS Sodium Chloride (Ns Flush) 2 ml IV.FLUSH BID [facility] Allergies Allergy/AdvReac Type Severity Reaction Status Date / Time penicillin G Allergy Severe Anaphylaxis Verified 04/04/18 18:53 mold Allergy Unknown Cough Verified 04/04/18 18:53 Home Medications Medication Instructions Recorded Confirmed Type Saccharomyces boulardii [Florastor] 250 mg PO DAILY 04/04/18 04/04/18 History acetaminophen [Tylenol] 650 mg PO Q6H PRN 04/04/18 04/04/18 History albuterol sulfate [Proventil HFA] 2 puff INHALATION Q4-6H PRN 04/04/18 04/04/18 History apixaban [Eliquis] 2.5 mg PO BID 04/04/18 04/04/18 History aspirin [Aspir-81] PO DAILY 04/04/18 History baclofen 10 mg PO TID 04/04/18 04/04/18 History clonazepam [Klonopin] 0.5 mg PO BID 04/04/18 04/04/18 History docusate sodium [Dulcolax Stool 100 mg PO DAILY 04/04/18 04/04/18 History Softener (dss)] fentanyl 1 patch TRANSDERMAL Q72H 04/04/18 04/04/18 History fluoxetine [Prozac] 20 mg PO DAILY 04/04/18 04/04/18 History furosemide [Lasix] 20 mg PO DAILY 04/04/18 04/04/18 History gabapentin [Neurontin] 600 mg PO TID 04/04/18 04/04/18 History hydrocodone-acetaminophen [[place]] 1 tab PO Q4-6H PRN 04/04/18 04/04/18 History hydrocodone-acetaminophen [[place]] 1 tab PO Q6H PRN 04/04/18 04/04/18 History hydroxyzine HCl 50 mg PO TID PRN 04/04/18 04/04/18 History lisinopril 20 mg PO DAILY 04/04/18 04/04/18 History metoprolol succinate [Toprol XL] 25 mg PO BID 04/04/18 04/04/18 History potassium chloride 10 meq PO DAILY 04/04/18 04/04/18 History Advance Directives Advance Directives Date on File: 04/05/18 (Completed HCS) Living Will: No Healthcare Surrogate: Yes Health Care Surrogate Name and Number: Ryan Aguirre 111(son)[phone] Alt: Ryan Aguirre() Power of Teacher Tutor: No Family/friends goals: Telephone conversation with patient's son Ryan Aguirre, he is supportive of patient making herself no code DNR and transitioning to comfort care through hospice. Ethical and Legal Issues: None identified at this time Physical Exam Vital Signs: Vital Signs - 24 hr 04/04/18 18:44 04/04/18 23:40 04/04/18 23:49 Temperature 95.9 F L 98.9 F Pulse Rate 75 Respiratory Rate 19 14 Blood Pressure 171/85 H 105/58 L Pulse Oximetry 97 96 04/04/18 23:50 04/04/18 23:57 04/05/18 00:06 Temperature Pulse Rate 76 Respiratory Rate 18 12 Blood Pressure Pulse Oximetry 96 95 04/05/18 00:28 04/05/18 00:50 04/05/18 00:52 Temperature Pulse Rate 78 78 Respiratory Rate 15 Blood Pressure 135/72 114/56 L Pulse Oximetry 93 L 04/05/18 01:00 04/05/18 01:30 04/05/18 02:00 Temperature 99.2 F Pulse Rate 75 72 70 Respiratory Rate 9 L 14 13 Blood Pressure 99/57 L 92/55 L 103/62 Pulse Oximetry 94 L 95 96 04/05/18 02:30 04/05/18 03:00 04/05/18 03:30 Temperature Pulse Rate 70 69 72 Respiratory Rate 10 L 11 L 23 Blood Pressure 139/68 129/60 127/78 Pulse Oximetry 98 99 96 04/05/18 03:46 04/05/18 04:00 04/05/18 04:30 Temperature 99.1 F Pulse Rate 71 71 68 Respiratory Rate 16 19 12 Blood Pressure 149/70 H 143/65 H Pulse Oximetry 100 99 04/05/18 05:00 04/05/18 05:30 04/05/18 06:00 Temperature Pulse Rate 69 69 74 Respiratory Rate 14 23 19 Blood Pressure 154/71 H 148/70 H 158/99 H Pulse Oximetry 100 98 96 04/05/18 06:13 04/05/18 06:31 04/05/18 06:48 Temperature Pulse Rate 78 78 78 Respiratory Rate 17 15 13 Blood Pressure 150/72 H 169/104 H 150/90 H Pulse Oximetry 96 96 90 L 04/05/18 07:00 04/05/18 08:00 04/05/18 08:01 Temperature 98 F Pulse Rate 78 73 73 Respiratory Rate 19 10 L 9 L Blood Pressure 169/74 H 155/64 H 155/64 H Pulse Oximetry 97 98 98 I&O: Intake & Output 04/03/18 04/04/18 04/05/18 04/06/18 06:59 06:59 06:59 06:59 Output Total 1150 / 1150 Balance -1150 / -1150 Weight 53.5 kg Physical Exam: CONSTITUTIONAL/GENERAL: This chronically ill looking patient who appears older than stated age, in no apparent distress. TUBES/LINES/DRAINS:PIV, Fagan catheter SKIN: No jaundice, rashes, or lesions. Pale. Ecchymoses on upper extremities. No wounds seen anteriorly. Skin temperature appropriate. Not diaphoretic. HEAD: Atraumatic. Normocephalic. EYES: Pupils equal and round and reactive. Extraocular motions intact. No scleral icterus. Yellowish drainage to right eye. Fundi not examined. ENT: Hearing grossly normal. Nose without bleeding or purulent drainage. Dry mouth NECK: Trachea midline. Supple, nontender. No palpable thyroid enlargement or nodularity. CARDIOVASCULAR: Regular rate and rhythm without murmurs, gallops, or rubs. No JVD. Peripheral pulses symmetric. RESPIRATORY/CHEST: Symmetric, unlabored respirations. Clear but diminished in the bases. No wheezes, rales, or rhonchi. GASTROINTESTINAL: Abdomen soft, non-tender, nondistended. No guarding. Bowel sounds present. GENITOURINARY: Without palpable bladder distension. Fagan catheter in place. MUSCULOSKELETAL: Extremities without clubbing, cyanosis, or edema. No joint tenderness or effusion noted. No calf tenderness. No mottling or clubbing. NEUROLOGICAL: Awake and alert. Motor and sensory grossly within normal limits. Follows commands. Cognitively sharp. Moves all extremities. PSYCHIATRIC: No obvious anxiety/depression. no apparent hallucinations or other psychotic thought process. Diagnostic Tests Laboratory: Laboratory Results - last 72 hr 04/04/18 04/04/18 04/04/18 19:08 19:08 19:08 WBC 5.5 RBC 3.72 L Hgb 9.9 L Hct 30.4 L MCV 81.6 MCH 26.5 L MCHC 32.5 RDW 17.7 H Plt Count 225 MPV 7.7 Neut % (Auto) 56.6 Lymph % (Auto) 29.5 [place] % (Auto) 11.3 H Eos % (Auto) 1.9 Baso % (Auto) 0.7 Neut # (Auto) 3.1 Lymph # (Auto) 1.6 [place] # (Auto) 0.6 Eos # (Auto) 0.1 Baso # (Auto) 0.0 WBC Differential . Differential Comment Auto diff final PT 10.4 INR 1.0 APTT 25.0 Puncture Site Patient Temperature O2 Saturation ABG pH ABG pCO2 ABG pO2 ABG HCO3 ABG O2 Content ABG Base Excess ABG Methemoglobin Geovanni Test Hemoglobin Carboxyhemoglobin O2 Delivery Device Inspired O2 Critical Value Sodium 140 Potassium 5.1 Chloride 111 H Carbon Dioxide 20.9 L Anion Gap 8 BUN 30 H Creatinine 0.97 Estimated GFR 59 L POC Glucose Random Glucose 99 Lactic Acid Calcium 8.7 Phosphorus Magnesium Total Bilirubin 0.2 AST 64 H ALT 20 Alkaline Phosphatase 190 H Ammonia Total Creatine Kinase Troponin I Less than 0.02 L Total Protein 7.8 Albumin 2.9 L Urine Color Urine Clarity Urine pH Ur Specific [place] Urine Protein Urine Glucose (UA) Urine Ketones Urine Occult Blood Urine Nitrate Urine Bilirubin Urine Urobilinogen Ur Leukocyte Esterase Hyaline Casts Micro UA Comment Urine Culture Comments Nasal Screen MRSA (PCR) Urine Opiates Screen Ur Barbiturates Screen Ur Amphetamines Screen U Benzodiazepines Scrn Urine Cocaine Screen U Cannabinoids Screen 04/04/18 04/04/18 04/04/18 19:08 19:08 21:30 WBC RBC Hgb Hct MCV MCH MCHC RDW Plt Count MPV Neut % (Auto) Lymph % (Auto) [place] % (Auto) Eos % (Auto) Baso % (Auto) Neut # (Auto) Lymph # (Auto) [place] # (Auto) Eos # (Auto) Baso # (Auto) WBC Differential Differential Comment PT INR APTT Puncture Site Patient Temperature O2 Saturation ABG pH ABG pCO2 ABG pO2 ABG HCO3 ABG O2 Content ABG Base Excess ABG Methemoglobin Ge[place] Test Hemoglobin Carboxyhemoglobin O2 Delivery Device Inspired O2 Critical Value Sodium Potassium Chloride Carbon Dioxide Anion Gap BUN Creatinine Estimated GFR POC Glucose Random Glucose Lactic Acid 0.5 Calcium Phosphorus Magnesium Total Bilirubin AST ALT Alkaline Phosphatase Ammonia Total Creatine Kinase 171 Troponin I Total Protein Albumin Urine Color Straw Urine Clarity Clear Urine pH 5.0 Ur Specific [place] 1.008 Urine Protein Negative Urine Glucose (UA) Negative Urine Ketones Negative Urine Occult Blood Negative Urine Nitrate Negative Urine Bilirubin Negative Urine Urobilinogen Less than 2 Ur Leukocyte Esterase Negative Hyaline Casts 3 Micro UA Comment Cath-culture not ind Urine Culture Comments Cath-cult not ind Nasal Screen MRSA (PCR) Urine Opiates Screen Ur Barbiturates Screen Ur Amphetamines Screen U Benzodiazepines Scrn Urine Cocaine Screen U Cannabinoids Screen 04/04/18 04/04/18 04/05/18 21:30 22:33 00:45 WBC RBC Hgb Hct MCV MCH MCHC RDW Plt Count MPV Neut % (Auto) Lymph % (Auto) [place] % (Auto) Eos % (Auto) Baso % (Auto) Neut # (Auto) Lymph # (Auto) [place] # (Auto) Eos # (Auto) Baso # (Auto) WBC Differential Differential Comment PT INR APTT Puncture Site Left radial Patient Temperature 98.6 O2 Saturation 94 ABG pH 7.42 ABG pCO2 35 L ABG pO2 80 ABG HCO3 22 ABG O2 Content 11.8 L ABG Base Excess -1.8 ABG Methemoglobin 0.4 Geovanni Test Present Hemoglobin 8.8 L Carboxyhemoglobin 2.1 O2 Delivery Device Room air Inspired O2 21 Critical Value No Sodium Potassium Chloride Carbon Dioxide Anion Gap BUN Creatinine Estimated GFR POC Glucose Random Glucose Lactic Acid Calcium Phosphorus Magnesium Total Bilirubin AST ALT Alkaline Phosphatase Ammonia Total Creatine Kinase Troponin I Total Protein Albumin Urine Color Urine Clarity Urine pH Ur Specific [place] Urine Protein Urine Glucose (UA) Urine Ketones Urine Occult Blood Urine Nitrate Urine Bilirubin Urine Urobilinogen Ur Leukocyte Esterase Hyaline Casts Micro UA Comment Urine Culture Comments Nasal Screen MRSA (PCR) Not detected Urine Opiates Screen Neg Ur Barbiturates Screen Neg Ur Amphetamines Screen Neg U Benzodiazepines Scrn Neg Urine Cocaine Screen Neg U Cannabinoids Screen Neg 04/05/18 04/05/18 04/05/18 01:25 01:39 01:39 WBC 4.4 RBC 3.07 L Hgb 8.4 L Hct 24.7 L MCV 80.6 MCH 27.2 MCHC 33.8 RDW 17.6 H Plt Count 186 MPV 7.5 Neut % (Auto) 52.0 Lymph % (Auto) 35.0 [place] % (Auto) 10.9 H Eos % (Auto) 1.7 Baso % (Auto) 0.4 Neut # (Auto) 2.3 Lymph # (Auto) 1.5 [place] # (Auto) 0.5 Eos # (Auto) 0.1 Baso # (Auto) 0.0 WBC Differential . Differential Comment Auto diff final PT INR APTT Puncture Site Patient Temperature O2 Saturation ABG pH ABG pCO2 ABG pO2 ABG HCO3 ABG O2 Content ABG Base Excess ABG Methemoglobin Ge[place] Test Hemoglobin Carboxyhemoglobin O2 Delivery Device Inspired O2 Critical Value Sodium Potassium Chloride Carbon Dioxide Anion Gap BUN Creatinine Estimated GFR POC Glucose 96 Random Glucose Lactic Acid Calcium Phosphorus Magnesium Total Bilirubin AST ALT Alkaline Phosphatase Ammonia 27 Total Creatine Kinase Troponin I Total Protein Albumin Urine Color Urine Clarity Urine pH Ur Specific [place] Urine Protein Urine Glucose (UA) Urine Ketones Urine Occult Blood Urine Nitrate Urine Bilirubin Urine Urobilinogen Ur Leukocyte Esterase Hyaline Casts Micro UA Comment Urine Culture Comments Nasal Screen MRSA (PCR) Urine Opiates Screen Ur Barbiturates Screen Ur Amphetamines Screen U Benzodiazepines Scrn Urine Cocaine Screen U Cannabinoids Screen 04/05/18 04/05/18 04/05/18 01:39 01:39 06:04 WBC RBC Hgb Hct MCV MCH MCHC RDW Plt Count MPV Neut % (Auto) Lymph % (Auto) [place] % (Auto) Eos % (Auto) Baso % (Auto) Neut # (Auto) Lymph # (Auto) [place] # (Auto) Eos # (Auto) Baso # (Auto) WBC Differential Differential Comment PT 10.8 INR 1.1 APTT 25.8 Puncture Site Patient Temperature O2 Saturation ABG pH ABG pCO2 ABG pO2 ABG HCO3 ABG O2 Content ABG Base Excess ABG Methemoglobin Ge[place] Test Hemoglobin Carboxyhemoglobin O2 Delivery Device Inspired O2 Critical Value Sodium 147 H Potassium 3.8 D Chloride 115 H Carbon Dioxide 25.3 Anion Gap 7 BUN 27 H Creatinine 0.78 Estimated GFR 75 L POC Glucose 65 L Random Glucose 86 Lactic Acid Calcium 8.0 L Phosphorus 3.8 Magnesium 1.9 Total Bilirubin 0.3 AST 19 ALT 16 Alkaline Phosphatase 148 H Ammonia Total Creatine Kinase Troponin I Less than 0.02 L Total Protein 6.3 L D Albumin 2.7 L Urine Color Urine Clarity Urine pH Ur Specific [place] Urine Protein Urine Glucose (UA) Urine Ketones Urine Occult Blood Urine Nitrate Urine Bilirubin Urine Urobilinogen Ur Leukocyte Esterase Hyaline Casts Micro UA Comment Urine Culture Comments Nasal Screen MRSA (PCR) Urine Opiates Screen Ur Barbiturates Screen Ur Amphetamines Screen U Benzodiazepines Scrn Urine Cocaine Screen U Cannabinoids Screen 04/05/18 06:56 WBC RBC Hgb Hct MCV MCH MCHC RDW Plt Count MPV Neut % (Auto) Lymph % (Auto) [place] % (Auto) Eos % (Auto) Baso % (Auto) Neut # (Auto) Lymph # (Auto) [place] # (Auto) Eos # (Auto) Baso # (Auto) WBC Differential Differential Comment PT INR APTT Puncture Site Patient Temperature O2 Saturation ABG pH ABG pCO2 ABG pO2 ABG HCO3 ABG O2 Content ABG Base Excess ABG Methemoglobin [place] Test Hemoglobin Carboxyhemoglobin O2 Delivery Device Inspired O2 Critical Value Sodium Potassium Chloride Carbon Dioxide Anion Gap BUN Creatinine Estimated GFR POC Glucose 100 Random Glucose Lactic Acid Calcium Phosphorus Magnesium Total Bilirubin AST ALT Alkaline Phosphatase Ammonia Total Creatine Kinase Troponin I Total Protein Albumin Urine Color Urine Clarity Urine pH Ur Specific [place] Urine Protein Urine Glucose (UA) Urine Ketones Urine Occult Blood Urine Nitrate Urine Bilirubin Urine Urobilinogen Ur Leukocyte Esterase Hyaline Casts Micro UA Comment Urine Culture Comments Nasal Screen MRSA (PCR) Urine Opiates Screen Ur Barbiturates Screen Ur Amphetamines Screen U Benzodiazepines Scrn Urine Cocaine Screen U Cannabinoids Screen Result Diagrams: 04/05/18 01:39 04/05/18 01:39 Imaging: Cervical Spine CT 04/04/18 18:46 CONCLUSION: 1. Negative trauma study. Chest X-Ray 04/04/18 18:46 CONCLUSION: Mid inspiratory, suboptimal study with crowding of the lung vasculature and no definite acute cardiopulmonary disease. Head CT 04/04/18 18:46 CONCLUSION: 1. Negative noncontrast head CT. 2. The study is degraded by motion and streak artifact. . Patient/Family Conference Family Conference Location: Bedside, Telephone (with patient`s son Ryan Saba ) Issues Discussed: * Palliative care role, purpose, approach * Additional medical, psychosocial, and spiritual history * Patients general health, functional status, and cognitive changes in the months leading up to the current hospitalization * Patient/family understanding of the current medical problems * Patient/family understanding of prognosis * Patients goals of care as best understood from advance directives and/or conversations and/or values * Current medical treatment options and benefits/burdens of those options * Likely scenarios comparing ongoing aggressive care with a transition to comfort measures only * Questions answered to the best of my ability * Discussed hospice philosophy and benefits * Palliative care contact information provided Assessment and Plan - Disease Oriented Problem List (1) Congestive heart failure (2) COPD (chronic obstructive pulmonary disease) (3) Lupus (4) Atrial fibrillation (5) Hypertension - Symptom Scale (2) Anxiety 0-10 Scale: Unable to quantify Pertinent Non-Medical Issues: Psychosocial: Patient is originally from [place]. She moved to [facility] when she was 19 years old. 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 Patient is though she does not live with he at this time. They have been for approximately 35 years. Patient's currently resides in [place]. Patient has 2 sons, Ryan Saba and Jerome Dalal. Spiritual: Patient is Orthodoxy. She is not interested in texture artist visit at this time Legal: Patient signed [facility] DNR and completed and signed healthcare surrogate forms today Ethical issues impacting care: None identified at this time Important Contacts: Ryan Schwarz- [phone] Prognosis: Healthcare surrogate- Nathaly Murray-[phone] Code Status: No Code DNR Plan: PLAN: Legal decision maker: Patient is currently able to participate in making her own medical decisions. In the event that she is incapacitated she has designated her son Ryan Julio as her healthcare surrogate and her Ryan Murray Jr as her alternate healthcare surrogate. Goals: Patient made herself a no code DNR today. She has also requested to go back on hospice for comfort care only. Patient is known to [facility] hospice. CODE STATUS: No code DNR/DNI SYMPTOMS: * Pain: Patient has history of scoliosis, chronic back pain, rheumatoid arthritis. She also has a comminuted right humeral fracture that was not operated on. Patient states that she is on a fentanyl patch 75 mcg for 72 hours and takes hydrocodone 10 mg 4 times daily. Patient is currently on hydromorphone 1 mg IVP every 4 prn , gabapentin 600 mg 3 times daily and baclofen 10 mg 3 times daily scheduled. * Debility: Patient has history of CHF, COPD on home O2, scoliosis, rheumatoid arthritis, right knee arthroplasty. Patient ambulates with an unsteady gait with a 4 pronged cane and has had multiple falls at home. Patient wants comfort care through hospice services. Palliative care will continue to follow the patient during hospital course as condition evolves, to assist patient/decision-maker with understanding of their medical conditions, weighing benefits/burdens of treatment options, for clarification of goals of treatment. Additionally will assist with any symptoms of palliative concern Appreciation Thank you for the opportunity to participate in the care of Vicky Aguirre. Attestation Attestation: To help prompt me to consider important information that might be impacting today's encounter and assessment, information from prior notes written by myself or my colleagues may have been "brought forward" into today's note. My signature on this note, however, is an attestation that I personally performed the exam, history, and/or decision-making noted today, and, unless otherwise indicated, the interactions with patient, family, and staff as well as the review of records all occurred today. I also attest that the listed assessment and stated plan reflect my best clinical judgment today based on the combination of historical information, prior notes, and today's exam/ interactions. When time spent is documented, it refers only to time spent today by the signer, or if indicated, combined time spent today by collaborating physician/nurse practitioner.
--- NOTE | 2018-04-05 16:19 | P.PNIM ---
Subjective Interval history: patient c/o pain of right LE. She stated it occurred 3 days ago and she was told by nursing aid it was due to Lupus flare up. Patient is alert at the moment. she has no other complaints. Physical Exam Vital signs: Vital Signs 04/04/18 18:44 04/04/18 23:40 04/04/18 23:49 Temperature 95.9 F L 98.9 F Pulse Rate 75 Respiratory Rate 19 14 Blood Pressure 171/85 H 105/58 L Pulse Oximetry 97 96 04/04/18 23:50 04/04/18 23:57 04/05/18 00:06 Temperature Pulse Rate 76 Respiratory Rate 18 12 Blood Pressure Pulse Oximetry 96 95 04/05/18 00:28 04/05/18 00:50 04/05/18 00:52 Temperature Pulse Rate 78 78 Respiratory Rate 15 Blood Pressure 135/72 114/56 L Pulse Oximetry 93 L 04/05/18 01:00 04/05/18 01:30 04/05/18 02:00 Temperature 99.2 F Pulse Rate 75 72 70 Respiratory Rate 9 L 14 13 Blood Pressure 99/57 L 92/55 L 103/62 Pulse Oximetry 94 L 95 96 04/05/18 02:30 04/05/18 03:00 04/05/18 03:30 Temperature Pulse Rate 70 69 72 Respiratory Rate 10 L 11 L 23 Blood Pressure 139/68 129/60 127/78 Pulse Oximetry 98 99 96 04/05/18 03:46 04/05/18 04:00 04/05/18 04:30 Temperature 99.1 F Pulse Rate 71 71 68 Respiratory Rate 16 19 12 Blood Pressure 149/70 H 143/65 H Pulse Oximetry 100 99 04/05/18 05:00 04/05/18 05:30 04/05/18 06:00 Temperature Pulse Rate 69 69 74 Respiratory Rate 14 23 19 Blood Pressure 154/71 H 148/70 H 158/99 H Pulse Oximetry 100 98 96 04/05/18 06:13 04/05/18 06:31 04/05/18 06:48 Temperature Pulse Rate 78 78 78 Respiratory Rate 17 15 13 Blood Pressure 150/72 H 169/104 H 150/90 H Pulse Oximetry 96 96 90 L 04/05/18 07:00 04/05/18 08:00 04/05/18 08:01 Temperature 98 F Pulse Rate 78 78 73 Respiratory Rate 19 10 L 9 L Blood Pressure 169/74 H 155/64 H 155/64 H Pulse Oximetry 97 98 98 04/05/18 08:10 04/05/18 09:00 04/05/18 09:01 Temperature Pulse Rate 73 78 77 Respiratory Rate 18 20 17 Blood Pressure 140/65 Pulse Oximetry 97 93 L 92 L 04/05/18 10:00 04/05/18 11:00 04/05/18 12:00 Temperature Pulse Rate 75 75 78 Respiratory Rate 22 22 12 Blood Pressure 143/80 H 142/81 H Pulse Oximetry 100 96 98 04/05/18 13:00 04/05/18 14:00 04/05/18 14:52 Temperature Pulse Rate 73 72 Respiratory Rate 17 15 15 Blood Pressure 130/61 130/67 Pulse Oximetry 94 L 94 L 04/05/18 15:00 Temperature Pulse Rate 72 Respiratory Rate 24 Blood Pressure Pulse Oximetry Intake & Output 04/04/18 04/05/18 04/05/18 18:59 06:59 18:59 Intake Total 1989 Output Total 1150 / 1150 350 / 350 Balance -1150 / -1150 1640 / 1640 Weight 45 kg 53.5 kg Intake: IV 1000 / 1000 NS Inj 1,000 ML @ 84 mls/hr IV. 1000 / 1000 CONT .[id number] [facility] Rx#:[id number] Oral 990 / 990 Output: Urine Amount (Catheter) 1150 / 1150 350 / 350 Indwelling Urethral Catheter 1150 / 1150 350 / 350 Other: Date of Last Bowel Movement 04/04/18 Weight On Admission 53.5 kg - Constitutional no acute distress - Routine HEENT Exam Head: Present: normocephalic Eye: Present: EOMI, PERRL ENT: Present: mucous membranes dry - Routine Neck Exam Present: supple, full ROM - Routine Respiratory Exam Present: CTA bilaterally - Routine Cardiovascular Exam Present: RRR, S1, S2 - Routine Abdominal Exam Present: soft, normoactive bowel sounds - Routine Extremities Exam Present: edema Comments: + TTP of entire right leg. - Routine Skin Exam Present: intact - Routine Neurological Exam Present: alert, oriented X3 - Routine Psychiatric Exam Comments: flat affect - Urinary Catheter Management Indwelling Urethral Catheter Cath placed during this visit: yes Reason for continuing: Terminally ill/Comfort care Insertion date: 04/04/18 Insertion time: 21:30 Results - Labs CBC & Chem 7: 04/05/18 01:39 04/05/18 01:39 Laboratory Results - last 24 hr 04/04/18 04/04/18 04/04/18 19:08 19:08 19:08 WBC 5.5 RBC 3.72 L Hgb 9.9 L Hct 30.4 L MCV 81.6 MCH 26.5 L MCHC 32.5 RDW 17.7 H Plt Count 225 MPV 7.7 Neut % (Auto) 56.6 Lymph % (Auto) 29.5 Moore % (Auto) 11.3 H Eos % (Auto) 1.9 Baso % (Auto) 0.7 Neut # (Auto) 3.1 Lymph # (Auto) 1.6 Moore # (Auto) 0.6 Eos # (Auto) 0.1 Baso # (Auto) 0.0 WBC Differential . Differential Comment Auto diff final PT 10.4 INR 1.0 APTT 25.0 Puncture Site Patient Temperature O2 Saturation ABG pH ABG pCO2 ABG pO2 ABG HCO3 ABG O2 Content ABG Base Excess ABG Methemoglobin Geovanni Test Hemoglobin Carboxyhemoglobin O2 Delivery Device Inspired O2 Critical Value Sodium 140 Potassium 5.1 Chloride 111 H Carbon Dioxide 20.9 L Anion Gap 8 BUN 30 H Creatinine 0.97 Estimated GFR 59 L POC Glucose Random Glucose 99 Lactic Acid Calcium 8.7 Phosphorus Magnesium Total Bilirubin 0.2 AST 64 H ALT 20 Alkaline Phosphatase 190 H Ammonia Total Creatine Kinase Troponin I Less than 0.02 L Total Protein 7.8 Albumin 2.9 L Urine Color Urine Clarity Urine pH Ur Specific [place] Urine Protein Urine Glucose (UA) Urine Ketones Urine Occult Blood Urine Nitrate Urine Bilirubin Urine Urobilinogen Ur Leukocyte Esterase Hyaline Casts Micro UA Comment Urine Culture Comments Nasal Screen MRSA (PCR) Urine Opiates Screen Ur Barbiturates Screen Ur Amphetamines Screen U Benzodiazepines Scrn Urine Cocaine Screen U Cannabinoids Screen 04/04/18 04/04/18 04/04/18 19:08 19:08 21:30 WBC RBC Hgb Hct MCV MCH MCHC RDW Plt Count MPV Neut % (Auto) Lymph % (Auto) Moore % (Auto) Eos % (Auto) Baso % (Auto) Neut # (Auto) Lymph # (Auto) Moore # (Auto) Eos # (Auto) Baso # (Auto) WBC Differential Differential Comment PT INR APTT Puncture Site Patient Temperature O2 Saturation ABG pH ABG pCO2 ABG pO2 ABG HCO3 ABG O2 Content ABG Base Excess ABG Methemoglobin Geovanni Test Hemoglobin Carboxyhemoglobin O2 Delivery Device Inspired O2 Critical Value Sodium Potassium Chloride Carbon Dioxide Anion Gap BUN Creatinine Estimated GFR POC Glucose Random Glucose Lactic Acid 0.5 Calcium Phosphorus Magnesium Total Bilirubin AST ALT Alkaline Phosphatase Ammonia Total Creatine Kinase 171 Troponin I Total Protein Albumin Urine Color Straw Urine Clarity Clear Urine pH 5.0 Ur Specific [place] 1.008 Urine Protein Negative Urine Glucose (UA) Negative Urine Ketones Negative Urine Occult Blood Negative Urine Nitrate Negative Urine Bilirubin Negative Urine Urobilinogen Less than 2 Ur Leukocyte Esterase Negative Hyaline Casts 3 Micro UA Comment Cath-culture not ind Urine Culture Comments Cath-cult not ind Nasal Screen MRSA (PCR) Urine Opiates Screen Ur Barbiturates Screen Ur Amphetamines Screen U Benzodiazepines Scrn Urine Cocaine Screen U Cannabinoids Screen 04/04/18 04/04/18 04/05/18 21:30 22:33 00:45 WBC RBC Hgb Hct MCV MCH MCHC RDW Plt Count MPV Neut % (Auto) Lymph % (Auto) Moore % (Auto) Eos % (Auto) Baso % (Auto) Neut # (Auto) Lymph # (Auto) Moore # (Auto) Eos # (Auto) Baso # (Auto) WBC Differential Differential Comment PT INR APTT Puncture Site Left radial Patient Temperature 98.6 O2 Saturation 94 ABG pH 7.42 ABG pCO2 35 L ABG pO2 80 ABG HCO3 22 ABG O2 Content 11.8 L ABG Base Excess -1.8 ABG Methemoglobin 0.4 Geovanni Test Present Hemoglobin 8.8 L Carboxyhemoglobin 2.1 O2 Delivery Device Room air Inspired O2 21 Critical Value No Sodium Potassium Chloride Carbon Dioxide Anion Gap BUN Creatinine Estimated GFR POC Glucose Random Glucose Lactic Acid Calcium Phosphorus Magnesium Total Bilirubin AST ALT Alkaline Phosphatase Ammonia Total Creatine Kinase Troponin I Total Protein Albumin Urine Color Urine Clarity Urine pH Ur Specific [place] Urine Protein Urine Glucose (UA) Urine Ketones Urine Occult Blood Urine Nitrate Urine Bilirubin Urine Urobilinogen Ur Leukocyte Esterase Hyaline Casts Micro UA Comment Urine Culture Comments Nasal Screen MRSA (PCR) Not detected Urine Opiates Screen Neg Ur Barbiturates Screen Neg Ur Amphetamines Screen Neg U Benzodiazepines Scrn Neg Urine Cocaine Screen Neg U Cannabinoids Screen Neg 04/05/18 04/05/1818 01:25 01:39 01:39 WBC 4.4 RBC 3.07 L Hgb 8.4 L Hct 24.7 L MCV 80.6 MCH 27.2 MCHC 33.8 RDW 17.6 H Plt Count 186 MPV 7.5 Neut % (Auto) 52.0 Lymph % (Auto) 35.0 Moore % (Auto) 10.9 H Eos % (Auto) 1.7 Baso % (Auto) 0.4 Neut # (Auto) 2.3 Lymph # (Auto) 1.5 Moore # (Auto) 0.5 Eos # (Auto) 0.1 Baso # (Auto) 0.0 WBC Differential . Differential Comment Auto diff final PT INR APTT Puncture Site Patient Temperature O2 Saturation ABG pH ABG pCO2 ABG pO2 ABG HCO3 ABG O2 Content ABG Base Excess ABG Methemoglobin Geovanni Test Hemoglobin Carboxyhemoglobin O2 Delivery Device Inspired O2 Critical Value Sodium Potassium Chloride Carbon Dioxide Anion Gap BUN Creatinine Estimated GFR POC Glucose 96 Random Glucose Lactic Acid Calcium Phosphorus Magnesium Total Bilirubin AST ALT Alkaline Phosphatase Ammonia 27 Total Creatine Kinase Troponin I Total Protein Albumin Urine Color Urine Clarity Urine pH Ur Specific [place] Urine Protein Urine Glucose (UA) Urine Ketones Urine Occult Blood Urine Nitrate Urine Bilirubin Urine Urobilinogen Ur Leukocyte Esterase Hyaline Casts Micro UA Comment Urine Culture Comments Nasal Screen MRSA (PCR) Urine Opiates Screen Ur Barbiturates Screen Ur Amphetamines Screen U Benzodiazepines Scrn Urine Cocaine Screen U Cannabinoids Screen 04/05/18 04/05/18 04/05/18 01:39 01:39 06:04 WBC RBC Hgb Hct MCV MCH MCHC RDW Plt Count MPV Neut % (Auto) Lymph % (Auto) Moore % (Auto) Eos % (Auto) Baso % (Auto) Neut # (Auto) Lymph # (Auto) Moore # (Auto) Eos # (Auto) Baso # (Auto) WBC Differential Differential Comment PT 10.8 INR 1.1 APTT 25.8 Puncture Site Patient Temperature O2 Saturation ABG pH ABG pCO2 ABG pO2 ABG HCO3 ABG O2 Content ABG Base Excess ABG Methemoglobin Geovanni Test Hemoglobin Carboxyhemoglobin O2 Delivery Device Inspired O2 Critical Value Sodium 147 H Potassium 3.8 D Chloride 115 H Carbon Dioxide 25.3 Anion Gap 7 BUN 27 H Creatinine 0.78 Estimated GFR 75 L POC Glucose 65 L Random Glucose 86 Lactic Acid Calcium 8.0 L Phosphorus 3.8 Magnesium 1.9 Total Bilirubin 0.3 AST 19 ALT 16 Alkaline Phosphatase 148 H Ammonia Total Creatine Kinase Troponin I Less than 0.02 L Total Protein 6.3 L D Albumin 2.7 L Urine Color Urine Clarity Urine pH Ur Specific [place] Urine Protein Urine Glucose (UA) Urine Ketones Urine Occult Blood Urine Nitrate Urine Bilirubin Urine Urobilinogen Ur Leukocyte Esterase Hyaline Casts Micro UA Comment Urine Culture Comments Nasal Screen MRSA (PCR) Urine Opiates Screen Ur Barbiturates Screen Ur Amphetamines Screen U Benzodiazepines Scrn Urine Cocaine Screen U Cannabinoids Screen 04/05/18 04/05/18 04/05/18 06:56 10:00 12:09 WBC RBC Hgb Hct MCV MCH MCHC RDW Plt Count MPV Neut % (Auto) Lymph % (Auto) Moore % (Auto) Eos % (Auto) Baso % (Auto) Neut # (Auto) Lymph # (Auto) Moore # (Auto) Eos # (Auto) Baso # (Auto) WBC Differential Differential Comment PT INR APTT Puncture Site Patient Temperature O2 Saturation ABG pH ABG pCO2 ABG pO2 ABG HCO3 ABG O2 Content ABG Base Excess ABG Methemoglobin Geovanni Test Hemoglobin Carboxyhemoglobin O2 Delivery Device Inspired O2 Critical Value Sodium Potassium Chloride Carbon Dioxide Anion Gap BUN Creatinine Estimated GFR POC Glucose 100 94 86 Random Glucose Lactic Acid Calcium Phosphorus Magnesium Total Bilirubin AST ALT Alkaline Phosphatase Ammonia Total Creatine Kinase Troponin I Total Protein Albumin Urine Color Urine Clarity Urine pH Ur Specific [place] Urine Protein Urine Glucose (UA) Urine Ketones Urine Occult Blood Urine Nitrate Urine Bilirubin Urine Urobilinogen Ur Leukocyte Esterase Hyaline Casts Micro UA Comment Urine Culture Comments Nasal Screen MRSA (PCR) Urine Opiates Screen Ur Barbiturates Screen Ur Amphetamines Screen U Benzodiazepines Scrn Urine Cocaine Screen U Cannabinoids Screen 04/05/18 13:10 WBC RBC Hgb Hct MCV MCH MCHC RDW Plt Count MPV Neut % (Auto) Lymph % (Auto) Moore % (Auto) Eos % (Auto) Baso % (Auto) Neut # (Auto) Lymph # (Auto) Moore # (Auto) Eos # (Auto) Baso # (Auto) WBC Differential Differential Comment PT INR APTT Puncture Site Patient Temperature O2 Saturation ABG pH ABG pCO2 ABG pO2 ABG HCO3 ABG O2 Content ABG Base Excess ABG Methemoglobin Geovanni Test Hemoglobin Carboxyhemoglobin O2 Delivery Device Inspired O2 Critical Value Sodium Potassium Chloride Carbon Dioxide Anion Gap BUN Creatinine Estimated GFR POC Glucose Random Glucose Lactic Acid Calcium Phosphorus Magnesium Total Bilirubin AST ALT Alkaline Phosphatase Ammonia Total Creatine Kinase Troponin I Less than 0.02 L Total Protein Albumin Urine Color Urine Clarity Urine pH Ur Specific [place] Urine Protein Urine Glucose (UA) Urine Ketones Urine Occult Blood Urine Nitrate Urine Bilirubin Urine Urobilinogen Ur Leukocyte Esterase Hyaline Casts Micro UA Comment Urine Culture Comments Nasal Screen MRSA (PCR) Urine Opiates Screen Ur Barbiturates Screen Ur Amphetamines Screen U Benzodiazepines Scrn Urine Cocaine Screen U Cannabinoids Screen - Imaging Impressions Cervical Spine CT 04/04/18 18:46 CONCLUSION: 1. Negative trauma study. Chest X-Ray 04/04/18 18:46 CONCLUSION: Mid inspiratory, suboptimal study with crowding of the lung vasculature and no definite acute cardiopulmonary disease. Head CT 04/04/18 18:46 CONCLUSION: 1. Negative noncontrast head CT. 2. The study is degraded by motion and streak artifact. . Assessment and Plan - Plan Altered mental state --CT head negative -most likely due to opioid overdose. -palliative care consulted. -d/c IV dilaudid. start norco. Congestive heart failure -Continue lisinopril and metoprolol -Hold Lasix while n.p.o. and IV fluids Hypertension -continue with lisinopril and metoprolol Seizures -No seizure activity observed -Seizure precautions COPD -DuoNeb scheduled and as needed Atrial fibrillation -Continue Eliquis and aspirin -Rate controlled with metoprolol Anxiety -Fluoxetine, Hydroxyzine, and Klonopin Chronic back pain with neuropathy -continue gabapentin. LE pain/swelling -per patient this is new. -will get LE doppler stat. unlikely DVT since patientis on eliquis. -PT already consulted. DVT GI prophylaxis -Teds SCDs -Eliquis -Pepcid
--- NOTE | 2018-04-05 18:26 | US ---
EXAM DATE: 04/05/2018 6:23 PM EDT AGE/SEX: 62 years / Female INDICATIONS: Pain and swelling in the lower extremities. CLINICAL DATA: This is the patient's initial encounter. Patient reports that signs and symptoms have been present for 2 days and indicates a pain score of 5/10. MEDICAL/SURGICAL HISTORY: Hepatitis C. Congestive heart failure. Lupus. Hypertension. Scoli osis. Right shoulder fracture. Chronic pain syndrome. Fibromyalgia. Tonsillectomy. Tubal ligatio n. Elbow surgery. Esophagogastroduodenoscopy. Arthroplasty of the left shoulder. Colonoscopy. Rig ht wrist surgery. COMPARISON: No prior exams available for comparison. TECHNIQUE: Venous ultrasound of both lower extremities was performed from the inguinal ligament to t he proximal calf. Real-time, color Doppler and spectral tracing, compression and augmentation techni ques were used. FINDINGS: Right Leg: Normal compression of the deep venous system from the inguinal region to the proximal lucien f. No echogenic clot is seen. Normal response of the venous system to augmentation and respiration. Left Leg: Normal compression of the deep venous system from the inguinal region to the proximal calf . No echogenic clot is seen. Normal response of the venous system to augmentation and respiration. Other: None. CONCLUSION: Negative exam. No sonographic or Doppler findings of the deep venous or superficial venous thrombosis in either lower extremity. Electronically signed by: Pro Hunt MD 04/05/2018 6:25 PM EDT
[2018-04-06] MEDS: HYDROmorphone PF Inj 2 MG/ML Vial IV.PUSH PRN ×3 (00:45→14:42)
[2018-04-06] MEDS: Sod Chloride 0.9% Inj 1,000 ML IV.CONT SCH ×2 (05:27→13:21)
[2018-04-06] MEDS: Chlorhexidine Gluconate 2% 1 Pack (2 Cloths) TOPICAL SCH (05:28)
[2018-04-06 08:18] LABS: Baso % (Auto) 0.6 % (0.0-2.0); Eos # (Auto) 0.1 th/mm3 (0.0-0.4); Eos % (Auto) 1.5 % (0.0-4.0); Hematocrit 25.7 % (35.0-46.0); Hemoglobin 8.6 gm/dL (11.6-15.3); Lymph # (Auto) 2.1 th/mm3 (1.0-4.8); Lymph % (Auto) 39.9 % (9.0-44.0); Mean Corpuscular HGB Conc 33.5 % (32.0-36.0); Mean Corpuscular Hemoglobin 27.2 pg (27.0-34.0); Mean Corpuscular Volume 81.1 fL (80.0-100.0); Mean Platelet Volume 7.3 fL (7.0-11.0); Mono # (Auto) 0.5 th/mm3 (0.0-0.9); Mono % (Auto) 10.4 % (0.0-8.0); Neut # (Auto) 2.4 th/mm3 (1.8-7.7); Neut % (Auto) 47.6 % (16.0-70.0); Platelet Count 206 th/mm3 (150-450); Red Blood Count 3.17 mil/mm3 (4.00-5.30); Red Cell Distribution Width 17.6 % (11.6-17.2); White Blood Count 5.1 th/mm3 (4.0-11.0)
[2018-04-06 08:53] LABS: Alanine Aminotransferase 15 U/L (10-53); Albumin 2.8 g/dL (3.4-5.0); Alkaline Phosphatase 145 U/L (45-117); Anion Gap 6 meq/L (5-15); Aspartate Aminotransferase 24 U/L (15-37); Blood Urea Nitrogen 9 mg/dL (7-18); Calcium 8.4 mg/dL (8.5-10.1); Carbon Dioxide 24.6 meq/L (21.0-32.0); Chloride 109 meq/L (98-107); Glomerular Filtration Rate Greater Than 89 mL/min (>89); Glucose,Random 89 mg/dL (74-106); Potassium 3.9 meq/L (3.5-5.1); Sodium 140 meq/L (136-145); Total Protein 6.8 g/dL (6.4-8.2)
[2018-04-06] MEDS: Gabapentin 300 MG Capsule PO SCH ×3 (10:03→18:46)
[2018-04-06] MEDS: Famotidine PF Inj 20 MG/2 ML Vial IV.PUSH SCH ×2 (10:03→22:36)
[2018-04-06] MEDS: Baclofen 10 MG Tablet PO SCH ×3 (10:04→18:46)
[2018-04-06] MEDS: Senna/Docusate Sodium 8.6/50 MG Tablet PO SCH ×2 (10:04→22:38)
[2018-04-06] MEDS: FLUoxetine 20 MG Capsule PO SCH (10:04)
[2018-04-06] MEDS: Lactobacillus Acidophilus/L. Spores Tablet PO SCH (10:04)
[2018-04-06] MEDS: clonazePAM 0.5 MG Tablet PO SCH ×2 (10:05→22:37)
[2018-04-06] MEDS: Lisinopril 20 MG Tablet PO SCH (10:06)
--- NOTE | 2018-04-06 14:27 | P.PN ---
Subjective Interval history: Follow up on patient with encephalopathy. She is seen and examined. Patient upset because she is convinced that her nurse did not give her IV Dilaudid because she did not "feel it like she normally does". Teofilo SAHU in room at the time and witnessed nurse pushing IV Dilaudid. Patient denies any other complaints. She is looking forward to going home with hospice as soon as possible. Discussed with nursing staff, no acute events noted. Physical Exam Vital signs: Vital Signs 04/05/18 14:52 04/05/18 15:00 04/05/18 16:00 Temperature Pulse Rate 74 73 Respiratory Rate 15 17 12 Blood Pressure 136/63 146/75 H Pulse Oximetry 96 93 L 04/05/18 17:00 04/05/18 18:00 04/05/18 18:34 Temperature Pulse Rate 80 76 Respiratory Rate 15 20 17 Blood Pressure 135/68 143/82 H Pulse Oximetry 04/05/18 19:57 04/05/18 20:00 04/05/18 22:00 Temperature 98.9 F Pulse Rate 81 81 73 Respiratory Rate 19 24 Blood Pressure 154/85 H Pulse Oximetry 95 100 04/05/18 23:31 04/05/18 23:33 04/05/18 23:40 Temperature 98.3 F Pulse Rate 74 74 72 Respiratory Rate 18 17 Blood Pressure 143/73 H Pulse Oximetry 98 04/05/18 23:41 04/06/18 00:00 04/06/18 03:38 Temperature 98.2 F Pulse Rate 75 70 Respiratory Rate 18 16 Blood Pressure 146/85 H Pulse Oximetry 99 96 04/06/18 04:00 04/06/18 07:41 04/06/18 08:00 Temperature 98 F 98.3 F Pulse Rate 70 78 Respiratory Rate 16 18 15 Blood Pressure 151/85 H 162/80 H Pulse Oximetry 97 97 04/06/18 11:08 04/06/18 11:27 Temperature Pulse Rate 71 Respiratory Rate 16 Blood Pressure Pulse Oximetry 98 Intake & Output 04/05/18 04/06/18 04/06/18 18:59 06:59 18:59 Intake Total 2280 / 2280 1000 / 1000 1000 / 1000 Output Total 1900 / 1900 Balance 380 / 380 1000 / 1000 1000 / 1000 Weight 56.8 kg Intake: IV 1000 / 1000 1000 / 1000 1000 / 1000 NS Inj 1,000 ML @ 84 mls/hr IV. 1000 / 1000 1000 / 1000 1000 / 1000 CONT .[id number] [facility] Rx#:[id number] Oral 1280 / 1280 Output: Urine Amount (Catheter) 18990 Indwelling Urethral Catheter 1899 Other: Date of Last Bowel Movement 04/04/18 04/04/18 Narrative: GENERAL: Well developed well nourished chronically ill appearing female INAD. Awake and alert. Appears comfortable. SKIN: Warm and dry. HEAD: Atraumatic. Normocephalic. EYES: Pupils equal and round. No scleral icterus. No injection or drainage. ENT: No nasal bleeding or discharge. Mucous membranes pink and moist. NECK: Trachea midline. CARDIOVASCULAR: Regular rate and rhythm. RESPIRATORY: No accessory muscle use. Clear to auscultation. Breath sounds equal bilaterally. GASTROINTESTINAL: Abdomen soft, non-tender, nondistended. Hepatic and splenic margins not palpable. MUSCULOSKELETAL: Extremities without clubbing or cyanosis. +BLE pedal edema. NEUROLOGICAL: Awake and alert. No obvious cranial nerve deficits. Motor grossly within normal limits. Nonfocal. Normal speech. PSYCHIATRIC: Calm and cooperative. - Urinary Catheter Management Indwelling Urethral Catheter Cath placed during this visit: yes Reason for continuing: Terminally ill/Comfort care Insertion date: 04/04/18 Insertion time: 21:30 Results - Labs CBC & Chem 7: 04/06/18 08:03 04/06/18 08:03 Laboratory Results - last 24 hr 04/05/18 04/05/18 04/05/18 13:10 18:25 23:29 WBC RBC Hgb Hct MCV MCH MCHC RDW Plt Count MPV Neut % (Auto) Lymph % (Auto) [place] % (Auto) Eos % (Auto) Baso % (Auto) Neut # (Auto) Lymph # (Auto) [place] # (Auto) Eos # (Auto) Baso # (Auto) WBC Differential Differential Comment Sodium Potassium Chloride Carbon Dioxide Anion Gap BUN Creatinine Estimated GFR POC Glucose 114 H 133 H Random Glucose Calcium Total Bilirubin AST ALT Alkaline Phosphatase Troponin I Less than 0.02 L Total Protein Albumin 04/06/18 04/06/18 08:03 08:03 WBC 5.1 RBC 3.17 L Hgb 8.6 L Hct 25.7 L MCV 81.1 MCH 27.2 MCHC 33.5 RDW 17.6 H Plt Count 206 MPV 7.3 Neut % (Auto) 47.6 Lymph % (Auto) 39.9 [place] % (Auto) 10.4 H Eos % (Auto) 1.5 Baso % (Auto) 0.6 Neut # (Auto) 2.4 Lymph # (Auto) 2.1 [place] # (Auto) 0.5 Eos # (Auto) 0.1 Baso # (Auto) 0.0 WBC Differential . Differential Comment Auto diff final Sodium 140 Potassium 3.9 Chloride 109 H Carbon Dioxide 24.6 Anion Gap 6 BUN 9 Creatinine 0.52 Estimated GFR Greater than 89 POC Glucose Random Glucose 89 Calcium 8.4 L Total Bilirubin 0.2 AST 24 ALT 15 Alkaline Phosphatase 145 H Troponin I Total Protein 6.8 Albumin 2.8 L - Imaging Impressions Venous Doppler Study 04/05/18 15:59 CONCLUSION: Negative exam. No sonographic or Doppler findings of the deep venous or superficial venous thrombosis in either lower extremity. - Procedures None Assessment and Plan - Assessment (1) Encephalopathy Code(s): G93.40 - Encephalopathy, unspecified Status: Acute (2) Opiate overdose Code(s): T40.601A - Poisoning by unspecified narcotics, accidental ( unintentional), initial encounter Status: Acute (3) Fall Code(s): W19.XXXA - Unspecified fall, initial encounter Status: Acute (4) Congestive heart failure Code(s): I50.9 - Heart failure, unspecified Status: Acute (5) COPD (chronic obstructive pulmonary disease) Code(s): J44.9 - Chronic obstructive pulmonary disease, unspecified Status: Acute (6) Lupus Code(s): L93.0 - Discoid lupus erythematosus Status: Acute (7) Atrial fibrillation Code(s): I48.91 - Unspecified atrial fibrillation Status: Acute (8) Anxiety Code(s): F41.9 - Anxiety disorder, unspecified Status: Acute (9) Pain Code(s): R52 - Pain, unspecified Status: Acute (10) Hypertension Code(s): I10 - Essential (primary) hypertension Status: Acute - Plan Altered mental state CT head negative most likely due to opioid overdose. -palliative care following, appreciate assistance. [facility] Hospice consult placed. -d/c IV dilaudid. Continue [place] prn Congestive heart failure, not in acute exacerbation -Continue lisinopril and metoprolol -D/C IVF, resume Lasix po -monitor for signs of fluid overload Hypertension -continue with lisinopril and metoprolol Seizures -No seizure activity observed -Seizure precautions COPD -DuoNeb scheduled and as needed Atrial fibrillation -Continue Eliquis and aspirin -Rate controlled with metoprolol Anxiety -Fluoxetine, Hydroxyzine, and Klonopin Chronic back pain with neuropathy -continue gabapentin. LE pain/swelling Doppler negative DVT GI prophylaxis -Teds SCDs -Eliquis -Pepcid Code Status: DNR Discussed Condition With: patient, nursing staff, MICHAEL, ADELINA Red, Dr. Petersen Discharge Planning: Plan for discharge to discharge to [facility]. CM assisting with discharge planning. (2) Opiate overdose Qualifiers: Encounter type: initial encounter Injury intent: accidental or unintentional Qualified Code(s): T40.601A - Poisoning by unspecified narcotics, accidental ( unintentional), initial encounter (3) Fall Qualifiers: Encounter type: initial encounter Qualified Code(s): W19.XXXA - Unspecified fall, initial encounter
--- NOTE | 2018-04-06 15:40 | P.DS ---
Date of admission: 04/04/18 22:05 Primary care physician: Colt Miller Attending physician on discharge: Carmenza Petersen Anticipated date of discharge: 04/07/18 Brief History from admission: 62-year-old unfortunate female with past medical history of rheumatoid Arthritis , Chronic Anemia, Lupus, Anxiety, Depression, Hepatitis C, COPD, A. fib on Eliquis and Tobacco Abuse is brought for an evaluation of fall. This is her fourth admission this year. Per EMS the patient was found down in her kitchen in a puddle of urine, found by family member. Unknown down time. Per EMS the patient has a history of seizures, and told them she thinks she had a seizure. However I do not see any history of seizure disorder documented within the last 5 admissions, neither any home antiseizure medications. The patient is very difficult to understand when she speaks as she speaks very quietly and very little history can be obtained from her. She is awake and oriented x 3, she is somewhat lethargic but does answer yes and no. She does not have any specific complaints. During my reassessment she claims she was aware when the EMS arrived and she wants to go home. However there is a serious question about patient's home safety living alone. DS: Diagnosis - Discharge Diagnosis (1) Encephalopathy Status: Acute (2) Opiate overdose Status: Acute (3) Fall Status: Acute (4) Congestive heart failure Status: Acute (5) COPD (chronic obstructive pulmonary disease) Status: Acute (6) Lupus Status: Acute (7) Atrial fibrillation Status: Acute (8) Anxiety Status: Acute (9) Pain Status: Acute (10) Hypertension Status: Acute DS: Summary Hospital Course: Patient was admitted with encephalopathy to critical care service after she was found down in her home for unknown period of time in a puddle of urine. At ED presentation, patient was lethargic but able to appropriately answer yes and no questions. She recalled EMS coming to her home to take her to the hospital. Patient's home fentanyl patch was held. Patient's mentation improved. She was seen in consultation by palliative care and made herself no code DNR. She requests to go back on hospice for comfort care only. [facility] with consulted by palliative care who was known to patient she was discharged to home under their care. - Time Spent with Patient Total time spent providing and/or coordinating discharge services: Greater than 30 minutes - Quality: VTE Deep Vein Thrombosis/Pulmonary Embolism Present on Admission: No Exam Vital signs: Vital Signs 04/05/18 16:00 04/05/18 17:00 04/05/18 18:00 Temperature Pulse Rate 73 80 76 Respiratory Rate 12 15 20 Blood Pressure 146/75 H 135/68 143/82 H Pulse Oximetry 93 L 04/05/18 18:34 04/05/18 19:57 04/05/18 20:00 Temperature 98.9 F Pulse Rate 81 81 Respiratory Rate 17 19 24 Blood Pressure 154/85 H Pulse Oximetry 95 100 04/05/18 22:00 04/05/18 23:31 04/05/18 23:33 Temperature 98.3 F Pulse Rate 73 74 74 Respiratory Rate 18 Blood Pressure 143/73 H Pulse Oximetry 98 04/05/18 23:40 04/05/18 23:41 04/06/18 00:00 Temperature 98.2 F Pulse Rate 72 75 Respiratory Rate 17 18 Blood Pressure 146/85 H Pulse Oximetry 99 96 04/06/18 03:38 04/06/18 04:00 04/06/18 07:41 Temperature 98 F Pulse Rate 70 70 Respiratory Rate 16 16 18 Blood Pressure 151/85 H Pulse Oximetry 97 04/06/18 08:00 04/06/18 11:08 04/06/18 11:27 Temperature 98.3 F Pulse Rate 78 71 Respiratory Rate 15 16 Blood Pressure 162/80 H Pulse Oximetry 97 98 04/06/18 12:00 Temperature 98.2 F Pulse Rate 77 Respiratory Rate 18 Blood Pressure 153/74 H Pulse Oximetry 100 Intake & Output 04/05/18 04/06/18 04/06/18 18:59 06:59 18:59 Intake Total 2280 / 2280 1000 / 1000 1000 / 1000 Output Total 1900 / 1900 Balance 380 / 380 1000 / 1000 1000 / 1000 Weight 56.8 kg Intake: IV 1000 / 1000 1000 / 1000 1000 / 1000 NS Inj 1,000 ML @ 84 mls/hr IV. 1000 / 1000 1000 / 1000 1000 / 1000 CONT .[id number] [facility] Rx#:[id number] Oral 1280 / 1280 Output: Urine Amount (Catheter) 1899 / 0 Indwelling Urethral Catheter 1899 Other: Date of Last Bowel Movement 04/04/18 04/04/18 Narrative: GENERAL: Well developed well nourished chronically ill appearing female. Awake and alert. Appears comfortable. Not in any distress. SKIN: Warm and dry. No generalized rash. HEAD: Atraumatic. Normocephalic. EYES: Pupils equal and round. No scleral icterus. No injection or drainage. ENT: No nasal bleeding or discharge. Mucous membranes pink and moist. NECK: Trachea midline. CARDIOVASCULAR: Regular rate and rhythm. RESPIRATORY: No accessory muscle use. Clear to auscultation. Breath sounds equal bilaterally. GASTROINTESTINAL: Abdomen soft, non-tender, nondistended. Hepatic and splenic margins not palpable. MUSCULOSKELETAL: Extremities without clubbing or cyanosis. +BLE pedal edema. NEUROLOGICAL: Awake and alert. No obvious cranial nerve deficits. Motor grossly within normal limits. Nonfocal. Normal speech. PSYCHIATRIC: Calm and cooperative. Results Procedures completed during hospitalization: None Labs on day of discharge: Labs from last 24 hours 04/06/18 04/06/18 04/05/18 08:03 08:03 23:29 WBC 5.1 RBC 3.17 L Hgb 8.6 L Hct 25.7 L MCV 81.1 MCH 27.2 MCHC 33.5 RDW 17.6 H Plt Count 206 MPV 7.3 Neut % (Auto) 47.6 Lymph % (Auto) 39.9 [place] % (Auto) 10.4 H Eos % (Auto) 1.5 Baso % (Auto) 0.6 Neut # (Auto) 2.4 Lymph # (Auto) 2.1 [place] # (Auto) 0.5 Eos # (Auto) 0.1 Baso # (Auto) 0.0 WBC Differential . Differential Comment Auto diff final Sodium 140 Potassium 3.9 Chloride 109 H Carbon Dioxide 24.6 Anion Gap 6 BUN 9 Creatinine 0.52 Estimated GFR Greater than 89 POC Glucose 133 H Random Glucose 89 Calcium 8.4 L Total Bilirubin 0.2 AST 24 ALT 15 Alkaline Phosphatase 145 H Total Protein 6.8 Albumin 2.8 L 04/05/18 18:25 WBC RBC Hgb Hct MCV MCH MCHC RDW Plt Count MPV Neut % (Auto) Lymph % (Auto) [place] % (Auto) Eos % (Auto) Baso % (Auto) Neut # (Auto) Lymph # (Auto) [place] # (Auto) Eos # (Auto) Baso # (Auto) WBC Differential Differential Comment Sodium Potassium Chloride Carbon Dioxide Anion Gap BUN Creatinine Estimated GFR POC Glucose 114 H Random Glucose Calcium Total Bilirubin AST ALT Alkaline Phosphatase Total Protein Albumin - Impressions ITS Impressions Cervical Spine CT 04/04/18 18:46 CONCLUSION: 1. Negative trauma study. Chest X-Ray 04/04/18 18:46 CONCLUSION: Mid inspiratory, suboptimal study with crowding of the lung vasculature and no definite acute cardiopulmonary disease. Head CT 04/04/18 18:46 CONCLUSION: 1. Negative noncontrast head CT. 2. The study is degraded by motion and streak artifact. . Venous Doppler Study 04/05/18 15:59 CONCLUSION: Negative exam. No sonographic or Doppler findings of the deep venous or superficial venous thrombosis in either lower extremity. Discharge Plan - Discharge Disposition Patient Disposition: 50 Hospice/Home - Discharge Condition Condition: Fair - Discharge Order Discharge Orders: Discharge Order (Routine); Ordered 04/06/18 Ordered By: Jonna Yan - Physicians Team Primary Care Provider: Colt Miller Attending Provider: Carmenza Petersen Other Providers: Juan Da Silva MD
[2018-04-06] MEDS: Furosemide 20 MG Tablet PO SCH (15:44)
--- NOTE | 2018-04-06 16:58 | P.PNPAL ---
Reason for Visit Reason for visit: a. To assist with evaluation and management of symptoms including: Pain, debility b. To assist medical decision maker(s) with: better understanding of current medical conditions; weighing benefits/burdens of medical treatment options; making medical treatment decisions. Subjective Subjective/Interval History: Follow up medically necessary for symptom management and further clarification of goals. Patient seen earlier on in her room at 1500hrs. Per case management notes 04/05, patient was seen by the [facility] rattling machine tender and she decided [facility] a [facility] fro rehabilitation and was going to be discharged from hospice. Patient is in her room in the presence of her bedside RN. Patient is in bed awake and receiving pain medication Hydromorphone IVP. Patient complaining of generalized pain. Pain managed with Hydromorphone 5mg q 4 hrs prn and 0.5mg IVP Q 3hrs prn and Hydrocodone . Patient has required x 4 prn Hydromorphone doses in the past 24hrs and x2 prn Hydrocodone doses in the past 24hrs. Patient is alert, oriented to person, place and situation. Patient appears to be forgetful today. Patient does not remember the dental cream maker from [facility] who came to see her yesterday. Patient states that she wants to go back home on hospice and does not want to go to a SNF for rehabilitation. Telephone conversation with patient`s son Ryan. Updated him on what patient has said regarding been discharged home with hospice. Explained to him that patient maybe somewhat forgetful or confused and he may need to assist with making decisions. Patient`s son spoke to his mother over telephone and after their conversation, he conveyed that he would want [facility] to be reconsulted and wants patient to be discharged back home on hospice. Case discussed with ZACH Brown, bedside RN and nurse outreach case manager. Family/Friend Interactions: See interval note. Advance Directives Advance Directives Date on File: 04/05/18 (Completed [facility]) Health Care Surrogate Name and Number: Ryan Saba(son)[phone] Alt: Ryan Aguirre() Objective Vital Signs: Vital Signs 04/05/18 17:00 04/05/18 18:00 04/05/18 18:34 Temperature Pulse Rate 80 76 Respiratory Rate 15 20 17 Blood Pressure 135/68 143/82 H Pulse Oximetry 04/05/18 19:57 08/15/18 20:00 04/05/18 22:00 Temperature 98.9 F Pulse Rate 81 81 73 Respiratory Rate 19 24 Blood Pressure 154/85 H Pulse Oximetry 95 100 04/05/18 23:31 04/05/18 23:33 04/05/18 23:40 Temperature 98.3 F Pulse Rate 74 74 72 Respiratory Rate 18 17 Blood Pressure 143/73 H Pulse Oximetry 98 04/05/18 23:41 04/06/18 00:00 04/06/18 03:38 Temperature 98.2 F Pulse Rate 75 70 Respiratory Rate 18 16 Blood Pressure 146/85 H Pulse Oximetry 99 96 04/06/18 04:00 04/06/18 07:41 04/06/18 08:00 Temperature 98 F 98.3 F Pulse Rate 70 78 Respiratory Rate 16 18 15 Blood Pressure 151/85 H 162/80 H Pulse Oximetry 97 97 04/06/18 11:08 04/06/18 11:27 04/06/18 12:00 Temperature 98.2 F Pulse Rate 71 77 Respiratory Rate 16 18 Blood Pressure 153/74 H Pulse Oximetry 98 100 Intake & Output 04/05/18 04/06/18 04/06/18 18:59 06:59 18:59 Intake Total 2280 / 2280 1000 / 1000 1000 / 1000 Output Total 1900 / 1900 Balance 380 / 380 1000 / 1000 1000 / 1000 Weight 56.8 kg Intake: IV 1000 / 1000 1000 / 1000 1000 / 1000 NS Inj 1,000 ML @ 84 mls/hr IV. 1000 / 1000 1000 / 1000 1000 / 1000 CONT .[id number] [facility] Rx#:[id number] Oral 1280 / 1280 Output: Urine Amount (Catheter) 0 / 1900 Indwelling Urethral Catheter 1899 / 1899 Other: Date of Last Bowel Movement 04/04/18 04/04/18 Physical Exam: CONSTITUTIONAL/GENERAL: This chronically ill looking patient who appears older than stated age, in no apparent distress. TUBES/LINES/DRAINS:PIV, Fagan catheter SKIN: No jaundice, rashes, or lesions. Pale. Ecchymoses on upper extremities. No wounds seen anteriorly. Skin temperature appropriate. Not diaphoretic. HEAD: Atraumatic. Normocephalic. EYES: Pupils equal and round and reactive. Extraocular motions intact. No scleral icterus. Yellowish drainage to right eye. Fundi not examined. ENT: Hearing grossly normal. Nose without bleeding or purulent drainage. Dry mouth NECK: Trachea midline. Supple, nontender. CARDIOVASCULAR: Regular rate and rhythm without murmurs, gallops, or rubs. No JVD. Peripheral pulses symmetric. RESPIRATORY/CHEST: Symmetric, unlabored respirations. Clear but diminished in the bases. No wheezes, rales, or rhonchi. GASTROINTESTINAL: Abdomen soft, non-tender, nondistended. No guarding. Bowel sounds present. GENITOURINARY: Without palpable bladder distension. MUSCULOSKELETAL: Extremities without clubbing, cyanosis, or edema. No joint tenderness or effusion noted. No calf tenderness. No mottling or clubbing. NEUROLOGICAL: Awake and alert with forgetfulness. Motor and sensory grossly within normal limits. Follows commands with all 4 extremities. PSYCHIATRIC: No obvious anxiety/depression. no apparent hallucinations or other psychotic thought process. Diagnostic Tests Laboratory: Laboratory Results - last 72 hr 04/04/18 04/04/18 04/04/18 19:08 19:08 19:08 WBC 5.5 RBC 3.72 L Hgb 9.9 L Hct 30.4 L MCV 81.6 MCH 26.5 L MCHC 32.5 RDW 17.7 H Plt Count 225 MPV 7.7 Neut % (Auto) 56.6 Lymph % (Auto) 29.5 [place] % (Auto) 11.3 H Eos % (Auto) 1.9 Baso % (Auto) 0.7 Neut # (Auto) 3.1 Lymph # (Auto) 1.6 [place] # (Auto) 0.6 Eos # (Auto) 0.1 Baso # (Auto) 0.0 WBC Differential . Differential Comment Auto diff final PT 10.4 INR 1.0 APTT 25.0 Puncture Site Patient Temperature O2 Saturation ABG pH ABG pCO2 ABG pO2 ABG HCO3 ABG O2 Content ABG Base Excess ABG Methemoglobin Geovanni Test Hemoglobin Carboxyhemoglobin O2 Delivery Device Inspired O2 Critical Value Sodium 140 Potassium 5.1 Chloride 111 H Carbon Dioxide 20.9 L Anion Gap 8 BUN 30 H Creatinine 0.97 Estimated GFR 59 L POC Glucose Random Glucose 99 Lactic Acid Calcium 8.7 Phosphorus Magnesium Total Bilirubin 0.2 AST 64 H ALT 20 Alkaline Phosphatase 190 H Ammonia Total Creatine Kinase Troponin I Less than 0.02 L Total Protein 7.8 Albumin 2.9 L Urine Color Urine Clarity Urine pH Ur Specific [place] Urine Protein Urine Glucose (UA) Urine Ketones Urine Occult Blood Urine Nitrate Urine Bilirubin Urine Urobilinogen Ur Leukocyte Esterase Hyaline Casts Micro UA Comment Urine Culture Comments Nasal Screen MRSA (PCR) Urine Opiates Screen Ur Barbiturates Screen Ur Amphetamines Screen U Benzodiazepines Scrn Urine Cocaine Screen U Cannabinoids Screen 04/04/18 04/04/18 04/04/18 19:08 19:08 21:30 WBC RBC Hgb Hct MCV MCH MCHC RDW Plt Count MPV Neut % (Auto) Lymph % (Auto) [place] % (Auto) Eos % (Auto) Baso % (Auto) Neut # (Auto) Lymph # (Auto) [place] # (Auto) Eos # (Auto) Baso # (Auto) WBC Differential Differential Comment PT INR APTT Puncture Site Patient Temperature O2 Saturation ABG pH ABG pCO2 ABG pO2 ABG HCO3 ABG O2 Content ABG Base Excess ABG Methemoglobin Goevanni Test Hemoglobin Carboxyhemoglobin O2 Delivery Device Inspired O2 Critical Value Sodium Potassium Chloride Carbon Dioxide Anion Gap BUN Creatinine Estimated GFR POC Glucose Random Glucose Lactic Acid 0.5 Calcium Phosphorus Magnesium Total Bilirubin AST ALT Alkaline Phosphatase Ammonia Total Creatine Kinase 171 Troponin I Total Protein Albumin Urine Color Straw Urine Clarity Clear Urine pH 5.0 Ur Specific [place] 1.008 Urine Protein Negative Urine Glucose (UA) Negative Urine Ketones Negative Urine Occult Blood Negative Urine Nitrate Negative Urine Bilirubin Negative Urine Urobilinogen Less than 2 Ur Leukocyte Esterase Negative Hyaline Casts 3 Micro UA Comment Cath-culture not ind Urine Culture Comments Cath-cult not ind Nasal Screen MRSA (PCR) Urine Opiates Screen Ur Barbiturates Screen Ur Amphetamines Screen U Benzodiazepines Scrn Urine Cocaine Screen U Cannabinoids Screen 04/04/18 04/04/18 04/05/18 21:30 22:33 00:45 WBC RBC Hgb Hct MCV MCH MCHC RDW Plt Count MPV Neut % (Auto) Lymph % (Auto) [place] % (Auto) Eos % (Auto) Baso % (Auto) Neut # (Auto) Lymph # (Auto) [place] # (Auto) Eos # (Auto) Baso # (Auto) WBC Differential Differential Comment PT INR APTT Puncture Site Left radial Patient Temperature 98.6 O2 Saturation 94 ABG pH 7.42 ABG pCO2 35 L ABG pO2 80 ABG HCO3 22 ABG O2 Content 11.8 L ABG Base Excess -1.8 ABG Methemoglobin 0.4 Geovanni Test Present Hemoglobin 8.8 L Carboxyhemoglobin 2.1 O2 Delivery Device Room air Inspired O2 21 Critical Value No Sodium Potassium Chloride Carbon Dioxide Anion Gap BUN Creatinine Estimated GFR POC Glucose Random Glucose Lactic Acid Calcium Phosphorus Magnesium Total Bilirubin AST ALT Alkaline Phosphatase Ammonia Total Creatine Kinase Troponin I Total Protein Albumin Urine Color Urine Clarity Urine pH Ur Specific [place] Urine Protein Urine Glucose (UA) Urine Ketones Urine Occult Blood Urine Nitrate Urine Bilirubin Urine Urobilinogen Ur Leukocyte Esterase Hyaline Casts Micro UA Comment Urine Culture Comments Nasal Screen MRSA (PCR) Not detected Urine Opiates Screen Neg Ur Barbiturates Screen Neg Ur Amphetamines Screen Neg U Benzodiazepines Scrn Neg Urine Cocaine Screen Neg U Cannabinoids Screen Neg 04/05/18 04/05/18 04/05/18 01:25 01:39 01:39 WBC 4.4 RBC 3.07 L Hgb 8.4 L Hct 24.7 L MCV 80.6 MCH 27.2 MCHC 33.8 RDW 17.6 H Plt Count 186 MPV 7.5 Neut % (Auto) 52.0 Lymph % (Auto) 35.0 [place] % (Auto) 10.9 H Eos % (Auto) 1.7 Baso % (Auto) 0.4 Neut # (Auto) 2.3 Lymph # (Auto) 1.5 [place] # (Auto) 0.5 Eos # (Auto) 0.1 Baso # (Auto) 0.0 WBC Differential . Differential Comment Auto diff final PT INR APTT Puncture Site Patient Temperature O2 Saturation ABG pH ABG pCO2 ABG pO2 ABG HCO3 ABG O2 Content ABG Base Excess ABG Methemoglobin Geovanni Test Hemoglobin Carboxyhemoglobin O2 Delivery Device Inspired O2 Critical Value Sodium Potassium Chloride Carbon Dioxide Anion Gap BUN Creatinine Estimated GFR POC Glucose 96 Random Glucose Lactic Acid Calcium Phosphorus Magnesium Total Bilirubin AST ALT Alkaline Phosphatase Ammonia 27 Total Creatine Kinase Troponin I Total Protein Albumin Urine Color Urine Clarity Urine pH Ur Specific [place] Urine Protein Urine Glucose (UA) Urine Ketones Urine Occult Blood Urine Nitrate Urine Bilirubin Urine Urobilinogen Ur Leukocyte Esterase Hyaline Casts Micro UA Comment Urine Culture Comments Nasal Screen MRSA (PCR) Urine Opiates Screen Ur Barbiturates Screen Ur Amphetamines Screen U Benzodiazepines Scrn Urine Cocaine Screen U Cannabinoids Screen 04/05/18 04/05/18 04/05/18 01:39 01:39 06:04 WBC RBC Hgb Hct MCV MCH MCHC RDW Plt Count MPV Neut % (Auto) Lymph % (Auto) [place] % (Auto) Eos % (Auto) Baso % (Auto) Neut # (Auto) Lymph # (Auto) [place] # (Auto) Eos # (Auto) Baso # (Auto) WBC Differential Differential Comment PT 10.8 INR 1.1 APTT 25.8 Puncture Site Patient Temperature O2 Saturation ABG pH ABG pCO2 ABG pO2 ABG HCO3 ABG O2 Content ABG Base Excess ABG Methemoglobin Geovanni Test Hemoglobin Carboxyhemoglobin O2 Delivery Device Inspired O2 Critical Value Sodium 147 H Potassium 3.8 D Chloride 115 H Carbon Dioxide 25.3 Anion Gap 7 BUN 27 H Creatinine 0.78 Estimated GFR 75 L POC Glucose 65 L Random Glucose 86 Lactic Acid Calcium 8.0 L Phosphorus 3.8 Magnesium 1.9 Total Bilirubin 0.3 AST 19 ALT 16 Alkaline Phosphatase 148 H Ammonia Total Creatine Kinase Troponin I Less than 0.02 L Total Protein 6.3 L D Albumin 2.7 L Urine Color Urine Clarity Urine pH Ur Specific [place] Urine Protein Urine Glucose (UA) Urine Ketones Urine Occult Blood Urine Nitrate Urine Bilirubin Urine Urobilinogen Ur Leukocyte Esterase Hyaline Casts Micro UA Comment Urine Culture Comments Nasal Screen MRSA (PCR) Urine Opiates Screen Ur Barbiturates Screen Ur Amphetamines Screen U Benzodiazepines Scrn Urine Cocaine Screen U Cannabinoids Screen 04/05/18 04/05/18 04/05/18 06:56 10:00 12:09 WBC RBC Hgb Hct MCV MCH MCHC RDW Plt Count MPV Neut % (Auto) Lymph % (Auto) [place] % (Auto) Eos % (Auto) Baso % (Auto) Neut # (Auto) Lymph # (Auto) [place] # (Auto) Eos # (Auto) Baso # (Auto) WBC Differential Differential Comment PT INR APTT Puncture Site Patient Temperature O2 Saturation ABG pH ABG pCO2 ABG pO2 ABG HCO3 ABG O2 Content ABG Base Excess ABG Methemoglobin Geovanni Test Hemoglobin Carboxyhemoglobin O2 Delivery Device Inspired O2 Critical Value Sodium Potassium Chloride Carbon Dioxide Anion Gap BUN Creatinine Estimated GFR POC Glucose 100 94 86 Random Glucose Lactic Acid Calcium Phosphorus Magnesium Total Bilirubin AST ALT Alkaline Phosphatase Ammonia Total Creatine Kinase Troponin I Total Protein Albumin Urine Color Urine Clarity Urine pH Ur Specific [place] Urine Protein Urine Glucose (UA) Urine Ketones Urine Occult Blood Urine Nitrate Urine Bilirubin Urine Urobilinogen Ur Leukocyte Esterase Hyaline Casts Micro UA Comment Urine Culture Comments Nasal Screen MRSA (PCR) Urine Opiates Screen Ur Barbiturates Screen Ur Amphetamines Screen U Benzodiazepines Scrn Urine Cocaine Screen U Cannabinoids Screen 04/05/18 04/05/18 04/05/18 13:10 18:25 23:29 WBC RBC Hgb Hct MCV MCH MCHC RDW Plt Count MPV Neut % (Auto) Lymph % (Auto) [place] % (Auto) Eos % (Auto) Baso % (Auto) Neut # (Auto) Lymph # (Auto) [place] # (Auto) Eos # (Auto) Baso # (Auto) WBC Differential Differential Comment PT INR APTT Puncture Site Patient Temperature O2 Saturation ABG pH ABG pCO2 ABG pO2 ABG HCO3 ABG O2 Content ABG Base Excess ABG Methemoglobin Geovanni Test Hemoglobin Carboxyhemoglobin O2 Delivery Device Inspired O2 Critical Value Sodium Potassium Chloride Carbon Dioxide Anion Gap BUN Creatinine Estimated GFR POC Glucose 114 H 133 H Random Glucose Lactic Acid Calcium Phosphorus Magnesium Total Bilirubin AST ALT Alkaline Phosphatase Ammonia Total Creatine Kinase Troponin I Less than 0.02 L Total Protein Albumin Urine Color Urine Clarity Urine pH Ur Specific [place] Urine Protein Urine Glucose (UA) Urine Ketones Urine Occult Blood Urine Nitrate Urine Bilirubin Urine Urobilinogen Ur Leukocyte Esterase Hyaline Casts Micro UA Comment Urine Culture Comments Nasal Screen MRSA (PCR) Urine Opiates Screen Ur Barbiturates Screen Ur Amphetamines Screen U Benzodiazepines Scrn Urine Cocaine Screen U Cannabinoids Screen 04/06/18 04/06/18 08:03 08:03 WBC 5.1 RBC 3.17 L Hgb 8.6 L Hct 25.7 L MCV 81.1 MCH 27.2 MCHC 33.5 RDW 17.6 H Plt Count 206 MPV 7.3 Neut % (Auto) 47.6 Lymph % (Auto) 39.9 [place] % (Auto) 10.4 H Eos % (Auto) 1.5 Baso % (Auto) 0.6 Neut # (Auto) 2.4 Lymph # (Auto) 2.1 [place] # (Auto) 0.5 Eos # (Auto) 0.1 Baso # (Auto) 0.0 WBC Differential . Differential Comment Auto diff final PT INR APTT Puncture Site Patient Temperature O2 Saturation ABG pH ABG pCO2 ABG pO2 ABG HCO3 ABG O2 Content ABG Base Excess ABG Methemoglobin Geovanni Test Hemoglobin Carboxyhemoglobin O2 Delivery Device Inspired O2 Critical Value Sodium 140 Potassium 3.9 Chloride 109 H Carbon Dioxide 24.6 Anion Gap 6 BUN 9 Creatinine 0.52 Estimated GFR Greater than 89 POC Glucose Random Glucose 89 Lactic Acid Calcium 8.4 L Phosphorus Magnesium Total Bilirubin 0.2 AST 24 ALT 15 Alkaline Phosphatase 145 H Ammonia Total Creatine Kinase Troponin I Total Protein 6.8 Albumin 2.8 L Urine Color Urine Clarity Urine pH Ur Specific [place] Urine Protein Urine Glucose (UA) Urine Ketones Urine Occult Blood Urine Nitrate Urine Bilirubin Urine Urobilinogen Ur Leukocyte Esterase Hyaline Casts Micro UA Comment Urine Culture Comments Nasal Screen MRSA (PCR) Urine Opiates Screen Ur Barbiturates Screen Ur Amphetamines Screen U Benzodiazepines Scrn Urine Cocaine Screen U Cannabinoids Screen Result Diagrams: 04/06/18 08:03 04/06/18 08:03 Imaging: Cervical Spine CT 04/04/18 18:46 CONCLUSION: 1. Negative trauma study. Chest X-Ray 04/04/18 18:46 CONCLUSION: Mid inspiratory, suboptimal study with crowding of the lung vasculature and no definite acute cardiopulmonary disease. Head CT 04/04/18 18:46 CONCLUSION: 1. Negative noncontrast head CT. 2. The study is degraded by motion and streak artifact. . Venous Doppler Study 04/05/18 15:59 CONCLUSION: Negative exam. No sonographic or Doppler findings of the deep venous or superficial venous thrombosis in either lower extremity. Assessment and Plan - Disease Oriented Problem List (1) Congestive heart failure (2) COPD (chronic obstructive pulmonary disease) (3) Lupus (4) Atrial fibrillation (5) Hypertension Pertinent Non-Medical Issues: Psychosocial: Patient is originally from [place]. She moved to [facility] when she was 19 years old. 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 Patient is though she does not live with he at this time. They have been for approximately 35 years. Patient's currently resides in [place]. Patient has 2 sons, Ryan Saba and Jerome Dalal. Spiritual: Patient is Holiness. 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 Recommending and decision making to be done in collaboration with her son Ryan Julio who is her healthcare surrogate. Her Ryan Murray Jr is her alternate healthcare surrogate. Goals: Patient made herself a no code DNR today. Patient had decided to go to a SNF after conversation yesterday and today she has changed her mind again and wants to go back home on hospice. Hospice reconsulted. CODE STATUS: No code DNR/DNI SYMPTOMS: * Pain: Patient has history of scoliosis, chronic back pain, rheumatoid arthritis. She also has a comminuted right humeral fracture that was not operated on. Patient states that she is on a fentanyl patch 75 mcg for 72 hours and takes hydrocodone 10 mg 4 times daily. Patient is currently on hydromorphone 1 mg IVP every 4 prn , gabapentin 600 mg 3 times daily and baclofen 10 mg 3 times daily scheduled. Patient has required x 4 prn Hydromorphone doses in the past 24hrs and x2 prn Hydrocodone doses in the past 24hrs. * Debility: Patient has history of CHF, COPD on home O2, scoliosis, rheumatoid arthritis, right knee arthroplasty. Patient ambulates with an unsteady gait with a 4 pronged cane and has had multiple falls at home. Patient wants comfort care through hospice services. Palliative care will continue to follow the patient during hospital course as condition evolves, to assist patient/decision-maker with understanding of their medical conditions, weighing benefits/burdens of treatment options, for clarification of goals of treatment. Additionally will assist with any symptoms of palliative concern Attestation Attestation: To help prompt me to consider important information that might be impacting today's encounter and assessment, information from prior notes written by myself or my colleagues may have been "brought forward" into today's note. My signature on this note, however, is an attestation that I personally performed the exam, history, and/or decision-making noted today, and, unless otherwise indicated, the interactions with patient, family, and staff as well as the review of records all occurred today. I also attest that the listed assessment and stated plan reflect my best clinical judgment today based on the combination of historical information, prior notes, and today's exam/ interactions. When time spent is documented, it refers only to time spent today by the signer, or if indicated, combined time spent today by collaborating physician/nurse practitioner.
[2018-04-07] MEDS: Chlorhexidine Gluconate 2% 1 Pack (2 Cloths) TOPICAL SCH (04:46)
--- NOTE | 2018-04-07 07:23 | P.PN ---
Subjective Interval history: Follow up on patient with encephalopathy. Patient encountered in her room sitting up eating breakfast. She denies any acute medical complaints. She appears comfortable and is not in distress. VSS. Afebrile. Physical Exam Vital signs: Vital Signs 04/06/18 07:41 04/06/18 08:00 04/06/18 11:08 Temperature 98.3 F Pulse Rate 78 Respiratory Rate 18 15 Blood Pressure 162/80 H Pulse Oximetry 97 98 04/06/18 11:27 04/06/18 12:00 04/06/18 15:43 Temperature 98.2 F Pulse Rate 71 77 Respiratory Rate 16 18 18 Blood Pressure 153/74 H Pulse Oximetry 100 04/06/18 16:00 04/06/18 18:44 04/06/18 19:33 Temperature 98.5 F Pulse Rate 73 73 Respiratory Rate 18 18 18 Blood Pressure 153/95 H Pulse Oximetry 99 04/06/18 20:00 04/07/18 00:00 04/07/18 00:27 Temperature 97.9 F 98 F Pulse Rate 80 79 77 Respiratory Rate 18 20 20 Blood Pressure 149/80 H 151/90 H Pulse Oximetry 96 94 L 04/07/18 04:00 04/07/18 05:06 Temperature 97.9 F Pulse Rate 74 71 Respiratory Rate 20 20 Blood Pressure 158/83 H Pulse Oximetry 95 Intake & Output 04/06/18 04/07/18 04/07/18 18:59 06:59 18:59 Intake Total 1480 / 1480 1999 Output Total 2400 / 2400 Balance -920 / -920 1999 Intake: IV 1000 / 1000 1999 NS Inj 1,000 ML @ 84 mls/hr IV. 1000 / 1000 1000 / 1000 CONT .[id number] [facility] Rx#:[id number] Oral 480 / 480 Output: Urine 2400 / 2400 Narrative: GENERAL: Well developed well nourished chronically ill appearing female INAD. Awake and alert. Appears comfortable. Sitting up in bed eating breakfast. SKIN: Warm and dry. HEAD: Atraumatic. Normocephalic. EYES: Pupils equal and round. No scleral icterus. No injection or drainage. ENT: No nasal bleeding or discharge. Mucous membranes pink and moist. NECK: Trachea midline. CARDIOVASCULAR: Regular rate and rhythm. RESPIRATORY: No accessory muscle use. Clear to auscultation. Breath sounds equal bilaterally. GASTROINTESTINAL: Abdomen soft, non-tender, nondistended. +BS. MUSCULOSKELETAL: Extremities without clubbing or cyanosis. Trace BLE edema. NEUROLOGICAL: Awake and alert. No obvious cranial nerve deficits. Able to move all extremities spontaneously. Nonfocal. Normal speech. PSYCHIATRIC: Calm and cooperative. - Urinary Catheter Management Indwelling Urethral Catheter Cath placed during this visit: yes Reason for continuing: Terminally ill/Comfort care Insertion date: 04/04/18 Insertion time: 21:30 Results - Labs CBC & Chem 7: 04/06/18 08:03 04/06/18 08:03 Laboratory Results - last 24 hr 04/06/18 04/06/18 04/07/18 08:03 08:03 06:03 WBC 5.1 RBC 3.17 L Hgb 8.6 L Hct 25.7 L MCV 81.1 MCH 27.2 MCHC 33.5 RDW 17.6 H Plt Count 206 MPV 7.3 Neut % (Auto) 47.6 Lymph % (Auto) 39.9 [place] % (Auto) 10.4 H Eos % (Auto) 1.5 Baso % (Auto) 0.6 Neut # (Auto) 2.4 Lymph # (Auto) 2.1 [place] # (Auto) 0.5 Eos # (Auto) 0.1 Baso # (Auto) 0.0 WBC Differential . Differential Comment Auto diff final Sodium 140 Potassium 3.9 Chloride 109 H Carbon Dioxide 24.6 Anion Gap 6 BUN 9 Creatinine 0.52 Estimated GFR Greater than 89 POC Glucose 116 H Random Glucose 89 Calcium 8.4 L Total Bilirubin 0.2 AST 24 ALT 15 Alkaline Phosphatase 145 H Total Protein 6.8 Albumin 2.8 L - Imaging ITS Impressions Cervical Spine CT 04/04/18 18:46 CONCLUSION: 1. Negative trauma study. Chest X-Ray 04/04/18 18:46 CONCLUSION: Mid inspiratory, suboptimal study with crowding of the lung vasculature and no definite acute cardiopulmonary disease. Head CT 04/04/18 18:46 CONCLUSION: 1. Negative noncontrast head CT. 2. The study is degraded by motion and streak artifact. . Venous Doppler Study 04/05/18 15:59 CONCLUSION: Negative exam. No sonographic or Doppler findings of the deep venous or superficial venous thrombosis in either lower extremity. - Procedures None Assessment and Plan - Assessment (1) Encephalopathy Code(s): G93.40 - Encephalopathy, unspecified Status: Acute (2) Opiate overdose Code(s): T40.601A - Poisoning by unspecified narcotics, accidental ( unintentional), initial encounter Status: Acute (3) Fall Code(s): W19.XXXA - Unspecified fall, initial encounter Status: Acute (4) Congestive heart failure Code(s): I50.9 - Heart failure, unspecified Status: Acute (5) COPD (chronic obstructive pulmonary disease) Code(s): J44.9 - Chronic obstructive pulmonary disease, unspecified Status: Acute (6) Lupus Code(s): L93.0 - Discoid lupus erythematosus Status: Acute (7) Atrial fibrillation Code(s): I48.91 - Unspecified atrial fibrillation Status: Acute (8) Anxiety Code(s): F41.9 - Anxiety disorder, unspecified Status: Acute (9) Pain Code(s): R52 - Pain, unspecified Status: Acute (10) Hypertension Code(s): I10 - Essential (primary) hypertension Status: Acute - Plan 04/07 - patient is stable. Awaiting evaluation by [facility] to discharge to home under their care. DW nursing staff, no acute events noted. Altered mental state/Encephalopathy, improved CT head negative most likely due to opioid overdose. -palliative care following, appreciate assistance. Patient has requested to resume [facility] hospice care at home. Hospice consult placed. -Continue [place] prn Congestive heart failure, not in acute exacerbation -Continue lisinopril and metoprolol -continue on Lasix and KCL -monitor for signs of fluid overload Hypertension -continue with lisinopril and metoprolol ?Seizures -No seizure activity observed -Seizure precautions COPD -DuoNeb scheduled and as needed -monitor respiratory status Atrial fibrillation -Continue Eliquis and aspirin -Rate controlled with metoprolol Anxiety -Fluoxetine, Hydroxyzine, and Klonopin Chronic back pain with neuropathy -continue gabapentin. LE pain/swelling -Doppler negative DVT GI prophylaxis -Teds SCDs -Eliquis -Pepcid Code Status: DNR Discussed Condition With: patient, nursing staff, Dr. Petersen Discharge Planning: Plan to discharge to [facility] at home. Discharge order in place awaiting [facility] eval and acceptance. CM assisting with discharge planning. (2) Opiate overdose Qualifiers: Encounter type: initial encounter Injury intent: accidental or unintentional Qualified Code(s): T40.601A - Poisoning by unspecified narcotics, accidental ( unintentional), initial encounter (3) Fall Qualifiers: Encounter type: initial encounter Qualified Code(s): W19.XXXA - Unspecified fall, initial encounter
[2018-04-07] MEDS: Lisinopril 20 MG Tablet PO SCH (09:45)
[2018-04-07] MEDS: Senna/Docusate Sodium 8.6/50 MG Tablet PO SCH (09:46)
[2018-04-07] MEDS: Furosemide 20 MG Tablet PO SCH (09:46)
[2018-04-07] MEDS: Lactobacillus Acidophilus/L. Spores Tablet PO SCH (09:46)
[2018-04-07] MEDS: Gabapentin 300 MG Capsule PO SCH ×2 (09:47→12:59)
[2018-04-07] MEDS: clonazePAM 0.5 MG Tablet PO SCH (09:47)
[2018-04-07] MEDS: Baclofen 10 MG Tablet PO SCH ×2 (09:47→12:59)
[2018-04-07] MEDS: FLUoxetine 20 MG Capsule PO SCH (09:47)
[2018-04-07] MEDS: Famotidine PF Inj 20 MG/2 ML Vial IV.PUSH SCH (09:51)
[2018-04-07 12:51] VITALS: BP 132/68; TEMP 98.3; O2SAT 99
[2018-04-07 13:11] VITALS: PULSE 78; RESP 12
== END 2018-04-07 14:47 | disposition hospice, home (50) ==
LOC: NEPC 18:30 → NEDA 22:05 → HIMC 04-05 00:40 → N05 04-06 00:50
PROVIDERS: ADMIT Family Medicine; ATTEND Family Medicine

== ENCOUNTER 2018-07-17 14:01 | Inpatient (IN) ==
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
[2018-07-17 15:19] LABS: Baso % (Auto) 0.4 % (0.0-2.0); Eos # (Auto) 0.1 th/mm3 (0.0-0.4); Eos % (Auto) 1.1 % (0.0-4.0); Hematocrit 29.8 % (35.0-46.0); Hemoglobin 9.5 gm/dL (11.6-15.3); Lymph # (Auto) 1.8 th/mm3 (1.0-4.8); Lymph % (Auto) 25.2 % (9.0-44.0); Mean Corpuscular HGB Conc 31.9 % (32.0-36.0); Mean Corpuscular Hemoglobin 24.5 pg (27.0-34.0); Mean Corpuscular Volume 76.9 fL (80.0-100.0); Mean Platelet Volume 8.3 fL (7.0-11.0); Mono # (Auto) 0.7 th/mm3 (0.0-0.9); Mono % (Auto) 9.8 % (0.0-8.0); Neut # (Auto) 4.6 th/mm3 (1.8-7.7); Neut % (Auto) 63.5 % (16.0-70.0); Platelet Count 183 th/mm3 (150-450); Red Blood Count 3.88 mil/mm3 (4.00-5.30); White Blood Count 7.2 th/mm3 (4.0-11.0)
[2018-07-17 15:47] LABS: Alkaline Phosphatase 148 U/L (45-117); Total Protein 7.5 g/dL (6.4-8.2)
--- NOTE | 2018-07-17 15:51 | XR ---
EXAM DATE: 07/17/2018 3:46 PM EST AGE/SEX: 62 years / Female INDICATIONS: Chest and severe back pain, fell today CLINICAL DATA: This is the patient's initial encounter. Patient reports that signs and symptoms have been present for 1 day and indicates a pain score of 10/10. MEDICAL/SURGICAL HISTORY: . kyphotic Non-responsive. COMPARISON: [facility], CHEST 1V SINGLE AP, 06/27/2018. . FINDINGS: The heart is at the upper limits of normal in size. There is ectasia of the thoracic aorta. There is diffuse interstitial prominence which is new compared to previous of 06/27/2018 this would suggest mil d congestive failure. There is severe scoliosis of the thoracic spine. There is old fracture of the right humerus. CONCLUSION: Congestive failure. This is new compared to prior. Electronically signed by: Dane Pantoja MD 07/17/2018 3:50 PM EST
[2018-07-17 15:52] LABS: Alanine Aminotransferase 18 U/L (10-53); Anion Gap 7 meq/L (5-15); Aspartate Aminotransferase 38 U/L (15-37); Blood Urea Nitrogen 32 mg/dL (7-18); Calcium 8.6 mg/dL (8.5-10.1); Carbon Dioxide 26.2 meq/L (21.0-32.0); Chloride 103 meq/L (98-107); Glomerular Filtration Rate 56 mL/min (>89); Glucose,Random 78 mg/dL (74-106); Potassium 4.8 meq/L (3.5-5.1); Sodium 136 meq/L (136-145)
--- NOTE | 2018-07-17 16:07 | XR ---
EXAM DATE: 07/17/2018 3:50 PM EST AGE/SEX: 62 years / Female INDICATIONS: Fell today, severe pain chest and back CLINICAL DATA: This is the patient's initial encounter. Patient reports that signs and symptoms have been present for 1 day and indicates a pain score of 10/10. MEDICAL/SURGICAL HISTORY: . kyphosis Non-responsive. [place] [facility] [place] [facility] [place]. . FINDINGS: Severe chronic compression deformity involving L1 is noted. There is moderate compression deformity i nvolving L2 which appears worse than on the previous MRI in January 2018. Scoliosis and degenerative esperanza nges of the lumbar spine are noted. Kyphosis of the thoracolumbar spine is noted. CONCLUSION: 1. Moderate compression deformity involving L2 which appears worse than on the previous MRI in January 2018. 2. Stable severe chronic compression deformity involving L1. 3. Scoliosis and degenerative changes of the lumbar spine. 4. Kyphosis of the thoracolumbar spine. Electronically signed by: Benton Du MD 07/17/2018 4:06 PM EST
--- NOTE | 2018-07-17 16:54 | CT ---
EXAM DATE: 07/17/2018 4:49 PM EST AGE/SEX: 62 years / Female INDICATIONS: Multiple falls. Chest pain. CLINICAL DATA: This is the patient's initial encounter. Patient reports that signs and symptoms have been present for 1 day and indicates a pain score of 10/10. MEDICAL/SURGICAL HISTORY: Congestive heart failure. Hepatitis C. Hypertension. Lupus, fibromyalg ia, scoliosis. None. RADIATION DOSE: 5.58 CTDI (mGy) COMPARISON: [facility], CT PULMONARY ANGIOGRAM, 11/02/2017. . TECHNIQUE: Volumetric scanning was performed using a multi-row detector CT scanner during bolus infu lizette of 65 ml Omnipaque 350 (iohexol) nonionic water-soluble contrast as a single exam dose. The carol a was post processed with a variety of visualization algorithms including full volume maximum intensi ty projection and sliding thin slab reformation. Using automated exposure control and adjustment of the mA and/or kV according to patient size, radiation dose was kept as low as reasonably achievable t o obtain optimal diagnostic quality images. DICOM format image data is available electronically for review and comparison. FINDINGS: Pulmonary Arteries: No filling defects are seen in the pulmonary arteries out to the subsegmental ve ssels. The left and right pulmonary arteries are normal in diameter. Lung: Mild infiltrate or atelectasis in the right middle and lower lobes. Effusion: Small right effusion. Mediastinum: No evidence of mediastinal or hilar adenopathy. Other: The axilla is unremarkable. CONCLUSION: This study is negative for pulmonary embolism. Electronically signed by: Mckinley Sands MD 07/17/2018 4:53 PM EST
[2018-07-17 18:53] LABS: Bacteria,Urine Moderate /hpf; Bilirubin,Urine Negative (Negative); Calcium Oxalate Crystals,Urine Occasional /hpf; Clarity,Urine Cloudy (Clear); Color,Urine Amber (Yellw/Straw); Glucose,Urine (UA) Negative (Negative); Hyaline Casts,Urine 2 /lpf (0-3); Leukocyte Esterase,Urine Moderate (Negative); Mucus,Urine Few /lpf (Occasional); Nitrite,Urine Positive (Negative); Specific Gravity,Urine 1.027 (1.002-1.035); Squamous Epithelial Cell,Urine 2 /hpf (0-5)
[2018-07-18] MEDS ORDERED: Morphine Inj 4 MG/ML Vial IV.PUSH ONE (05:20)
--- NOTE | 2018-07-18 16:07 | ECG ---
Date Performed: 07/17/2018 Time Performed: 14:29:43 PTAGE: 62 years EKG: Sinus rhythm NORMAL ECG PREVIOUS TRACING : 04/05/2018 05.51 Since the previous tracing, no significant change noted DOCTOR: Cole Philippe Interpretating Date/Time 07/18/2018 16:03:46
--- NOTE | 2018-07-18 17:30 | P.HPIM ---
History of Present Illness Primary Care Physician: UNKNOWN History of Present Illness: Patient is a 62 y/o F with chronic pain, fibromyalgia, hep c, htn, scoliosis, CHF, and atrial fibrillation, COPD as per documentation. Pt says she lives at home alone and takes care of herself. She has an abrasion over her left eyebrow after a fall approximately one months ago. As per documentation the patient had some chest pain prior to arrival however on my exam the patient denies any chest pain but has pain all over which is a chronic issue. In the ED after evaluation she was going to be discharged however due to her social situation at home she is unsafe to go back home. I was consulted to evaluate the patient and she will be monitored in the ED as a bedded outpatient while case management finds placement for the patient. Review of Systems All other systems reviewed negative except as stated in HPI PMFSH - History History Provided By: Patient - Medical History Medical History: Medical History (Last Reviewed 07/17/18 @ 15:09 by ADELINA Zelaya) Chronic pain syndrome Congestive heart failure Hepatitis C History of fibromyalgia Hypertension Lupus Scoliosis Shoulder fracture, right - Surgical History Surgical History: Surgical History (Last Reviewed 07/17/18 @ 15:09 by ADELINA Zelaya) H/O elbow surgery H/O esophagogastroduodenoscopy History of arthroplasty of left shoulder History of colonoscopy Hx of tonsillectomy Status post wrist surgery History of tubal ligation (Resolved) - Family History Family History: Family History (Last Reviewed 07/17/18 @ 15:09 by ADELINA Zelaya) Mother Diabetes mellitus Hypertension - Tobacco History Second Hand Smoke Exposure: No Tobacco Use In Past 30 Days: Yes Smoking Status: Current every day smoker Tobacco Type: Cigarettes - Alcohol History How Often Do You Have a Drink Containing Alcohol: Never - Substance Use History Substance History: No History of Abuse - Travel History Recent Travel in the [place] Within the Last 8 Weeks: No Recent Travel Out of the Country Within the Last 8 Weeks: No - Immunization History Tetanus Immunization: <5 Years Medications and Allergies Active Medications: Active Medications Sodium Chloride (Ns Flush) 2 ml IV.FLUSH UNSCH PRN PRN Reason: FLUSH AFTER USING IV ACCESS Trimethoprim/Sulfamethoxazole (Bactrim Ds) 1 tab PO Q12HR [facility] Last Admin: 07/18/18 09:47 Dose: 1 tab Allergies Allergy/AdvReac Type Severity Reaction Status Date / Time penicillin G Allergy Severe Anaphylaxis Verified 06/27/18 17:00 mold Allergy Unknown Cough Verified 06/27/18 17:00 Home Medications Medication Instructions Recorded Confirmed Type Saccharomyces boulardii [Florastor] 250 mg PO DAILY 04/04/18 07/17/18 History albuterol sulfate [Proventil HFA] 2 puff INHALATION Q4-6H PRN 04/04/18 07/17/18 History apixaban [Eliquis] 2.5 mg PO BID 04/04/18 07/17/18 History aspirin [Aspir-81] 81 mg PO DAILY 04/04/18 07/17/18 History baclofen 10 mg PO TID 04/04/18 07/17/18 History clonazepam [Klonopin] 0.5 mg PO BID 04/04/18 07/17/18 History docusate sodium [Dulcolax Stool 100 mg PO DAILY 04/04/18 07/17/18 History Softener (dss)] fentanyl 1 patch TRANSDERMAL Q72H 04/04/18 07/17/18 History fluoxetine [Prozac] 20 mg PO DAILY 04/04/18 07/17/18 History furosemide [Lasix] 20 mg PO DAILY 04/04/18 07/17/18 History gabapentin [Neurontin] 600 mg PO TID 04/04/18 07/17/18 History hydrocodone-acetaminophen [[place]] 1 tab PO Q4-6H PRN 04/04/18 07/17/18 History hydroxyzine HCl 50 mg PO TID PRN 04/04/18 07/17/18 History lisinopril 20 mg PO DAILY 04/04/18 07/17/18 History metoprolol succinate [Toprol XL] 25 mg PO BID 04/04/18 07/17/18 History potassium chloride 10 meq PO DAILY 04/04/18 07/17/18 History Exam Vital signs: Vital Signs 07/17/18 18:00 07/17/18 19:46 07/17/18 21:37 Pulse Rate 65 78 70 Respiratory Rate 18 20 20 Blood Pressure 141/83 H 143/87 H 154/89 H Pulse Oximetry 100 100 100 07/18/18 00:00 07/18/18 02:06 07/18/18 05:03 Pulse Rate 79 74 Respiratory Rate 20 18 Blood Pressure 153/78 H 153/78 H Pulse Oximetry 100 100 07/18/18 05:29 07/18/18 09:50 Pulse Rate 88 Respiratory Rate 16 17 Blood Pressure 155/84 H Pulse Oximetry 96 Intake & Output 07/17/18 07/18/18 07/18/18 18:59 06:59 18:59 Weight 49.895 kg Other: # Voids 2 Narrative: patient complains of gen pain left eyebrow laceration, healed. S1 S2 CTA B/l abd soft, nontender, normal bowel sounds no edmea Scoliosis present patient moves all 4 exts , sensation intact b/l Results - Labs CBC & Chem 7: 07/17/18 15:00 07/17/18 15:00 Labs: Cardiac Enzymes 07/17/18 Range/Units 18:20 Troponin I 0.03 (0.02-0.05) ng/mL Urine 07/17/18 Range/Units 18:00 Urine Color [place] (Yellw/Straw) Urine Clarity Cloudy H (Clear) Urine pH 7.0 (5.0-8.5) Ur Specific [place] 1.027 (1.002-1.035) Urine Protein 30 H (Neg-Trace) mg/dL Urine Glucose (UA) Negative (Negative) mg/dL Caprini VTE Risk Assessment Caprini VTE Risk Assessment: Moderate/High Risk (score >= 2) Caprini Risk Assessment Model: Point Value = 1 Point Value = 2 Point Value = 3 Point Value = 5 Age 41-60 Minor surgery BMI > 25 kg/m2 Swollen legs Varicose veins or History of unexplained or recurrent spontaneous Oral contraceptives or hormone replacement Sepsis (< 1 month) Serious lung disease, including pneumonia (< 1 month) Abnormal pulmonary function Acute myocardial infarction Congestive heart failure (< 1 month) History of inflammatory bowel disease Medical patient at bed rest Age 61-74 Arthroscopic surgery Major open surgery (> 45 min) Laparoscopic surgery (> 45 min) Malignancy Confined to bed (> 72 hours) Immobilizing plaster cast Central venous access Age >= 75 History of VTE Family history of VTE Factor V Leiden Prothrombin [id number] Lupus anticoagulant Anticardiolipin antibodies Elevated serum homocysteine Heparin-induced thrombocytopenia Other congenital or acquired thrombophilia Stroke (< 1 month) Elective arthroplasty Hip, pelvis, or leg fracture Acute spinal cord injury (< 1 month) Prophylaxis Regimen: Total Risk Factor Score Risk Level Prophylaxis Regimen 0-1 Low Early ambulation 2 Moderate Order ONE of the following: *Sequential Compression Device (SCD) *Heparin 5000 units SQ BID 3-4 Higher Order ONE of the following medications: *Heparin 5000 units SQ TID *Enoxaparin/Lovenox 40 mg SQ daily (WT < 150 kg, CrCl > 30 mL/min) *Enoxaparin/Lovenox 30 mg SQ daily (WT < 150 kg, CrCl > 10-29 mL/min) *Enoxaparin/Lovenox 30 mg SQ BID (WT < 150 kg, CrCl > 30 mL/min) AND/OR *Sequential Compression Device (SCD) 5 or more Highest Order ONE of the following medications: *Heparin 5000 units SQ TID (Preferred with Epidurals) *Enoxaparin/Lovenox 40 mg SQ daily (WT < 150 kg, CrCl > 30 mL/min) *Enoxaparin/Lovenox 30 mg SQ daily (WT < 150 kg, CrCl > 10-29 mL/min) *Enoxaparin/Lovenox 30 mg SQ BID (WT < 150 kg, CrCl > 30 mL/min) AND *Sequential Compression Device (SCD) Assessment and Plan - Plan Patient is a 62 y/o F with chronic pain, fibromyalgia, hep c, htn, scoliosis, CHF, and atrial fibrillation, COPD as per documentation. Pt says she lives at home alone and takes care of herself. She has an abrasion over her left eyebrow after a fall approximately one months ago. As per documentation the patient had some chest pain prior to arrival however on my exam the patient denies any chest pain but has pain all over which is a chronic issue. In the ED after evaluation she was going to be discharged however due to her social situation at home she is unsafe to go back home. I was consulted to evaluate the patient and she will be monitored in the ED as a bedded outpatient while case management finds placement for the patient. 1. UTI urinalysis positive for uti. Continue antibiotics. 2. Documented chest pain patient without chest pain on my evaluation EKG shows nsr, no st or t wave changes Trops negative Likely from chronic pain. 3. Chronic pain patient with fibromyalgia, scoliosis continue home meds for pain control 4. a fib continue eliquis continue bb 5. CHF continue bb, lasix held as cr slightly elevated. once normalized can restart lasix. 6. COPD Duoneb as needed. currently on room air. no sob. 7. HTN continue lisinopril continue bb Meds can be adjusted as needed. DVT prophylaxix, pt on Eliquis.
[2018-07-18] MEDS: Furosemide 40 MG Tablet PO SCH (18:11)
[2018-07-18] MEDS: Gabapentin 300 MG Capsule PO SCH (18:11)
[2018-07-18] MEDS: clonazePAM 0.5 MG Tablet PO SCH (20:09)
[2018-07-18] MEDS: Baclofen 10 MG Tablet PO SCH (21:53)
[2018-07-19] MEDS: Baclofen 10 MG Tablet PO SCH ×3 (05:04→21:10)
[2018-07-19] MEDS: Furosemide 40 MG Tablet PO SCH ×2 (09:00→18:14)
[2018-07-19] MEDS: clonazePAM 0.5 MG Tablet PO SCH ×2 (09:09→21:09)
[2018-07-19] MEDS: Gabapentin 300 MG Capsule PO SCH ×3 (09:10→18:14)
[2018-07-19] MEDS: Lisinopril 20 MG Tablet PO SCH (09:10)
--- NOTE | 2018-07-19 16:20 | P.PN ---
Subjective Interval history: Follow up for possible UTI. Patient is currently resting in bed. No acute concerns. No fever, chills. Physical Exam Vital signs: Vital Signs 07/18/18 18:12 07/18/18 20:00 07/18/18 23:57 Temperature 98 F 98.7 F Pulse Rate 86 73 73 Respiratory Rate 17 18 19 Blood Pressure 150/82 H 145/76 H 137/78 Pulse Oximetry 100 95 94 L 07/19/18 00:00 07/19/18 04:00 07/19/18 08:00 Temperature 97.8 F 97.9 F Pulse Rate 76 71 75 Respiratory Rate 18 18 Blood Pressure 155/86 H 152/86 H Pulse Oximetry 93 L 93 L 07/19/18 11:33 07/19/18 11:34 07/19/18 12:00 Temperature 98.3 F Pulse Rate 83 Respiratory Rate 20 20 18 Blood Pressure 154/87 H Pulse Oximetry 93 L Intake & Output 07/18/18 07/19/18 07/19/18 18:59 06:59 18:59 Intake Total 600 / 600 Balance 600 / 600 Weight 45.3 kg 42.9 kg Intake: Oral 600 / 600 Other: # Urine Diapers 3 Weight On Admission 42.9 kg Narrative: GENERAL: Alert, NAD. SKIN: Warm and dry. HEAD: Normocephalic. EYES: No scleral icterus. No injection or drainage. NECK: Supple, trachea midline. No JVD or lymphadenopathy. CARDIOVASCULAR: Regular rate and rhythm without murmurs, gallops, or rubs. RESPIRATORY: Breath sounds equal bilaterally. No accessory muscle use. GASTROINTESTINAL: Abdomen soft, non-tender, nondistended. MUSCULOSKELETAL: No cyanosis, or edema. BACK: Nontender without obvious deformity. No CVA tenderness. Results - Labs CBC & Chem 7: 07/17/18 15:00 07/17/18 15:00 Microbiology 07/17/18 18:00 Clean Catch Urine Urine Culture - Final Proteus mirabilis Assessment and Plan - Plan Patient is a 62 y/o F with chronic pain, fibromyalgia, hep c, htn, scoliosis, CHF, and atrial fibrillation, COPD as per documentation. Pt says she lives at home alone and takes care of herself. She has an abrasion over her left eyebrow after a fall approximately one months ago. As per documentation the patient had some chest pain prior to arrival however on my exam the patient denies any chest pain but has pain all over which is a chronic issue. In the ED after evaluation she was going to be discharged however due to her social situation at home she is unsafe to go back home. I was consulted to evaluate the patient and she will be monitored in the ED as a bedded outpatient while case management finds placement for the patient. UTI urinalysis positive for uti, culture growing Proteus. Continue antibiotics - Bactrim. Chronic pain patient with fibromyalgia, scoliosis continue home meds [place], Baclofen. a fib CHF continue eliquis continue metoprolol succ 25mg Qday. COPD Duoneb as needed. currently on room air. no sob. HTN continue lisinopril 20mg Qday continue Metoprolol succ 25mg Qday. DNR. Apixaban [facility] with [facility]. Patient is DNR. She will likely go to hospice care center tomorrow 07/20/2018.
[2018-07-20] MEDS: Baclofen 10 MG Tablet PO SCH ×2 (05:58→13:33)
[2018-07-20] MEDS: Furosemide 40 MG Tablet PO SCH ×2 (08:43→18:11)
[2018-07-20] MEDS: clonazePAM 0.5 MG Tablet PO SCH ×2 (08:43→20:37)
[2018-07-20] MEDS: Gabapentin 300 MG Capsule PO SCH ×3 (08:43→18:11)
[2018-07-20] MEDS: Lisinopril 20 MG Tablet PO SCH (08:44)
[2018-07-20 12:46] VITALS: RESP 18
[2018-07-20] MEDS: Morphine Sulfate Inj 2 MG/ML Vial IV.PUSH PRN ×2 (13:33→18:13)
--- NOTE | 2018-07-20 14:44 | P.PNWCN ---
Wound Care Nurse Consult Description: Received wound management consult from Doctor García Bonds for R elbow Communicated with: Call placed to Doctor Cammie RN [place] [address] in room for instruction with dressing change. Recommendation: 1.Please cleanse wound to R elbow with normal saline only and pat dry 2. Apply Santyl ointment abbe thickness to wound bed. 3. Apply skin barrier film to periwound 4. pack wound loosely with 2x2 moistened fluffed gauze avoiding intact skin surrounding wound. 5. Cover with Optifoam basic, secured with rolled gauze tape and stockinette. Change dressing daily. Wound/Pressure Injury - Wound Right Elbow Wound Assessment: Ongoing Wound Type: Traumatic Wound Is This a Chronic Wound: No Requested from Provider a Wound Care Consult: Yes (Wound care saw patient today) Length (cm): 1.5 Width (cm): 1.5 Depth (cm): 0.5 (~0.5cm) Wound Bed Appearance: Necrotic, Yellow Wound Bed Appearance: Wound bed presents with ~90% yellow loosely adherent slough and ~10% pink tissue Surrounding Tissue Appearance: [place] Surrounding Tissue Temperature: Cool Drainage Description: Serosanguinous Drainage Amount: Scant Dressing Status: Changed Cleansing Solution: Saline Wound Packing Type: Gauze Pads (2x2 moistened fluffed gauze) Primary Dressing: Optifoam basic Cover Dressing: Gauze Roll/Wrap Tape Type: Paper Wound Dressing Change Date: 07/20/18 Wound Margin Description: Well defined steep wound margins - Additional Information Patient seen on [address] [place] [id number] for evaluation of R elbow wound management. Patient is laying in bed with dislodges telfa dressing in place to R elbow. Dressing was removed completely to reveal open wound to R elbow. Wound bed presents with ~90 % loosely adherent yellow slough and ~10% pink tissue that is moist. Periwound is pink in color and presents with some edema and cool to touch. Wound was cleansed with normal saline and gauze pad. Packed wound loosely with fluffed 2x2 gauze pad that is moistened with normal saline. Wound was then covered with Optifoam Basic and secured with rolled gauze and tape. Full wound description, measurements and wound care recommendations are noted above.
[2018-07-20 16:05] VITALS: BP 113/70; PULSE 75; TEMP 97.7; O2SAT 97
--- NOTE | 2018-07-20 16:14 | P.PN ---
Subjective Interval history: Follow up for Proteus UTI. Patient is currently doing well. Resting in bed. She complains of some pain. She does have a right elbow wound. Physical Exam Vital signs: Vital Signs 07/19/18 17:51 07/19/18 20:00 07/19/18 23:41 Temperature 98.3 F 98.0 F Pulse Rate 100 H 97 H Respiratory Rate 16 16 Blood Pressure 151/84 H 148/87 H Pulse Oximetry 93 L 95 95 07/20/18 03:14 07/20/18 08:00 07/20/18 09:42 Temperature 98.2 F 97.6 F Pulse Rate 88 76 Respiratory Rate 18 20 Blood Pressure 150/82 H 169/86 H Pulse Oximetry 95 97 97 07/20/18 12:00 07/20/18 16:00 Temperature 98.7 F 97.7 F Pulse Rate 80 75 Respiratory Rate 18 18 Blood Pressure 134/86 113/70 Pulse Oximetry 96 97 Intake & Output 07/19/18 07/20/18 07/20/18 18:59 06:59 18:59 Intake Total 480 / 480 100 / 100 Output Total 1000 / 1000 950 / 950 Balance -520 / -520 -850 / -850 Weight 42.9 kg 42.3 kg Intake: Oral 480 / 480 100 / 100 Output: Urine 1000 / 1000 950 / 950 Other: # Bowel Movements 0 Weight On Admission 42.9 kg Narrative: GENERAL: Alert, NAD. SKIN: Warm and dry. HEAD: Normocephalic. EYES: No scleral icterus. No injection or drainage. NECK: Supple, trachea midline. No JVD or lymphadenopathy. CARDIOVASCULAR: Regular rate and rhythm without murmurs, gallops, or rubs. RESPIRATORY: Breath sounds equal bilaterally. No accessory muscle use. GASTROINTESTINAL: Abdomen soft, non-tender, nondistended. MUSCULOSKELETAL: No cyanosis, or edema. Right elbow wound noted. No surrounding erythema noted. BACK: Nontender without obvious deformity. No CVA tenderness. Results - Labs CBC & Chem 7: 07/17/18 15:00 07/17/18 15:00 Microbiology 07/17/18 18:00 Clean Catch Urine Urine Culture - Final Proteus mirabilis Assessment and Plan - Plan Patient is a 62 y/o F with chronic pain, fibromyalgia, hep c, htn, scoliosis, CHF, and atrial fibrillation, COPD as per documentation. Pt says she lives at home alone and takes care of herself. She has an abrasion over her left eyebrow after a fall approximately one months ago. As per documentation the patient had some chest pain prior to arrival however on my exam the patient denies any chest pain but has pain all over which is a chronic issue. In the ED after evaluation she was going to be discharged however due to her social situation at home she is unsafe to go back home. I was consulted to evaluate the patient and she will be monitored in the ED as a bedded outpatient while case management finds placement for the patient. UTI urinalysis positive for uti, culture growing Proteus. Continue antibiotics - Bactrim. Chronic pain patient with fibromyalgia, scoliosis continue home meds [place], Baclofen. a fib CHF continue eliquis continue metoprolol succ 25mg Qday. COPD Duoneb as needed. currently on room air. no sob. HTN continue lisinopril 20mg Qday continue Metoprolol succ 25mg Qday. Right elbow wound Wound care evaluated patient and recommended Marco. DNR. Apixaban Discharge plan: We will discharge patient to [facility] when bed arranged.
[2018-07-20] MEDS ORDERED: Collagenase Oint 30 GM Tube TOPICAL SCH (17:00)
== END 2018-07-20 21:04 | disposition hospice, inpatient (51) ==
LOC: NEPC 14:01 → NEDA 07-18 18:03 → N04 07-18 18:35
PROVIDERS: ADMIT Hospitalist; ATTEND Hospitalist